=== PATIENT | female | born 1945 | race Caucasian/White ===

== ENCOUNTER 2025-04-10 10:20 | Inpatient (IN) | payer MEDICARE, OTHER, SELFPAY ==
[2025-04-10] VITALS (13 sets, daily range): BP systolic 125–158; BP diastolic 65–80; PULSE 86–97; RESP 12–18; TEMP 36.1–37.7; O2SAT 92–100; BMI 19.6; BMI 20.2; BMI 21.5
--- NOTE | ~2025-04-10 | XR_ITS ---
EXAMINATION: XR CHEST 1 VIEW HISTORY: sob COMPARISON: There are no prior studies available for comparison. FINDINGS: A single AP portable view of the chest performed at 9:11 AM is submitted. There is blunting of both costophrenic angles, suggestive of tiny pleural effusions. There are increased markings bilaterally. No focal airspace opacity is seen. There is no pneumothorax. The heart is normal in size. There is calcification of the aorta. There is degenerative disc disease of the spine. XR/XR chest 1V IMPRESSION: Probable tiny bilateral pleural effusions. Electronically signed by: Nathaniel Dasilva MD 04/20/2025 08:36 AM [facility] [place]
--- NOTE | ~2025-04-10 | CT_ITS ---
EXAMINATION: CT ABDOMEN PELVIS WITHOUT IV CONTRAST HISTORY: severe lower abd pain COMPARISON: There are no prior studies available for comparison. TECHNIQUE: CT scan of the abdomen and pelvis was performed without contrast using standard departmental protocol. Coronal and sagittal reformatted images were generated and reviewed. This CT exam was performed with one or more of the following dose reduction techniques: automated exposure control, adjustment of the mA and/or kV according to patient size, use of iterative reconstruction technique. DLP: 316 mGy-cm FINDINGS: LOWER CHEST: The visualized lung bases are clear. There is no pleural effusion. CARDIOVASCULATURE: The heart is normal in size. There is no pericardial effusion. LIVER: The liver is normal in size and contour. The liver has an unremarkable unenhanced appearance. GALLBLADDER / BILE DUCTS: Slightly distended gallbladder measuring 3.5 x 3.5 x 11 cm. Gallbladder otherwise unremarkable. No gallstones. There is no intra or extrahepatic biliary ductal dilatation. SPLEEN: The spleen is normal in size and has an unremarkable unenhanced appearance. PANCREAS: The pancreas has an unremarkable unenhanced appearance. ADRENAL GLANDS: Unremarkable. KIDNEYS/RETROPERITONEUM: No renal calculi are identified. There is no hydronephrosis. There is a 1.8 cm low-attenuation lesion in the lateral mid left kidney probably representing a cyst. There may be left renal peripelvic cysts. LYMPH NODES: No retroperitoneal lymphadenopathy is identified in the abdomen or pelvis. VASCULATURE: Atherosclerotic disease. Slightly dilated, aorta measuring up to 2.7 cm. No aneurysm. MESENTERY/PERITONEUM: Small amount of fluid in the lower abdomen and pelvis. There is mild edema or fat stranding of the small bowel mesentery. Small focus of air in the pelvis posterior to the uterus axial image 62 series 3 and sagittal reconstructed image 50 series 8. It is difficult to exclude small amount of free intraperitoneal air. No other evidence of free air is seen. STOMACH: There may be a small esophageal hernia. The stomach is under distended and difficult to evaluate. SMALL BOWEL: There are fluid-filled slightly distended loops of small bowel. There is an abnormal loop of distal small bowel seen in the right pelvis that demonstrates mild wall thickening and small bowel feces sign. This measures up to 2.8 cm in diameter. COLON: Large amount of stool in the colon/severe constipation. Colon is slightly dilated, cecum measuring up to 7 cm. There is diverticulosis of the colon. There is wall thickening of the sigmoid colon questionable for colitis or diverticulitis. APPENDIX: Not definitely seen. URINARY BLADDER/PELVIC ORGANS: The urinary bladder is unremarkable. Uterus and adnexa are unremarkable. No pelvic mass. BONES / SOFT TISSUES: Degenerative changes of the spine and scoliosis. Small umbilical hernia containing fat. CT/CT abdomen pelvis wo IV con IMPRESSION: Severe constipation. Wall thickening of the sigmoid colon questionable for colitis or diverticulitis. Small amount of fluid in the lower abdomen and pelvis. Question small focus of free intraperitoneal air in the pelvis posterior to the uterus. Fluid-filled distended small bowel. Abnormal loop of distal small bowel in the right pelvis with mild wall thickening and small bowel feces sign. Atherosclerotic disease. Mild dilatation of the abdominal aorta measuring 2.7 cm. No aneurysm. Left renal cysts. Distended gallbladder. Findings communicated to the emergency room physician Deon Parra by telephone 05/11/2025 at 1:50 pm. Electronically signed by: Gabriella Lundy MD 04/10/2025 02:03 PM EDT
--- NOTE | ~2025-04-10 | CT_ITS ---
CLINICAL HISTORY: recent surgery, worsening thrombocytosis CT abdomen and pelvis without contrast Comparison: CT/ND/SR - CT ABDOMEN PELVIS WITHOUT IV CONTRAST - 04/10/2025 12:46 PM EDT Findings: [id number] right and small left pleural effusion of the basilar compressive segmental atelectasis. Partial mineralization of the mitral valve. Unremarkable gallbladder and solid organs. No urolithiasis. Left lower quadrant colostomy. Prior surgical anastomosis at the distal sigmoid colon. Calcified coronary atherosclerotic disease. Mild calcified atherosclerotic disease of the abdominal aorta. Small amount of ascites. Recent midline abdominal surgery with surgical skin jaron present. The uterus is mildly atrophic. Cewy-ih-llpfecse osteopenia. Circumferential subcutaneous edema. Lumbar dextroscoliosis. IMPRESSION: 1. Zucrn-xl-ftrybmdo right and small left pleural effusion with basilar compressive atelectasis. 2. Interval left lower quadrant colostomy and surgical anastomosis at the distal sigmoid colon. 3. Anasarca. 4. No acute intraabdominal or pelvic findings. This document has been electronically signed by: Candelario Myles MD on 04/23/2025 18:19:12
--- NOTE | 2025-04-10 10:43 | PC.NURSE ---
80 F presents from home via EMS for n/v, abdominal pain since sunday with 8/10 lower abdomen pain. Pt is A+OX4, calm, cooeprative. RR even and unlabored, denies CP or SOB. Pt sts she has had mucous in stool and dark stool. Pt ambulates without devices.
--- NOTE | 2025-04-10 11:01 | ECG_ITS ---
Test Reason : AP Blood Pressure : */* mmHG Vent. Rate : 90 BPM Atrial Rate : 90 BPM P-R Int : 120 ms QRS Dur : 72 ms QT Int : 326 ms P-R-T Axes : 67 43 54 degrees QTcB Int : 398 ms Normal sinus rhythm Nonspecific ST and T wave abnormality Abnormal ECG No previous ECGs available Referred By: Melida Cote Electronically Signed By: SANDIP PATTERSON MD
--- NOTE | 2025-04-10 11:38 | ED_ITS ---
HPI - Abdominal Pain General Chief Complaint: Abdominal Pain Stated Complaint: sharp pain Time Seen by Provider: 04/10/25 10:58 Source: patient and family Mode of arrival: ambulatory Limitations: no limitations History of Present Illness ED Provider: LUPILLO HPI narrative: 80 yo female with PMH of GERD, HLD, HTN, not on thinners, no prior abdominal surgeries here with c/o nausea, poor PO intake, worsening abdominal pain since sunday night. She has no hx of diverticulitis, no fevers, she is weak. She was unable to take any meds this AM. She has never had this before. She has no pain urinating. It hurts to move and she cannot stand up. MD elicited complaint: abdominal pain Pertinent past history: none Onset (ago): day(s) (1.5) Pain Consistency: constant Location: periumbilical and suprapubic Severity: severe Quality: stabbing Migration to: no migration Exacerbating factors: movement Relieving factors: nothing Associated symptoms: nausea and chills Related Data Home Medications ?Medication ?Instructions ?Recorded ?Confirmed atorvastatin 10 mg tablet 10 mg PO BEDTIME 02/18/25 diltiazem HCl 240 mg 240 mg PO DAILY 02/18/25 capsule,extended release 24 hr famotidine 20 mg tablet 20 mg PO BID 02/18/25 olmesartan 20 mg tablet 20 mg PO DAILY 02/18/25 Previous Rx's ?Medication ?Instructions ?Recorded sumatriptan succinate 50 mg tablet 50 mg PO DAILY #18 tabs 03/05/25 Allergies Allergy/AdvReac Type Severity Reaction Status Date / Time No Known Allergies Allergy Verified 04/10/25 10:38 Review of Systems Review of Systems Constitutional : No Fever, pos Chills ENT/Mouth : No sore throat, No Rhinorrhea Eyes: No Swelling, No Redness Cardiovascular : No Chest Pain, No SOB, NoEdema Respiratory : No Cough, No Sputum, No Wheezing Gastrointestinal : Positive Nausea, Positive Vomiting, no Diarrhea, positive abdominal Pain, No Hematochezia, No Melena Genitourinary : No Dysuria, No Urinary Frequency, No Hematuria, No Urgency Musculoskeletal : No joint pain, No Myalgias, No Joint Swelling Skin : No Skin Lesions, No rash Neuro : pos Weakness, No Numbness, No Dizziness, No Headache All other systems reviewed and are negative. [facility] Past Medical History Attestation statement: The following information was validated with the patient. Source: old records reviewed Medical History Migraine with aura Migraine without aura Hypertension Social History Social History Smoked in Last 30 Days: No Use of substances other than those prescribed or required for medical reasons: No Advance Directives: No Advance Directives Information Provided: Yes Do you have a plan to hurt others: No Plan Physical Exam ED Vital Signs: Vital Signs - 24 hr 04/10/25 10:31 04/10/25 10:41 04/10/25 12:39 Temperature 97 F 97 F 98.2 F Pulse Rate 86 86 96 Respiratory Rate 18 18 18 Blood Pressure 158/80 H 158/80 H 144/66 H Pulse Oximetry 92 92 97 Oxygen Delivery Method Room Air Room Air Room Air BMI result Body Mass Index 19.6 Appearance: Alert. Oriented X3. No acute distress. Eyes: Pupils equal, round and reactive to light. ENT: Pharynx very dry MM Neck: Normal inspection. Neck supple. CVS: Normal heart rate and rhythm. Pulses normal. Respiratory: No respiratory distress. Breath sounds normal. Abdomen: soft but sig ttp in lower abd with rebound and guarding Skin: Skin warm and dry. Normal skin color. poor skin turgor. Extremities: No lower extremity edema. Neuro: Oriented X 3. No motor deficit. No sensory deficit. CN2-12 intact Medical Decision Making Medical Decision Making [facility] Narrative: 80 yo female with PMH of GERD, HLD, HTN, not on thinners, no prior abdominal surgeries here with c/o severe abdominal pain, poor PO intake at this time I am going to obtain IV, labs, lactic acid and CT scan. I have ordered IV morphine, tylenol and empiric zosyn I am concerned about acute abd pathology. Will monitor closely and obtain stat CT scan. Possible perf, diverticulitis with complication, colitis, ischemia, mass. Differential Diagnosis Differential Diagnoses: The differential diagnosis associated with the presentation includes diverticulitis, colitis, perforation, mass, ischemia Admission/Observation Consideration of admission/observation: Escalation of care including admission/observation considered admit for surgery Consult Healthcare Provider Management of the patient was discussed with: Archivist Political History Dr. Gallagher notified 155pm to see patient Lab Data [facility] Lab Attestation statement: I reviewed the patient's lab results. 04/10/25 11:29 04/10/25 11:29 Labs: Lab Results 04/10/25 04/10/25 Range/Units 11:29 12:29 WBC 21.5 H (4.8-10.8) X10*3/uL RBC 4.08 L (4.20-5.50) X10*6/uL Hgb 11.7 L (12.0-16.0) g/dl Hct 36.8 L (37.0-47.0) % MCV 90.2 (80.0-98.0) fL MCH 28.7 (27.0-33.0) pg MCHC 31.8 (31.0-35.0) g/dl RDW 15.3 (11.0-16.0) % Plt Count 305 (160-400) X10*3/uL MPV 9.8 (9.4-12.3) fL Immature Gran % (Auto) Cancelled Neut % (Auto) Cancelled Lymph % (Auto) Cancelled [place] % (Auto) Cancelled Eos % (Auto) Cancelled Baso % (Auto) Cancelled Lymph # (Auto) Cancelled [place] # (Auto) Cancelled Eos # (Auto) Cancelled Baso # (Auto) Cancelled Abs Immat Gran (auto) Cancelled Absolute Neuts (auto) Cancelled Absolute Nucleated RBC 0.000 (0.0-0.012) X10*3/uL Nucleated RBC % (auto) 0.0 (0.0-0.2) /100WBC Neutrophils % (Manual) 90 H (45-73) % Band Neutrophils % 6 H (3-5) % Lymphocytes % (Manual) 2 L (20-40) % Monocytes % (Manual) 1 L (2-11) % Metamyelocytes % 1 % Abs Neuts (Manual) 20.6 H (2.0-8.3) X10*3/uL Lymphocytes # (Manual) 0.4 L (1.2-4.9) X10*3/uL Monocytes # (Manual) 0.2 (0.1-1.2) X10*3/uL Metamyelocytes # 0.2 X10*3/uL Toxic Granulation PRESENT Toxic Vacuolation PRESENT Dohle Bodies PRESENT Platelet Estimate NORMAL (NORMAL) Plt Morphology Comment NORMAL RBC Morphology NOTED Ryan Cells 3+ (>5) /OIF Acanthocytes (Spur) 2+ (3-5) /OIF PT 16.5 H (10.9-12.4) SEC INR 1.4 H (0.9-1.1) Sodium 143 (135-145) mmol/L Potassium 4.1 (3.3-5.1) mmol/L Chloride 115 H (96-108) mmol/L Carbon Dioxide 17 L (22-29) mmol/L Anion Gap 15 (12-20) BUN 32 H (9-16) mg/dL Creatinine 1.91 H (0.5-1.4) mg/dL Estim Creat Clear Calc 18.3 Estimated GFR 25 Random Glucose 93 (60-115) mg/dL Lactic Acid 2.4 H* (0.5-2.0) mmol/L Calcium 9.1 (8.4-10.2) mg/dL Magnesium 2.0 (1.6-2.6) mg/dL Total Bilirubin 0.4 (0.0-1.0) mg/dL Direct Bilirubin 0.2 (0.0-0.5) mg/dL AST 26 (5-31) U/L ALT < 6 (0-31) U/L Alkaline Phosphatase 94 (39-117) U/L Troponin I High Sens 3.9 (<3.5-17.0) ng/L C-Reactive Protein 38.12 H (< or = 0.50) mg/dL Total Protein 7.3 (6.5-8.0) g/dL Albumin 4.0 (3.5-5.0) g/dL Lipase < 4 L (8-78) U/L Blood Type B Positive Antibody Screen NEGATIVE Independent Interpretation I performed an independent interpretation of an: EKG and CT Scan (diverticulitis, colitis, perforation) Interpretation: Rate: 90 Rhythm: NSR [place]: normal Normal P waves. Normal [place]ANNER. Normal QRS complex. ST T wave : flat t waves throughout, no LORENZO qTC: 398 prior studies: no prior The study has been interpreted contemporaneously by me. . Radiology Impression Discussion of test interpretation with radiology: I have reviewed the radiologist's reading. Independent Historian Clinical information obtained from an independent historian. History obtained from or confirmed by: Other (family, spoke to son Javier as well who is neurologist) External Record Review External record reviewed: Outpatient record Medications Administered Discontinued Medications Generic Name Dose Route Start Last Admin Trade Name Michelle PRN Reason Stop Dose Admin Acetaminophen 1,000 mg in 100 mls @ 400 mls/hr 04/10/25 11:06 04/10/25 11:55 Ofirmev IV 04/10/25 11:20 Infused ONCE ONE Infusion Lactated Ringer's 1,000 mls @ 999 mls/hr 04/10/25 11:06 04/10/25 11:45 Lr IV 04/10/25 12:06 999 mls/hr .Q1H1M ONE Administration Piperacillin Sod/Tazobactam 50 mls @ 100 mls/hr 04/10/25 11:06 04/10/25 12:20 Sod 3.375 gm/ Sodium Chloride IV 04/10/25 11:35 Infused ONCE ONE Infusion Lactated Ringer's 1,000 mls @ 999 mls/hr 04/10/25 11:10 04/10/25 11:46 Lr IV 04/10/25 12:10 999 mls/hr .Q1H1M ONE Administration Morphine Sulfate 4 mg 04/10/25 11:06 04/10/25 11:40 Morphine Sulfate 4 Mg/Ml Cartridge IVPUSH 04/10/25 11:07 4 mg ONCE ONE Administration Protocol Ondansetron HCl 4 mg 04/10/25 11:01 04/10/25 11:40 Ondansetron Hcl 4 Mg/2 Ml Vial IVPUSH 04/10/25 11:02 4 mg ONCE ONE Administration Critical Care Time Critical Care Time Critical Care Time: Yes Total Critical Care Time: 60 Attestation: Time is exclusive of separately billable procedures. Time includes: direct patient care, patient reassessment, coordination of patient care, interpretation of data (laboratory data, pulse oximetry, CT scans), review of patient's medical records, medical consultation and documentation of patient care. Procedures excluded from critical care time: central intravenous line placement and electrocardiography. I attest to this time spent taking care of the patient Discharge Plan Discharge Clinical Impression: Diverticulitis, Colon perforation, Elevated WBC count, Acidosis, lactic, ANGELITO (acute kidney injury) Patient Disposition: Admitted As Inpatient Print Language: Ecuadorean
[2025-04-10] MEDS: Lactated Ringers 1,000 ML 999 ML IV ×2 (11:45→11:46)
[2025-04-10 11:56] LABS: Hematocrit 36.8 % (37.0-47.0); Hemoglobin 11.7 g/dl (12.0-16.0); Mean Corpuscular HGB Conc 31.8 g/dl (31.0-35.0); Mean Corpuscular Hemoglobin 28.7 pg (27.0-33.0); Mean Corpuscular Volume 90.2 fL (80.0-98.0); NRBC Abs Auto 0.000 X10*3/uL (0.0-0.012); NRBC Pct Auto 0.0 /100WBC (0.0-0.2); Platelet Count 305 X10*3/uL (160-400); Red Blood Count 4.08 X10*6/uL (4.20-5.50); White Blood Count 21.5 X10*3/uL (4.8-10.8)
[2025-04-10 12:09] LABS: Troponin-I High Sensitivity 3.9 ng/L (<3.5-17.0)
[2025-04-10 12:15] LABS: Band Neutrophils Percent 6 % (3-5); Lymphocytes Absolute Manual 0.4 X10*3/uL (1.2-4.9); Lymphocytes Percent Manual 2 % (20-40); Metamyelocytes Absolute 0.2 X10*3/uL; Metamyelocytes Percent 1 %; Monocytes Absolute Manual 0.2 X10*3/uL (0.1-1.2); Monocytes Percent Manual 1 % (2-11); Neutrophils Absolute Manual 20.6 X10*3/uL (2.0-8.3); Neutrophils Percent Manual 90 % (45-73)
[2025-04-10 12:16] LABS: Acanthocytes 2+ (3-5) /OIF; Burr Cells 3+ (>5) /OIF; Dohle Bodies PRESENT; RBC Morphology NOTED
[2025-04-10 12:17] LABS: Toxic Granulation PRESENT; Toxic Vacuolation PRESENT
[2025-04-10 12:28] LABS: Alanine Aminotransferase < 6 U/L (0-31); Albumin Level 4.0 g/dL (3.5-5.0); Alkaline Phosphatase 94 U/L (39-117); Anion Gap 15 (12-20); Aspartate Amino Transferase 26 U/L (5-31); Blood Urea Nitrogen 32 mg/dL (9-16); Calcium 9.1 mg/dL (8.4-10.2); Carbon Dioxide 17 mmol/L (22-29); Chloride 115 mmol/L (96-108); Creatinine Clr Calc Pharmacy 18.3; Estimated Glomerular Filt Rate 25; Lipase < 4 U/L (8-78); Magnesium 2.0 mg/dL (1.6-2.6); Potassium 4.1 mmol/L (3.3-5.1); Sodium 143 mmol/L (135-145); Total Protein 7.3 g/dL (6.5-8.0)
--- OUTSIDE RECORDS SUMMARY | 2025-04-10 12:36 | XMS_ITS ---
Author Name [facility] Organization Unknown Care Team Organization Name Specialty Phone Email Start Date End Da te [facility] ACO 02/04/2025 [facility] Alena Quiroz Primary Care 02/22/2023 024 [facility] Jodie Keller Primary Care 11/24/2022 024 [facility] MILLICENT Pineda Primary Care 04/25/202201/16
--- OUTSIDE RECORDS SUMMARY | 2025-04-10 12:36 | XMS_ITS | Clinical Summary ---
Author Organization [facility] [address] [place] [address] [place] [phone] Phone Care Team Providers Care Cream Gatherer Name Role Phone Alena Quiroz MD Primary Care Provider [phone] Allergies Active Allergy Reactions Criticality Noted Date Comments Lisinopril 04/21/2019 Dry cough Sulfa (Sulfonamide Antibiotics) Rash 03/20 Medications loratadine (CLARITIN) 10 mg tablet Take 1 tablet (10 mg total) by mouth. Active Imitrex 50 mg tablet Take by mouth. 01/30/2007 Active famotidine (PEPCID) 20 mg tablet TAKE 1 TABLET BY MOUTH TWICE A DAY 180 tablet 1 10/24/2024 Active dilTIAZem CD (CARDIZEM CD) 240 mg 24 hr capsule TAKE 1 CAPSULE BY MOUTH EVERY DAY 90 capsule 1 10/24/2024 Active atorvastatin (LIPITOR) 10 mg tablet TAKE 1 TABLET BY MOUTH EVERYDAY AT BEDTIME 90 tablet 1 10/24/2024 Active olmesartan (BENICAR) 20 mg tablet TAKE 1 TABLET (20 MG TOTAL) BY MOUTH ONCE DAILY 90 tablet 02/03/2025 Active Active Problems Problem Noted Date Diagnosed Date Tubular adenoma of colon 05/16/2022 Overview (05/23/2024): CN done 04/28/2022 Abnormal MRI of abdomen 04/13/2022 Renal cyst 04/13/[address] of the abdomen 04/07/2022 Altered taste 04/04/2022 Grief 04/04/2022 Osteopenia of hip 04/04/2022 Weight loss 04/04/2022 Mild aortic insufficiency 03/26/2019 Overview (05/23/2024): Per echo 02/05/19, ECHO 12/14/2020 mild-moderate AI Cylindrical bronchiectasis (CMS/HCC V24, CMS/HCC V28) 02/13/2019 Ascending aorta dilation (CMS/HCC V24) 9 Overview (05/23/2024): [address] chest on 01/21/19. Consider repeat imaging in 1 year:ECHO 12/14/2020 3.8 cm, no sig change, EF 55-60% Dilation of esophagus 01/21/2019 Overview (05/23/2024): Dilation of thoracic esophagus containing fluid and air per CT chest on 01/20/19 Diverticulitis of colon without hemorrhage 03/22 Overview (05/23/2024): Incidental finding at colonoscopy 03/22/2007. Diffuse esophageal spasm 01/24/2007 Overview (05/23/2024): EGD 01/24/2007: No esophagitis, no stricture, biopsies negative for eosinophilic esophagitis. Diffuse esophageal spasm most likely based on esophageal manometry (2007) and UGI series. 03/14/2019 Ba swallow still w BETZAIDA Essential hypertension, benign 04/16/2006 Overview (05/23/2024): Last Assessment & Plan: BP elevated today, has f/u scheduled with PCP Migraine with aura 04/16/2006 Overview (05/23/2024): IMO update Immunizations Immunization Administration Dates Next Due Influenza trivalent, 0.5mL ( Fluad) 65yo and older 03/06/2024,02/26/2023,04/04/2022,03/31,03/24/2019 Influenza trivalent, 0.5mL, preservative free (Fluarix; FluLaval; Fluzone) ages 6mo and older (Afluria) 3 years and older 03/23/2010 Influenza, Unspecified 05/06/2021,04/07/2014 Moderna (age 6mo & older) Bi valent, COVID-19, 0.5 mL or 0.25 mL dosage 04/17/2022 Moderna SARS-CoV-2 COVID-19, mRNA, LNP-S, preservative free 05/06/2021,09/06/2020,08/09/2020 Pfizer (ages 12 & older) Biv alent, COVID-19 04/17/2022 Pneumococcal conjugate 13 va lent (Prevnar 13, PCV13) 2mo and older 11/02/2020 Pneumococcal polysaccharide 23 valent (Pneumovax 23) 2yo and older 08/15/2011 Tdap Tetanus diptheria acell ular pertussis (Boostrix; Adacel) 7yo and older 01/08/2019,03/04/2007 Surgical History Surgery Date Site/Laterality Comments OTHER SURGICAL HISTORY 12/10/2007 PROCEDURE: UT ESOPHAGEAL MOTILITY STUDY W/INTERP&RPT; COMMENT: diffuse esophageal spasm TONSILLECTOMY 1950 PROCEDURE: HISTORICAL TONSILLECTOMY WRIST SURGERY PROCEDURE: HISTORICAL WRIST SURGERY; COMMENT: left, fx COLONOSCOPY 03/22/2007 PROCEDURE: HISTORICAL COLONOSCOPY; COMMENT: negative UPPER GASTROINTESTINAL ENDOSCOPY 01/24/2007 PROCEDURE: UT UPPER GI ENDOSCOPY PERFORMED UPPER GASTROINTESTINAL ENDOSCOPY 03/07/2019 PROCEDURE: UT UPPER GI ENDOSCOPY PERFORMED; COMMENT: No visible obstruction or esophagitis. COLONOSCOPY 04/28/2022 PROCEDURE: HISTORICAL COLONOSCOPY; COMMENT: Tubular adenoma OTHER SURGICAL HISTORY 04/28/2022 PROCEDURE: UPPER GI ENDOSCOPY, REMOVE LESION; COMMENT: No specimens BREAST CYST EXCISION pt doesn't remember which breast Medical History Medical History Date Comments Essential hypertension, benign 04/16/2006 D X:Essential hypertension, benign Migraine with aura, without mention of intractable migraine without mention of status migrainosus 04/16/2006 DX:Migraine with aura, witho ut mention of intractable migraine without mention of status migrainosus Dysphagia 01/24/2007 DX:Dysphagia; CO MMENT: EGD 01/24/2007 Diverticulosis of colon (wit hout mention of hemorrhage) 03/22/2007 DX:Diverticulosis of colon ( without mention of hemorrhage); COMMENT: Incidental finding at colonoscopy 03/22/2007. Special screening for malign ant neoplasms, colon 03/22/2007 DX:Special screening for mal ignant neoplasms, colon; COMMENT: Negative colonoscopy 03/22/2007, no colon cancer screening needed for 10 years. Colon polyp 05/16/2022 DX:Colon polyp; COMMENT: CN done 04/28/2022 Tubular adenoma of colon 05/16/2022 DX:Tubu lar adenoma of colon; COMMENT: CN done 04/28/2022 Family History Medical History Relation Name Comments No Known Problems Brother CABG Father in his 80s Diabetes Father Heart attack Father in his 50s Diabetes Maternal Grandmother Diabetes Mother Hypertension Mother Multiple myeloma Mother CABG Sister 1 in her 70s, copy lathe tender d Cervical cancer Sister 2 Hypertension Sister 2 No Known Problems Sister 3 No Known Problems Sister 4 Breast cancer Neg Hx Colon cancer Neg Hx Ovarian cancer Neg Hx Relation Name Status Comments Brother Father (Age 90) Maternal Grandmother Mother (Age 79) Sister 1 (Age 75) Sister 2 Sister 3 Sister 4 Social History Tobacco Use Types Packs/Day Years Used Date Smoking Tobacco: Former Cigarettes Q uit: 06/18/1969 Smokeless Tobacco: Never Tobacco Cessation:Counseling Given: Not Answered Alcohol Use Standard Drinks/Week Comments Yes 0 (1 standard drink = 0.6 oz pur e alcohol) Comments No Sex and Gender Information Value Date Recorded Sex Assigned at Not on file Legal Sex Female 8:20 AM EST Gender Identity Not on file Sexual Orientation Not on file Obstetrics History Para Term AB IAB SAB Ectopic Multiple Livin g Live Births 3 3 3 3 Date Outcome GA Total Labor Labor/2nd/3rd Weight Sex Type Anes PTL Rachel A1 A5 Name Clin Term Term Term Last Filed Vital Signs Vital Sign Reading Time Taken Comments Blood Pressure 108/72 09/08/2024 2:53 PM EDT Pulse 72 09/08/2024 2:53 PM EDT Temperature 36.7 C (98 F) 09/08/2024 2:53 PM EDT Respiratory Rate 14 09/08/2024 2:53 PM EDT Oxygen Saturation - - Inhaled Oxygen Concentration - - Weight 50.3 kg (110 lb 12.8 oz) 09/08/2024 2:53 PM EDT Height 157.5 cm (5' 2 ) 09/08/2024 2:53 PM EDT Body Mass Index 20.27 09/08/2024 2:53 PM EDT Plan of Treatment Upcoming Encounters Date Type Department Care Team (Late st Contact Info) Description 04/23/2025 1:30 PM EST Office Visit Adult Medicine [facility] [address] [place] [address] Alena Quiroz MD [address] [place], [place] Health Maintenance Due Date Last Done Comments Zoster Vaccines (1 of 2) 02/22/1996 RSV Immunization Adult Patients (1 - 1-dose 75+ series) 2021 Social Influencers of Health Screening 05/27/2022 Depression Screening 06/18/2024 03/06/2024 COVID-19 Vaccine ( season) 2025 04/17/2022, 04/17/2022, 05/06/2021, Additional history exists Influenza Vaccine (#1) 2025 , 02/26/2023, 04/04/2022, Additional history exists Medicare Annual Wellness Visit 03/06/2025 03/06/2024 Falls Risk Assessment 04/15/2025 04/15/2024 Hypertension/CHF/CAD Annual BMP Blood Test 09/08/2025 09/08/2024, 03/07/2024, 03/07/2024 DTaP,Tdap,and Td Vaccines (3 - Td or Tdap) 01/08/2029 01/08/2019, 03/04/2007 Cholesterol Screening (Lipid Panel) 03/07/2029 03/07/2024, 03/07/2024 Colorectal Cancer Screening: Colonoscopy 04/28/2032 04/28/2022, 04/28/2022 Osteoporosis Screening (Bone Density Screening) 05/08/2032 05/08/2022, 01/10/2019 Hepatitis C Screening Completed 10/24/2013 Pneumococcal Vaccine: 50+ Years Completed 11/02/2020, 08/15/2011 HIB Vaccines Aged Out No longer eligi ble based on patient's age to complete this topic HPV Vaccines Aged Out No longer eligi ble based on patient's age to complete this topic Hepatitis A Vaccines Aged Out No long er eligible based on patient's age to complete this topic Hepatitis B Vaccines Aged Out No long er eligible based on patient's age to complete this topic IPV Vaccines Aged Out No longer eligi ble based on patient's age to complete this topic MMR Vaccines Aged Out No longer eligi ble based on patient's age to complete this topic Meningococcal ACWY Vaccine Aged Out N o longer eligible based on patient's age to complete this topic Meningococcal B Vaccine Aged Out No l onger eligible based on patient's age to complete this topic RSV Immunization Patients Under 20 months Aged Out No longer eligible based on patient's age to complete this topic Varicella Vaccines Aged Out No longer eligible based on patient's age to complete this topic Procedures Procedure Name Priority Date/Time Associated Diagnosis Comments BASIC METABOLIC PANEL Routine 09/08/2024 3:56 PM EDT Essential hypertension, benign FALLS RISK ASSESSMENT Routine 04/15/2024 LIPID PANEL Routine 03/07/2024 DEPRESSION SCREENING Routine 03/06/2024 DXA BONE DENSITY STUDY 1+ SITS AXIAL SKEL Routine 05/08/2022 1:00 PM EST Other specified disorders of bone density and structure, unspecified thigh EXTERNAL COLONOSCOPY REPORT Routine 04/28/2022 7:47 AM EST HEPATITIS C SCREENING Routine 10/24/2013 from Last 3 Months or Most Recently Relevant to Health Maintenance Results * (ABNORMAL) Basic metabolic panel (09/08/2024 3:56 PM EDT) Sodium 141 133 - 145 mmol/L LAB CHEMISTRY METHOD 09/08/2024 6:57 PM EDT [facility] Potassium 4.7 3.5 - 5.5 mmol/L LAB CHEMISTRY METHOD 09/08/2024 6:57 PM EDT [facility] Chloride 111(H) 96 - 110 mmol/L LAB CHEMISTRY METHOD 09/08/2024 6:57 PM EDT [facility] CO2 21 21 - 32 mmol/L LAB CHEMISTRY METHOD 09/08/2024 6:57 PM EDT [facility] Anion Gap 9 3 - 11 LAB CHEMISTRY METHOD 09/08/2024 6:57 PM EDT [facility] Glucose 84 70 - 100 mg/dL LAB CHEMISTRY METHOD 09/08/2024 6:57 PM EDT [facility] BUN 18 5 - 25 mg/dL LAB CHEMISTRY METHOD 09/08/2024 6:57 PM EDT [facility] Creatinine 0.87 0.50 - 1.10 mg/dL LAB CHEMISTRY METHOD 09/08/2024 6:57 PM EDT [facility] eGFR 68 >=60 mL/min/1. 73m2 LAB CHEMISTRY METHOD 09/08/2024 6:57 PM EDT [facility] Comment:Calculation based on the Chronic Kidney Disease Epidemiology Collaboration (CKD-EPI) equation refit without adjustment for race. BUN/Creatinine Ratio 20.7 LAB CHEMISTRY METHOD 09/08/2024 6:57 PM EDT [facility] Calcium 9.1 8.5 - 10.5 mg/dL LAB CHEMISTRY METHOD 09/08/2024 6:57 PM EDT [facility] Blood Venous blood specimen / Unknown Venipuncture / Unknown 09/08/2024 3:56 PM EDT 09/08/2024 3:56 PM EDT Pritesh DANGELO LAB BLOOD ORDERABLES Final Res ult [facility] [address] [place] [address], * Falls Risk Assessment (04/15/2024) Pathologist [facility] Falls Risk Assessment abstracted Historical Provider HEALTH MAINTENANCE Final Result * Lipid panel (03/07/2024) LDL/HDL Ratio 2 0 - 4 Triglycerides 69 0 - 150 mg/dL Cholesterol 172 0 - 200 mg/dL HDL 77 >=40 mg/dL LDL Cholesterol 82 0 - 100 mg/dL Blood Venous blood specimen / Unknown us Historical Provider LAB BLOOD ORDERABLES Delaney l Result * Depression Screening (03/06/2024) Depression Screening abstracted us Historical Provider HEALTH MAINTENANCE Final Result * DXA BONE DENSITY STUDY 1+ SITS AXIAL SKEL (05/08/2022 1:00 PM EST) Anatomical Region Laterality Modality Bone Densitometr y 04/04/2022 10:1 0 AM EDT Narrative 05/08/2022 8:38 PM EST BONE DENSITY SCAN (DEXA): FINDINGS: Lumbar Spine T-score is -1.1. (SD relative to 20-29 y/o adult) Z-score is 1.4. (SD relative to age matched peers) This is considered osteopenia by WHO criteria. Left Hip T-score is -2.0. Z-score is 0.1. This is considered osteopenia by WHO criteria. Comparison exam(s): As recent as 01/10/2019 and as far back as 04/28/2003. No statistically significant change in bone mineral density compared with previous and baseline exams. IMPRESSION: IMPRESSION: Osteopenia by WHO criteria. This patient has a 17% risk of major osteoporotic fracture and a 4.3% risk of hip fracture over the next 10 years. (World Health Organization Fracture Risk Assessment) [facility] Department of Internal Medicine recommends using National Osteoporosis Foundation (NOF) guidelines in treatment decisions related to osteoporosis. NOF guidelines suggest considering treatment for postmenopausal women and men aged 50 or older presenting with the following: History of hip or vertebral fracture. T-score = -2.5 (DXA) at the femoral neck, total hip, or spine, after appropriate evaluation to exclude secondary causes. Low bone mass (T-score between -1.0 and -2.5 at the femoral neck or spine) AND a 10-year probability of a hip fracture = 3% OR a 10-year probability of a major osteoporosis-related fracture = 20% based on the [place]-adapted WHO algorithm Please note that all treatment decisions require clinical judgment and consideration of individual patient factors, including patient preferences, co-morbidities, previous drug use, risk factors not captured in the FRAX model (e.g., frailty, falls, vitamin D deficiency, increased bone turnover, interval significant decline in bone density) and possible under- or over-estimation of fracture risk by FRAX. Optional alternative screening schedule based on issa Mayer., [facility] July 06, 2011 for patients with osteopenia (based on hip BMD T-score) is as follows: * advanced osteopenia (T scores -2.00 to -2.49), BMD testing every year * moderate osteopenia (T scores -1.50 to -1.99), BMD testing every 5 years mild osteopenia or normal BMD (T scores -1.50 and higher), BMD testing every 15 years Procedure Note Jael Colón MD - 07/23/2023 BONE DENSITY SCAN (DEXA): FINDINGS: Lumbar Spine T-score is -1.1. (SD relative to 20-29 y/o adult) Z-score is 1.4. (SD relative to age matched peers) This is considered osteopenia by WHO criteria. Left Hip T-score is -2.0. Z-score is 0.1. This is considered osteopenia by WHO criteria. Comparison exam(s): As recent as 01/10/2019 and as far back as 04/28/2003.No statistically significant change in bone mineral density compared with previous andbaseline exams. IMPRESSION: IMPRESSION: Osteopenia by WHO criteria. This patient has a 17% risk of majorosteoporotic fracture and a 4.3% risk of hip fracture over the next 10 years. (World HealthOrganization Fracture Risk Assessment) [facility] Department of Internal Medicine recommendsusing National Osteoporosis Foundation (NOF) guidelines in treatment decisions related toosteoporosis. NOF guidelines suggest considering treatment for postmenopausal women and menaged 50 or older presenting with the following: History of hip or vertebral fracture. T-score = -2.5 (DXA) at the femoral neck, total hip, or spine, afterappropriate evaluation to exclude secondary causes. Low bone mass (T-score between -1.0 and -2.5 at the femoral neck or spine)AND a 10-year probability of a hip fracture = 3% OR a 10-year probability of a majorosteoporosis-related fracture = 20% based on the [place]-adapted WHO algorithm Please note that all treatment decisions require clinical judgment andconsideration of individual patient factors, including patient preferences, co- morbidities,previous drug use, risk factors not captured in the FRAX model (e.g., frailty, falls, vitaminD deficiency, increased bone turnover, interval significant decline in bone density) andpossible under- or over-estimation of fracture risk by FRAX. Optional alternative screening schedule based on ursula Mayer al., NEJMJanuary 2011 for patients with osteopenia (based on hip BMD T-score) is as follows: * advanced osteopenia (T scores -2.00 to -2.49), BMD testing every year * moderate osteopenia (T scores -1.50 to -1.99), BMD testing every 5years mild osteopenia or normal BMD (T scores -1.50 and higher), BMD testingevery 15 years Jodie DANGELO IMG DXA PROCEDURES Final Result * External Colonoscopy Report (04/28/2022 7:47 AM EST) Anatomical Region Laterality Modality Endoscopy Historical Provider GI~PROCEDURE ORDERABLES F inal Result * Hepatitis C Screening (10/24/2013) Hepatitis C Screening abstracted Historical Provider HEALTH MAINTENANCE Final Result from Last 3 Months or Most Recently Relevant to Health Maintenance Insurance MEDICARE [employer] Care Teams Cream Gatherer Relationship Specialty Start Date End Date Alena Quiroz MD [address] [place] [phone] PCP - General Internal Medicine 01/23/22
--- NOTE | 2025-04-10 12:47 | PC.NURSE ---
pt just went to cat scan, sts no more n/v, abdominal pain down to a 5/10. RR even and unlabored, no visible s/s of distress.
[2025-04-10 12:48] LABS: INTERNATIONAL NORM RATIO 1.4 (0.9-1.1); Prothrombin Time 16.5 SEC (10.9-12.4)
[2025-04-10 13:37] LABS: Reflex Lactate? Lactic Acid Added
[2025-04-10 14:21] LABS: ~Lactic Acid-LAB USE ONLY 2.5 mmol/L (0.5-2.0)
[2025-04-10] MEDS: Lactated Ringers 1,000 ML 80 ML IVCONT (14:21)
[2025-04-10 14:45] LABS: Appearance Urine Clear; Glucose Urine UA Negative (Negative); PH 5.5 (5.0-9.0); Specific Gravity - Urine 1.020 (1.005-1.025); UMIC TRIGGER UACC YES
[2025-04-10 15:00] LABS: UACC Culture Trigger YES
--- NOTE | 2025-04-10 15:32 | PHA.MEDREC ---
Addendum entered by Codie Sierra RPh 04/10/25 16:00: MED REC REVIEWED BY [facility] Original Note: Pharmacy Consult ? Medication Reconciliation Pharmacy has completed the medication reconciliation. Spoke with pt and she confirmed her medications.
--- NOTE | 2025-04-10 15:52 | PC.NURSE ---
Report called to [employer].
[2025-04-10 15:53] LABS: Reflex Lactate? 2 Y
--- NOTE | 2025-04-10 16:10 | PM.HPGS ---
History of Present Illness History of Present Illness Date of Service: 04/10/25 Chief complaint: perforated diverticulitis Narrative: Christianne Edmondson is a 80 year old female who presents to the emergency room after a 2 day history of increasing abdominal pain and having worsening constipation as well. She normally has some baseline GI symptoms however most of this is upper GI with issues consisting of dysphagia and reflux. She sees a cooler operator at [facility]. She did have a colonoscopy about 5 years ago and said that she knew that she had diverticular disease and the small polyp. As far as she knows she has never had any significant diverticulitis. Her pain was getting worse and she felt nauseated at times. As a result today she came to the emergency room. Here she [place] [id number] with 6 bandemia and diffuse peritonitis. CT scan of her abdomen and pelvis was carried out and shows thickened sigmoid colon with some loculated areas of free air in the lower pelvic area. Her creatinine was elevated and despite resuscitation her lactic acid was still little elevated around 2.5. Surgical consultation was had and after reviewing the CT scan and the patient it was determined that she would benefit from exploration and most likely sigmoid colectomy and colostomy creation. She denied any significant fever or chills. No urinary symptoms no chest pain no shortness of breath. She has never had any surgery before. Patient's son is a neurologist at [facility] and her case was discussed with him preoperatively Review of Systems Review of Systems: Yes all other systems are reviewed and are negative PMFSH Past Medical History Medical History Migraine with aura Migraine without aura Hypertension Surgical History Surgical History (Updated 04/10/25 @ 16:17 by Yue Andres RN) H/O wrist surgery Social History Social History Household Members Other:: son lives nearby Do you presently have visiting nurse or other home services: No Patient Tobacco Use Status: Former Tobacco user Tobacco use type: Cigarette Meds Allergies Allergy/AdvReac Type Severity Reaction Status Date / Time Penicillins Allergy Intermediate Rash Verified 04/10/25 16:19 Sulfa (Sulfonamide Allergy Intermediate Rash Verified 04/10/25 16:19 Antibiotics) lisinopril AdvReac Intermediate Cough Verified 04/10/25 16:20 Active Medications: Current Medications Acetaminophen (Acetaminophen 325 Mg Tablet) 650 mg PO Q6H PRN PRN Reason: Pain, Mild 1-3,fever,headache Calcium Carbonate (Calcium Carbonate 750 Mg Tab.Chew) 750 mg PO Q4H PRN PRN Reason: Heartburn Lactated Ringer's (Lr) 1,000 mls @ 80 mls/hr IVCONT .[id number] [facility] Last Admin: 04/10/25 14:21 Dose: 80 mls/hr Magnesium Hydroxide (Milk Of Magnesia 30 Ml Oral.Susp) 30 ml PO DAILY PRN PRN Reason: Constipation Melatonin (Melatonin 3 Mg Tablet) 6 mg PO BEDTIME PRN PRN Reason: Insomnia Sodium Chloride (0.9 % Sodium Chloride Flush 3 Ml Syringe) 3 ml IVFLUSH QSHIFT [facility] Home Medications ?Medication ?Instructions ?Recorded ?Confirmed ?Last Taken ?Type atorvastatin 10 mg tablet 10 mg PO BEDTIME 02/18/25 04/10/25 04/08/25 History diltiazem HCl 240 mg 240 mg PO DAILY 02/18/25 04/10/25 04/08/25 History capsule,extended release 24 hr famotidine 20 mg tablet 20 mg PO BID 02/18/25 04/10/25 04/08/25 History olmesartan 20 mg tablet 20 mg PO BEDTIME 02/18/25 04/10/25 04/08/25 History bismuth subsalicylate 262 mg/15 mL 524 mg PO QID PRN Constipation 04/10/25 04/10/25 Unknown History oral suspension (Pepto-Bismol) diphenhydramine 25 1 tab PO BEDTIME PRN Sleep 04/10/25 04/10/25 Unknown History mg-acetaminophen 500 mg tablet (Acetaminophen PM) ibuprofen 200 mg tablet (Advil) 200 mg PO Q6H PRN migrine 04/10/25 04/10/25 Unknown History sumatriptan succinate 50 mg tablet 50 mg PO DAILY PRN Migraine 04/10/25 04/10/25 Unknown History Headache Physical Exam Vital Signs: Vital Signs: Last Vital Signs Temp 98.2 F 04/10/25 12:39 Pulse 97 04/10/25 12:50 Resp 18 04/10/25 12:50 BP 129/65 04/10/25 12:50 Pulse Ox 95 04/10/25 12:50 O2 Del Method Room Air 04/10/25 12:50 BMI result Body Mass Index 19.6 Const: General: cooperative, acute distress moderate and tired appearing Orientation/consciousness: oriented to person, oriented to place and oriented to time Eyes: Other: Nonicteric Resp: Effort & Inspection: normal respiratory effort Auscultation: clear to auscultation bilaterally Cardio: Rate: regular rate Rhythm: regular rhythm Heart sounds: S1 normal heart sound present and S2 normal heart sound present GI: Other: Abdomen is soft little distended diffusely tender with guarding and some peritoneal signs. No palpable masses are noted Skin: Other: No obvious rashes Neuro: General: oriented to person, oriented to place and oriented to time Cranial nerves: Yes CN's II-XII intact bilaterally Results Results Labs: Short CBC 04/10/25 Range/Units 11:29 WBC 21.5 H (4.8-10.8) X10*3/uL Hgb 11.7 L (12.0-16.0) g/dl Hct 36.8 L (37.0-47.0) % Plt Count 305 (160-400) X10*3/uL BMP 04/10/25 11:29 Sodium 143 Potassium 4.1 Chloride 115 H Carbon Dioxide 17 L BUN 32 H Creatinine 1.91 H Calcium 9.1 Liver Function 04/10/25 Range/Units 11:29 Total Bilirubin 0.4 (0.0-1.0) mg/dL Direct Bilirubin 0.2 (0.0-0.5) mg/dL AST 26 (5-31) U/L ALT < 6 (0-31) U/L Alkaline Phosphatase 94 (39-117) U/L Albumin 4.0 (3.5-5.0) g/dL Urine 04/10/25 Range/Units 14:30 Urine Color Yellow Urine Appearance Clear Urine pH 5.5 (5.0-9.0) Ur Specific [place] 1.020 (1.005-1.025) Urine Protein 30 (1+) H (Neg-Trace) mg/dL Urine Glucose (UA) Negative (Negative) mg/dL Additional studies: MR#: [id number] : 1945 Acct:[id number] Age/Sex: 80 / F ADM Date: 04/10/25 Loc: HO.ED Attending Dr: Ordering Physician: Melida Cote DO Date of Service: 04/10/25 Procedure(s): CT abdomen pelvis wo IV con Accession Number(s): [id number] cc: Melida Cote DO; Alena Quiroz MD~ Report Number: [id number]: Total DLP = 316.00 mGy-cm Reason for Exam: severe lower abd pain EXAMINATION: CT ABDOMEN PELVIS WITHOUT IV CONTRAST HISTORY: severe lower abd pain COMPARISON: There are no prior studies available for comparison. TECHNIQUE: CT scan of the abdomen and pelvis was performed without contrast using standard departmental protocol. Coronal and sagittal reformatted images were generated and reviewed. This CT exam was performed with one or more of the following dose reduction techniques: automated exposure control, adjustment of the mA and/or kV according to patient size, use of iterative reconstruction technique. DLP: 316 mGy-cm FINDINGS: LOWER CHEST: The visualized lung bases are clear. There is no pleural effusion. CARDIOVASCULATURE: The heart is normal in size. There is no pericardial effusion. LIVER: The liver is normal in size and contour. The liver has an unremarkable unenhanced appearance. GALLBLADDER / BILE DUCTS: Slightly distended gallbladder measuring 3.5 x 3.5 x 11 cm. Gallbladder otherwise unremarkable. No gallstones. There is no intra or extrahepatic biliary ductal dilatation. SPLEEN: The spleen is normal in size and has an unremarkable unenhanced appearance. PANCREAS: The pancreas has an unremarkable unenhanced appearance. ADRENAL GLANDS: Unremarkable. KIDNEYS/RETROPERITONEUM: No renal calculi are identified. There is no hydronephrosis. There is a 1.8 cm low-attenuation lesion in the lateral mid left kidney probably representing a cyst. There may be left renal peripelvic cysts. LYMPH NODES: No retroperitoneal lymphadenopathy is identified in the abdomen or pelvis. VASCULATURE: Atherosclerotic disease. Slightly dilated, aorta measuring up to 2.7 cm. No aneurysm. MESENTERY/PERITONEUM: Small amount of fluid in the lower abdomen and pelvis. There is mild edema or fat stranding of the small bowel mesentery. Small focus of air in the pelvis posterior to the uterus axial image 62 series 3 and sagittal reconstructed image 50 series 8. It is difficult to exclude small amount of free intraperitoneal air. No other evidence of free air is seen. STOMACH: There may be a small esophageal hernia. The stomach is under distended and difficult to evaluate. SMALL BOWEL: There are fluid-filled slightly distended loops of small bowel. There is an abnormal loop of distal small bowel seen in the right pelvis that demonstrates mild wall thickening and small bowel feces sign. This measures up to 2.8 cm in diameter. COLON: Large amount of stool in the colon/severe constipation. Colon is slightly dilated, cecum measuring up to 7 cm. There is diverticulosis of the colon. There is wall thickening of the sigmoid colon questionable for colitis or diverticulitis. APPENDIX: Not definitely seen. URINARY BLADDER/PELVIC ORGANS: The urinary bladder is unremarkable. Uterus and adnexa are unremarkable. No pelvic mass. BONES / SOFT TISSUES: Degenerative changes of the spine and scoliosis. Small umbilical hernia containing fat. CT/CT abdomen pelvis wo IV con IMPRESSION: Severe constipation. Wall thickening of the sigmoid colon questionable for colitis or diverticulitis. Small amount of fluid in the lower abdomen and pelvis. Question small focus of free intraperitoneal air in the pelvis posterior to the uterus. Fluid-filled distended small bowel. Abnormal loop of distal small bowel in the right pelvis with mild wall thickening and small bowel feces sign. Atherosclerotic disease. Mild dilatation of the abdominal aorta measuring 2.7 cm. No aneurysm. Left renal cysts. Distended gallbladder. Findings communicated to the emergency room physician Deon Parra by telephone 05/11/2025 at 1:50 pm. Electronically signed by: Gabriella Lundy MD 04/10/2025 02:03 PM EDT Dictated By: Gabriella Lundy MD Signed By: <Electronically signed by Gabriella Lundy MD in OV> 04/10/25 1403 DD/ 1246 TD/TT: 04/10/25 1300 S[employer] Solution Architect: MIGUEL Assessment and Plan (1) Diverticulitis: Status: Acute (2) Colon perforation: Status: Acute Plan 80-year-old female with abdominal pain times 48-72 hours [place] [address] elevated lactic acid and acute kidney insufficiency with elevated creatinine. Most likely secondary to colitis with localized perforation. Severe constipation as well. Plan to carry out exploratory laparotomy with bowel resection and possible ostomy creation. The risks and benefits were discussed with the patient including but not limited to bleeding infection possible bowel injury possible hernia but despite this she wishes to proceed. Extensive discussion was also had with the patient's family and her son who is a neurologist. They understand and agree with proceeding with this surgery. Quality Stroke Does the patient have a stroke diagnosis?: No VTE Prior VTE?: No VTE Risk Level:: Medical - moderate - high VTE Device Contraindication: N/A - Device Ordered VTE Drug Contraindication: N/A - Med Ordered Procedures Date of Service Date of Service: 04/10/25
--- NOTE | 2025-04-10 16:33 | HO.ANESPROP2 ---
HPI - Anesthesia Eval Consult details Narrative: 80 yo F presenting for exploratory laparotomy. Admitted with perforated colon. [facility] Active Problems Active Problems: All Active Problems ANGELITO (acute kidney injury) (Acute) Acidosis, lactic (Acute) Elevated WBC count (Acute) Colon perforation (Acute) Diverticulitis (Acute) Past Medical History Medical History (Updated 04/10/25 @ 16:14 by Yue Andres RN) Diffuse esophageal spasm High cholesterol GERD (gastroesophageal reflux disease) Migraine with aura Migraine without aura Hypertension Family History Family history of problems with anesthesia: No Surgical History Surgical History (Updated 04/10/25 @ 16:17 by Yue Andres RN) H/O wrist surgery History of Problems with Anesthesia: No Social History Social History Smoked in Last 30 Days: No Use of substances other than those prescribed or required for medical reasons: No Advance Directives: No Advance Directives Information Provided: Yes Do you have a plan to hurt others: No Plan Meds Allergies Allergy/AdvReac Type Severity Reaction Status Date / Time Penicillins Allergy Intermediate Rash Verified 04/10/25 16:19 Sulfa (Sulfonamide Allergy Intermediate Rash Verified 04/10/25 16:19 Antibiotics) lisinopril AdvReac Intermediate Cough Verified 04/10/25 16:20 Active Medications: Current Medications Acetaminophen (Acetaminophen 325 Mg Tablet) 650 mg PO Q6H PRN PRN Reason: Pain, Mild 1-3,fever,headache Calcium Carbonate (Calcium Carbonate 750 Mg Tab.Chew) 750 mg PO Q4H PRN PRN Reason: Heartburn Lactated Ringer's (Lr) 1,000 mls @ 80 mls/hr IVCONT [facility][id number] Last Admin: 04/10/25 14:21 Dose: 80 mls/hr Magnesium Hydroxide (Milk Of Magnesia 30 Ml Oral.Susp) 30 ml PO DAILY PRN PRN Reason: Constipation Melatonin (Melatonin 3 Mg Tablet) 6 mg PO BEDTIME PRN PRN Reason: Insomnia Sodium Chloride (0.9 % Sodium Chloride Flush 3 Ml Syringe) 3 ml IVFLUSH QSHIFT [facility] Home Medications ?Medication ?Instructions ?Recorded ?Confirmed ?Last Taken ?Type atorvastatin 10 mg tablet 10 mg PO BEDTIME 02/18/25 04/10/25 04/08/25 History diltiazem HCl 240 mg 240 mg PO DAILY 02/18/25 04/10/25 04/08/25 History capsule,extended release 24 hr famotidine 20 mg tablet 20 mg PO BID 02/18/25 04/10/25 04/08/25 History olmesartan 20 mg tablet 20 mg PO BEDTIME 02/18/25 04/10/25 04/08/25 History bismuth subsalicylate 262 mg/15 mL 524 mg PO QID PRN Constipation 04/10/25 04/10/25 Unknown History oral suspension (Pepto-Bismol) diphenhydramine 25 1 tab PO BEDTIME PRN Sleep 04/10/25 04/10/25 Unknown History mg-acetaminophen 500 mg tablet (Acetaminophen PM) ibuprofen 200 mg tablet (Advil) 200 mg PO Q6H PRN migrine 04/10/25 04/10/25 Unknown History sumatriptan succinate 50 mg tablet 50 mg PO DAILY PRN Migraine 04/10/25 04/10/25 Unknown History Headache Exam Exam Date and Time: 04/10/25 1630 Height,Weight and Vital Signs: Height 5 ft 2 in Weight 48.534 kg Last Vital Signs Temp 98.2 F 04/10/25 12:39 Pulse 97 04/10/25 12:50 Resp 18 04/10/25 12:50 BP 129/65 04/10/25 12:50 Pulse Ox 95 04/10/25 12:50 O2 Del Method Room Air 04/10/25 12:50 Pertinent Lab Results Pertinent Lab Results: Laboratory Tests 04/10/25 04/10/25 04/10/25 11:29 12:29 13:50 WBC 21.5 H RBC 4.08 L Hgb 11.7 L Hct 36.8 L MCV 90.2 MCH 28.7 MCHC 31.8 RDW 15.3 Plt Count 305 MPV 9.8 Immature Gran % (Auto) Cancelled Neut % (Auto) Cancelled Lymph % (Auto) Cancelled [place] % (Auto) Cancelled Eos % (Auto) Cancelled Baso % (Auto) Cancelled Lymph # (Auto) Cancelled [place] # (Auto) Cancelled Eos # (Auto) Cancelled Baso # (Auto) Cancelled Abs Immat Gran (auto) Cancelled Absolute Neuts (auto) Cancelled Absolute Nucleated RBC 0.000 Nucleated RBC % (auto) 0.0 Neutrophils % (Manual) 90 H Band Neutrophils % 6 H Lymphocytes % (Manual) 2 L Monocytes % (Manual) 1 L Metamyelocytes % 1 Abs Neuts (Manual) 20.6 H Lymphocytes # (Manual) 0.4 L Monocytes # (Manual) 0.2 Metamyelocytes # 0.2 Toxic Granulation PRESENT Toxic Vacuolation PRESENT Dohle Bodies PRESENT Platelet Estimate NORMAL Plt Morphology Comment NORMAL RBC Morphology NOTED Ryan Cells 3+ (>5) Acanthocytes (Spur) 2+ (3-5) PT 16.5 H INR 1.4 H Sodium 143 Potassium 4.1 Chloride 115 H Carbon Dioxide 17 L Anion Gap 15 BUN 32 H Creatinine 1.91 H Estim Creat Clear Calc 18.3 Estimated GFR 25 Random Glucose 93 Lactic Acid 2.4 H* Lactic Acid F/U @ 2Hr 2.5 H* Calcium 9.1 Magnesium 2.0 Total Bilirubin 0.4 Direct Bilirubin 0.2 AST 26 ALT < 6 Alkaline Phosphatase 94 Troponin I High Sens 3.9 C-Reactive Protein 38.12 H Total Protein 7.3 Albumin 4.0 Lipase < 4 L Urine Color Urine Appearance Urine pH Ur Specific [place] Urine Protein Urine Glucose (UA) Urine Ketones Urine Blood Urine Nitrite Ur Leukocyte Esterase Urine RBC Urine WBC Ur Squamous Epith Cells Urine Bacteria Hyaline Casts Blood Type B Positive Antibody Screen NEGATIVE 04/10/25 14:30 WBC RBC Hgb Hct MCV MCH MCHC RDW Plt Count MPV Immature Gran % (Auto) Neut % (Auto) Lymph % (Auto) [place] % (Auto) Eos % (Auto) Baso % (Auto) Lymph # (Auto) [place] # (Auto) Eos # (Auto) Baso # (Auto) Abs Immat Gran (auto) Absolute Neuts (auto) Absolute Nucleated RBC Nucleated RBC % (auto) Neutrophils % (Manual) Band Neutrophils % Lymphocytes % (Manual) Monocytes % (Manual) Metamyelocytes % Abs Neuts (Manual) Lymphocytes # (Manual) Monocytes # (Manual) Metamyelocytes # Toxic Granulation Toxic Vacuolation Dohle Bodies Platelet Estimate Plt Morphology Comment RBC Morphology [place] Cells Acanthocytes (Spur) PT INR Sodium Potassium Chloride Carbon Dioxide Anion Gap BUN Creatinine Estim Creat Clear Calc Estimated GFR Random Glucose Lactic Acid Lactic Acid F/U @ 2Hr Calcium Magnesium Total Bilirubin Direct Bilirubin AST ALT Alkaline Phosphatase Troponin I High Sens C-Reactive Protein Total Protein Albumin Lipase Urine Color Yellow Urine Appearance Clear Urine pH 5.5 Ur Specific [place] 1.020 Urine Protein 30 (1+) H Urine Glucose (UA) Negative Urine Ketones Negative Urine Blood Trace H Urine Nitrite Positive H Ur Leukocyte Esterase Small (1+) H Urine RBC 0-2 Urine WBC 6-10 H Ur Squamous Epith Cells 6-10 Urine Bacteria 2+ Hyaline Casts 6-10 Blood Type Antibody Screen Airway Mallampati Class: II TM Dist: <=3cm Neck ROM: Full Loose/Missing/Broken Teeth: Yes (several missing molars right lower jaw and 2 broken teeth on left side) Heart: S1S2 Lungs: CTAB Assessment and Plan Assessment Anesthesia Assessment: Anesthesia Plan Discussed and Chart Reviewed Final Anesthetic Review Family History of Problems with Anesthesia: No History of Problems with Anesthesia: No NPO: Yes ASA Class: III and Emergency Final Preanesthetic Review: No Changes in Pt Med Stat, Meds/Allgs Chart Reviewed, Consent Obtained/Reviewed and Anes Risks/Benef Reviewed Patient Risk: Low Procedure Risk: Intermediate Anesthetic Plan Anesthetic Plan: GA, Regional Block (bilateral TAP block) and Agree w/ Assess. and Plan Disposition: Standard PACU
[2025-04-10] MEDS: cefoTEtan disodium 2 GM VIAL IVPUSH (17:30)
--- NOTE | 2025-04-10 20:28 | W.PM.OPN ---
Operative Note Operative Note Date of Service: 04/10/25 Narrative: Preop diagnosis -- colitis perforated bowel Postop diagnosis--stercoral sigmoid colitis and perforated sigmoid colon Procedure--exploratory laparotomy with sigmoid resection and end colostomy Surgeon--Elliott Anesthesia--general endotracheal tube anesthesia and tap block The patient is a 80-year-old female who presented to the emergency room complaining of worsening abdominal pain over the last 2 days. [place] [address] with bandemia peritonitis and CT scan of her abdomen and pelvis which showed some free air and pelvic fluid and sigmoid colon thickening. As a result plan was to carry out exploratory laparotomy and most likely Yael procedure. She understood and agreed with the plan Findings-- Patient had significant constipation and hard stool from the hepatic flexure all the way down to the rectal area. There was significant hard stool material in the sigmoid colon which created a stercoral ulcerated perforation on the anterior lower sigmoid bowel. The lower pelvic area had fecal peritonitis with stool and purulent type fluid in the pelvis. Small bowel had adhesions to this area and a film of fibrinous exudate present as well. Procedure-- Patient was brought to the operative room under anesthesia guidance was intubated. She had compression stockings placed before induction and received antibiotics and had a Petres catheter placed. Midline incision was created below the umbilical area with a scalpel and then the cautery was used to enter into the peritoneal cavity. Immediately on entrance moderate amount of murky fluid was encountered. Palpating the abdominal contents the hard stool throughout the colon was encountered from the transverse colon going all the way to the rectosigmoid area. It was noted that there was a pocket of peritoneal fluid in the pelvic area with fecal material present. This area was suctioned and irrigated and eventually it was noted that there was an anterior perforation from a stercoral ulcer on the lower sigmoid colon. Cultures of the murky fluid were sent off. The Bookwalter retractor was set up. Attention was then focused and the entire left colon had significant stool burden that was quite hard and non pliable. We were able to get to an area little softer with less hard stool and the mesentery was dissected in order to allow DUANE stapler to be fired across the mid sigmoid area. Some of the sigmoid colon here was then mobilized by taking down the lateral wall along the line of Toldt using the cautery. Then the LigaSure was used to take down the mesentery hugging the colon. There were 2 areas that bled and suture ligature was carried out for hemostasis. We were able to elevate and pull up the distal sigmoid colon and now able to palpate little bit better the rectosigmoid and there was a softer area of tissue here. Dissecting out the mesentery and getting closer to the colon at around the rectosigmoid area the contour stapler was now used to come across the distal margin along the rectosigmoid. The specimen was then sent off for pathology. Some bleeding areas were suture ligated on the mesentery as well as cauterized. The ureter was located and was intact on the left side. Attention was now focused to the proximal sigmoid colon and this was mobilized little bit. It was really quite hard with stool material. Now the entire abdominal area was examined with the cecal appendix area looking relatively normal and the area where there was really very hard stool started that the hepatic flexure and continued all the way down to the rectosigmoid area. This was really quite impressive. No true mass was noted but this could have been missed secondary to the hard nature of the stool throughout. About 4 L of fluid was used to suction and irrigate the pelvic area the right upper quadrant and left upper quadrant areas as well. Hemostasis was fine. The effluent of the suction irrigation was clear at this point. There was still films of fibrinous exudate on the small bowel but the small bowel itself looked fine as this was mainly reactive to the process in the pelvis in the colon. The left midabdomen wall was then examined the area chosen to create the colostomy. A Francisco clamp was placed on the skin and then using the cautery the skin and subcutaneous fat tissue was dissected down to the anterior abdominal wall fascia which was opened up in a cruciate fashion. This area was then stretched open with manual stretching. The underlying descending sigmoid colon remnant was brought up through the ostomy site and secured. There was some bleeding that was happening along the mesentery this was put back in and then cautery control this. The ostomy was brought back up and laid nicely on the anterior abdominal wall. Attention was now focused to the midline incision. The transverse colon was brought down along the anterior abdomen and 0 PDS looped was run superiorly inferiorly and tied in the middle. This area was now irrigated and rubbed with the gauze to try to clean the soft tissue here. Once the colon had been removed and irrigation was done we had changed to clean gloves. The midline incision was stapled closed loosely with packing gauze in between the jaron. Attention was now focused to the colostomy and the stapled closure was removed with cautery. Doing examining the hole in the anterior abdominal wall it was determined that this was now a little larger and the colon was not as hard as some of the stool had retreated proximally. Because this anterior abdominal wall whole where the colon was pulled through was larger this was reinforced with 0 Prolene suture in 2 bites to make the colostomy opening little more snug to prevent a hernia. The colostomy was now matured using 3-0 Vicryl suture. A colostomy bag was secured. At the end of the case all sponge instrument needle counts were correct estimated blood loss was about 150 cc specimens sent was the sigmoid colon. Peters catheter was left in place colostomy bag in place. Patient was extubated returned stably to the recovery room.
[2025-04-10] MEDS: Lactated Ringers 1,000 ML 125 ML IVCONT (21:01)
[2025-04-11 03:56] VITALS: BP 144/64; PULSE 84; RESP 16; TEMP 36.3; O2SAT 93
[2025-04-11] MEDS: Lactated Ringers 1,000 ML 125 ML IVCONT ×3 (05:35→22:54)
[2025-04-11 06:29] LABS: Alanine Aminotransferase < 6 U/L (0-31); Albumin Level 2.7 g/dL (3.5-5.0); Alkaline Phosphatase 52 U/L (39-117); Anion Gap 12 (12-20); Aspartate Amino Transferase 20 U/L (5-31); Blood Urea Nitrogen 32 mg/dL (9-16); Calcium 7.9 mg/dL (8.4-10.2); Carbon Dioxide 20 mmol/L (22-29); Chloride 114 mmol/L (96-108); Creatinine Clr Calc Pharmacy 27.9; Estimated Glomerular Filt Rate 40; Magnesium 1.9 mg/dL (1.6-2.6); Potassium 4.3 mmol/L (3.3-5.1); Sodium 142 mmol/L (135-145); Total Protein 5.0 g/dL (6.5-8.0)
[2025-04-11 06:35] LABS: Hematocrit 31.2 % (37.0-47.0); Hemoglobin 10.1 g/dl (12.0-16.0); Mean Corpuscular HGB Conc 32.4 g/dl (31.0-35.0); Mean Corpuscular Hemoglobin 28.9 pg (27.0-33.0); Mean Corpuscular Volume 89.4 fL (80.0-98.0); NRBC Abs Auto 0.000 X10*3/uL (0.0-0.012); NRBC Pct Auto 0.0 /100WBC (0.0-0.2); Platelet Count 268 X10*3/uL (160-400); Red Blood Count 3.49 X10*6/uL (4.20-5.50); White Blood Count 16.7 X10*3/uL (4.8-10.8)
[2025-04-11 06:55] VITALS: BP 152/70; PULSE 81; RESP 16; TEMP 36.6; O2SAT 96
[2025-04-11 07:25] LABS: Band Neutrophils Percent 11 % (3-5); Lymphocytes Absolute Manual 0.5 X10*3/uL (1.2-4.9); Lymphocytes Percent Manual 3 % (20-40); Metamyelocytes Absolute 0.2 X10*3/uL; Metamyelocytes Percent 1 %; Monocytes Absolute Manual 0.2 X10*3/uL (0.1-1.2); Monocytes Percent Manual 1 % (2-11); Neutrophils Absolute Manual 15.9 X10*3/uL (2.0-8.3); Neutrophils Percent Manual 84 % (45-73)
[2025-04-11 07:27] LABS: Acanthocytes 1+ (0-2) /OIF; RBC Morphology NOTED
[2025-04-11 07:28] LABS: Burr Cells 2+ (3-5) /OIF; Dohle Bodies PRESENT
--- NOTE | 2025-04-11 09:18 | HO.POSTANES ---
Post Anesthesia Evaluation Post Anesthesia Evaluation Date of Service: 04/11/25 Vital Signs: Vital Signs Temp Pulse Resp BP Pulse Ox O2 Del Method 04/11/25 06:55 98 F 81 16 152/70 H 96 Room Air 04/11/25 03:56 97.3 F 84 16 144/64 H 93 Anesthesia: General Endotracheal-GETA Mental Status: Awake Pain Control: Satisfactory Nausea/Vomiting: None Hydration: Adequate Anesthesia-Related Issues: No Anes. Related Issues
--- NOTE | 2025-04-11 12:30 | PC.NURSE ---
Penicillins listed as allergy. Patient reports she's had a rash as a reaction a long time ago . Patient has received multiple doses of Zosyn since start of this admission without incident. Reviewed allergy and medications with patient and Dr. Gallagher. Plan of care to continue IV Zosyn. Patient agreeable with plan.
--- NOTE | 2025-04-11 13:20 | P.PNGS_ITS ---
Subjective Subjective Date of Service: 04/11/25 Interval history: Patient is doing well today postop day 1 complaining of some abdominal pain but this is quite tolerable. No nausea no vomiting. She is a little slow to get up and walk around and move Patient admits that she was taking a lot of Imodium because it seemed to settle her stomach although she does not describe any significant diarrhea but this is probably what caused slowing of her GI transit and the very hard stool and constipation that created the stercoral ulcer and perforated Physical Exam 2 Vital Signs: Vital Signs: Last Vital Signs Temp 98 F 04/11/25 06:55 Pulse 81 04/11/25 06:55 Resp 16 04/11/25 06:55 BP 152/70 H 04/11/25 06:55 Pulse Ox 96 04/11/25 06:55 O2 Del Method Room Air 04/11/25 06:55 O2 Flow Rate 6 04/10/25 19:56 BMI result Body Mass Index 20.2 Const: General: cooperative, healthy appearing and comfortable Resp: Auscultation: clear to auscultation bilaterally Cardio: Rate: regular rate Rhythm: regular rhythm GI: Other: Abdomen is soft nondistended quiet ostomy looks viable there is a little bit of liquid dark stool in the ostomy bag Extrem: General: Yes normal to inspection Psych: Appearance: grossly normal Speech and movement: Normal speech and movement present Affect: normal affect Attitude: cooperative Thought process: Normal thought process present Thought content: Normal thought content present Insight: Good insight present (Psych) Judgement: Good judgement present (Psych) Objective Data Active Medications Acetaminophen (Acetaminophen 325 Mg Tablet) 650 mg PO Q6H [facility] Enoxaparin Sodium (Enoxaparin Sodium 30 Mg/0.3 Ml Syringe) 30 mg SUBCUT Q24H [facility] Last Admin: 04/10/25 21:17 Dose: 30 mg Documented By: YEVGENIY Lactated Ringer's (Lr) 1,000 mls @ 80 mls/hr IVCONT .[id number] [facility] Last Admin: 04/11/25 00:23 Dose: Not Given Documented By: YEVGENIY Non-Admin Reason: Newest LR order running Lactated Ringer's (Lr) 1,000 mls @ 125 mls/hr IVCONT .Q8H [facility] Last Admin: 04/11/25 05:35 Dose: 125 mls/hr Documented By: YEVGENIY Piperacillin Sod/Tazobactam (Sod 2.25 gm/ Sodium Chloride) 50 mls @ 100 mls/hr IV Q8H [facility] Last Infusion: 04/11/25 05:24 Dose: Infused Documented By: YEVGENIY Magnesium Hydroxide (Milk Of Magnesia 30 Ml Oral.Susp) 30 ml PO DAILY PRN PRN Reason: Constipation Melatonin (Melatonin 3 Mg Tablet) 6 mg PO BEDTIME PRN PRN Reason: Insomnia Morphine Sulfate (Morphine Sulfate 4 Mg/Ml Cartridge) 2 mg IVPUSH Q4H PRN; Protocol PRN Reason: Pain, Moderate(Pain Scale 4-6) Last Admin: 04/11/25 09:38 Dose: 2 mg Documented By: ROCHELLE Morphine Sulfate (Morphine Sulfate 4 Mg/Ml Cartridge) 4 mg IVPUSH Q4H PRN; Protocol PRN Reason: Pain, Severe (Pain Scale 7-10) Naloxone HCl (Naloxone Hcl 0.4 Mg/Ml Vial) 0.04 mg IVPUSH Q5M PRN PRN Reason: Excessive sedation or RR < 8 Ondansetron HCl (Ondansetron Hcl 4 Mg/2 Ml Vial) 4 mg IVPUSH Q6H PRN PRN Reason: Nausea and Vomiting Last Admin: 04/10/25 20:48 Dose: 4 mg Documented By: YEVGENIY Pantoprazole Sodium (Pantoprazole Sodium 40 Mg/10 Ml Vial) 40 mg IVPUSH DAILY@0630 [facility] Last Admin: 04/11/25 05:31 Dose: 40 mg Documented By: YEVGENIY Sodium Chloride (0.9 % Sodium Chloride Flush 3 Ml Syringe) 3 ml IVFLUSH QSHIFT [facility] Last Admin: 04/11/25 07:51 Dose: Not Given Documented By: ROCHELLE Non-Admin Reason: IV Running Labs 04/11/25 05:55 04/11/25 05:55 Labs: Laboratory Results - last 24 hr 04/10/25 04/10/25 04/10/25 12:29 13:50 14:30 MCV MCH MCHC RDW Plt Count MPV Immature Gran % (Auto) Neut % (Auto) Lymph % (Auto) [place] % (Auto) Eos % (Auto) Baso % (Auto) Lymph # (Auto) [place] # (Auto) Eos # (Auto) Baso # (Auto) Abs Immat Gran (auto) Absolute Neuts (auto) Absolute Nucleated RBC Nucleated RBC % (auto) Neutrophils % (Manual) Band Neutrophils % Lymphocytes % (Manual) Monocytes % (Manual) Metamyelocytes % Abs Neuts (Manual) Lymphocytes # (Manual) Monocytes # (Manual) Metamyelocytes # Dohle Bodies Platelet Estimate Plt Morphology Comment RBC Morphology Ryan Cells Acanthocytes (Spur) Anion Gap Estim Creat Clear Calc Estimated GFR Random Glucose Lactic Acid F/U @ 2Hr 2.5 H* Calcium Phosphorus Magnesium Total Bilirubin AST ALT Alkaline Phosphatase Total Protein Albumin Urine Color Yellow Urine Appearance Clear Urine pH 5.5 Ur Specific [place] 1.020 Urine Protein 30 (1+) H Urine Glucose (UA) Negative Urine Ketones Negative Urine Blood Trace H Urine Nitrite Positive H Ur Leukocyte Esterase Small (1+) H Urine RBC 0-2 Urine WBC 6-10 H Ur Squamous Epith Cells 6-10 Urine Bacteria 2+ Hyaline Casts 6-10 Antibody Screen NEGATIVE 04/11/25 05:55 MCV 89.4 MCH 28.9 MCHC 32.4 RDW 15.5 Plt Count 268 MPV 9.8 Immature Gran % (Auto) Cancelled Neut % (Auto) Cancelled Lymph % (Auto) Cancelled [place] % (Auto) Cancelled Eos % (Auto) Cancelled Baso % (Auto) Cancelled Lymph # (Auto) Cancelled [place] # (Auto) Cancelled Eos # (Auto) Cancelled Baso # (Auto) Cancelled Abs Immat Gran (auto) Cancelled Absolute Neuts (auto) Cancelled Absolute Nucleated RBC 0.000 Nucleated RBC % (auto) 0.0 Neutrophils % (Manual) 84 H Band Neutrophils % 11 H Lymphocytes % (Manual) 3 L Monocytes % (Manual) 1 L Metamyelocytes % 1 Abs Neuts (Manual) 15.9 H Lymphocytes # (Manual) 0.5 L Monocytes # (Manual) 0.2 Metamyelocytes # 0.2 Dohle Bodies PRESENT Platelet Estimate NORMAL Plt Morphology Comment NORMAL RBC Morphology NOTED [place] Cells 2+ (3-5) Acanthocytes (Spur) 1+ (0-2) Anion Gap 12 Estim Creat Clear Calc 27.9 Estimated GFR 40 Random Glucose 93 Lactic Acid F/U @ 2Hr Calcium 7.9 L D Phosphorus 4.4 Magnesium 1.9 Total Bilirubin 0.2 AST 20 ALT < 6 Alkaline Phosphatase 52 Total Protein 5.0 L Albumin 2.7 L Urine Color Urine Appearance Urine pH Ur Specific [place] Urine Protein Urine Glucose (UA) Urine Ketones Urine Blood Urine Nitrite Ur Leukocyte Esterase Urine RBC Urine WBC Ur Squamous Epith Cells Urine Bacteria Hyaline Casts Antibody Screen Microbiology Microbiology Results: Microbiology 04/10/25 17:36 Gram Stain - Final Peritoneal Fluid Routine Culture - Preliminary Gram negative binta Anaerobic Culture - Preliminary Culture in progress. 04/10/25 Unknown Urine Culture - Preliminary Urine clean catch - Clean Catch Midstream Gram negative binta Procedures Date of Service Date of Service: 04/11/25 Progress Note: A&P Assessment and plan (1) Colon perforation: Status: Acute Assessment and Plan: 80-year-old female postop day 1. From heartburn procedure for stercoral ulcer of the sigmoid colon with perforation. Overall doing quite well. White count down to 16,000 and her creatinine is back to normal. Plan to increase her pain meds little bit continue with p.o. Tylenol as well. Get her out of bed into the chair incentive spirometer continue with Zosyn IV. Lovenox for DVT prophylaxis. We will start her on some stool softeners and maybe try some gentle laxative to get moving some of that is hard stool that is present throughout her colon. Consider doing this in the next day or 2. Patient is high-risk for intra- abdominal abscess and ileus. Extensive discussion was had with the patient as well as her family they understand and agree with the above plan Time Spent With Patient Time: Total time managing care of this patient today ____ minutes. Quality Stroke Does the patient have a stroke diagnosis?: No VTE Prior VTE?: No VTE Risk Level:: Medical - moderate - high VTE Device Contraindication: N/A - Device Ordered VTE Drug Contraindication: N/A - Med Ordered
[2025-04-11 15:40] VITALS: BP 155/91; PULSE 88; RESP 18; TEMP 36.9; O2SAT 96
--- NOTE | 2025-04-11 15:49 | MHC.CM.PN ---
IMM 04/11/25, EMR REVIEWED PT W/PERFERATED DIVERTICULITIS POD1 BOWEL RESECTION W/OSTOMY, CM MET W/PT WHO REPORTS SHE LIVES W/HER , IS FULLY INDEP W/ALL CARE, NO DME/SERVICES, PT'S GOAL FOR DC IS HOME W/SERVICES AND PT MAY STAY W/A YOUNGER SISTER IN [place]AY UPON DC. PT VREIFIES PCP IS DR. LURDES HOLLIDAY, PT EDUCATED ON HCP'S, PT REPORTS SHE DOES NOT HAVE A HCP AND DECLINES TO COMPLETE ONE UNTIL SHE DISCUSSES W/HER CHILDREN. DP: HOME W/NEW [facility], FAMILY FOR TRANSPORT
[2025-04-11 20:00] VITALS: BP 180/80; PULSE 82; RESP 19; TEMP 36.2; O2SAT 96
[2025-04-11] MEDS: 0.9 % Sodium Chloride Flush 3 ML SYRINGE IVFLUSH (20:15)
--- NOTE | 2025-04-11 21:42 | PC.NURSE ---
At 20:00 pt's manual BP was 180/80. Pt not endorsing pain at this time. Pt takes olmesartan 20 mg tab at bedtime at home for HTN. Dr. Gallagher notified via [place] at 20:06. Valsartan 80mg tab ordered and administered.
[2025-04-11 22:11] VITALS: BP 154/82
[2025-04-12] VITALS (8 sets, daily range): BP systolic 126–182; BP diastolic 74–88; PULSE 71–82; RESP 16–18; TEMP 36.3–37.3; O2SAT 94–97
[2025-04-12] MEDS: Lactated Ringers 1,000 ML 125 ML IVCONT ×2 (10:12→19:39)
[2025-04-12] MEDS: 0.9 % Sodium Chloride Flush 3 ML SYRINGE IVFLUSH ×2 (10:18→19:36)
--- NOTE | 2025-04-12 17:51 | PM.PNGS ---
Subjective Subjective Date of Service: 04/12/25 Interval history: Patient is doing well looks good was able to move around little bit today in her room and get out of bed into the chair. Peters catheter will be removed. Still has some pain in the incision area but generally doing well. Physical Exam Vital Signs: Vital Signs: Last Vital Signs Temp 97.3 F 04/12/25 16:00 Pulse 71 04/12/25 16:00 Resp 16 04/12/25 16:00 BP 182/88 H 04/12/25 17:09 Pulse Ox 95 04/12/25 16:00 O2 Del Method Room Air 04/12/25 16:00 O2 Flow Rate 6 04/10/25 19:56 BMI result Body Mass Index 20.2 Const: General: cooperative, healthy appearing, comfortable, no acute distress, alert and awake Resp: Effort & Inspection: normal respiratory effort Auscultation: clear to auscultation bilaterally Cardio: Rate: regular rate Rhythm: regular rhythm GI: Other: Abdomen is soft little distended quiet ostomy looks viable little bit of bloody fluid in the bag with some flecks of stool very dark in color Extrem: Other: Soft nontender General: Yes normal to inspection Objective Data Active Medications Acetaminophen (Acetaminophen 325 Mg Tablet) 650 mg PO Q6H [facility] Last Admin: 04/12/25 16:23 Dose: 650 mg Documented By: VIVIANA Enoxaparin Sodium (Enoxaparin Sodium 30 Mg/0.3 Ml Syringe) 30 mg SUBCUT Q24H [facility] Last Admin: 04/11/25 20:15 Dose: 30 mg Documented By: YEVGENIY Hydralazine HCl (Hydralazine Hcl 20 Mg/Ml Vial) 5 mg IVPUSH Q6H PRN; Protocol PRN Reason: SBP >170 Last Admin: 04/12/25 17:20 Dose: 5 mg Documented By: ROCHELLE Lactated Ringer's (Lr) 1,000 mls @ 125 mls/hr IVCONT .Q8H [facility] Last Infusion: 04/12/25 13:37 Dose: 125 mls/hr Documented By: ROCHELLE Piperacillin Sod/Tazobactam (Sod 2.25 gm/ Sodium Chloride) 50 mls @ 100 mls/hr IV Q8H [facility] Last Infusion: 04/12/25 13:37 Dose: Infused Documented By: ROCHELLE Magnesium Hydroxide (Milk Of Magnesia 30 Ml Oral.Susp) 30 ml PO DAILY PRN PRN Reason: Constipation Melatonin (Melatonin 3 Mg Tablet) 6 mg PO BEDTIME PRN PRN Reason: Insomnia Morphine Sulfate (Morphine Sulfate 4 Mg/Ml Cartridge) 2 mg IVPUSH Q4H PRN; Protocol PRN Reason: Pain, Moderate(Pain Scale 4-6) Last Admin: 04/12/25 11:18 Dose: 2 mg Documented By: ROCHELLE Morphine Sulfate (Morphine Sulfate 4 Mg/Ml Cartridge) 4 mg IVPUSH Q4H PRN; Protocol PRN Reason: Pain, Severe (Pain Scale 7-10) Last Admin: 04/12/25 04:57 Dose: 4 mg Documented By: YEVGENIY Naloxone HCl (Naloxone Hcl 0.4 Mg/Ml Vial) 0.04 mg IVPUSH Q5M PRN PRN Reason: Excessive sedation or RR < 8 Ondansetron HCl (Ondansetron Hcl 4 Mg/2 Ml Vial) 4 mg IVPUSH Q6H PRN PRN Reason: Nausea and Vomiting Last Admin: 04/10/25 20:48 Dose: 4 mg Documented By: YEVGENIY Pantoprazole Sodium (Pantoprazole Sodium 40 Mg/10 Ml Vial) 40 mg IVPUSH DAILY@0630 [facility] Last Admin: 04/12/25 05:31 Dose: 40 mg Documented By: YEVGENIY Polyethylene Glycol (Polyethylene Glycol 3350 17 Gm Powd.Pack) 17 gm PO DAILY [facility] Last Admin: 04/12/25 10:12 Dose: 17 gm Documented By: ROCHELLE Sodium Chloride (0.9 % Sodium Chloride Flush 3 Ml Syringe) 3 ml IVFLUSH QSHIFT [facility] Last Admin: 04/12/25 17:04 Dose: Not Given Documented By: ROCHELLE Non-Admin Reason: IV Running Valsartan (Valsartan 80 Mg Tablet) 80 mg PO BEDTIME [facility] Last Admin: 04/11/25 20:21 Dose: 80 mg Documented By: YEVGENIY Labs 04/11/25 05:55 04/11/25 05:55 Microbiology Microbiology Results: Microbiology 04/10/25 11:42 Blood Culture - Preliminary Blood - Venous No growth after 48 hours. 04/10/25 17:36 Gram Stain - Final Peritoneal Fluid Routine Culture - Final Escherichia coli Anaerobic Culture - Preliminary Culture in progress. 04/10/25 11:29 Blood Culture - Preliminary Blood - Venous Prelim: GNR Gram Stain only 04/10/25 Unknown Urine Culture - Preliminary Urine clean catch - Clean Catch Midstream Escherichia coli Procedures Date of Service Date of Service: 04/12/25 Progress Note: A&P Assessment and plan (1) Colon perforation: Status: Acute Assessment and Plan: Patient is postop day 2. Status post Yael procedure for perforated stercoral sigmoid colon ulcer--doing quite well. Vitals are generally good her blood pressure is a little elevated but despite being on her medications so we will get hospitalist consultation. She is making good urine continue with the IV fluids and DC her Peters today. Her abdomen is little distended and quiet so we will just continue with like sips of liquids. Her ostomy is not putting out too much at this point but I know that she has got a significantly large amount of very hard stool throughout her proximal colon. Today we will start her on some MiraLax but maybe tomorrow we can try some Mag citrate. We will also get physical therapy to ambulate with her and since her creatinine etc. improve we will increase her Zosyn back to renal adjustment 3.37 5q 6 hours. This was discussed with pharmacy and they agree. If we are concerned that this patient is going to have a prolonged ileus secondary to the perforation then may consider PICC line and TPN sooner this week. We will see what we can do with getting some of the hard stool moving through her ostomy tomorrow. Time Spent With Patient Time: Total time managing care of this patient today ____ minutes. Quality Stroke Does the patient have a stroke diagnosis?: No VTE Prior VTE?: No VTE Risk Level:: Medical - moderate - high VTE Device Contraindication: N/A - Device Ordered VTE Drug Contraindication: N/A - Med Ordered
--- NOTE | 2025-04-12 18:24 | PC.NURSE ---
Patient with elevated BP this afternoon- resting in bed, asymptomatic. Reports feeling comfortable and pain is at a tolerable level. Dr. Gallagher notified. Consult to hospitalist placed. Cr Kim spoke with patient at bedside. PRN IV Hydralazine given with minimal effect- see MAR for details. BP remained elevated post administration. Patient resting comfortably in bed. Reporting 4/10 pain. Patient denies headache, dizziness, and remains asymptomatic. Reports pain is tolerable. LORETO Kim notified. Plan is to monitor and adjust PO BP meds this evening per Cr Kim.
--- NOTE | 2025-04-12 18:34 | P.CONHOSP_ITS ---
History of Present Illness Data of Consult Service Date: 04/12/25 Primary Care Provider: Alena Quiroz MD HPI Reason for consult: HTN Pt is a 80-year-old female with at PMH significant for HTN, HLD, GERD, and migraines who presented to the hospital on 04/10 with worsening abd pain and constipation x2 days. Workup was positive for stercoral sigmoid colitis with perforation and pt underwent Yael procedure with sigmoid resection and end colostomy on 04/10. Hospitalist consult for HTN. Pt noted to be hypertensive as high as 180/88. Pt seen and evaluated in her room where she is resting comfortably in bed. Abd pain overall controlled with current regimen, though pt reports diffuse abd bloating and some tenderness. Has not yet produced any significant stool in colostomy. No N/V though only on small sips of clears at the moment. Denies TORRES. Has been OOB to chair. Review of Systems 2 Review of Systems: Yes all other systems are reviewed and are negative [facility] Medical History (Updated 04/13/25 @ 04:20 by LORETO Hodgson) Diffuse esophageal spasm High cholesterol GERD (gastroesophageal reflux disease) Migraine with aura Migraine without aura Hypertension Surgical History (Updated 04/10/25 @ 16:17 by Yue Andres RN) H/O wrist surgery Social History Household Members: Unknown / Unable to assess Household Members Other:: son lives nearby Do you presently have visiting nurse or other home services: No Patient Tobacco Use Status: Former Tobacco user Tobacco use type: Cigarette Smoked in Last 30 Days: No Use of substances other than those prescribed or required for medical reasons: No Currently Displaying Signs/Symptoms of Drug Intoxication Withdrawal: No Have you been hit, kicked, punched, or otherwise hurt by someone within the past year? If so, by whom?: No Are you DNR?: No Advance Directives: No Advance Directives Information Provided: Yes Advance Directives on File: No Do you have a plan to hurt others: No Plan Nutrition Risks: Dental problems Patient : No : No Poor oral hygiene: No service: No Meds Allergies Allergy/AdvReac Type Severity Reaction Status Date / Time Penicillins Allergy Intermediate Rash Verified 04/10/25 16:19 Sulfa (Sulfonamide Allergy Intermediate Rash Verified 04/10/25 16:19 Antibiotics) lisinopril AdvReac Intermediate Cough Verified 04/10/25 16:20 Active Medications: Current Medications Acetaminophen (Acetaminophen 325 Mg Tablet) 650 mg PO Q6H [facility] Last Admin: 04/12/25 16:23 Dose: 650 mg Enoxaparin Sodium (Enoxaparin Sodium 30 Mg/0.3 Ml Syringe) 30 mg SUBCUT Q24H [facility] Last Admin: 04/11/25 20:15 Dose: 30 mg Hydralazine HCl (Hydralazine Hcl 20 Mg/Ml Vial) 5 mg IVPUSH Q6H PRN; Protocol PRN Reason: SBP >170 Last Admin: 04/12/25 17:20 Dose: 5 mg Lactated Ringer's (Lr) 1,000 mls @ 125 mls/hr IVCONT .Q8H [facility] Last Infusion: 04/12/25 13:37 Dose: 125 mls/hr Piperacillin Sod/Tazobactam (Sod 3.375 gm/ Sodium Chloride) 50 mls @ 100 mls/hr IV Q6H [facility] Magnesium Hydroxide (Milk Of Magnesia 30 Ml Oral.Susp) 30 ml PO DAILY PRN PRN Reason: Constipation Melatonin (Melatonin 3 Mg Tablet) 6 mg PO BEDTIME PRN PRN Reason: Insomnia Morphine Sulfate (Morphine Sulfate 4 Mg/Ml Cartridge) 2 mg IVPUSH Q4H PRN; Protocol PRN Reason: Pain, Moderate(Pain Scale 4-6) Last Admin: 04/12/25 11:18 Dose: 2 mg Morphine Sulfate (Morphine Sulfate 4 Mg/Ml Cartridge) 4 mg IVPUSH Q4H PRN; Protocol PRN Reason: Pain, Severe (Pain Scale 7-10) Last Admin: 04/12/25 04:57 Dose: 4 mg Naloxone HCl (Naloxone Hcl 0.4 Mg/Ml Vial) 0.04 mg IVPUSH Q5M PRN PRN Reason: Excessive sedation or RR < 8 Ondansetron HCl (Ondansetron Hcl 4 Mg/2 Ml Vial) 4 mg IVPUSH Q6H PRN PRN Reason: Nausea and Vomiting Last Admin: 04/10/25 20:48 Dose: 4 mg Pantoprazole Sodium (Pantoprazole Sodium 40 Mg/10 Ml Vial) 40 mg IVPUSH DAILY@0630 [facility] Last Admin: 04/12/25 05:31 Dose: 40 mg Polyethylene Glycol (Polyethylene Glycol 3350 17 Gm Powd.Pack) 17 gm PO DAILY [facility] Last Admin: 04/12/25 10:12 Dose: 17 gm Sodium Chloride (0.9 % Sodium Chloride Flush 3 Ml Syringe) 3 ml IVFLUSH QSHIFT [facility] Last Admin: 04/12/25 17:04 Dose: Not Given Valsartan (Valsartan 80 Mg Tablet) 80 mg PO BEDTIME [facility] Last Admin: 04/11/25 20:21 Dose: 80 mg Home Medications ?Medication ?Instructions ?Recorded ?Confirmed ?Last Taken ?Type atorvastatin 10 mg tablet 10 mg PO BEDTIME 02/18/2504/08/25 History diltiazem HCl 240 mg 240 mg PO DAILY 02/18/2504/08/25 History capsule,extended release 24 hr famotidine 20 mg tablet 20 mg PO BID 02/18/2504/08/25 History olmesartan 20 mg tablet 20 mg PO BEDTIME 02/18/2504/08/25 History bismuth subsalicylate 262 mg/15 mL 524 mg PO QID PRN C onstipation 04/10/25 04/10/25 Unknown History oral suspension (Pepto-Bismol) diphenhydramine 25 1 tab PO BEDTIME PRN Sleep 1 04/10/25 Unknown History mg-acetaminophen 500 mg tablet (Acetaminophen PM) ibuprofen 200 mg tablet (Advil) 200 mg PO Q6H PRN migr ine 04/10/25 04/10/25 Unknown History sumatriptan succinate 50 mg tablet 50 mg PO DAILY PRN Migraine 04/10/25 04/10/25 Unknown History Headache Physical Exam 2 Vital Signs and Narrative: Vital Signs: Last Vital Signs Temp 97.3 F 04/12/25 16:00 Pulse 71 04/12/25 16:00 Resp 16 04/12/25 16:00 BP 176/74 H 04/12/25 18:03 Pulse Ox 95 04/12/25 16:00 O2 Del Method Room Air 04/12/25 16:00 O2 Flow Rate 6 04/10/25 19:56 BMI result Body Mass Index 20.2 General: AOx3, no acute distress Resp: CTA bilaterally CVS: S1, S2, RRR GI: +BS, mild distension. Appropriate tenderness around ostomy and incision site. Small amount of liquid bloody discharge in ostomy bag with scant amount of more solid output. Skin: Warm, dry Neuro: Cranial nerves II-XII grossly intact bilaterally. Motor grossly intact bilaterally Extremities: No edema Psych: Appropriate affect Results Labs 04/11/25 05:55 04/11/25 05:55 Assessment and Plan (1) Colon perforation: Status: Acute (2) Hypertensive urgency: Status: Acute Plan Pt is a 80-year-old female with at PMH significant for HTN, HLD, GERD, and migraines who presented to the hospital on 04/10 with worsening abd pain and constipation x2 days. Workup was positive for stercoral sigmoid colitis with perforation and pt underwent Yael procedure with sigmoid resection and end colostomy on 04/10. Hospitalist consult for HTN. Stercoral sigmoid colitis with perforation Underwent Yael procedure with sigmoid resection and end colostomy on 04/10 Plan as per general surgery Hypertensive urgency BP as high as 182/88 Likely secondary to diltiazem being held and acute medical illness Continue valsartan 80mg daily Restart diltiazem ER 240mg daily; will give diltazem 120mg now Hydralazine 5mg IV prn for SBP >170 Follow BP closely Constipation On Miralax Encourage ambuation Management as per general surgery HLD Continue statin GERD Continue famotidine Migraines Continue sumatriptan prn Thank you for allowing us to participate in the care of this pt. Will continue to follow along for now to monitor BP and adjust therapies as necessary.
[2025-04-13] VITALS (11 sets, daily range): BP systolic 113–166; BP diastolic 58–93; PULSE 66–140; RESP 16–20; TEMP 36.3–37.1; O2SAT 93–97
[2025-04-13] MEDS: Lactated Ringers 1,000 ML 125 ML IVCONT ×2 (02:30→11:41)
[2025-04-13 06:12] LABS: MANUAL DIFF FLAG NO
[2025-04-13 06:24] LABS: Hematocrit 23.4 % (37.0-47.0); Hemoglobin 7.5 g/dl (12.0-16.0); Imm Gran Abs Auto 0.08 X10*3/uL (0.00-0.03); Imm Gran Pct Auto 0.8 % (0.0-0.4); Lymphocytes Absolute Auto 1.0 X10*3/uL (1.2-4.9); Mean Corpuscular HGB Conc 32.1 g/dl (31.0-35.0); Mean Corpuscular Hemoglobin 28.3 pg (27.0-33.0); Mean Corpuscular Volume 88.3 fL (80.0-98.0); NRBC Abs Auto 0.000 X10*3/uL (0.0-0.012); NRBC Pct Auto 0.0 /100WBC (0.0-0.2); Platelet Count 246 X10*3/uL (160-400); Red Blood Count 2.65 X10*6/uL (4.20-5.50); White Blood Count 10.2 X10*3/uL (4.8-10.8)
[2025-04-13 06:38] LABS: Prealbumin 8.0 mg/dL (20-40)
[2025-04-13 06:40] LABS: Anion Gap 14 (12-20); Blood Urea Nitrogen 18 mg/dL (9-16); Calcium 7.7 mg/dL (8.4-10.2); Carbon Dioxide 20 mmol/L (22-29); Chloride 109 mmol/L (96-108); Creatinine Clr Calc Pharmacy 55.3; Estimated Glomerular Filt Rate > 60; Potassium 3.6 mmol/L (3.3-5.1); Sodium 139 mmol/L (135-145)
[2025-04-13] MEDS: 0.9 % Sodium Chloride Flush 3 ML SYRINGE IVFLUSH ×2 (08:02→22:43)
[2025-04-13] MEDS: dilTIAZem HCL CD 240 MG CAP.ER.DEG PO (08:02)
--- NOTE | 2025-04-13 08:19 | P.PNGS_ITS ---
Subjective Subjective Date of Service: 04/13/25 <Russel Mulligan PA-C - Last Filed: 04/13/25 08:35> 04/13/25 <Jesse Rosenthal MD - Last Filed: 04/13/25 10:50> Interval history: doing well today. reports some pain at the incision site, especially with ambulation. Some mild nausea overnight, well controlled with zofran. denies fevers or chills. has been ambulating with assitance the bathroom and states thsi has gone well. No difficulty with urination. States he son is coming today and would like to talk to us <Russel Mulligan PA-C - Last Filed: 04/13/25 08:35> Physical Exam 2 Vital Signs: Vital Signs: Last Vital Signs Temp 98.7 F 04/13/25 07:19 Pulse 75 04/13/25 07:19 Resp 16 04/13/25 07:19 BP 164/79 H 04/13/25 07:19 Pulse Ox 93 04/13/25 07:19 O2 Del Method Room Air 04/13/25 07:19 O2 Flow Rate 6 04/10/25 19:56 BMI result Body Mass Index 20.2 <Russel Mulligan PA-C - Last Filed: 04/13/25 08:35> Const: General: comfortable and no acute distress <LAUREN Nur Last Filed: 04/13/25 08:35> Orientation/consciousness: patient oriented x3 <Russel Mulligan PA-C - Last Filed: 04/13/25 08:35> Resp: Effort & Inspection: normal respiratory effort and able to speak in complete sentences <LAUREN Nur Last Filed: 04/13/25 08:35> GI: Other: ostomy in palce, pink and well perfused. scant dark stool and old blood in bag. <LAUREN Nur Last Filed: 04/13/25 08:35> Inspection: No distended <LAUREN Nur Last Filed: 04/13/25 08:35> Palpation (GI): Soft to palpation, Tenderness to palpation present (GI) (incisional) in the LLQ and no guarding <LAUREN Nur Last Filed: 04/13/25 08:35> Neuro: General: patient oriented x3 <Russel Mulligan PA-C - Last Filed: 04/13/25 08:35> Objective Data Active Medications Acetaminophen (Acetaminophen 325 Mg Tablet) 650 mg PO Q6H [facility] Last Admin: 04/13/25 04:08 Dose: 650 mg Documented By: ANU Atorvastatin Calcium (Atorvastatin Calcium 10 Mg Tablet) 10 mg PO BEDTIME [facility] Last Admin: 04/12/25 21:22 Dose: 10 mg Documented By: ANU Calcium Carbonate (Calcium Carbonate 750 Mg Tab.Chew) 750 mg PO Q6H PRN PRN Reason: Heartburn Last Admin: 04/12/25 19:33 Dose: 750 mg Documented By: ANU Diltiazem HCl (Diltiazem Hcl Cd 240 Mg Cap.Er.Deg) 240 mg PO DAILY [facility]; Protocol Last Admin: 04/13/25 08:02 Dose: 240 mg Documented By: MIKEY Enoxaparin Sodium (Enoxaparin Sodium 30 Mg/0.3 Ml Syringe) 30 mg SUBCUT Q24H [facility] Last Admin: 04/12/25 21:22 Dose: 30 mg Documented By: ANU Hydralazine HCl (Hydralazine Hcl 20 Mg/Ml Vial) 5 mg IVPUSH Q6H PRN; Protocol PRN Reason: SBP >170 Last Admin: 04/12/25 17:20 Dose: 5 mg Documented By: ROCHELLE Piperacillin Sod/Tazobactam (Sod 3.375 gm/ Sodium Chloride) 50 mls @ 100 mls/hr IV Q6H [facility] Last Infusion: 04/13/25 07:53 Dose: Infused Documented By: MIKEY Lactated Ringer's (Lr) 1,000 mls @ 125 mls/hr IVCONT .Q8H [facility] Last Infusion: 04/13/25 08:02 Dose: 125 mls/hr Documented By: MIKEY Magnesium Citrate (Magnesium Citrate 300 Ml Solution) 300 ml PO ONCE ONE Stop: 04/13/25 08:18 Magnesium Hydroxide (Milk Of Magnesia 30 Ml Oral.Susp) 30 ml PO DAILY PRN PRN Reason: Constipation Melatonin (Melatonin 3 Mg Tablet) 6 mg PO BEDTIME PRN PRN Reason: Insomnia Morphine Sulfate (Morphine Sulfate 4 Mg/Ml Cartridge) 2 mg IVPUSH Q4H PRN; Protocol PRN Reason: Pain, Moderate(Pain Scale 4-6) Last Admin: 04/13/25 06:35 Dose: 2 mg Documented By: ANU Morphine Sulfate (Morphine Sulfate 4 Mg/Ml Cartridge) 4 mg IVPUSH Q4H PRN; Protocol PRN Reason: Pain, Severe (Pain Scale 7-10) Last Admin: 04/12/25 04:57 Dose: 4 mg Documented By: YEVGENIY Naloxone HCl (Naloxone Hcl 0.4 Mg/Ml Vial) 0.04 mg IVPUSH Q5M PRN PRN Reason: Excessive sedation or RR < 8 Ondansetron HCl (Ondansetron Hcl 4 Mg/2 Ml Vial) 4 mg IVPUSH Q6H PRN PRN Reason: Nausea and Vomiting Last Admin: 04/13/25 08:12 Dose: 4 mg Documented By: MIKEY Pantoprazole Sodium (Pantoprazole Sodium 40 Mg/10 Ml Vial) 40 mg IVPUSH DAILY@0630 [facility] Last Admin: 04/13/25 06:23 Dose: 40 mg Documented By: ANU Polyethylene Glycol (Polyethylene Glycol 3350 17 Gm Powd.Pack) 17 gm PO DAILY [facility] Last Admin: 04/13/25 08:02 Dose: 17 gm Documented By: MIKEY Sodium Chloride (0.9 % Sodium Chloride Flush 3 Ml Syringe) [facility] Last Admin: 04/13/25 08:02 Dose: 3 ml Documented By: MIKEY Sumatriptan Succinate (Sumatriptan Succinate 50 Mg Tablet) 50 mg PO DAILY PRN PRN Reason: Migraine Headache Valsartan (Valsartan 80 Mg Tablet) 80 mg PO BEDTIME [facility] Last Admin: 04/12/25 21:21 Dose: 80 mg Documented By: ANU <Russel Mulligan PA-C - Last Filed: 04/13/25 08:35> Labs CBC & Chem 7: 04/13/25 05:41 04/13/25 05:41 <Russel Mulligan PA-C - Last Filed: 04/13/25 08:35> Labs: Laboratory Results - last 24 hr 04/13/25 05:41 MCV 88.3 MCH 28.3 MCHC 32.1 RDW 15.3 Plt Count 246 MPV 9.5 Immature Gran % (Auto) 0.8 H Neut % (Auto) 78.2 H Lymph % (Auto) 10.0 L Logan % (Auto) 9.5 Eos % (Auto) 1.2 Baso % (Auto) 0.3 Lymph # (Auto) 1.0 L Logan # (Auto) 1.0 Eos # (Auto) 0.1 Baso # (Auto) 0.0 Abs Immat Gran (auto) 0.08 H Absolute Neuts (auto) 8.0 Absolute Nucleated RBC 0.000 Nucleated RBC % (auto) 0.0 Anion Gap 14 Estim Creat Clear Calc 55.3 Estimated GFR > 60 Random Glucose 67 Calcium 7.7 L Prealbumin 8.0 L <Russel Mulligan PA-C - Last Filed: 04/13/25 08:35> Microbiology Microbiology Results: Microbiology 04/10/25 Unknown Urine Culture - Final Urine clean catch - Clean Catch Midstream Escherichia coli 04/10/25 11:42 Blood Culture - Preliminary Blood - Venous No growth after 48 hours. 04/10/25 17:36 Gram Stain - Final Peritoneal Fluid Routine Culture - Final Escherichia coli Anaerobic Culture - Preliminary Culture in progress. 04/10/25 11:29 Blood Culture - Preliminary Blood - Venous Prelim: GNR Gram Stain only <Russel Mulligan PA-C - Last Filed: 04/13/25 08:35> Procedures Date of Service Date of Service: 04/13/25 <Russel Mulligan PA-C - Last Filed: 04/13/25 08:35> 04/13/25 <Jesse Rosenthal MD - Last Filed: 04/13/25 10:50> Progress Note: A&P Assessment and plan (1) Status post Yael procedure: Status: Acute <Russel Mulligan PA-C - Last Filed: 04/13/25 08:35> Assessment and Plan: Feels well with good pain control Tolerating clear liquids Abdomen soft and benign Stoma viable looking Incision clean Dressings changed, packing DC - seen with Meredith chang wound care nurse Hopefully advance diet later on Follow H&H Seen and examined independently Discussed with son at bedside <Jesse Rosenthal MD - Last Filed: 04/13/25 10:50> (2) Colon perforation: Status: Acute <Russel Mulligan PA-C - Last Filed: 04/13/25 08:35> Assessment and Plan: 80 year old female POD 3 s/p Yael procedure for perforated stercoral colonic ulcer. Doing okay today, continue to have pain in LLQ, at inicison site. She has some mild nausea that is well controlled with current regimen. Reports decreased appetite. WBC now improved at 10.2, drop in H/h this morning to 7.5/23.4, will continue to follow, transfuse if continues to decrease. She looks well, ambulating with assistance. Has good urine output. Ostomy looks viable, very scant stool in the bag. There is some scant old blood in the bag. No gas or true stool production yet. incision site intact, clean. Will change dressing and remove packing this afternoon. We will slowly start to resume diet today, clear liquids for now. Will also add mag citrate per Dr. Gallagher. continue IV abx Clear liquid diet pain regimen as needed antiemetics as needed continue bowel regimen, add mag citrate follow H/H ostomy contsult pending. <Russel Mulligan PA-C - Last Filed: 04/13/25 08:35> Time Spent With Patient Time: Total time managing care of this patient today ____ minutes. <Russel Mulligan PA-C - Last Filed: 04/13/25 08:35> Quality Stroke Does the patient have a stroke diagnosis?: No <Russel Mulligan PA-C - Last Filed: 04/13/25 08:35> VTE Prior VTE?: No <Russel Mulligna PA-C - Last Filed: 04/13/25 08:35> VTE Risk Level:: Medical - moderate - high <Russel Mulligan PA-C - Last Filed: 04/13/25 08:35> VTE Device Contraindication: N/A - Device Ordered <Russel Mulligan PA-C - Last Filed: 04/13/25 08:35> VTE Drug Contraindication: N/A - Med Ordered <Russel Mulligan PA-C - Last Filed: 04/13/25 08:35>
--- NOTE | 2025-04-13 12:21 | HO.OSTOMY ---
Ostomy Consult: Initial Teaching 80yr old female admitted to [facility] on 04/10/25- see H&P for detailed history and admission.? Consult for new ostomy teaching. ?He had Colostomy creation on 04/10/[address] Gallagher. ?Upon entry into patient's room, patient is lying in bed, alert and oriented x 3, currently has no complaints. Several family members at bedside, introductions were completed, they are agreeable to continuing with teaching. ? We discussed pain control at ?5?/10 at the current moment, reports increasing the use of IS and not ambulating. We discussed and set a goal for her to continue to use IS every hour while awake and to ambulate 3-4 separate occasions today, She was agreeable. Awaiting PT eval. ?We began by discussing general knowledge about the Colostomy and questions they had. ?We discussed opening and closing the ostomy pouch. They were able to independently provide a return demonstration on an empty pouch. ?They had not yet emptied their pouch only bowel sweat is noted with some f;ecks of stool noted.? We discussed the importance of emptying pouch when 1/3 to 1/2 full, how to empty pouch, and lining water with toilet paper to prevent splash back. Patient was educated on when to contact fitness management director/Dr?s office/seek emergency medical treatment. Aware that Rx written for pouches and rings will be sent by Outpt nurse to [facility] for home delivery.? Reviewed written education with patient and left at bedside for further review. Education videos supplied by [facility] were supplied but not yet completed she prefers to watch at another date. Patients sister, son and were present for teaching however the patient identified her daughter Beverly to be present for future teaching and to assist her at home along with VNA. Daughter Beverly will arrive tomorrow plan to provide teaching with her present. Permission was granted for pouch assessment and no leak was noted however the stoma is very close to the midline incision. The Midline incision has areas of dehiscence / non-closure leaking towards ostomy site. Given observed maceration of pouch wafer and close proximity to midline agreeable to pouch change. Pouch removed and silent leak noted at the 9 o'clock area. Stoma is red moist oval and viable.? Patient was changed into coloplast flat pouch # [id number] cut off set to minimize midline interaction and trimmed on medial edge. Measuring 30mm x 40mm. Patient reported having no questions at this time. ?Patient was made aware that I will return to bedside later in week for ongoing education - however to note patient seems to have a good understanding of care and material at this time. ?Patient will benefit from VNA services at time of discharge. ?All questions and concerns addressed at this time. Stoma Next teaching session goals: Demonstrate open and close independently Stoma Model change [employer] Education videos Midline - areas of dehiscence - alternating jaron observed - mild erythema to incision edges, Per Dr. Rosenthal at bedside packing removed and cover with dry dressing no packing to be replaced. We discussed the following steps: 1. Empty pouch before pouch change 2. Remove pouch using push/pull technique from top to bottom 3. Cleanse stoma and skin with tap water only - no soap or wipes 4. Pat dry 5. Measure stoma and cut new pouch no more than 1/8 inch larger than stoma and no smaller than stoma 6. If instructed by your ostomy nurse stretch barrier seal to the size of the stoma and press onto skin around stoma (up to the edge of the stoma but not onto the stoma) 7. Press the new pouch into place and hold for several seconds (close pouch tail) 8. Empty pouch when 1/3 to 1/2 full 9. Change pouch twice weekly on a schedule (for example, every Sunday and ) and as needed for any leaking (feels like intense itch or burn at edge of stoma) 10. May order pre-cut pouches (already cut to size of stoma) once stoma measures the same size consistently at about 8-12 weeks.
--- NOTE | 2025-04-13 14:07 | ECG_ITS ---
Test Reason : FAST HEART RATE Blood Pressure : */* mmHG Vent. Rate : 159 BPM Atrial Rate : 182 BPM P-R Int : * ms QRS Dur : 86 ms QT Int : 262 ms P-R-T Axes : * 16 225 degrees QTcB Int : 426 ms Atrial fibrillation with rapid ventricular response Marked ST abnormality, possible inferior subendocardial injury Abnormal ECG When compared with ECG of 10-Apr-2025 11:50, Rhythm change with ST depression Referred By: Gene Winters Electronically Signed By: TENNILLE SILVERMAN
[2025-04-13 15:08] LABS: Troponin-I High Sensitivity 15.4 ng/L (<3.5-17.0)
--- NOTE | 2025-04-13 15:23 | MHC.CM.PN ---
per rounds pt dc plan remaons home with a new hvns rfeferral no dc date at this time
--- NOTE | 2025-04-13 16:00 | PC.NURSE ---
Pt reporting palpitations, left shoulder pain. HR 120's-150's, irregular heart rate. Dr. Winters notified. EKG obtained. Showed AFib RVR. Troponins ordered. Dr. Winters came to bedside. IV push metoprolol 5mg ordered and given x1. Pt convered to Sinus Rhythm, HR 70's-80's. Cardiology consult, echo, and carvedilol ordered.
--- NOTE | 2025-04-13 16:07 | PM.EVENT ---
Event Note Date of Service: 04/13/25 Event Note: Seen on late afternoon rounds Went into AFib earlier with RVR Responded well to IV metoprolol Currently looks well Stable vital sign In normal sinus Hospitalist involved - troponin levels being followed Family at bedside Time Spent With Patient Time: Total time managing care of this patient today ____ minutes.
--- NOTE | 2025-04-13 16:33 | HO.PM.IMPN ---
Subjective Subjective Date of Service: 04/13/25 Interval History: 729 Patient seen this morning, reporting some intermittent nausea and abdominal distention. Otherwise feels well. Patient was significantly hypertensive 170/90, and received IV hydralazine as well as her diltiazem. 1500 Patient was re-evaluated later this afternoon, with complaints of retrosternal chest pain, radiating into the left shoulder and down to the left thumb. Sensation was pressure-like, without relief. Patient reports associated dyspnea, no tachypnea noted. Blood pressure noted at 150 systolic, with heart rate 150 beats per minute. ECG obtained, revealing AFib RVR. IV metoprolol 5 mg once was administered, with improvement in patient's heart rates down to 70 beats per minute. Blood pressure preserved return to 130/80. Patient's symptoms resolved with use of IV metoprolol, and resolution of RVR. Blood work obtained, revealing troponin elevation of around 20. -cardiology consulted -troponin repeated -echocardiography ordered -medications adjusted Review of Systems Review of Systems: Yes all other systems are reviewed and are negative Physical Exam Exam: Exam: General: A&O x3, oriented to time place person and situation, comfortable, no pain Cardiac: S1, S2 auscultated with no S3/4, no MRG. Well perfused. Respiratory: Normal breath sounds auscultated throughout all lung zones, without wheezing, rales. Normal rate. 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 No tenderness on palpation around stoma, without herniation (normal with cough), some fluid in stoma, but no stool. MSK: Normal ambulation without pain at bony prominences or musculature Neurological: Normal neurological examination on overview, without obvious CN II-XII abnormalities. Vital Signs: Vital Signs: Last Vital Signs Temp 97.9 F 04/13/25 15:35 Pulse 71 04/13/25 15:35 Resp 18 04/13/25 15:35 BP 161/75 H 04/13/25 15:35 Pulse Ox 94 04/13/25 15:35 O2 Del Method Room Air 04/13/25 15:35 O2 Flow Rate 6 04/10/25 19:56 BMI result Body Mass Index 20.2 Objective Data Active Medications Acetaminophen (Acetaminophen 325 Mg Tablet) 650 mg PO Q6H [facility] Last Admin: 04/13/25 10:29 Dose: 650 mg Documented By: MIKEY Atorvastatin Calcium (Atorvastatin Calcium 10 Mg Tablet) 10 mg PO BEDTIME [facility] Last Admin: 04/12/25 21:22 Dose: 10 mg Documented By: ANU Calcium Carbonate (Calcium Carbonate 750 Mg Tab.Chew) 750 mg PO Q6H PRN PRN Reason: Heartburn Last Admin: 04/13/25 13:23 Dose: 750 mg Documented By: MIKEY Enoxaparin Sodium (Enoxaparin Sodium 30 Mg/0.3 Ml Syringe) 30 mg SUBCUT Q24H [facility] Last Admin: 04/12/25 21:22 Dose: 30 mg Documented By: ANU Hydralazine HCl (Hydralazine Hcl 20 Mg/Ml Vial) 5 mg IVPUSH Q6H PRN; Protocol PRN Reason: SBP >170 Last Admin: 04/12/25 17:20 Dose: 5 mg Documented By: ROCHELLE Piperacillin Sod/Tazobactam (Sod 3.375 gm/ Sodium Chloride) 50 mls @ 100 mls/hr IV Q6H [facility] Last Infusion: 04/13/25 13:12 Dose: Infused Documented By: MIKEY Lactated Ringer's (Lr) 1,000 mls @ 80 mls/hr IVCONT .[id number] [facility] Last Admin: 04/13/25 11:41 Dose: 125 mls/hr Documented By: MIKEY Magnesium Hydroxide (Milk Of Magnesia 30 Ml Oral.Susp) 30 ml PO DAILY PRN PRN Reason: Constipation Melatonin (Melatonin 3 Mg Tablet) 6 mg PO BEDTIME PRN PRN Reason: Insomnia Morphine Sulfate (Morphine Sulfate 4 Mg/Ml Cartridge) 2 mg IVPUSH Q4H PRN; Protocol PRN Reason: Pain, Moderate(Pain Scale 4-6) Last Admin: 04/13/25 11:36 Dose: 2 mg Documented By: MIKEY Morphine Sulfate (Morphine Sulfate 4 Mg/Ml Cartridge) 4 mg IVPUSH Q4H PRN; Protocol PRN Reason: Pain, Severe (Pain Scale 7-10) Last Admin: 04/12/25 04:57 Dose: 4 mg Documented By: YEVGENIY Naloxone HCl (Naloxone Hcl 0.4 Mg/Ml Vial) 0.04 mg IVPUSH Q5M PRN PRN Reason: Excessive sedation or RR < 8 Ondansetron HCl (Ondansetron Hcl 4 Mg/2 Ml Vial) 4 mg IVPUSH Q6H PRN PRN Reason: Nausea and Vomiting Last Admin: 04/13/25 15:08 Dose: 4 mg Documented By: EARL Pantoprazole Sodium (Pantoprazole Sodium 40 Mg/10 Ml Vial) 40 mg IVPUSH DAILY@0630 [facility] Last Admin: 04/13/25 06:23 Dose: 40 mg Documented By: ANU Polyethylene Glycol (Polyethylene Glycol 3350 17 Gm Powd.Pack) 17 gm PO DAILY [facility] Last Admin: 04/13/25 08:02 Dose: 17 gm Documented By: MIKEY Sodium Chloride (0.9 % Sodium Chloride Flush 3 Ml Syringe) 3 ml IVFLUSH QSHIFT [facility] Last Admin: 04/13/25 08:02 Dose: 3 ml Documented By: MIKEY Sumatriptan Succinate (Sumatriptan Succinate 50 Mg Tablet) 50 mg PO DAILY PRN PRN Reason: Migraine Headache Valsartan (Valsartan 80 Mg Tablet) 80 mg PO BEDTIME [facility] Last Admin: 04/12/25 21:21 Dose: 80 mg Documented By: ANU Labs 04/13/25 05:41 04/13/25 05:41 Labs: Laboratory Results - last 24 hr 04/13/25 04/13/25 05:41 14:40 MCV 88.3 MCH 28.3 MCHC 32.1 RDW 15.3 Plt Count 246 MPV 9.5 Immature Gran % (Auto) 0.8 H Neut % (Auto) 78.2 H Lymph % (Auto) 10.0 L [place] % (Auto) 9.5 Eos % (Auto) 1.2 Baso % (Auto) 0.3 Lymph # (Auto) 1.0 L [place] # (Auto) 1.0 Eos # (Auto) 0.1 Baso # (Auto) 0.0 Abs Immat Gran (auto) 0.08 H Absolute Neuts (auto) 8.0 Absolute Nucleated RBC 0.000 Nucleated RBC % (auto) 0.0 Anion Gap 14 Estim Creat Clear Calc 55.3 Estimated GFR > 60 Random Glucose 67 Calcium 7.7 L Total Creatine Kinase 82 Troponin I High Sens 15.4 D Prealbumin 8.0 L Microbiology Microbiology Results: Microbiology 04/10/25 11:29 Blood Culture - Final Blood - Venous Clostridium clostridiiforme 04/10/25 17:36 Gram Stain - Final Peritoneal Fluid Routine Culture - Final Escherichia coli Anaerobic Culture - Preliminary Culture in progress. 04/10/25 Unknown Urine Culture - Final Urine clean catch - Clean Catch Midstream Escherichia coli 04/10/25 11:42 Blood Culture - Preliminary Blood - Venous No growth after 48 hours. Assessment and Plan (1) Hypertensive urgency: Status: Acute (2) Hypertension: Status: Acute (3) Diverticulitis: Status: Acute (4) Colon perforation: Status: Acute (5) Status post Yael procedure: Status: Acute (6) ANGELITO (acute kidney injury): Status: Acute (7) Acidosis, lactic: Status: Acute (8) Elevated WBC count: Status: Acute (9) Atrial fibrillation with RVR: Status: Acute (10) Demand ischemia: Status: Acute Plan 80-year-old female with at PMH significant for HTN, HLD, GERD, and migraines who presented to the hospital on 04/10 with worsening abd pain and constipation x2 days, admitted with stercoral sigmoid colitis with perforation s/p Yael procedure a sigmoid resection and end colostomy placement 04/10. Hospitalist service was consulted for hypertensive urgency. Case c/b AFib RVR with troponin leak Stercoral sigmoid colitis with perforation Underwent Yael procedure with sigmoid resection and end colostomy on 04/10 Plan as per general surgery Hypertensive urgency BP as high as 182/88 Continue valsartan 80mg daily Hold diltiazem ER 240mg daily Start Carvedilol Metoprolol 5mg PRN IV for RVR Hydralazine 5mg IV prn for SBP >170 Follow BP closely AFib RVR Troponin leak Type 2 demand NSTEMI Patient suffered with heart rate 150, captured on ECG. Blood pressure preserved, however lower than prior. Troponin elevated 5 mg IV metoprolol administered, with improvement and resolution of RVR [id number] Score elevated; indicated for anticoagulation-holding in the setting of critical illness PLAN - anticoagulation after clinical stability - IV metoprolol 5 mg p.r.n. for RVR - start carvedilol - echocardiography - cardiology consultation - trend troponin in 2 hours and again in 4 hours Constipation On Miralax Encourage ambuation Management as per general surgery HLD Continue statin GERD Continue famotidine Migraines Continue sumatriptan prn Thank you for allowing us to participate in the care of this pt. We will continue to follow with you. Total time managing care of this patient today: 35 minutes. Quality Stroke Does the patient have a stroke diagnosis?: No VTE Prior VTE?: No VTE Risk Level:: Medical - moderate - high VTE Device Contraindication: N/A - Device Ordered VTE Drug Contraindication: N/A - Med Ordered
[2025-04-13 18:04] LABS: Troponin-I High Sensitivity 22.2 ng/L (<3.5-17.0)
[2025-04-13 21:26] LABS: Troponin-I High Sensitivity 21.7 ng/L (<3.5-17.0)
[2025-04-13] MEDS: Lactated Ringers 1,000 ML 80 ML IVCONT (22:37)
[2025-04-14 03:26] VITALS: BP 132/63; PULSE 57; RESP 14; TEMP 36.1; O2SAT 93
--- NOTE | 2025-04-14 07:00 | CA_ITS ---
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 The calculated ejection fraction is 64% by biplane method. - There is mild calcification of the aortic valve. There is mild aortic valve regurgitation. - There is mild mitral annular calcification. Findings Left Ventricle Normal left ventricular cavity size. There is mildly increased left ventricular wall thickness. The left ventricular systolic function is normal. The calculated ejection fraction is 64% by biplane method. There is no evidence of regional wall motion abnormalities. Diastolic function is normal for age. Right Ventricle Normal right ventricular cavity size and systolic function. Atria Both atria are normal in size. Aortic Valve There is a normal trileaflet aortic valve. There is mild calcification of the aortic valve. There is no aortic valve stenosis. There is mild aortic valve regurgitation. Mitral Valve There is mild mitral annular calcification. There is trace mitral valve regurgitation. There is no mitral valve stenosis. Pulmonic Valve The pulmonic valve is likely normal. Tricuspid Valve There is trace tricuspid valve regurgitation. There is no evidence of pulmonary hypertension. Great Vessels The asc aorta is normal in size. Venous The inferior vena cava is normal in size and collapses greater than 50% with inspiration. Pericardium/Pleural There is no evidence of pericardial effusion. Prior Study Comparison No prior study available for comparison. Measurements 2D Linear Measurements IVSd: 1.01 0.6-0.9/0.6-1.0 cm LVIDd: 4.43 3.9-5.3/4.2-5.9 cm LVIDd Index: 2.99 2.4-3.2/2.2-3.1 cm/m2 LVIDs: 2.73 2.0-3.6 cm LVPWd: 1.06 0.7-1.1 cm Ao Root: 3.10 2.1-3.5 cm LA Diam: 3.20 2.7-3.8/3.0-4.0 cm LAIDs Index: 2.16 1.5-2.3 cm/m2 LV Mass: 195.19 67-162/88-224 g LV Mass Index: 131.89 43-95/49-115 g/m2 LVOT Diam: 2.40 3.0+(-)1.3 cm 2D Systolic Function EF 4C: 57.90 >55% EF 2C: 69.60 >55% EF BiP: 64.00 >55% Mitral Valve MV Pk E: 0.75 MV PK A: 0.95 MV Decel Time: 194.00 E/A: 0.80 E'Lateral: 6.64 E'Medial: 8.05 E/E' Med: 9.30 E/E' Lat: 11.30 PHT: 57.00 MVA PHT: 3.86 Decel [place]: 3.87 Aortic Valve AoV Pk Cory: 1.87 AoV Mn Cory: 1.24 AoV VTI: 0.41 AoV Pk Grad: 14.00 Aov Mn Grad: 7.00 NOREEN Cont.VTI: 3.49 LVOT LVOT Pk Cory: 1.34 LVOT Mn Cory: 0.79 LVOT VTI: 0.32 LVOT Pk Grad: 7.00 LVOT Mn Grad: 3.00 LVOT Diam: 2.40 LVOT Area: 4.52 Diastolic Function MV Pk E: 0.75 MV Pk A: 0.95 E/A: 0.80 E'Medial: 8.05 E/E' Med: 9.30 E' Laterial: 6.64 E/E' Lat: 11.30 Right Ventricle TAPSE (mm): 30.00 TVS' Cory: 17.00 Tricuspid Valve TR Pk Cory: 2.55 TR Pk Grad: 26.00 RA Press: 3.00 RVSP: 29.00 Great Vessels Aorta Ao Root-2D: 3.10 2.0-3.7 cm Ao Asc: 3.60 2.1-3.4 cm Pulmonary Valve PV Pk Cory: 1.07 Peak PV Grad: 5.00 Updated in Other Vendor System with Status of Final Marko Hogue MD electronically signed on 04/14/2025 11:51:53 AM with status of Final
--- NOTE | 2025-04-14 07:37 | P.PNGS_ITS ---
Subjective Subjective Date of Service: 04/14/25 <Russel Mulligan PA-C - Last Filed: 04/14/25 08:03> 04/14/25 <Jesse Rosenthal MD - Last Filed: 04/14/25 07:47> Interval history: doing okay, yesterday was found to be in afib with RVR 150s with associated dyspnea. Today, denies shortness of breath. Complaining of some cramping abdominal pain on the left side. She has now started to output dark liquid stools, passing gas, but also burping a lot, feels bloated. Reports minimal appetite due to some nausea, denies any vomiting. Denies fevers or chills. has been ambulating but is somewhat limited due to pain <LAUREN Nur Last Filed: 04/14/25 08:03> Physical Exam 2 Vital Signs: Vital Signs: Last Vital Signs Temp 96.9 F 04/14/25 03:26 Pulse 57 04/14/25 03:26 Resp 14 04/14/25 03:26 BP 132/63 04/14/25 03:26 Pulse Ox 93 04/14/25 03:26 O2 Del Method Room Air 04/14/25 03:26 O2 Flow Rate 6 04/10/25 19:56 BMI result Body Mass Index 20.2 <LAUREN Nur Last Filed: 04/14/25 08:03> Const: General: comfortable and no acute distress <Russel Mulligan PA-C - Last Filed: 04/14/25 08:03> Orientation/consciousness: patient oriented x3 <LAUREN Nur Last Filed: 04/14/25 08:03> Resp: Effort & Inspection: normal respiratory effort and able to speak in complete sentences <Russel Mulligan PA-C - Last Filed: 04/14/25 08:03> GI: Other: ostomy in place, moderate amounts of dark liquid stool in bag, producing gas. ostomy viable <LAUREN Nur Last Filed: 04/14/25 08:03> Inspection: No distended <LUAREN Nur Last Filed: 04/14/25 08:03> Palpation (GI): Soft to palpation and Tenderness to palpation present (GI) (left side) <Russel Mulligan PA-C - Last Filed: 04/14/25 08:03> Neuro: General: patient oriented x3 <Russel Mulligan PA-C - Last Filed: 04/14/25 08:03> Objective Data Active Medications Acetaminophen (Acetaminophen 325 Mg Tablet) 650 mg PO Q6H [facility] Last Admin: 04/14/25 03:59 Dose: 650 mg Documented By: ANU Atorvastatin Calcium (Atorvastatin Calcium 10 Mg Tablet) 10 mg PO BEDTIME [facility] Last Admin: 04/13/25 20:36 Dose: 10 mg Documented By: ANU Calcium Carbonate (Calcium Carbonate 750 Mg Tab.Chew) 750 mg PO Q6H PRN PRN Reason: Heartburn Last Admin: 04/13/25 13:23 Dose: 750 mg Documented By: MIKEY Carvedilol (Carvedilol 25 Mg Tablet) 25 mg PO BID [facility]; Protocol Enoxaparin Sodium (Enoxaparin Sodium 30 Mg/0.3 Ml Syringe) 30 mg SUBCUT Q24H [facility] Last Admin: 04/13/25 20:35 Dose: 30 mg Documented By: ANU Hydralazine HCl (Hydralazine Hcl 20 Mg/Ml Vial) 5 mg IVPUSH Q6H PRN; Protocol PRN Reason: SBP >170 Last Admin: 04/12/25 17:20 Dose: 5 mg Documented By: ROCHELLE Piperacillin Sod/Tazobactam (Sod 3.375 gm/ Sodium Chloride) 50 mls @ 100 mls/hr IV Q6H [facility] Last Infusion: 04/14/25 07:12 Dose: Infused Documented By: ARACELIS Lactated Ringer's (Lr) 1,000 mls @ 80 mls/hr IVCONT .[id number] [facility] Last Infusion: 04/14/25 01:30 Dose: 80 mls/hr Documented By: ANU Magnesium Hydroxide (Milk Of Magnesia 30 Ml Oral.Susp) 30 ml PO DAILY PRN PRN Reason: Constipation Melatonin (Melatonin 3 Mg Tablet) 6 mg PO BEDTIME PRN PRN Reason: Insomnia Morphine Sulfate (Morphine Sulfate 4 Mg/Ml Cartridge) 2 mg IVPUSH Q4H PRN; Protocol PRN Reason: Pain, Moderate(Pain Scale 4-6) Last Admin: 04/14/25 04:01 Dose: 2 mg Documented By: ANU Morphine Sulfate (Morphine Sulfate 4 Mg/Ml Cartridge) 4 mg IVPUSH Q4H PRN; Protocol PRN Reason: Pain, Severe (Pain Scale 7-10) Last Admin: 04/12/25 04:57 Dose: 4 mg Documented By: YEVGENIY Naloxone HCl (Naloxone Hcl 0.4 Mg/Ml Vial) 0.04 mg IVPUSH Q5M PRN PRN Reason: Excessive sedation or RR < 8 Ondansetron HCl (Ondansetron Hcl 4 Mg/2 Ml Vial) 4 mg IVPUSH Q6H PRN PRN Reason: Nausea and Vomiting Last Admin: 04/13/25 15:08 Dose: 4 mg Documented By: EARL Polyethylene Glycol (Polyethylene Glycol 3350 17 Gm Powd.Pack) 17 gm PO DAILY [facility] Last Admin: 04/13/25 08:02 Dose: 17 gm Documented By: MIKEY Sodium Chloride (0.9 % Sodium Chloride Flush 3 Ml Syringe) [facility] Last Admin: 04/13/25 22:43 Dose: 3 ml Documented By: ANU Sumatriptan Succinate (Sumatriptan Succinate 50 Mg Tablet) 50 mg PO DAILY PRN PRN Reason: Migraine Headache Valsartan (Valsartan 80 Mg Tablet) 80 mg PO BEDTIME [facility] Last Admin: 04/13/25 20:35 Dose: 80 mg Documented By: ANU <Russel Mulligan PA-C - Last Filed: 04/14/25 08:03> Labs CBC & Chem 7: 04/13/25 05:41 04/13/25 05:41 <Russel Mulligan PA-C - Last Filed: 04/14/25 08:03> Labs: Laboratory Results - last 24 hr 04/13/25 04/13/25 04/13/25 14:40 17:35 21:02 Total Creatine Kinase 82 Troponin I High Sens 15.4 D 22.2 H 21.7 H <Russel Mulligan PA-C - Last Filed: 04/14/25 08:03> Microbiology Microbiology Results: Microbiology 04/10/25 11:29 Blood Culture - Final Blood - Venous Clostridium clostridiiforme 04/10/25 17:36 Gram Stain - Final Peritoneal Fluid Routine Culture - Final Escherichia coli Anaerobic Culture - Preliminary Culture in progress. 04/10/25 Unknown Urine Culture - Final Urine clean catch - Clean Catch Midstream Escherichia coli <Russel Mulligan PA-C - Last Filed: 04/14/25 08:03> Procedures Date of Service Date of Service: 04/14/25 <Russel Mulligan PA-C - Last Filed: 04/14/25 08:03> 04/14/25 <Jesse Rosenthal MD - Last Filed: 04/14/25 07:47> Progress Note: A&P Assessment and plan (1) Status post Yael procedure: Status: Acute <Russel Mulligan PA-C - Last Filed: 04/14/25 08:03> Assessment and Plan: Pain on the left side Stoma has been functioning with good output of stool and gas Abdomen is soft and benign Looks well overall Try to advance diet today Large ambulation Pain management Seen and examined independently <Jesse Rosenthal MD - Last Filed: 04/14/25 07:47> (2) Colon perforation: Status: Acute <Russel Mulligan PA-C - Last Filed: 04/14/25 08:03> Assessment and Plan: 80 year old female POD 4 s/p Yael procedure for perforated stercoral colonic ulcer. Yesterday was found to be in afib with RVR in the 150s, hospitalist dc diltiazem, adding carvedilol, also metroprolol PRN. Continuing valsartan. Rate and pressures normal this morning, no longer complaining of dyspnea. Doing okay today, continue to have pain on the left side, at inicison site. She has some mild nausea, no episodes of vomiting. Continues to report decreased appetite. Tolerating CLD, will advance to regular. am labs pending, continuing to trend H/H. Abdomen is soft, tender along the left side. Ostomy looks viable, moderate amounts of dark stool in bag, she was passing flatus during exam. incision site intact, clean, packing was remove yesterday. Hospitalist planning for echo, initiate anticoagulation down the road when stabilized, cardiology consulted continue IV abx Regular diet as toelrated pain regimen as needed antiemetics as needed continue bowel regimen, add coalce BID follow H/H, am labs pending ostomy contsult appreciated <Russel Mulligan PA-C - Last Filed: 04/14/25 08:03> Time Spent With Patient Time: Total time managing care of this patient today ____ minutes. <Russel Mulligan PA-C - Last Filed: 04/14/25 08:03> Quality Stroke Does the patient have a stroke diagnosis?: No <Russel Mulligan PA-C - Last Filed: 04/14/25 08:03> VTE Prior VTE?: No <Russel Mulligan PA-C - Last Filed: 04/14/25 08:03> VTE Risk Level:: Medical - moderate - high <Russel Mulligan PA-C - Last Filed: 04/14/25 08:03> VTE Device Contraindication: N/A - Device Ordered <Russel Mulligan PA-C - Last Filed: 04/14/25 08:03> VTE Drug Contraindication: N/A - Med Ordered <Russel Mulligan PA-C - Last Filed: 04/14/25 08:03>
[2025-04-14 08:00] VITALS: BP 152/74; PULSE 70; RESP 18; TEMP 36.9; O2SAT 92
[2025-04-14 08:15] LABS: Hematocrit 26.8 % (37.0-47.0); Hemoglobin 8.8 g/dl (12.0-16.0); Mean Corpuscular HGB Conc 32.8 g/dl (31.0-35.0); Mean Corpuscular Hemoglobin 28.5 pg (27.0-33.0); Mean Corpuscular Volume 86.7 fL (80.0-98.0); NRBC Abs Auto 0.000 X10*3/uL (0.0-0.012); NRBC Pct Auto 0.0 /100WBC (0.0-0.2); Platelet Count 269 X10*3/uL (160-400); Red Blood Count 3.09 X10*6/uL (4.20-5.50); White Blood Count 9.4 X10*3/uL (4.8-10.8)
[2025-04-14 08:35] LABS: Anion Gap 15 (12-20); Blood Urea Nitrogen 12 mg/dL (9-16); Calcium 7.7 mg/dL (8.4-10.2); Carbon Dioxide 21 mmol/L (22-29); Chloride 105 mmol/L (96-108); Creatinine Clr Calc Pharmacy 60.0; Estimated Glomerular Filt Rate > 60; Potassium 2.9 mmol/L (3.3-5.1); Sodium 138 mmol/L (135-145)
--- NOTE | 2025-04-14 09:18 | ECG_ITS ---
Test Reason : AFIB Blood Pressure : */* mmHG Vent. Rate : 63 BPM Atrial Rate : 63 BPM P-R Int : 114 ms QRS Dur : 88 ms QT Int : 412 ms P-R-T Axes : 2 25 34 degrees QTcB Int : 421 ms Normal sinus rhythm Cannot rule out Anterior infarct , age undetermined ; could be related to body habitus and lead placement Nonspecific ST and T wave abnormality Abnormal ECG When compared with ECG of 13-Apr-2025 14:22, Rhythm change ST no longer depressed in Anterolateral leads Referred By: Tennille Silverman Electronically Signed By: TENNILLE SILVERMAN
[2025-04-14 09:43] LABS: Magnesium 2.1 mg/dL (1.6-2.6)
--- NOTE | 2025-04-14 10:49 | PM.CNCAR ---
History of Present Illness History of Present Illness Date of Service: 04/14/25 Chief complaint: perforated diverticulitis Narrative: This is a cardiology consultation regarding atrial fibrillation. It seems that patient was admitted mainly for surgical reasons. She had sigmoid colitis with perforation and she underwent sigmoid resection/colostomy on 04/10. General surgery is managing this. The hospitalists were called because of hypertension and there was also an episode of atrial fibrillation rapid ventricular rate is today. That seems to be fairly brief at < 1 hr or so what the exact duration is not clear; any case, did not appear prolonged. She got IV metoprolol and then she converted back to normal sinus rhythm. Since then, she has remained in sinus rhythm. Today, she states she feels okay. During the time of the atrial fibrillation she had some discomfort in the chest and it radiated to her left shoulder in the left arm and came all the way down to the hand. She denies any previous history of cardiac issues. There is no history of any atrial fibrillation either. Review of Systems Review of Systems: Yes all other systems are reviewed and are negative Constitutional: Constitutional: Reports as per HPI and Reports no additional constitutional complaints Eyes: Eyes: Reports as per HPI and Denies no additional eye complaints ENT: Denies system reviewed and no additional complaints, except as documented and Reports as per HPI Cardiovascular: Cardiovascular: Reports as per HPI, Reports no additional cardiovascular complaints, Denies acrocyanosis, Denies cool extremities, Denies chest pain, Denies leg edema, Denies lightheadedness, Denies palpitations and Denies dyspnea Respiratory: Respiratory: Reports as per HPI, Denies no additional respiratory complaints and Denies dyspnea Gastrointestinal: Gastrointestinal: Reports as per HPI and Denies no additional gastrointestinal complaints Genitourinary: Genitourinary: Reports as per HPI Musculoskeletal: Musculoskeletal: Reports no additional musculoskeletal complaints and Reports as per HPI Integumentary/Breasts: Skin/Breast: Reports system reviewed and no additional complaints, except as docu Neurologic: Reports system reviewed and no additional complaints, except as documented and Reports as per HPI Psychiatric: Psychiatric: Reports no additional psychiatric complaints and Reports as per HPI Endocrine: Endocrine: Reports no additional endocrine complaints, Reports as per HPI and Denies palpitations Hematologic/Lymphatic: Hematologic/Lymphatic: Reports no additional hematologic/lymphatic complaints and Reports as per HPI Allergic/Immunologic: Allergic/Immunologic: Reports no additional allergic/immunologic complaints and Reports as per HPI PMFSH Past Medical History Medical History (Updated 04/14/25 @ 10:55 by Marko Hogue MD) Diffuse esophageal spasm High cholesterol GERD (gastroesophageal reflux disease) Migraine with aura Migraine without aura Hypertension Family History Pertinent family history: No pertinent family history Surgical History Surgical History (Updated 04/13/25 @ 08:24 by Russel Mulligan PA-C) H/O wrist surgery Social History Social History Household Members: Unknown / Unable to assess Household Members Other:: son lives nearby Do you presently have visiting nurse or other home services: No Patient Tobacco Use Status: Former Tobacco user Tobacco use type: Cigarette Smoked in Last 30 Days: No Use of substances other than those prescribed or required for medical reasons: No Currently Displaying Signs/Symptoms of Drug Intoxication Withdrawal: No Have you been hit, kicked, punched, or otherwise hurt by someone within the past year? If so, by whom?: No Are you DNR?: No Advance Directives: No Advance Directives Information Provided: Yes Advance Directives on File: No Do you have a plan to hurt others: No Plan Nutrition Risks: Dental problems Patient : No : No Poor oral hygiene: No service: No Meds Allergies Allergy/AdvReac Type Severity Reaction Status Date / Time Penicillins Allergy Intermediate Rash Verified 04/10/25 16:19 Sulfa (Sulfonamide Allergy Intermediate Rash Verified 04/10/25 16:19 Antibiotics) lisinopril AdvReac Intermediate Cough Verified 04/10/25 16:20 Active Medications: Current Medications Acetaminophen (Acetaminophen 325 Mg Tablet) 650 mg PO Q6H [facility] Last Admin: 04/14/25 08:57 Dose: 650 mg Atorvastatin Calcium (Atorvastatin Calcium 10 Mg Tablet) 10 mg PO BEDTIME [facility] Last Admin: 04/13/25 20:36 Dose: 10 mg Calcium Carbonate (Calcium Carbonate 750 Mg Tab.Chew) 750 mg PO Q6H PRN PRN Reason: Heartburn Last Admin: 04/13/25 13:23 Dose: 750 mg Carvedilol (Carvedilol 25 Mg Tablet) 25 mg PO BID [facility]; Protocol Last Admin: 04/14/25 09:19 Dose: 25 mg Docusate Sodium (Docusate Sodium 100 Mg Capsule) 100 mg PO BID [facility] Last Admin: 04/14/25 08:57 Dose: 100 mg Enoxaparin Sodium (Enoxaparin Sodium 30 Mg/0.3 Ml Syringe) 30 mg SUBCUT Q24H [facility] Last Admin: 04/13/25 20:35 Dose: 30 mg Hydralazine HCl (Hydralazine Hcl 20 Mg/Ml Vial) 5 mg IVPUSH Q6H PRN; Protocol PRN Reason: SBP >170 Last Admin: 04/12/25 17:20 Dose: 5 mg Piperacillin Sod/Tazobactam (Sod 3.375 gm/ Sodium Chloride) 50 mls @ 100 mls/hr IV Q6H [facility] Last Infusion: 04/14/25 07:12 Dose: Infused Lactated Ringer's (Lr) 1,000 mls @ 80 mls/hr IVCONT .[id number] [facility] Last Infusion: 04/14/25 01:30 Dose: 80 mls/hr Potassium Chloride (Potassium Chloride/H20) 10 meq in 100 mls @ 100 mls/hr IV Q1H [facility] Stop: 04/14/25 13:29 Magnesium Hydroxide (Milk Of Magnesia 30 Ml Oral.Susp) 30 ml PO DAILY PRN PRN Reason: Constipation Melatonin (Melatonin 3 Mg Tablet) 6 mg PO BEDTIME PRN PRN Reason: Insomnia Morphine Sulfate (Morphine Sulfate 4 Mg/Ml Cartridge) 2 mg IVPUSH Q4H PRN; Protocol PRN Reason: Pain, Moderate(Pain Scale 4-6) Last Admin: 04/14/25 08:55 Dose: 2 mg Morphine Sulfate (Morphine Sulfate 4 Mg/Ml Cartridge) 4 mg IVPUSH Q4H PRN; Protocol PRN Reason: Pain, Severe (Pain Scale 7-10) Last Admin: 04/12/25 04:57 Dose: 4 mg Naloxone HCl (Naloxone Hcl 0.4 Mg/Ml Vial) 0.04 mg IVPUSH Q5M PRN PRN Reason: Excessive sedation or RR < 8 Ondansetron HCl (Ondansetron Hcl 4 Mg/2 Ml Vial) 4 mg IVPUSH Q6H PRN PRN Reason: Nausea and Vomiting Last Admin: 04/14/25 08:56 Dose: 4 mg Polyethylene Glycol (Polyethylene Glycol 3350 17 Gm Powd.Pack) 17 gm PO DAILY [facility] Last Admin: 04/14/25 10:35 Dose: 17 gm Sodium Chloride (0.9 % Sodium Chloride Flush 3 Ml Syringe) 3 ml IVFLUSH QSHIFT [facility] Last Admin: 04/14/25 08:57 Dose: Not Given Sumatriptan Succinate (Sumatriptan Succinate 50 Mg Tablet) 50 mg PO DAILY PRN PRN Reason: Migraine Headache Valsartan (Valsartan 80 Mg Tablet) 80 mg PO BEDTIME [facility] Last Admin: 04/13/25 20:35 Dose: 80 mg Home Medications ?Medication ?Instructions ?Recorded ?Confirmed ?Last Taken ?Type atorvastatin 10 mg tablet 10 mg PO BEDTIME 02/18/25 04/10/25 04/08/25 History diltiazem HCl 240 mg 240 mg PO DAILY 02/18/25 04/10/25 04/08/25 History capsule,extended release 24 hr famotidine 20 mg tablet 20 mg PO BID 02/18/25 04/10/25 04/08/25 History olmesartan 20 mg tablet 20 mg PO BEDTIME 02/18/25 04/10/25 04/08/25 History bismuth subsalicylate 262 mg/15 mL 524 mg PO QID PRN Constipation 04/10/25 04/10/25 Unknown History oral suspension (Pepto-Bismol) diphenhydramine 25 1 tab PO BEDTIME PRN Sleep 04/10/25 04/10/25 Unknown History mg-acetaminophen 500 mg tablet (Acetaminophen PM) ibuprofen 200 mg tablet (Advil) 200 mg PO Q6H PRN migrine 04/10/25 04/10/25 Unknown History sumatriptan succinate 50 mg tablet 50 mg PO DAILY PRN Migraine 04/10/25 04/10/25 Unknown History Headache Physical Exam Vital Signs: Vital Signs: Last Vital Signs Temp 98.4 F 04/14/25 08:00 Pulse 70 04/14/25 08:00 Resp 18 04/14/25 08:00 BP 152/74 H 04/14/25 08:00 Pulse Ox 92 04/14/25 08:00 O2 Del Method Room Air 04/14/25 08:00 O2 Flow Rate 6 04/10/25 19:56 BMI result Body Mass Index 20.2 Const: General: comfortable and no acute distress Orientation/consciousness: patient oriented x3 HEENT: Other: Unremarkable Head: Yes normal to inspection Neck: Neck: Yes normal visual inspection Chest: Chest palpation & inspection: normal inspection of the chest Resp: Auscultation: clear to auscultation bilaterally Cardio: Palpation: normal PMI Heart sounds: S1 normal heart sound present, S2 normal heart sound present, no gallops, Murmur heart sound present systolic II/ and no rubs GI: Palpation (GI): Soft to palpation Back/Spine/Pelvis: Other: unremarkable Skin: General skin exam: no rashes or lesions noted Neuro: General: patient oriented x3 Extrem: General: Yes normal to inspection Psych: Mental Status: mental status grossly normal Objective Labs and Meds 04/14/25 08:09 04/14/25 08:09 Lab results: Laboratory Results - last 24 hr 04/13/25 04/13/25 04/13/25 14:40 17:35 21:02 WBC RBC Hgb Hct MCV MCH MCHC RDW Plt Count MPV Absolute Nucleated RBC Nucleated RBC % (auto) Sodium Potassium Chloride Carbon Dioxide Anion Gap BUN Creatinine Estim Creat Clear Calc Estimated GFR Random Glucose Calcium Magnesium Total Creatine Kinase 82 Troponin I High Sens 15.4 D 22.2 H 21.7 H 04/14/25 08:09 WBC 9.4 RBC 3.09 L Hgb 8.8 L Hct 26.8 L MCV 86.7 MCH 28.5 MCHC 32.8 RDW 15.1 Plt Count 269 MPV 9.0 L Absolute Nucleated RBC 0.000 Nucleated RBC % (auto) 0.0 Sodium 138 Potassium 2.9 L* Chloride 105 Carbon Dioxide 21 L Anion Gap 15 BUN 12 Creatinine 0.60 Estim Creat Clear Calc 60.0 Estimated GFR > 60 Random Glucose 102 Calcium 7.7 L Magnesium 2.1 Total Creatine Kinase Troponin I High Sens ECG Interpretation: EKG with atrial fibrillation rate of 159/Min; ST-depression inferiorly as well as anterolateral leads. In the repeat EKG, sinus rhythm at 63/Min with nonspecific ST-T changes. Assessment and Plan (1) Atrial fibrillation with RVR: Status: Acute (2) Hypokalemia: Status: Acute (3) Hypertensive urgency: Status: Acute Plan Home medications listed as diltiazem CD 240 mg daily. Currently, she is listed to be on carvedilol 25 mg b.i.d. which is an acceptable. As atrial fibrillation itself is very brief in duration, hold off anticoagulation at this time. He will need outpatient cardiac monitoring. If indeed there is recurrence, then anticoagulation will be needed. Otherwise, potassium is quite low and that needs to be aggressively corrected. Discussed with hospitalist about this today. With regard to the blood pressure, it has been quite high. Currently, on carvedilol/valsartan and we will need to monitor this and make further adjustments. May consider spironolactone as that will help potassium as well. Discussed with daughter at the bedside. Procedures Date of Service Date of Service: 04/14/25
[2025-04-14] MEDS: Potassium Chloride/H20 10 MEQ/100 ML PIGGYBACK 100 MEQ IV ×3 (11:05→14:35)
--- NOTE | 2025-04-14 11:12 | HO.OSTOMY ---
Ostomy Consult: Follow up Teaching 80yr old [place] [facility] [place] see H&P for detailed history and admission.? Consult for new ostomy teaching. ?She had Colostomy creation on 04/10/[address] Gallagher. ?Upon entry into patient's room, patient is lying in bed, alert and oriented x 3, currently has no complaints. Her and daughter Beverly were at bedside, introductions were completed, the patient appears unwell today. She reports she did not get up and ambulate yesterday nor so far today. She appears pale and reports feeling weak. The patient is not appropriate for meaningful teaching today she is agreeable to teaching in the future date and time. Her daughter was agreeable to watching the videos and to attend teaching at future date and time. We agreed to coordinate teaching with her when her mother is ready for teaching . We discussed pain control at ?6?/10 at the current moment she reports her pain is worsening, reports increasing the use of IS. We discussed and set a goal for her to continue to use IS every hour while awake and to ambulate1-2 separate occasions today, She was agreeable. Awaiting PT eval. ?Her pouch was assessed and noted to not be leaking and is not due to be changed. She is noted to have a small amount of liquid dark stool along with firm hard pellets in the pouch. She was agreeable to me emptying and she was able to observe this process. She reports the odors make her nauseous, she was educated that currently the odor or her stool may have an increased smell due to the duration i the color / constipation. She was able to observe the pouch empty. Will continue to monitor patient for education readiness. ?All questions and concerns addressed at this time. Stoma 04/13/25 Next teaching session goals: Demonstrate open and close independently Stoma Model change ACS Education videos 04/13/25 Midline - areas of dehiscence - alternating jaron observed - dressing dry and intact at the time of my consult. We discussed the following steps: 1. Empty pouch before pouch change 2. Remove pouch using push/pull technique from top to bottom 3. Cleanse stoma and skin with tap water only - no soap or wipes 4. Pat dry 5. Measure stoma and cut new pouch no more than 1/8 inch larger than stoma and no smaller than stoma 6. If instructed by your ostomy nurse stretch barrier seal to the size of the stoma and press onto skin around stoma (up to the edge of the stoma but not onto the stoma) 7. Press the new pouch into place and hold for several seconds (close pouch tail) 8. Empty pouch when 1/3 to 1/2 full 9. Change pouch twice weekly on a schedule (for example, every Sunday and ) and as needed for any leaking (feels like intense itch or burn at edge of stoma) 10. May order pre-cut pouches (already cut to size of stoma) once stoma measures the same size consistently at about 8-12 weeks.
[2025-04-14 14:47] LABS: Anion Gap 13 (12-20); Blood Urea Nitrogen 13 mg/dL (9-16); Calcium 7.8 mg/dL (8.4-10.2); Carbon Dioxide 21 mmol/L (22-29); Chloride 106 mmol/L (96-108); Creatinine Clr Calc Pharmacy 55.3; Estimated Glomerular Filt Rate > 60; Magnesium 2.4 mg/dL (1.6-2.6); Potassium 3.4 mmol/L (3.3-5.1); Sodium 137 mmol/L (135-145)
[2025-04-14 15:15] VITALS: BP 140/78; PULSE 67; RESP 18; TEMP 37.3; O2SAT 95
--- NOTE | 2025-04-14 15:47 | PM.EVENT ---
Event Note Date of Service: 04/15/25 Event Note: She is on afternoon rounds Says she is ?uncomfortable? but tired Had a little bit of oral intake for lunch Stoma continues to function Currently seems to be in sinus Echocardiogram done today Getting potassium replacement Encouraged to get out of bed Postop oral intake Appreciate hospitalist follow up Family at bedside Time Spent With Patient Time: Total time managing care of this patient today ____ minutes.
[2025-04-14] MEDS: 0.9 % Sodium Chloride Flush 3 ML SYRINGE IVFLUSH ×2 (17:14→20:02)
[2025-04-14] MEDS: Potassium Chloride/H20 10 MEQ/100 ML PIGGYBACK 50 MEQ IV (18:03)
--- NOTE | 2025-04-14 18:05 | HO.PM.IMPN ---
Subjective Subjective Date of Service: 04/14/25 Interval History: INTERNAL MEDICINE CONSULT NOTE On evaluation, the patient seems much improved today. No events overnight. No episodes of RVR. Blood pressure is much better controlled, currently 140-150 systolic. Patient has no chest pain, retrosternal chest discomfort, palpitations, dizziness, diaphoresis. Family members by bedside; updated on current patient's clinical status. Hypokalemia noted today, which was repleted. Magnesium within normal limits. Review of Systems Review of Systems: Yes all other systems are reviewed and are negative Physical Exam Exam: Exam: General: A&O x3, oriented to time place person and situation, comfortable, no pain Cardiac: S1, S2 auscultated with no S3/4, no MRG. Well perfused. Respiratory: Normal breath sounds auscultated throughout all lung zones, without wheezing, rales. Normal rate. 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 No tenderness on palpation around stoma, without herniation (normal with cough), some fluid in stoma, but no stool. MSK: Normal ambulation without pain at bony prominences or musculature Neurological: Normal neurological examination on overview, without obvious CN II-XII abnormalities. Vital Signs: Vital Signs: Last Vital Signs Temp 99.2 F 04/14/25 15:15 Pulse 67 04/14/25 15:15 Resp 18 04/14/25 15:15 BP 140/78 H 04/14/25 15:15 Pulse Ox 95 04/14/25 15:15 O2 Del Method Room Air 04/14/25 15:15 O2 Flow Rate 6 04/10/25 19:56 BMI result Body Mass Index 20.2 Objective Data Active Medications Acetaminophen (Acetaminophen 325 Mg Tablet) 650 mg PO Q6H [facility] Last Admin: 04/14/25 17:13 Dose: 650 mg Documented By: BENNIE Atorvastatin Calcium (Atorvastatin Calcium 10 Mg Tablet) 10 mg PO BEDTIME [facility] [place] Last Admin: 04/13/25 20:36 Dose: 10 mg Documented By: ANU Calcium Carbonate (Calcium Carbonate 750 Mg Tab.Chew) 750 mg PO Q6H PRN PRN Reason: Heartburn Last Admin: 04/13/25 13:23 Dose: 750 mg Documented By: MIKEY Carvedilol (Carvedilol 25 Mg Tablet) 25 mg PO BID [facility] [place]; Protocol Last Admin: 04/14/25 09:19 Dose: 25 mg Documented By: ARACELIS Docusate Sodium (Docusate Sodium 100 Mg Capsule) 100 mg PO BID [facility] [place] Last Admin: 04/14/25 08:57 Dose: 100 mg Documented By: ARACELIS Enoxaparin Sodium (Enoxaparin Sodium 40 Mg/0.4 Ml Syringe) 40 mg SUBCUT Q24H [facility] [place] Hydralazine HCl (Hydralazine Hcl 20 Mg/Ml Vial) 5 mg IVPUSH Q6H PRN; Protocol PRN Reason: SBP >170 Last Admin: 04/12/25 17:20 Dose: 5 mg Documented By: ROCHELLE Lactated Ringer's (Lr) 1,000 mls @ 80 mls/hr IVCONT .[id number] [facility] [place] Last Admin: 04/14/25 17:16 Dose: Not Given Documented By: BENNIE Non-Admin Reason: IV Running Piperacillin Sod/Tazobactam (Sod 3.375 gm/ Sodium Chloride) 50 mls @ 100 mls/hr IV Q6H [facility] [place] Last Infusion: 04/14/25 17:59 Dose: Infused Documented By: BENNIE Magnesium Hydroxide (Milk Of Magnesia 30 Ml Oral.Susp) 30 ml PO DAILY PRN PRN Reason: Constipation Melatonin (Melatonin 3 Mg Tablet) 6 mg PO BEDTIME PRN PRN Reason: Insomnia Morphine Sulfate (Morphine Sulfate 4 Mg/Ml Cartridge) 2 mg IVPUSH Q4H PRN; Protocol PRN Reason: Pain, Moderate(Pain Scale 4-6) Last Admin: 04/14/25 14:34 Dose: 2 mg Documented By: ARACELIS Morphine Sulfate (Morphine Sulfate 4 Mg/Ml Cartridge) 4 mg IVPUSH Q4H PRN; Protocol PRN Reason: Pain, Severe (Pain Scale 7-10) Last Admin: 04/12/25 04:57 Dose: 4 mg Documented By: YEVGENIY Naloxone HCl (Naloxone Hcl 0.4 Mg/Ml Vial) 0.04 mg IVPUSH Q5M PRN PRN Reason: Excessive sedation or RR < 8 Ondansetron HCl (Ondansetron Hcl 4 Mg/2 Ml Vial) 4 mg IVPUSH Q6H PRN PRN Reason: Nausea and Vomiting Last Admin: 04/14/25 08:56 Dose: 4 mg Documented By: ARACELIS Polyethylene Glycol (Polyethylene Glycol 3350 17 Gm Powd.Pack) 17 gm PO DAILY [facility] [place] Last Admin: 04/14/25 10:35 Dose: 17 gm Documented By: ARACELIS Sodium Chloride (0.9 % Sodium Chloride Flush 3 Ml Syringe) 3 ml IVFLUSH QSHIFT [facility] [place] Last Admin: 04/14/25 17:14 Dose: 3 ml Documented By: BENNIE Sumatriptan Succinate (Sumatriptan Succinate 50 Mg Tablet) 50 mg PO DAILY PRN PRN Reason: Migraine Headache Valsartan (Valsartan 80 Mg Tablet) 80 mg PO BEDTIME [facility] [place] Last Admin: 04/13/25 20:35 Dose: 80 mg Documented By: ANU Labs 04/14/25 08:09 04/14/25 14:22 Labs: Laboratory Results - last 24 hr 04/13/25 04/13/25 04/14/25 17:35 21:02 08:09 MCV 86.7 MCH 28.5 MCHC 32.8 RDW 15.1 Plt Count 269 MPV 9.0 L Absolute Nucleated RBC 0.000 Nucleated RBC % (auto) 0.0 Anion Gap 15 Estim Creat Clear Calc 60.0 Estimated GFR > 60 Random Glucose 102 Calcium 7.7 L Magnesium 2.1 Troponin I High Sens 22.2 H 21.7 H 04/14/25 14:22 MCV MCH MCHC RDW Plt Count MPV Absolute Nucleated RBC Nucleated RBC % (auto) Anion Gap 13 Estim Creat Clear Calc 55.3 Estimated GFR > 60 Random Glucose 109 Calcium 7.8 L Magnesium 2.4 Troponin I High Sens Microbiology Microbiology Results: Microbiology 04/10/25 17:36 Gram Stain - Final Peritoneal Fluid Routine Culture - Final Escherichia coli Anaerobic Culture - Preliminary Culture in progress. 04/10/25 11:29 Blood Culture - Final Blood - Venous Clostridium clostridiiforme Assessment and Plan (1) Hypertension: Status: Acute (2) Hypertensive urgency: Status: Acute (3) Demand ischemia: Status: Acute (4) Atrial fibrillation with RVR: Status: Acute (5) Diverticulitis: Status: Acute (6) Colon perforation: Status: Acute (7) Status post Yael procedure: Status: Acute (8) ANGELITO (acute kidney injury): Status: Acute (9) Hypokalemia: Status: Acute Plan 80-year-old female with at PMH significant for HTN, HLD, GERD, and migraines who presented to the hospital on 04/10 with worsening abd pain and constipation x2 days, admitted with stercoral sigmoid colitis with perforation s/p Yael procedure a sigmoid resection and end colostomy placement 04/10. Hospitalist service was consulted for hypertensive urgency. Case c/b AFib RVR with type 2/ demand NSTEMI Stercoral sigmoid colitis with perforation Underwent Yael procedure with sigmoid resection and end colostomy on 04/10 Plan as per general surgery Hypertensive urgency BP as high as 182/88 Diltiazem was discontinued, and carvedilol was started. Patient's blood pressure and heart rate have improved. PLAN - Continue valsartan 80mg daily - discontinue diltiazem ER 240mg daily - Continue Carvedilol 25 mg b.i.d. p.o. - Metoprolol 5mg PRN IV for RVR - Hydralazine 5mg IV prn for SBP >170 - Follow BP closely AFib RVR Troponin leak Type 2 demand NSTEMI Patient suffered with heart rate 150, captured on ECG. Blood pressure preserved, however lower than prior. Troponin elevated - plateaued - consistent with type 2 demand NSTEMI 5 mg IV metoprolol administered, with improvement and resolution of RVR [id number] Score elevated; indicated for anticoagulation-holding in the setting of critical illness PLAN - consider apixaban 5 mg b.i.d. p.o. (after clinical stability) - IV metoprolol 5 mg p.r.n. for RVR - continue carvedilol - echocardiography result pending - cardiology recommendations greatly appreciated Constipation On Miralax Encourage ambuation Management as per general surgery HLD Continue statin GERD Continue famotidine Migraines Continue sumatriptan prn Thank you for allowing us to participate in the care of this pt. We will continue to follow with you. Total time managing care of this patient today: 45 minutes. Quality Stroke Does the patient have a stroke diagnosis?: No VTE Prior VTE?: No VTE Risk Level:: Medical - moderate - high VTE Device Contraindication: N/A - Device Ordered VTE Drug Contraindication: N/A - Med Ordered
[2025-04-14] MEDS: Lactated Ringers 1,000 ML 80 ML IVCONT (18:11)
[2025-04-14 19:08] VITALS: BP 126/59; PULSE 69; RESP 18; TEMP 36.6; O2SAT 97
[2025-04-15] VITALS (7 sets, daily range): BP systolic 122–155; BP diastolic 60–72; PULSE 60–96; RESP 16–18; TEMP 36.3–36.8; O2SAT 94–99
[2025-04-15] MEDS: Lactated Ringers 1,000 ML 80 ML IVCONT ×2 (05:56→17:35)
--- NOTE | 2025-04-15 07:37 | PM.PNGS ---
Subjective Subjective Date of Service: 04/15/25 <Russel Mulligan PA-C - Last Filed: 04/15/25 07:50> 04/15/25 <Jesse Rosenthal MD - Last Filed: 04/15/25 07:59> Interval history: doing well today, feels a bit better than yesterday. continues to have some mild abdominal pain at rest, increased with ambulation. She feels less bloated today. reports passing lots of stool, did have a sensation like she had to pass stool through rectum. appetite still low, only small amounts of food so far, some nausea with diet. <Russel Mulligan PA-C - Last Filed: 04/15/25 07:50> Physical Exam Vital Signs: Vital Signs: Last Vital Signs Temp 97.3 F 04/15/25 07:36 Pulse 60 04/15/25 07:36 Resp 16 04/15/25 07:36 BP 155/72 H 04/15/25 07:36 Pulse Ox 99 04/15/25 07:36 O2 Del Method Room Air 04/15/25 07:36 O2 Flow Rate 6 04/10/25 19:56 BMI result Body Mass Index 20.2 <Russel Mulligan PA-C - Last Filed: 04/15/25 07:50> Const: General: comfortable and no acute distress <LAUREN Nur Last Filed: 04/15/25 07:50> Orientation/consciousness: patient oriented x3 <Russel Mulligan PA-C - Last Filed: 04/15/25 07:50> GI: Other: ostomy in place, high output, dark brown liquid stool <LAUREN Nur Last Filed: 04/15/25 07:50> Inspection: No distended <LAUREN Nur Last Filed: 04/15/25 07:50> Palpation (GI): Soft to palpation and Tenderness to palpation present (GI) (left side) <LAUREN Nur Last Filed: 04/15/25 07:50> Neuro: General: patient oriented x3 <LAUREN Nur Last Filed: 04/15/25 07:50> Objective Data Active Medications Acetaminophen (Acetaminophen 325 Mg Tablet) 650 mg PO Q6H [facility] Last Admin: 04/15/25 04:31 Dose: 650 mg Documented By: YEVGENIY Atorvastatin Calcium (Atorvastatin Calcium 10 Mg Tablet) 10 mg PO BEDTIME [facility] Last Admin: 04/14/25 20:01 Dose: 10 mg Documented By: YEVGENIY Calcium Carbonate (Calcium Carbonate 750 Mg Tab.Chew) 750 mg PO Q6H PRN PRN Reason: Heartburn Last Admin: 04/15/25 04:53 Dose: 750 mg Documented By: YEVGENIY Carvedilol (Carvedilol 25 Mg Tablet) 25 mg PO BID [facility]; Protocol Last Admin: 04/14/25 20:02 Dose: 25 mg Documented By: YEVGENIY Docusate Sodium (Docusate Sodium 100 Mg Capsule) 100 mg PO BID [facility] Last Admin: 04/14/25 20:02 Dose: 100 mg Documented By: YEVGENIY Enoxaparin Sodium (Enoxaparin Sodium 40 Mg/0.4 Ml Syringe) 40 mg SUBCUT Q24H [facility] Last Admin: 04/14/25 20:02 Dose: 40 mg Documented By: YEVGENIY Hydralazine HCl (Hydralazine Hcl 20 Mg/Ml Vial) 5 mg IVPUSH Q6H PRN; Protocol PRN Reason: SBP >170 Last Admin: 04/12/25 17:20 Dose: 5 mg Documented By: ROCHELLE Lactated Ringer's (Lr) 1,000 mls @ 80 mls/hr IVCONT .[id number] [facility] Last Admin: 04/15/25 05:56 Dose: 80 mls/hr Documented By: YEVGENIY Piperacillin Sod/Tazobactam (Sod 3.375 gm/ Sodium Chloride) 50 mls @ 100 mls/hr IV Q6H [facility] Last Infusion: 04/15/25 05:21 Dose: Infused Documented By: YEVGENIY Magnesium Hydroxide (Milk Of Magnesia 30 Ml Oral.Susp) 30 ml PO DAILY PRN PRN Reason: Constipation Melatonin (Melatonin 3 Mg Tablet) 6 mg PO BEDTIME PRN PRN Reason: Insomnia Morphine Sulfate (Morphine Sulfate 4 Mg/Ml Cartridge) 2 mg IVPUSH Q4H PRN; Protocol PRN Reason: Pain, Moderate(Pain Scale 4-6) Last Admin: 04/14/25 14:34 Dose: 2 mg Documented By: ARACELIS Morphine Sulfate (Morphine Sulfate 4 Mg/Ml Cartridge) 4 mg IVPUSH Q4H PRN; Protocol PRN Reason: Pain, Severe (Pain Scale 7-10) Last Admin: 04/12/25 04:57 Dose: 4 mg Documented By: YEVGENIY Naloxone HCl (Naloxone Hcl 0.4 Mg/Ml Vial) 0.04 mg IVPUSH Q5M PRN PRN Reason: Excessive sedation or RR < 8 Ondansetron HCl (Ondansetron Hcl 4 Mg/2 Ml Vial) 4 mg IVPUSH Q6H PRN PRN Reason: Nausea and Vomiting Last Admin: 04/14/25 08:56 Dose: 4 mg Documented By: ARACELIS Polyethylene Glycol (Polyethylene Glycol 3350 17 Gm Powd.Pack) 17 gm PO DAILY [facility] Last Admin: 04/14/25 10:35 Dose: 17 gm Documented By: ARACELIS Sodium Chloride (0.9 % Sodium Chloride Flush 3 Ml Syringe) 3 ml IVFLUSH QSHIFT [facility] Last Admin: 04/15/25 07:23 Dose: Not Given Documented By: JACOB Non-Admin Reason: IV Running Sumatriptan Succinate (Sumatriptan Succinate 50 Mg Tablet) 50 mg PO DAILY PRN PRN Reason: Migraine Headache Valsartan (Valsartan 80 Mg Tablet) 80 mg PO BEDTIME [facility] Last Admin: 04/14/25 20:01 Dose: 80 mg Documented By: YEVGENIY <Russel Mulligan PA-C - Last Filed: 04/15/25 07:50> Labs CBC & Chem 7: 04/14/25 08:09 04/14/25 14:22 <Russel Mulligan PA-C - Last Filed: 04/15/25 07:50> Labs: Laboratory Results - last 24 hr 04/14/25 04/14/25 08:09 14:22 MCV 86.7 MCH 28.5 MCHC 32.8 RDW 15.1 Plt Count 269 MPV 9.0 L Absolute Nucleated RBC 0.000 Nucleated RBC % (auto) 0.0 Anion Gap 15 13 Estim Creat Clear Calc 60.0 55.3 Estimated GFR > 60 > 60 Random Glucose 102 109 Calcium 7.7 L 7.8 L Magnesium 2.1 2.4 <Russel Mulligan PA-C - Last Filed: 04/15/25 07:50> Microbiology Microbiology Results: Microbiology 04/10/25 17:36 Gram Stain - Final Peritoneal Fluid Routine Culture - Final Escherichia coli Anaerobic Culture - Preliminary Culture in progress. <Russel Mulligan PA-C - Last Filed: 04/15/25 07:50> Procedures Date of Service Date of Service: 04/15/25 <Russel Mulligan PA-C - Last Filed: 04/15/25 07:50> 04/15/25 <Jesse Rosenthal MD - Last Filed: 04/15/25 07:59> Progress Note: A&P Assessment and plan (1) Status post Yael procedure: Status: Acute <Russel Mulligan PA-C - Last Filed: 04/15/25 07:50> Assessment and Plan: States she feels better Minimal oral intake however Had crampy pain yesterday Stoma functioning well with good output Encouraged to get out of bed more Encouraged better oral intake Continue antibiotics Appreciate hospitalist follow up for episode of atrial fibrillation with RVR Seen and examined independently <Jesse Rosenthal MD - Last Filed: 04/15/25 07:59> (2) Colon perforation: Status: Acute <Russel Mulligan PA-C - Last Filed: 04/15/25 07:50> Assessment and Plan: 80 year old female POD 5 s/p Yael procedure for perforated stercoral colonic ulcer. Doing better today, less pain and bloating. continues to have good ostomy output. Continued poor appetite, some mild nausea with regular diet yesterday. Was hypokalemic yesterday, repleted, today WNL. Possible this is GI loss due to high ostomy output. Will follow labs daily. Abdomen is soft, tender along the left side. Ostomy looks viable, high amounts of dark stool in bag, incision site intact, clean, jaron in place, no cellulitis changes. cardiology consult appreciated, echo yesterday. 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 She seems to have been in sinus rhythm since. Denies chest pain, palpatations, dyspnea. Pressures much more stable. continue IV abx Regular diet as tolerated ambulation as tolerated continue bowel regimen closely follow lytes ostomy contsult appreciated <Russel Mulligan PA-C - Last Filed: 04/15/25 07:50> Time Spent With Patient Time: Total time managing care of this patient today ____ minutes. <Russel Mulligan PA-C - Last Filed: 04/15/25 07:50> Quality Stroke Does the patient have a stroke diagnosis?: No <Russel Mulligan PA-C - Last Filed: 04/15/25 07:50> VTE Prior VTE?: No <Russel Mulligan PA-C - Last Filed: 04/15/25 07:50> VTE Risk Level:: Medical - moderate - high <Russel Mulligan PA-C - Last Filed: 04/15/25 07:50> VTE Device Contraindication: N/A - Device Ordered <Russel Mulligan PA-C - Last Filed: 04/15/25 07:50> VTE Drug Contraindication: N/A - Med Ordered <Russel Mulligan PA-C - Last Filed: 04/15/25 07:50>
[2025-04-15 08:32] LABS: MANUAL DIFF FLAG NO
[2025-04-15 08:43] LABS: Hematocrit 25.8 % (37.0-47.0); Hemoglobin 8.5 g/dl (12.0-16.0); Imm Gran Abs Auto 0.22 X10*3/uL (0.00-0.03); Imm Gran Pct Auto 1.8 % (0.0-0.4); Lymphocytes Absolute Auto 1.2 X10*3/uL (1.2-4.9); Mean Corpuscular HGB Conc 32.9 g/dl (31.0-35.0); Mean Corpuscular Hemoglobin 28.6 pg (27.0-33.0); Mean Corpuscular Volume 86.9 fL (80.0-98.0); NRBC Abs Auto 0.000 X10*3/uL (0.0-0.012); NRBC Pct Auto 0.0 /100WBC (0.0-0.2); Platelet Count 312 X10*3/uL (160-400); Red Blood Count 2.97 X10*6/uL (4.20-5.50); White Blood Count 12.0 X10*3/uL (4.8-10.8)
[2025-04-15 08:51] LABS: Anion Gap 12 (12-20); Blood Urea Nitrogen 22 mg/dL (9-16); Calcium 7.4 mg/dL (8.4-10.2); Carbon Dioxide 21 mmol/L (22-29); Chloride 107 mmol/L (96-108); Creatinine Clr Calc Pharmacy 41.8; Estimated Glomerular Filt Rate > 60; Magnesium 2.2 mg/dL (1.6-2.6); Potassium 3.1 mmol/L (3.3-5.1); Sodium 137 mmol/L (135-145)
--- NOTE | 2025-04-15 09:51 | PM.PNCARD ---
Subjective Subjective Date of Service: 04/15/25 Interval history: Denies any cardiac symptoms. No further atrial fibrillation. Review of Systems Review of Systems Yes all other systems are reviewed and are negative Constitutional: Reports as per HPI and Reports no additional constitutional complaints Eyes: Reports as per HPI and Denies no additional eye complaints Denies system reviewed and no additional complaints, except as documented and Reports as per HPI Cardiovascular: Reports as per HPI, Reports no additional cardiovascular complaints, Denies acrocyanosis, Denies cool extremities, Denies chest pain, Denies leg edema, Denies lightheadedness, Denies palpitations and Denies dyspnea Respiratory: Reports as per HPI, Denies no additional respiratory complaints and Denies dyspnea Gastrointestinal: Reports as per HPI and Denies no additional gastrointestinal complaints Genitourinary: Reports as per HPI Musculoskeletal: Reports no additional musculoskeletal complaints and Reports as per HPI Skin/Breast: Reports system reviewed and no additional complaints, except as docu Reports system reviewed and no additional complaints, except as documented and Reports as per HPI Psychiatric: Reports no additional psychiatric complaints and Reports as per HPI Endocrine: Reports no additional endocrine complaints, Reports as per HPI and Denies palpitations Hematologic/Lymphatic: Reports no additional hematologic/lymphatic complaints and Reports as per HPI Allergic/Immunologic: Reports no additional allergic/immunologic complaints and Reports as per HPI Physical Exam Vital Signs: Last Vital Signs Temp 97.3 F 04/15/25 07:36 Pulse 60 04/15/25 07:36 Resp 16 04/15/25 07:36 BP 155/72 H 04/15/25 07:36 Pulse Ox 99 04/15/25 07:36 O2 Del Method Room Air 04/15/25 07:36 O2 Flow Rate 6 04/10/25 19:56 BMI result Body Mass Index 20.2 Const General: comfortable and no acute distress Orientation/consciousness: patient oriented x3 HEENT Other: Unremarkable Head: Yes normal to inspection Neck Neck: Yes normal visual inspection Chest Chest palpation & inspection: normal inspection of the chest Resp Auscultation: clear to auscultation bilaterally Cardio Palpation: normal PMI Heart sounds: S1 normal heart sound present, S2 normal heart sound present, no gallops, Murmur heart sound present systolic II/ and no rubs GI Palpation (GI): Soft to palpation Back/Spine/Pelvis Other: unremarkable Skin General skin exam: no rashes or lesions noted Neuro General: patient oriented x3 Extrem General: Yes normal to inspection Psych Mental Status: mental status grossly normal Objective Labs and Meds 04/15/25 08:17 04/15/25 08:17 Lab results: Laboratory Results - last 24 hr 04/14/25 04/15/25 14:22 08:17 WBC 12.0 H RBC 2.97 L Hgb 8.5 L Hct 25.8 L MCV 86.9 MCH 28.6 MCHC 32.9 RDW 14.9 Plt Count 312 MPV 9.4 Immature Gran % (Auto) 1.8 H Neut % (Auto) 76.2 H Lymph % (Auto) 9.7 L [place] % (Auto) 10.5 Eos % (Auto) 1.6 Baso % (Auto) 0.2 Lymph # (Auto) 1.2 [place] # (Auto) 1.3 H Eos # (Auto) 0.2 Baso # (Auto) 0.0 Abs Immat Gran (auto) 0.22 H Absolute Neuts (auto) 9.1 H Absolute Nucleated RBC 0.000 Nucleated RBC % (auto) 0.0 Sodium 137 137 Potassium 3.4 3.1 L Chloride 106 107 Carbon Dioxide 21 L 21 L Anion Gap 13 12 BUN 13 22 H Creatinine 0.65 0.86 Estim Creat Clear Calc 55.3 41.8 Estimated GFR > 60 > 60 Random Glucose 109 99 Calcium 7.8 L 7.4 L Magnesium 2.4 2.2 Progress Note: A&P Assessment and plan (1) Atrial fibrillation with RVR: Status: Acute (2) Hypokalemia: Status: Acute (3) Hypertensive urgency: Status: Acute Plan Home medications listed as diltiazem CD 240 mg daily. Currently, she is listed to be on carvedilol 25 mg b.i.d. which is an acceptable alternative. As atrial fibrillation itself is very brief in duration, hold off anticoagulation at this time. Will need outpatient cardiac monitoring. If indeed there is recurrence, then anticoagulation will be needed. Continue to correct potassium as it is still low. Blood pressure is still high but better than before. Listed on carvedilol/valsartan and may adjust Valsartan dose based on blood pressure. Consider spironolactone. Follow up will be arranged. Time Spent With Patient Time: Total time managing care of this patient today ____ minutes. Progress Note: Quality Stroke Does the patient have a stroke diagnosis?: No Procedures Date of Service Date of Service: 04/15/25
--- NOTE | 2025-04-15 17:41 | HO.OSTOMY ---
Ostomy Consult: Follow up Teaching 80yr old female admitted to [facility] on 04/10/25- see H&P for detailed history and admission.? Consult for new ostomy teaching. ?She had Colostomy creation on 04/10/[address] Gallagher. ?Upon entry into patient's room, patient is lying in bed, alert and oriented x 3, currently has no complaints. Her and daughter Beverly were at bedside, introductions were completed, the patient appears improved today. She reports she did get up to the chair for most of the day and walked once to hallway and back. We set a goal for ambulation tonight and tomorrow to total of 4 times - she is agreeable to this. Chart review reveals PT made recommendation for rehab at time of d/c patient is aware and considering rehab vs home. At this time given her overall weakness I would be concerned of her ability to independently care for herself at home. Her pouch was assessed and noted to be full - she was educated on the pouch being too full and difficult to empty. She was advised to monitor her pouch as she will have to at home and to begin to participate in emptying of her pouch - she is agreeable to this as well. She did not perform the emptying of her pouch but did observe. Given how full the pouch was would have likely been difficult for her to empty independently. She performed closure on the pouch after it was emptied. Her and daughter also performed open and close and empty on empty pouch for practice. We discussed pain control at ?6?/10 at the current moment which she reports as tolerable. ?All questions and concerns addressed at this time. Will place nutrition consult if not in place patient requesting clear ensure. Stoma 04/13/25 Next teaching session goals: Demonstrate open and close independently Demonstrate empty pouch as she can Stoma Model change 04/13/25 Midline - areas of dehiscence - alternating jaron observed - dressing dry and intact at the time of my consult. We discussed the following steps: 1. Empty pouch before pouch change 2. Remove pouch using push/pull technique from top to bottom 3. Cleanse stoma and skin with tap water only - no soap or wipes 4. Pat dry 5. Measure stoma and cut new pouch no more than 1/8 inch larger than stoma and no smaller than stoma 6. If instructed by your ostomy nurse stretch barrier seal to the size of the stoma and press onto skin around stoma (up to the edge of the stoma but not onto the stoma) 7. Press the new pouch into place and hold for several seconds (close pouch tail) 8. Empty pouch when 1/3 to 1/2 full 9. Change pouch twice weekly on a schedule (for example, every Sunday and ) and as needed for any leaking (feels like intense itch or burn at edge of stoma) 10. May order pre-cut pouches (already cut to size of stoma) once stoma measures the same size consistently at about 8-12 weeks.
[2025-04-16] VITALS (8 sets, daily range): BP systolic 138–170; BP diastolic 65–82; PULSE 58–70; RESP 14–20; TEMP 36–36.5; O2SAT 92–96
[2025-04-16] MEDS: Lactated Ringers 1,000 ML 80 ML IVCONT ×2 (06:20→20:49)
[2025-04-16 06:34] LABS: Anion Gap 12 (12-20); Blood Urea Nitrogen 16 mg/dL (9-16); Calcium 7.3 mg/dL (8.4-10.2); Carbon Dioxide 23 mmol/L (22-29); Chloride 107 mmol/L (96-108); Creatinine Clr Calc Pharmacy 59.0; Estimated Glomerular Filt Rate > 60; Potassium 2.7 mmol/L (3.3-5.1); Sodium 139 mmol/L (135-145)
--- NOTE | 2025-04-16 06:36 | PM.EVENT ---
Event Note Date of Service: 04/16/25 Event Note: Urgent lab message, K 2.7. Ordered 40 KCL packet now and 20 daily with repeat K 1400 today. Time Spent With Patient Time: Total time managing care of this patient today ____ minutes.
[2025-04-16] MEDS: Potassium Chloride Packet 20 MEQ PACKET 40 MEQ PO (06:45)
--- NOTE | 2025-04-16 07:33 | PM.PNGS ---
Subjective Subjective Date of Service: 04/16/25 <Russel Mulligan PA-C - Last Filed: 04/16/25 09:00> 04/16/25 <Jesse Rosenthal MD - Last Filed: 04/16/25 08:42> Interval history: feeling better, having some intermittent nausea. burping a lot, takes famotidine BID at home, would like to resume this. <Russel Mulligan PA-C - Last Filed: 04/16/25 09:00> Physical Exam Vital Signs: Vital Signs: Last Vital Signs Temp 96.8 F 04/16/25 07:28 Pulse 65 04/16/25 07:28 Resp 16 04/16/25 07:28 BP 138/65 04/16/25 03:22 Pulse Ox 95 04/16/25 07:28 O2 Del Method Room Air 04/16/25 07:28 O2 Flow Rate 6 04/10/25 19:56 BMI result Body Mass Index 20.2 <Russel Mulligan PA-C - Last Filed: 04/16/25 09:00> Const: General: comfortable and no acute distress <Russel Mulligan PA-C - Last Filed: 04/16/25 09:00> Orientation/consciousness: patient oriented x3 <Russel Mulligan PA-C - Last Filed: 04/16/25 09:00> GI: Other: ostomy in place, high output, dark brown liquid stool incision site clean, mild saturation of dressing, serosanguenious <Russel Mulligan PA-C - Last Filed: 04/16/25 09:00> Inspection: No distended <Russel Mulligan PA-C - Last Filed: 04/16/25 09:00> Palpation (GI): Soft to palpation and Tenderness to palpation present (GI) (left side) <Russel Mulligan PA-C - Last Filed: 04/16/25 09:00> Neuro: General: patient oriented x3 <LAUREN Nur Last Filed: 04/16/25 09:00> Objective Data Active Medications Acetaminophen (Acetaminophen 325 Mg Tablet) 650 mg PO Q6H [facility] Last Admin: 04/16/25 05:34 Dose: 650 mg Documented By: AVA Atorvastatin Calcium (Atorvastatin Calcium 10 Mg Tablet) 10 mg PO BEDTIME [facility] Last Admin: 04/15/25 20:14 Dose: 10 mg Documented By: AVA Calcium Carbonate (Calcium Carbonate 750 Mg Tab.Chew) 750 mg PO Q6H PRN PRN Reason: Heartburn Last Admin: 04/15/25 20:14 Dose: 750 mg Documented By: AVA Carvedilol (Carvedilol 25 Mg Tablet) 25 mg PO BID [facility]; Protocol Last Admin: 04/15/25 20:14 Dose: 25 mg Documented By: AVA Docusate Sodium (Docusate Sodium 100 Mg Capsule) 100 mg PO BID [facility] Last Admin: 04/15/25 20:14 Dose: 100 mg Documented By: AVA Enoxaparin Sodium (Enoxaparin Sodium 40 Mg/0.4 Ml Syringe) 40 mg SUBCUT Q24H [facility] Last Admin: 04/15/25 20:14 Dose: 40 mg Documented By: AVA Famotidine (Famotidine 20 Mg Tablet) 20 mg PO BID [facility] Hydralazine HCl (Hydralazine Hcl 20 Mg/Ml Vial) 5 mg IVPUSH Q6H PRN; Protocol PRN Reason: SBP >170 Last Admin: 04/12/25 17:20 Dose: 5 mg Documented By: ROCHELLE Lactated Ringer's (Lr) 1,000 mls @ 80 mls/hr IVCONT .[id number] [facility] Last Admin: 04/16/25 06:20 Dose: 80 mls/hr Documented By: AVA Piperacillin Sod/Tazobactam (Sod 3.375 gm/ Sodium Chloride) 50 mls @ 100 mls/hr IV Q6H [facility] Last Infusion: 04/16/25 06:19 Dose: Infused Documented By: AVA Magnesium Hydroxide (Milk Of Magnesia 30 Ml Oral.Susp) 30 ml PO DAILY PRN PRN Reason: Constipation Melatonin (Melatonin 3 Mg Tablet) 6 mg PO BEDTIME PRN PRN Reason: Insomnia Morphine Sulfate (Morphine Sulfate 4 Mg/Ml Cartridge) 4 mg IVPUSH Q4H PRN; Protocol PRN Reason: Pain, Severe (Pain Scale 7-10) Last Admin: 04/16/25 01:49 Dose: 4 mg Documented By: AVA Naloxone HCl (Naloxone Hcl 0.4 Mg/Ml Vial) 0.04 mg IVPUSH Q5M PRN PRN Reason: Excessive sedation or RR < 8 Ondansetron HCl (Ondansetron Hcl 4 Mg/2 Ml Vial) 4 mg IVPUSH Q6H PRN PRN Reason: Nausea and Vomiting Last Admin: 04/15/25 09:44 Dose: 4 mg Documented By: JACOB Polyethylene Glycol (Polyethylene Glycol 3350 17 Gm Powd.Pack) 17 gm PO DAILY [facility] Last Admin: 04/15/25 09:19 Dose: 17 gm Documented By: JACOB Potassium Chloride (Potassium Chloride Packet 20 Meq Packet) 20 meq PO DAILY [facility] Sodium Chloride (0.9 % Sodium Chloride Flush 3 Ml Syringe) 3 ml IVFLUSH QSHIFT [facility] Last Admin: 04/16/25 07:24 Dose: Not Given Documented By: VIVIANA Non-Admin Reason: IV Running Sumatriptan Succinate (Sumatriptan Succinate 50 Mg Tablet) 50 mg PO DAILY PRN PRN Reason: Migraine Headache Valsartan (Valsartan 80 Mg Tablet) 80 mg PO BEDTIME [facility] Last Admin: 04/15/25 20:14 Dose: 80 mg Documented By: AVA <Russel Mulligan PA-C - Last Filed: 04/16/25 09:00> Labs CBC & Chem 7: 04/15/25 08:17 04/16/25 05:48 <Russel Mulligan PA-C - Last Filed: 04/16/25 09:00> Labs: Laboratory Results - last 24 hr 04/15/25 04/16/25 08:17 05:48 MCV 86.9 MCH 28.6 MCHC 32.9 RDW 14.9 Plt Count 312 MPV 9.4 Immature Gran % (Auto) 1.8 H Neut % (Auto) 76.2 H Lymph % (Auto) 9.7 L [place] % (Auto) 10.5 Eos % (Auto) 1.6 Baso % (Auto) 0.2 Lymph # (Auto) 1.2 [place] # (Auto) 1.3 H Eos # (Auto) 0.2 Baso # (Auto) 0.0 Abs Immat Gran (auto) 0.22 H Absolute Neuts (auto) 9.1 H Absolute Nucleated RBC 0.000 Nucleated RBC % (auto) 0.0 Anion Gap 12 12 Estim Creat Clear Calc 41.8 59.0 Estimated GFR > 60 > 60 Random Glucose 99 92 Calcium 7.4 L 7.3 L Magnesium 2.2 <Russel Mulligan PA-C - Last Filed: 04/16/25 09:00> Microbiology Microbiology Results: Microbiology 04/10/25 17:36 Gram Stain - Final Peritoneal Fluid Routine Culture - Final Escherichia coli Anaerobic Culture - Final Clostridium perfringens 04/10/25 11:42 Blood Culture - Final Blood - Venous No growth after 5 days. <Russel Mulligan PA-C - Last Filed: 04/16/25 09:00> Procedures Date of Service Date of Service: 04/16/25 <Russel Mulligan PA-C - Last Filed: 04/16/25 09:00> 04/16/25 <Jesse Rosenthal MD - Last Filed: 04/16/25 08:42> Progress Note: A&P Assessment and plan (1) Colon perforation: Status: Acute <Russel Mulligan PA-C - Last Filed: 04/16/25 09:00> Assessment and Plan: Status post Yael's procedure Oral intake a little better yesterday Stoma continues to have good output Abdomen is soft and benign She looks well clinically Push oral intake today Increase level of activity Replace potassium Hospitalist following SNF recommended by PT on discharge Possible DC home tomorrow Seen and examined independently <Jesse Rosenthal MD - Last Filed: 04/16/25 08:42> Assessment and Plan: 80 year old female POD 6 s/p Yael procedure for perforated stercoral colonic ulcer. Continues to do well. Walking more, slowly taking more diet. Complaining of some increased burping, would like to resume home famotidine. continues to have good ostomy output. Continued poor appetite, some mild nausea with regular diet yesterday. Low potassium today, likely GI loss and poor oral intake. Currently repleteing this morning. will continue to check lytes daily. Abdomen is soft, tender along the left side. Ostomy looks viable, high amounts of dark stool in bag, incision site intact, clean, jaron in place, no cellulitic changes. Some mild saturation, appears serosanguenious. Daily dressing changes. cardiology consult appreciated. Pressures remain stable. Will plan for f/u as output with cardiology continue IV abx Regular diet as tolerated ambulation as tolerated continue bowel regimen closely follow lytes, replete potassium as needed ostomy contsult appreciated <Russel Mulligan PA-C - Last Filed: 04/16/25 09:00> Time Spent With Patient Time: Total time managing care of this patient today ____ minutes. <Russel Mulligan PA-C - Last Filed: 04/16/25 09:00> Quality Stroke Does the patient have a stroke diagnosis?: No <Russel Mulligan PA-C - Last Filed: 04/16/25 09:00> VTE Prior VTE?: No <Russel Mulligan PA-C - Last Filed: 04/16/25 09:00> VTE Risk Level:: Medical - moderate - high <Russel Mulligan PA-C - Last Filed: 04/16/25 09:00> VTE Device Contraindication: N/A - Device Ordered <Russel Mulligan PA-C - Last Filed: 04/16/25 09:00> VTE Drug Contraindication: N/A - Med Ordered <Russel Mulligan PA-C - Last Filed: 04/16/25 09:00>
[2025-04-16] MEDS: Potassium Chloride/H20 10 MEQ/100 ML PIGGYBACK 100 MEQ IV ×4 (10:19→14:42)
--- NOTE | 2025-04-16 12:28 | MHC.CM.PN ---
PER PN, PT EXPECTED TO BE READY TO DC TOMORROW UPDATES SENT TO ALL OF THE REHABS THAT ARE FOLLOWING [facility] DECLINED REFERRAL [facility] FOLLOW[facility], [facility] ARE OFFERING [facility] IS FOLLOWING
--- NOTE | 2025-04-16 12:52 | P.DS_ITS ---
DS: Providers Provider Date of admission: 04/10/25 14:31 Primary care physician: Alena Quiroz MD Admitting clinician: Cortney Gallagher Attending physician on admission: Cortney Gallagher Consults: 04/12/25 16:12 Consult to Hospitalist Routine Comment: Consulting Provider: [facility] Hospital[facility] Reason For Exam: medical management 04/13/25 05:54 Consult to Ostomy Care Routine 04/13/25 16:30 Consult to Cardiology Routine Consulting Provider: [facility] Reason for consultation: new afib rvr, htn, trop leak (CP) Attending physician on discharge: Jesse Villareal DS: Diagnosis Discharge Diagnosis (1) Colon perforation: Status: Acute DS: Summary Hospital Course Hospital Course: Admission HPI: 80 year old female who presents to the emergency room after a 2 day history of increasing abdominal pain and having worsening constipation as well. She normally has some baseline GI symptoms however most of this is upper GI with issues consisting of dysphagia and reflux. 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 She did have a colonoscopy about 5 years ago and said that she knew that she had diverticular disease and the small polyp. As far as she knows she has never had any significant diverticulitis. Her pain was getting worse and she felt nauseated at times. As a result today she came to the emergency room. Here [place] [address] with 6 bandemia and diffuse peritonitis. CT scan of her abdomen and pelvis was carried out and shows thickened sigmoid colon with some loculated areas of free air in the lower pelvic area. Her creatinine was elevated and despite resuscitation her lactic acid was still little elevated around 2.5. Surgical consultation was had and after reviewing the CT scan and the patient it was determined that she would benefit from exploration and most likely sigmoid colectomy and colostomy creation. She denied any significant fever or chills. No urinary symptoms no chest pain no shortness of breath. She has never had any surgery before. Patient's son is a neurologist at [place] and her case was discussed with him preoperatively Hospital course: 80-year-old female with abdominal pain times 48-72 [place] [id number] elevated lactic acid and acute kidney insufficiency with elevated creatinine. Most likely secondary to colitis with localized perforation. Severe constipation as well. Plan to carry out exploratory laparotomy with bowel resection and possible ostomy creation. The risks and benefits were discussed with the patient including but not limited to bleeding infection possible bowel injury possible hernia but despite this she wishes to proceed. Extensive discussion was also had with the patient's family and her son who is a neurologist. They understand and agree with proceeding with this surgery. Patient was brought to the OR on the evening of 04/10 for exploratory laparotomy, a oglesby catheter wa placed. She was found to have stercoral sigmoid colitis with perforation. There was significant stool and purulent fluid in the pelvis. Patient had a Tasia procedure, tolerated well and was transferred to the med surg floor[place] [id number], creatinine normal. Managing pain well with medications. She was started on stool softeners given her large stool burden. Continuing IV Zosyn. POD2, ambulating more, Oglesby catheter removed. Pain well controlled, localized to the incision site. Adding miralax to bowel regimen.. Physical therapy was consulted. Zosyn dose was altered for renal adjustment. POD 3, doing well, pain well controlled, ambulating well. Advancing to clear liquid diet. Adding Mag citrate for bowel regimen. Leukocytosis improved to 10.2. Mild drop in H&H 7.5/23.4. Went into AFib in the afternoon, responded well to IV metoprolol, hospitalist following troponin levels. POD 4, clinically doing well, per cardiology discontinued diltiazem, add carvedilol, p.r.n. metoprolol continue valsartan. She is experiencing some pain on the left side. Ostomy now outputing large volume dark stool, passing flatus. Patient having echo, plan to possibly initiate anticoagulation. Was found to be hypokalemic, receiving supplemental potassium. Possibly from GI loss, poor oral intake. Echo unremarkable. Cardiology recommending holding off on anticoagulation for now as she has had no further runs of AFib. Recommending following up as an outpatient, for radiation monitor. POD 5 feeling better, tolerating more diet. Denying nausea or vomiting. Ostomy continues to have good output. No further runs of AFib. Hypertension well managed. Incision site clean dry intact, jaron in place. Potassium within normal limits. POD 6, ambulating more, still complaining of pain on the left side. Burping a lot, we will resume famotidine. Potassium again low, replaced. POD 7, doing well feeling like she is almost ready to discharge. Some difficulty with ambulation, feeling weak. Plan to discharge to SNF.. Ostomy stools good output tolerating diet. Abdomen is soft and benign. At the time of discharge patient was in stable condition. Status at Discharge Functional status at discharge: independent ambulation Overall status at discharge: patient is progressing back to baseline Time Attestation Discharge Coordination Time (in mins): 45 Quality: Safe Use of Opioids Does Pt have an Active Cancer Diagnosis on the Problem List?: No Quality: Stroke Does the patient have a stroke diagnosis?: No Physical Exam Vital Signs: Vital Signs: Last Vital Signs Temp 97.3 F 04/16/25 11:07 Pulse 67 04/16/25 11:07 Resp 16 04/16/25 11:07 BP 145/65 H 04/16/25 11:07 Pulse Ox 95 04/16/25 11:07 O2 Del Method Room Air 04/16/25 11:07 O2 Flow Rate 6 04/10/25 19:56 BMI result Body Mass Index 20.2 Const: General: comfortable and no acute distress Orientation/consciousness: patient oriented x3 GI: Other: ostomy in place, high output, dark brown liquid stool incision site clean, mild saturation of dressing, serosanguenious Inspection: No distended Palpation (GI): Soft to palpation and Tenderness to palpation present (GI) (left side) Neuro: General: patient oriented x3 DS: Data Data Completed and Pending Pending studies at discharge: Pending at discharge 04/10/25 18:16 Surgical [PTH] Routine Labs on day of discharge: Laboratory Results - last 24 hr 04/16/25 05:48 Sodium 139 Potassium 2.7 L* Chloride 107 Carbon Dioxide 23 Anion Gap 12 BUN 16 Creatinine 0.61 Estim Creat Clear Calc 59.0 Estimated GFR > 60 Random Glucose 92 Calcium 7.3 L Discharge Plan Discharge Anticipated Discharge Date/Time: 04/18/25 08:00 Patient Disposition: Xfer SNF Discharge Diagnosis: colon perforation, s/p tasia Referrals: Alena Quiroz MD [Primary Care Provider, Internal Medicine] - 1 Week Jesse Villareal MD [Physician, General Surgery] - 1 Week Marko Hogue MD [Physician, Cardiology] - 1 Week Discharge Medications: New oxycodone 5 mg tablet 5 mg PO Q6H PRN (Reason: pain) Qty: 25 0RF Rx Instructions: Partial Fill upon patient request. carvedilol 25 mg tablet 25 mg PO BID Qty: 60 0RF Rx Instructions: must administer with a meal/food docusate sodium [Colace] 100 mg capsule 100 mg PO BID Qty: 30 0RF Continued atorvastatin 10 mg tablet 10 mg PO BEDTIME famotidine 20 mg tablet 20 mg PO BID olmesartan 20 mg tablet 20 mg PO BEDTIME ibuprofen [Advil] 200 mg Tablet 200 mg PO Q6H PRN (Reason: migrine) diphenhydramine-acetaminophen [Acetaminophen PM] 25-500 mg Tablet 1 tab PO BEDTIME PRN (Reason: Sleep) sumatriptan succinate 50 mg tablet 50 mg PO DAILY PRN (Reason: Migraine Headache) Rx Instructions: 1x rx from covering provider bismuth subsalicylate [Pepto-Bismol] 262 mg/15 mL Suspension 524 mg PO QID PRN (Reason: Constipation) Discontinued diltiazem HCl 240 mg capsule,extended release 24hr 240 mg PO DAILY Diet: Advance to usual diet Activity on Discharge: No heavy lifting Stand Alone Forms: Patient Portal Discharge page Print Language: Marshallese Activity Restrictions/Additional Instructions: If your incision site is sore, you may apply ice to the area for short periods of time (no more than 20 minutes at a time, followed by 20 minutes off). You were prescribed oxycodone to assist with pain management as needed. You can additionally use OTC ibuprofen or acetaminophen as needed for pain. You can remove the dressings at home, they do not need to be redressed. Steri strips can remain in place and will likely fall on their own or in the shower. No heavy lifting >20 pounds No strenuous activity. Do not use creams, lotion, ointment on the incision sites You will follow up with Dr. villareal in the office in 2 week, you can call the office to schedule the appointment ) Please reach out to the office or be seen at the emergency department if you develop: -Fever >101.5 -Increasing pain or swelling of the area -Increased bleeding from the incision site or the incision begins to separate -If you are concerned for incision site infection such as redness, warmth, discharge. Some yellow/pink tinged discharge is normal -You develop nausea or vomiting Care Plan Goals: return to baseline follow up with cardiology Health Concerns: post op pain ostomy care new onset afib hypokalemia Plan of Treatment: transfer for short term rehab follow up in the office in 2 weeks follow up with cardiology Assessment: patient doing well
--- NOTE | 2025-04-16 13:02 | HO.WOUND ---
Ostomy Consult: Follow up Teaching 80yr old female admitted to [facility] on 04/10/25- see H&P for detailed history and admission.? Consult for new ostomy teaching. ?She had Colostomy creation on 04/10/[address] Gallagher. ?Upon entry into patient's room, patient is lying in bed, alert and oriented x 3, currently has no complaints. Her and sister were at bedside, introductions were completed, the patient appears improved today. She reports she has gotten up to the chair, and has walked in her room, but not in the hallway. We reviewed the goal for ambulation tonight and tomorrow to total of 4 times - she is agreeable to this. Chart review reveals PT made recommendation for rehab at time of d/c patient is aware and considering rehab vs home. At this time given her overall weakness I would be concerned of her ability to independently care for herself at home. Her pouch was assessed and noted to be full - she was educated on the pouch being too full and difficult to empty. She was advised to monitor her pouch as she will have to at home and to begin to participate in emptying of her pouch - she is agreeable to this as well. She reports that she has been watching staff empty pouch and has participated but has not emptied independently. She performed closure on an empty pouch. Her pouch was leaking at 9oclock in the crease. Patient was agreeable to pouch change. Patient was actively participating in pouch change and verbalized understanding of steps - removal of pouch, cleansing ck-stomal skin with water only, pat dry, apply barrier spray, 9oclock crease was filled with barrier strip, pouch was cut with template to offset for midline incision, pouch was applied. Stoma putting out serosanguineous drainage and loose dark brown stool. midline incision dressing changed also, due to leakage of ostomy onto dressing. We discussed pain control at ?5?/10 at the current moment which she reports as tolerable. ?All questions and concerns addressed at this time. Will place nutrition consult if not in place patient requesting clear ensure. Stoma 04/13/25 Next teaching session goals: Demonstrate open and close independently Demonstrate empty pouch as she can Stoma Model change 04/13/25 Midline - areas of dehiscence - alternating jaron observed - dressing dry and intact at the time of my consult. We discussed the following steps: 1. Empty pouch before pouch change 2. Remove pouch using push/pull technique from top to bottom 3. Cleanse stoma and skin with tap water only - no soap or wipes 4. Pat dry 5. Measure stoma and cut new pouch no more than 1/8 inch larger than stoma and no smaller than stoma 6. If instructed by your ostomy nurse stretch barrier seal to the size of the stoma and press onto skin around stoma (up to the edge of the stoma but not onto the stoma) 7. Press the new pouch into place and hold for several seconds (close pouch tail) 8. Empty pouch when 1/3 to 1/2 full 9. Change pouch twice weekly on a schedule (for example, every Sunday and ) and as needed for any leaking (feels like intense itch or burn at edge of stoma) 10. May order pre-cut pouches (already cut to size of stoma) once stoma measures the same size consistently at about 8-12 weeks.
[2025-04-16 17:59] LABS: Anion Gap 10 (12-20); Blood Urea Nitrogen 11 mg/dL (9-16); Calcium 7.3 mg/dL (8.4-10.2); Carbon Dioxide 23 mmol/L (22-29); Chloride 108 mmol/L (96-108); Creatinine Clr Calc Pharmacy 65.5; Estimated Glomerular Filt Rate > 60; Potassium 3.5 mmol/L (3.3-5.1); Sodium 137 mmol/L (135-145)
[2025-04-17 03:11] VITALS: BP 149/69; PULSE 57; RESP 18; TEMP 36.3; O2SAT 94
[2025-04-17 06:38] VITALS: BP 152/71; PULSE 67; RESP 16; TEMP 36.6; O2SAT 93
[2025-04-17 06:38] LABS: Anion Gap 11 (12-20); Blood Urea Nitrogen 9 mg/dL (9-16); Calcium 7.4 mg/dL (8.4-10.2); Carbon Dioxide 23 mmol/L (22-29); Chloride 106 mmol/L (96-108); Creatinine Clr Calc Pharmacy 67.9; Estimated Glomerular Filt Rate > 60; Potassium 3.4 mmol/L (3.3-5.1); Sodium 137 mmol/L (135-145)
--- NOTE | 2025-04-17 07:06 | HO.PM.IMPN ---
Subjective Subjective Date of Service: 04/16/25 Interval History: Complaints today. Patient feels well overall. Has been eating and drinking. No episodes of palpitations, chest pain, dizziness or diaphoresis. \ Review of Systems Review of Systems: Yes all other systems are reviewed and are negative Physical Exam Exam: Exam: General: A&O x3, oriented to time place person and situation, comfortable, no pain Cardiac: S1, S2 auscultated with no S3/4, no MRG. Well perfused. Respiratory: Normal breath sounds auscultated throughout all lung zones, without wheezing, rales. Normal rate. 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 No tenderness on palpation around stoma, without herniation (normal with cough), some fluid in stoma, but no stool. MSK: Normal ambulation without pain at bony prominences or musculature Neurological: Normal neurological examination on overview, without obvious CN II-XII abnormalities. Vital Signs: Vital Signs: Last Vital Signs Temp 98 F 04/17/25 06:38 Pulse 67 04/17/25 06:38 Resp 16 04/17/25 06:38 BP 152/71 H 04/17/25 06:38 Pulse Ox 93 04/17/25 06:38 O2 Del Method Room Air 04/17/25 06:38 O2 Flow Rate 6 04/10/25 19:56 BMI result Body Mass Index 20.2 Objective Data Active Medications Acetaminophen (Acetaminophen 325 Mg Tablet) 650 mg PO Q6H [facility] Last Admin: 04/17/25 04:43 Dose: 650 mg Documented By: MOSES Atorvastatin Calcium (Atorvastatin Calcium 10 Mg Tablet) 10 mg PO BEDTIME [facility] Last Admin: 04/16/25 20:39 Dose: 10 mg Documented By: MOSES Calcium Carbonate (Calcium Carbonate 750 Mg Tab.Chew) 750 mg PO Q6H PRN PRN Reason: Heartburn Last Admin: 04/16/25 16:40 Dose: 750 mg Documented By: VIVIANA Carvedilol (Carvedilol 25 Mg Tablet) 25 mg PO BID [facility]; Protocol Last Admin: 04/16/25 20:38 Dose: 25 mg Documented By: MOSES Docusate Sodium (Docusate Sodium 100 Mg Capsule) 100 mg PO BID [facility] Last Admin: 04/16/25 20:39 Dose: 100 mg Documented By: MOSES Enoxaparin Sodium (Enoxaparin Sodium 40 Mg/0.4 Ml Syringe) 40 mg SUBCUT Q24H [facility] Last Admin: 04/16/25 20:38 Dose: 40 mg Documented By: MOSES Famotidine (Famotidine 20 Mg Tablet) 20 mg PO BID [facility] Last Admin: 04/16/25 20:38 Dose: 20 mg Documented By: MOSES Hydralazine HCl (Hydralazine Hcl 20 Mg/Ml Vial) 5 mg IVPUSH Q6H PRN; Protocol PRN Reason: SBP >170 Last Admin: 04/12/25 17:20 Dose: 5 mg Documented By: ROCHELLE Piperacillin Sod/Tazobactam (Sod 3.375 gm/ Sodium Chloride) 50 mls @ 100 mls/hr IV Q6H [facility] Last Infusion: 04/17/25 05:22 Dose: Infused Documented By: MOSES Lactated Ringer's (Lr) 1,000 mls @ 80 mls/hr IVCONT .[id number] [facility] Last Admin: 04/17/25 05:22 Dose: Not Given Documented By: MOSES Non-Admin Reason: IV Running Magnesium Hydroxide (Milk Of Magnesia 30 Ml Oral.Susp) 30 ml PO DAILY PRN PRN Reason: Constipation Melatonin (Melatonin 3 Mg Tablet) 6 mg PO BEDTIME PRN PRN Reason: Insomnia Morphine Sulfate (Morphine Sulfate 4 Mg/Ml Cartridge) 4 mg IVPUSH Q4H PRN; Protocol PRN Reason: Pain, Severe (Pain Scale 7-10) Last Admin: 04/16/25 22:22 Dose: 4 mg Documented By: MOSES Naloxone HCl (Naloxone Hcl 0.4 Mg/Ml Vial) 0.04 mg IVPUSH Q5M PRN PRN Reason: Excessive sedation or RR < 8 Ondansetron HCl (Ondansetron Hcl 4 Mg/2 Ml Vial) 4 mg IVPUSH Q6H PRN PRN Reason: Nausea and Vomiting Last Admin: 04/16/25 16:03 Dose: 4 mg Documented By: VIVIANA Polyethylene Glycol (Polyethylene Glycol 3350 17 Gm Powd.Pack) 17 gm PO DAILY [facility] Last Admin: 04/16/25 09:40 Dose: 17 gm Documented By: VIVIANA Potassium Chloride (Potassium Chloride Packet 20 Meq Packet) 20 meq PO DAILY [facility] Sodium Chloride (0.9 % Sodium Chloride Flush 3 Ml Syringe) 3 ml IVFLUSH QSHIFT [facility] Last Admin: 04/17/25 00:39 Dose: Not Given Documented By: MOSES Non-Admin Reason: IV Running Sumatriptan Succinate (Sumatriptan Succinate 50 Mg Tablet) 50 mg PO DAILY PRN PRN Reason: Migraine Headache Valsartan (Valsartan 80 Mg Tablet) 80 mg PO BEDTIME [facility] Last Admin: 04/16/25 20:39 Dose: 80 mg Documented By: MOSES Labs 04/15/25 08:17 04/17/25 05:39 Labs: Laboratory Results - last 24 hr 04/16/25 04/17/25 17:35 05:39 Serum Potassium 3.5 Anion Gap 10 L 11 L Estim Creat Clear Calc 65.5 67.9 Estimated GFR > 60 > 60 Random Glucose 93 79 Calcium 7.3 L 7.4 L Assessment and Plan (1) Hypertension: Status: Acute (2) Hypertensive urgency: Status: Acute (3) Atrial fibrillation with RVR: Status: Acute (4) ANGELITO (acute kidney injury): Status: Acute (5) Status post Yael procedure: Status: Acute (6) Colon perforation: Status: Acute (7) Diverticulitis: Status: Acute (8) Hypokalemia: Status: Acute Plan 80-year-old female with at PMH significant for HTN, HLD, GERD, and migraines who presented to the hospital on 04/10 with worsening abd pain and constipation x2 days, admitted with stercoral sigmoid colitis with perforation s/p Yael procedure a sigmoid resection and end colostomy placement 04/10. Hospitalist service was consulted for hypertensive urgency. Case c/b AFib RVR with type 2/ demand NSTEMI & hypokalemia Hypokalemia Suffered with significantly reduced potassium Asymptomatic and no new issues. Has been repleted efficaciously. Potassium 2.7 this morning, repleted and rechecked, returning at 3.5. Limiting factor for patient's discharge. Stercoral sigmoid colitis with perforation Underwent Yael procedure with sigmoid resection and end colostomy on 04/10 Plan as per general surgery Hypertensive urgency BP as high as 182/88 Diltiazem was discontinued, and carvedilol was started. Patient's blood pressure and heart rate have improved. PLAN - Continue valsartan 80mg daily - discontinue diltiazem ER 240mg daily - Continue Carvedilol 25 mg b.i.d. p.o. - Metoprolol 5mg PRN IV for RVR - Hydralazine 5mg IV prn for SBP >170 - Follow BP closely AFib RVR Troponin leak Type 2 demand NSTEMI Patient suffered with heart rate 150, captured on ECG. Blood pressure preserved, however lower than prior. Troponin elevated - plateaued - consistent with type 2 demand NSTEMI 5 mg IV metoprolol administered, with improvement and resolution of RVR [id number] Score 4; indicated for anticoagulation-holding in the setting of critical illness HAS-BLED 1: Considered relatively low risk for major bleeding Echocardiography revealing preserved LVEF without valvulopathy. No wall motion abnormality. PLAN - Start apixaban 5 mg b.i.d. p.o. - IV metoprolol 5 mg p.r.n. for RVR - continue carvedilol - cardiology recommendations greatly appreciated Constipation On Miralax Encourage ambuation Management as per general surgery HLD Continue statin GERD Continue famotidine Migraines Continue sumatriptan prn Thank you for allowing us to participate in the care of this pt. We will continue to follow with you. Total time managing care of this patient today: 45 minutes. Quality Stroke Does the patient have a stroke diagnosis?: No VTE Prior VTE?: No VTE Risk Level:: Medical - moderate - high VTE Device Contraindication: N/A - Device Ordered VTE Drug Contraindication: N/A - Med Ordered
--- NOTE | 2025-04-17 07:20 | PM.PNGS ---
Subjective Subjective Date of Service: 04/17/25 <Russel Mulligan PA-C - Last Filed: 04/17/25 07:33> 04/17/25 <Jesse Rosenthal MD - Last Filed: 04/17/25 09:48> Interval history: feeling like shes improving overall, some pain currently but this is well controlled with medication. Tolerating more diet. Feels weak when ambulating but trying to do more. <Russel Mulligan PA-C - Last Filed: 04/17/25 07:33> Physical Exam Vital Signs: Vital Signs: Last Vital Signs Temp 98 F 04/17/25 06:38 Pulse 67 04/17/25 06:38 Resp 16 04/17/25 06:38 BP 152/71 H 04/17/25 06:38 Pulse Ox 93 04/17/25 06:38 O2 Del Method Room Air 04/17/25 06:38 O2 Flow Rate 6 04/10/25 19:56 BMI result Body Mass Index 20.2 <Russel Mulligan PA-C - Last Filed: 04/17/25 07:33> Const: General: comfortable and no acute distress <Russel Mulligan PA-C - Last Filed: 04/17/25 07:33> Orientation/consciousness: patient oriented x3 <Russel Mulligan PA-C - Last Filed: 04/17/25 07:33> GI: Other: incisional incision site intact, dressing in place. scant seosanguenious drainage, no erythema, purulent drainage <Russel Mulligan PA-C - Last Filed: 04/17/25 07:33> Inspection: No distended <Russel Mulligan PA-C - Last Filed: 04/17/25 07:33> Palpation (GI): Soft to palpation and Tenderness to palpation present (GI) <Russel Mulligan PA-C - Last Filed: 04/17/25 07:33> Neuro: General: patient oriented x3 <LAUREN Nur Last Filed: 04/17/25 07:33> Objective Data Active Medications Acetaminophen (Acetaminophen 325 Mg Tablet) 650 mg PO Q6H [facility] Last Admin: 04/17/25 04:43 Dose: 650 mg Documented By: MOSES Atorvastatin Calcium (Atorvastatin Calcium 10 Mg Tablet) 10 mg PO BEDTIME [facility] Last Admin: 04/16/25 20:39 Dose: 10 mg Documented By: MOSES Calcium Carbonate (Calcium Carbonate 750 Mg Tab.Chew) 750 mg PO Q6H PRN PRN Reason: Heartburn Last Admin: 04/16/25 16:40 Dose: 750 mg Documented By: VIVIANA Carvedilol (Carvedilol 25 Mg Tablet) 25 mg PO BID [facility]; Protocol Last Admin: 04/16/25 20:38 Dose: 25 mg Documented By: MOSES Docusate Sodium (Docusate Sodium 100 Mg Capsule) 100 mg PO BID [facility] Last Admin: 04/16/25 20:39 Dose: 100 mg Documented By: MOSES Enoxaparin Sodium (Enoxaparin Sodium 40 Mg/0.4 Ml Syringe) 40 mg SUBCUT Q24H [facility] Last Admin: 04/16/25 20:38 Dose: 40 mg Documented By: MOSES Famotidine (Famotidine 20 Mg Tablet) 20 mg PO BID [facility] Last Admin: 04/16/25 20:38 Dose: 20 mg Documented By: MOSES Hydralazine HCl (Hydralazine Hcl 20 Mg/Ml Vial) 5 mg IVPUSH Q6H PRN; Protocol PRN Reason: SBP >170 Last Admin: 04/12/25 17:20 Dose: 5 mg Documented By: ROCHELLE Piperacillin Sod/Tazobactam (Sod 3.375 gm/ Sodium Chloride) 50 mls @ 100 mls/hr IV Q6H [facility] Last Infusion: 04/17/25 05:22 Dose: Infused Documented By: MOSES Lactated Ringer's (Lr) 1,000 mls @ 80 mls/hr IVCONT .[id number] [facility] Last Admin: 04/17/25 05:22 Dose: Not Given Documented By: MOSES Non-Admin Reason: IV Running Magnesium Hydroxide (Milk Of Magnesia 30 Ml Oral.Susp) 30 ml PO DAILY PRN PRN Reason: Constipation Melatonin (Melatonin 3 Mg Tablet) 6 mg PO BEDTIME PRN PRN Reason: Insomnia Morphine Sulfate (Morphine Sulfate 4 Mg/Ml Cartridge) 4 mg IVPUSH Q4H PRN; Protocol PRN Reason: Pain, Severe (Pain Scale 7-10) Last Admin: 04/16/25 22:22 Dose: 4 mg Documented By: MOSES Naloxone HCl (Naloxone Hcl 0.4 Mg/Ml Vial) 0.04 mg IVPUSH Q5M PRN PRN Reason: Excessive sedation or RR < 8 Ondansetron HCl (Ondansetron Hcl 4 Mg/2 Ml Vial) 4 mg IVPUSH Q6H PRN PRN Reason: Nausea and Vomiting Last Admin: 04/16/25 16:03 Dose: 4 mg Documented By: VIVIANA Polyethylene Glycol (Polyethylene Glycol 3350 17 Gm Powd.Pack) 17 gm PO DAILY [facility] Last Admin: 04/16/25 09:40 Dose: 17 gm Documented By: VIVIANA Potassium Chloride (Potassium Chloride Packet 20 Meq Packet) 20 meq PO DAILY [facility] Sodium Chloride (0.9 % Sodium Chloride Flush 3 Ml Syringe) 3 ml IVFLUSH QSHIFT [facility] Last Admin: 04/17/25 00:39 Dose: Not Given Documented By: MOSES Non-Admin Reason: IV Running Sumatriptan Succinate (Sumatriptan Succinate 50 Mg Tablet) 50 mg PO DAILY PRN PRN Reason: Migraine Headache Valsartan (Valsartan 80 Mg Tablet) 80 mg PO BEDTIME [facility] Last Admin: 04/16/25 20:39 Dose: 80 mg Documented By: MOSES <Russel Mulligan PA-C - Last Filed: 04/17/25 07:33> Labs CBC & Chem 7: 04/15/25 08:17 04/17/25 05:39 <Russel Mulligan PA-C - Last Filed: 04/17/25 07:33> Labs: Laboratory Results - last 24 hr 04/16/25 04/17/25 17:35 05:39 Serum Potassium 3.5 Anion Gap 10 L 11 L Estim Creat Clear Calc 65.5 67.9 Estimated GFR > 60 > 60 Random Glucose 93 79 Calcium 7.3 L 7.4 L <Russel Mulligan PA-C - Last Filed: 04/17/25 07:33> Procedures Date of Service Date of Service: 04/17/25 <Russel Mulligan PA-C - Last Filed: 04/17/25 07:33> 04/17/25 <Jesse Rosenthal MD - Last Filed: 04/17/25 09:48> Progress Note: A&P Assessment and plan (1) Colon perforation: Status: Acute <Russel Mulligan PA-C - Last Filed: 04/17/25 07:33> Assessment and Plan: Says her oral intake is a little better Stoma continues to function well No fever Getting out of bed recliner Looks well clinically next Possible DC home tomorrow [facility] Continue antibiotics for now Push oral intake Seen and examined independently <Jesse Rosenthal MD - Last Filed: 04/17/25 09:48> Assessment and Plan: 80 year old female POD 7 s/p Yael procedure for perforated stercoral colonic ulcer. Continues to do well. Experiencing some intermittent pain at the incision site. Wondering what pain med she can take, recommended trialing oral narcotics, put in a new order for oral oxycodone. Walking more, She is taking in more diet. Denies nausea or vomiting Tolerating well Potassium improved this morning. will continue to check lytes daily. Abdomen is soft, tender along the left side in the incision. Ostomy looks viable, high amounts of dark stool in bag, incision site intact, clean, jaron in place, no cellulitic changes. Some mild saturation, appears serosanguenious. Daily dressing changes. Blood pressure mildly elevated this morning. Patient interested in discharging to SNF, states she does not quite feel ready today but likely we will feel ready over the weekend. continue IV abx Regular diet as tolerated ambulation as tolerated continue bowel regimen closely follow lytes, replete potassium as needed ostomy contsult appreciated <Russel Mulligan PA-C - Last Filed: 04/17/25 07:33> Time Spent With Patient Time: Total time managing care of this patient today ____ minutes. <Russel Mulligan PA-C - Last Filed: 04/17/25 07:33> Quality Stroke Does the patient have a stroke diagnosis?: No <Russel Mulligan PA-C - Last Filed: 04/17/25 07:33> VTE Prior VTE?: No <Russel Mulligan PA-C - Last Filed: 04/17/25 07:33> VTE Risk Level:: Medical - moderate - high <Russel Mulligan PA-C - Last Filed: 04/17/25 07:33> VTE Device Contraindication: N/A - Device Ordered <Russel Mulligan PA-C - Last Filed: 04/17/25 07:33> VTE Drug Contraindication: N/A - Med Ordered <Russel Mulligan PA-C - Last Filed: 04/17/25 07:33>
[2025-04-17] MEDS: Potassium Chloride Packet 20 MEQ PACKET PO (08:41)
[2025-04-17] MEDS: Lactated Ringers 1,000 ML 80 ML IVCONT (11:22)
--- NOTE | 2025-04-17 14:05 | HO.OSTOMY ---
Ostomy Consult: Follow up Teaching 80yr old female admitted to [facility] on 04/10/25- see H&P for detailed history and admission.? Consult for new ostomy teaching. ?She had Colostomy creation on 04/10/[address] Gallagher. ?Upon entry into patient's room, patient is lying in bed, alert and oriented x 3, currently has no complaints. Her is at bedside, introductions were completed, the patient appears improved today. She reports she has gotten up to the chair, and has walked 3 times. Chart review reveals PT made recommendation for rehab at time of d/c patient is aware and considering rehab vs home. At this time given her overall weakness I would be concerned of her ability to independently care for herself at home. She is not always participating in emptying her pouch. She was advised that should she be able to go home she would need to demonstrate the ability to empty her pouch independently. She reports understanding but understandably feels tired and week - we discussed this is how Rehab would benefit her - she reports understanding and reports she know she needs Rehab. Her pouch was assessed, her pouch was leaking at 9oclock in the crease. Patient was agreeable to pouch change. Patient was actively participating in pouch change and verbalized understanding of steps - removal of pouch, cleansing ck-stomal skin with water only, pat dry, apply barrier spray, 9oclock crease was filled with barrier strip, along with the inferior side of the stoma. Pouch was cut with template to offset for midline incision, pouch was applied. Stoma putting out loose dark brown stool. midline incision dressing changed also, due to leakage of ostomy onto dressing. Midline much improved at todays assessment. All questions and concerns addressed at this time. 04/17/25 somta with brava barrier strip paste placed. Continue to have patient participate in emptying of her pouch - this will help her to gain independence. 04/13/25 Midline - areas of dehiscence - alternating jaron observed - dressing dry and intact at the time of my consult. We discussed the following steps: 1. Empty pouch before pouch change 2. Remove pouch using push/pull technique from top to bottom 3. Cleanse stoma and skin with tap water only - no soap or wipes 4. Pat dry 5. Measure stoma and cut new pouch no more than 1/8 inch larger than stoma and no smaller than stoma 6. If instructed by your ostomy nurse stretch barrier seal to the size of the stoma and press onto skin around stoma (up to the edge of the stoma but not onto the stoma) 7. Press the new pouch into place and hold for several seconds (close pouch tail) 8. Empty pouch when 1/3 to 1/2 full 9. Change pouch twice weekly on a schedule (for example, every Sunday and ) and as needed for any leaking (feels like intense itch or burn at edge of stoma) 10. May order pre-cut pouches (already cut to size of stoma) once stoma measures the same size consistently at about 8-12 weeks.
[2025-04-17 14:07] VITALS: BP 152/71; PULSE 67; O2SAT 93
[2025-04-17 15:25] VITALS: BP 140/71; PULSE 67; RESP 18; TEMP 36.4; O2SAT 93
[2025-04-17 15:56] LABS: Anion Gap 11 (12-20); Blood Urea Nitrogen 8 mg/dL (9-16); Calcium 7.4 mg/dL (8.4-10.2); Carbon Dioxide 25 mmol/L (22-29); Chloride 103 mmol/L (96-108); Creatinine Clr Calc Pharmacy 69.2; Estimated Glomerular Filt Rate > 60; Potassium 3.4 mmol/L (3.3-5.1); Sodium 136 mmol/L (135-145)
[2025-04-17] MEDS: 0.9 % Sodium Chloride Flush 3 ML SYRINGE IVFLUSH (17:17)
[2025-04-17 19:44] VITALS: BP 149/69; PULSE 72; RESP 18; TEMP 37.1; O2SAT 96
[2025-04-17] MEDS: oxyCODONE HCl Immed Release 5 MG TABLET PO (22:04)
[2025-04-17 22:57] VITALS: BP 158/66; PULSE 65; RESP 18; TEMP 36.4; O2SAT 97
[2025-04-18] VITALS (14 sets, daily range): BP systolic 127–198; BP diastolic 63–94; PULSE 64–76; RESP 14–20; TEMP 36.2–36.8; O2SAT 95–98
[2025-04-18] MEDS: Lactated Ringers 1,000 ML 80 ML IVCONT (03:27)
[2025-04-18] MEDS: oxyCODONE HCl Immed Release 5 MG TABLET PO ×3 (05:02→21:10)
[2025-04-18 07:38] LABS: Anion Gap 13 (12-20); Blood Urea Nitrogen 6 mg/dL (9-16); Calcium 7.3 mg/dL (8.4-10.2); Carbon Dioxide 23 mmol/L (22-29); Chloride 104 mmol/L (96-108); Creatinine Clr Calc Pharmacy 69.2; Estimated Glomerular Filt Rate > 60; Potassium 3.0 mmol/L (3.3-5.1); Sodium 137 mmol/L (135-145)
[2025-04-18] MEDS: Potassium Chloride Packet 20 MEQ PACKET PO (08:01)
[2025-04-18] MEDS: 0.9 % Sodium Chloride Flush 3 ML SYRINGE IVFLUSH ×3 (08:09→21:36)
--- NOTE | 2025-04-18 09:04 | MHC.CM.PN ---
Addendum entered by Shereen Harry 04/18/25 10:04: CM INFORMED PT WILL NOT DC TODAY CM CALLED [facility] TO HOLD TRANSPORT, HOWEVER IT WAS NOT BOOKED PER THEIR REPORT SNF INFORMED AND WILL FOLLOW FOR DC DATE Original Note: PT BOOKED FOR 1200 TRANSPORT VIA [facility] BY PREVIOUS CM SHE WILL DC TO [facility] FOR STR SHE WILL NEED 2-3 DAYS OF OSTOMY SUPPLIES SENT WITH HER AND REPORT SHOULD BE CALLED TO [phone] MADE AWARE DCS TO BE FAXED TO [phone]
--- NOTE | 2025-04-18 10:10 | PM.PNGS ---
Subjective Subjective Date of Service: 04/18/25 Interval history: Tolerating diet Stoma continues to function well Blood pressure has been high all morning Physical Exam Vital Signs: Vital Signs: Last Vital Signs Temp 98 F 04/18/25 07:29 Pulse 65 04/18/25 09:33 Resp 14 04/18/25 07:29 BP 188/80 H 04/18/25 09:33 Pulse Ox 95 04/18/25 09:33 O2 Del Method Room Air 04/18/25 09:33 O2 Flow Rate 6 04/10/25 19:56 BMI result Body Mass Index 20.2 Const: Other: Frail looking General: comfortable and no acute distress Resp: Effort & Inspection: normal respiratory effort Cardio: Rate: regular rate GI: Other: Stoma functioning well, incision clean Palpation (GI): Soft to palpation Objective Data Active Medications Acetaminophen (Acetaminophen 325 Mg Tablet) 650 mg PO Q6H [facility] Last Admin: 04/18/25 04:13 Dose: 650 mg Documented By: AGUSTINA Atorvastatin Calcium (Atorvastatin Calcium 10 Mg Tablet) 10 mg PO BEDTIME [facility] Last Admin: 04/17/25 20:34 Dose: 10 mg Documented By: ANU Calcium Carbonate (Calcium Carbonate 750 Mg Tab.Chew) 750 mg PO Q6H PRN PRN Reason: Heartburn Last Admin: 04/17/25 23:10 Dose: 750 mg Documented By: AGUSTINA Carvedilol (Carvedilol 25 Mg Tablet) 25 mg PO BID [facility]; Protocol Last Admin: 04/18/25 08:04 Dose: 25 mg Documented By: JAYNE Docusate Sodium (Docusate Sodium 100 Mg Capsule) 100 mg PO BID [facility] Last Admin: 04/18/25 08:04 Dose: 100 mg Documented By: JAYNE Enoxaparin Sodium (Enoxaparin Sodium 40 Mg/0.4 Ml Syringe) 40 mg SUBCUT Q24H [facility] Last Admin: 04/17/25 20:34 Dose: 40 mg Documented By: ANU Famotidine (Famotidine 20 Mg Tablet) 20 mg PO BID [facility] Last Admin: 04/18/25 08:03 Dose: 20 mg Documented By: JAYNE Hydralazine HCl (Hydralazine Hcl 20 Mg/Ml Vial) 5 mg IVPUSH Q6H PRN; Protocol PRN Reason: SBP >170 Last Admin: 04/18/25 09:36 Dose: 5 mg Documented By: JAYNE Piperacillin Sod/Tazobactam (Sod 3.375 gm/ Sodium Chloride) 50 mls @ 100 mls/hr IV Q6H [facility] Last Infusion: 04/18/25 05:32 Dose: Infused Documented By: AGUSTINA Lactated Ringer's (Lr) 1,000 mls @ 80 mls/hr IVCONT .[id number] [facility] Last Infusion: 04/18/25 09:26 Dose: 0 mls/hr Documented By: JAYNE Magnesium Hydroxide (Milk Of Magnesia 30 Ml Oral.Susp) 30 ml PO DAILY PRN PRN Reason: Constipation Melatonin (Melatonin 3 Mg Tablet) 6 mg PO BEDTIME PRN PRN Reason: Insomnia Morphine Sulfate (Morphine Sulfate 4 Mg/Ml Cartridge) 4 mg IVPUSH Q4H PRN; Protocol PRN Reason: Pain, Severe (Pain Scale 7-10) Last Admin: 04/18/25 08:04 Dose: 4 mg Documented By: JAYNE Naloxone HCl (Naloxone Hcl 0.4 Mg/Ml Vial) 0.04 mg IVPUSH Q5M PRN PRN Reason: Excessive sedation or RR < 8 Ondansetron HCl (Ondansetron Hcl 4 Mg/2 Ml Vial) 4 mg IVPUSH Q6H PRN PRN Reason: Nausea and Vomiting Last Admin: 04/16/25 16:03 Dose: 4 mg Documented By: VIVIANA Oxycodone HCl (Oxycodone Hcl Immed Release 5 Mg Tablet) 5 mg PO Q4H PRN PRN Reason: Pain, Moderate(Pain Scale 4-6) Polyethylene Glycol (Polyethylene Glycol 3350 17 Gm Powd.Pack) 17 gm PO DAILY [facility] Last Admin: 04/18/25 08:02 Dose: 17 gm Documented By: JAYNE Potassium Chloride (Potassium Chloride Packet 20 Meq Packet) 20 meq PO DAILY [facility] Last Admin: 04/18/25 08:01 Dose: 20 meq Documented By: JAYNE Sodium Chloride (0.9 % Sodium Chloride Flush 3 Ml Syringe) 3 ml IVFLUSH QSHIFT [facility] Last Admin: 04/18/25 08:09 Dose: 3 ml Documented By: JAYNE Sumatriptan Succinate (Sumatriptan Succinate 50 Mg Tablet) 50 mg PO DAILY PRN PRN Reason: Migraine Headache Valsartan (Valsartan 80 Mg Tablet) 80 mg PO BEDTIME [facility] Last Admin: 04/17/25 20:34 Dose: 80 mg Documented By: ANU Labs 04/15/25 08:17 04/18/25 06:21 Labs: Laboratory Results - last 24 hr 04/17/25 04/18/25 15:35 06:21 Hold Purple Top SEE NOTE Anion Gap 11 L 13 Estim Creat Clear Calc 69.2 69.2 Estimated GFR > 60 > 60 Random Glucose 88 86 Calcium 7.4 L 7.3 L Microbiology Microbiology Results: Microbiology 04/10/25 17:36 Gram Stain - Final Peritoneal Fluid Routine Culture - Final Escherichia coli Anaerobic Culture - Final Clostridium perfringens Procedures Date of Service Date of Service: 04/18/25 Progress Note: A&P Assessment and plan (1) Colon perforation: Status: Acute Assessment and Plan: Status post Yael's procedure Still needing potassium replacement BP markedly elevated all morning We will hold off on discharge to SNF today Hospitalist following Patient updated Push oral intake, out of bed Time Spent With Patient Time: Total time managing care of this patient today ____ minutes. Quality Stroke Does the patient have a stroke diagnosis?: No VTE Prior VTE?: No VTE Risk Level:: Medical - moderate - high VTE Device Contraindication: N/A - Device Ordered VTE Drug Contraindication: N/A - Med Ordered
--- NOTE | 2025-04-18 11:21 | PC.NURSE ---
07:52- Patient had elevated BP refer to flowsheet, also complaining of pain and discomfort in abdomen. Patient seems anxious by continuously asking questions regarding their care. Reached out to provider Singh via [employer], tried IV pain medications and scheduled BP medications and reassessed. Patient denies chest pain or headache. 09:32- BP remained elevated and PRN Hydralazine administered per AUG, provider Singh notified via [employer]. Patient denies chest pain or headache.
--- NOTE | 2025-04-18 13:22 | P.PNIM_ITS ---
Subjective Subjective Date of Service: 04/18/25 Interval History: HOSPITALIST CONSULT NOTE - PROGRESS NOTE No new complaints or symptoms today Feels well overall. Some abdominal pain persistent. Eating and drinking well. Review of Systems Review of Systems: Yes all other systems are reviewed and are negative Physical Exam 2 Exam: Exam: General: A&O x3, oriented to time place person and situation, comfortable, no pain Cardiac: S1, S2 auscultated with no S3/4, no MRG. Well perfused. Respiratory: Normal breath sounds auscultated throughout all lung zones, without wheezing, rales. Normal rate. 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 No tenderness on palpation around stoma, without herniation (normal with cough), some fluid in stoma, but no stool. MSK: Normal ambulation without pain at bony prominences or musculature Neurological: Normal neurological examination on overview, without obvious CN II-XII abnormalities Vital Signs: Vital Signs: Last Vital Signs Temp 98 F 04/18/25 11:15 Pulse 70 04/18/25 11:15 Resp 16 04/18/25 11:15 BP 148/81 H 04/18/25 11:15 Pulse Ox 96 04/18/25 11:15 O2 Del Method Room Air 04/18/25 11:15 O2 Flow Rate 6 04/10/25 19:56 BMI result Body Mass Index 20.2 Objective Data Active Medications Acetaminophen (Acetaminophen 325 Mg Tablet) 650 mg PO Q6H [facility] Last Admin: 04/18/25 11:01 Dose: 650 mg Documented By: JAYNE Amlodipine Besylate (Amlodipine Besylate 5 Mg Tablet) 5 mg PO DAILY [facility]; Protocol Atorvastatin Calcium (Atorvastatin Calcium 10 Mg Tablet) 10 mg PO BEDTIME [facility] Last Admin: 04/17/25 20:34 Dose: 10 mg Documented By: ANU Calcium Carbonate (Calcium Carbonate 750 Mg Tab.Chew) 750 mg PO Q6H PRN PRN Reason: Heartburn Last Admin: 04/18/25 11:49 Dose: 750 mg Documented By: JAYNE Carvedilol (Carvedilol 25 Mg Tablet) 25 mg PO BID [facility]; Protocol Last Admin: 04/18/25 08:04 Dose: 25 mg Documented By: JAYNE Docusate Sodium (Docusate Sodium 100 Mg Capsule) 100 mg PO BID [facility] Last Admin: 04/18/25 08:04 Dose: 100 mg Documented By: JAYNE Enoxaparin Sodium (Enoxaparin Sodium 40 Mg/0.4 Ml Syringe) 40 mg SUBCUT Q24H [facility] Last Admin: 04/17/25 20:34 Dose: 40 mg Documented By: ANU Famotidine (Famotidine 20 Mg Tablet) 20 mg PO BID [facility] Last Admin: 04/18/25 08:03 Dose: 20 mg Documented By: JAYNE Hydralazine HCl (Hydralazine Hcl 20 Mg/Ml Vial) 5 mg IVPUSH Q6H PRN; Protocol PRN Reason: SBP >170 Last Admin: 04/18/25 09:36 Dose: 5 mg Documented By: JAYNE Piperacillin Sod/Tazobactam (Sod 3.375 gm/ Sodium Chloride) 50 mls @ 100 mls/hr IV Q6H [facility] Last Infusion: 04/18/25 11:31 Dose: Infused Documented By: JAYNE Lactated Ringer's (Lr) 1,000 mls @ 80 mls/hr IVCONT .[id number] [facility] Last Infusion: 04/18/25 09:26 Dose: 0 mls/hr Documented By: JAYNE Magnesium Hydroxide (Milk Of Magnesia 30 Ml Oral.Susp) 30 ml PO DAILY PRN PRN Reason: Constipation Melatonin (Melatonin 3 Mg Tablet) 6 mg PO BEDTIME PRN PRN Reason: Insomnia Morphine Sulfate (Morphine Sulfate 4 Mg/Ml Cartridge) 4 mg IVPUSH Q4H PRN; Protocol PRN Reason: Pain, Severe (Pain Scale 7-10) Last Admin: 04/18/25 08:04 Dose: 4 mg Documented By: JAYNE Naloxone HCl (Naloxone Hcl 0.4 Mg/Ml Vial) 0.04 mg IVPUSH Q5M PRN PRN Reason: Excessive sedation or RR < 8 Ondansetron HCl (Ondansetron Hcl 4 Mg/2 Ml Vial) 4 mg IVPUSH Q6H PRN PRN Reason: Nausea and Vomiting Last Admin: 04/16/25 16:03 Dose: 4 mg Documented By: VIVIANA Oxycodone HCl (Oxycodone Hcl Immed Release 5 Mg Tablet) 5 mg PO Q4H PRN PRN Reason: Pain, Moderate(Pain Scale 4-6) Polyethylene Glycol (Polyethylene Glycol 3350 17 Gm Powd.Pack) 17 gm PO DAILY [facility] Last Admin: 04/18/25 08:02 Dose: 17 gm Documented By: JAYNE Potassium Chloride (Potassium Chloride Packet 20 Meq Packet) 20 meq PO DAILY [facility] Last Admin: 04/18/25 08:01 Dose: 20 meq Documented By: JAYNE Sodium Chloride (0.9 % Sodium Chloride Flush 3 Ml Syringe) 3 ml IVFLUSH QSHIFT [facility] Last Admin: 04/18/25 08:09 Dose: 3 ml Documented By: JAYNE Sumatriptan Succinate (Sumatriptan Succinate 50 Mg Tablet) 50 mg PO DAILY PRN PRN Reason: Migraine Headache Valsartan (Valsartan 80 Mg Tablet) 80 mg PO BEDTIME [facility] Last Admin: 04/17/25 20:34 Dose: 80 mg Documented By: ANU Labs 04/15/25 08:17 04/18/25 06:21 Labs: Laboratory Results - last 24 hr 04/17/25 04/18/25 15:35 06:21 Hold Purple Top SEE NOTE Anion Gap 11 L 13 Estim Creat Clear Calc 69.2 69.2 Estimated GFR > 60 > 60 Random Glucose 88 86 Calcium 7.4 L 7.3 L Assessment and Plan (1) Hypertension: Status: Acute (2) Atrial fibrillation with RVR: Status: Acute (3) Demand ischemia: Status: Acute (4) Colon perforation: Status: Acute (5) Status post Yael procedure: Status: Acute (6) Diverticulitis: Status: Acute (7) ANGELITO (acute kidney injury): Status: Acute Plan 80-year-old female with at PMH significant for HTN, HLD, GERD, and migraines who presented to the hospital on 04/10 with worsening abd pain and constipation x2 days, admitted with stercoral sigmoid colitis with perforation s/p Yael procedure a sigmoid resection and end colostomy placement 04/10. Hospitalist service was consulted for hypertensive urgency. Case c/b AFib RVR with type 2/ demand NSTEMI Stercoral sigmoid colitis with perforation Underwent Yael procedure with sigmoid resection and end colostomy on 04/10 Plan as per general surgery Hypertensive urgency BP as high as 182/88 Diltiazem was discontinued, and carvedilol was started. Patient's blood pressure and heart rate have improved. Adding amlodipine 5mg OD PO for further management with BP 170-190mmHg systolic. PLAN - Start amlodipine 5mg OD PO - Continue valsartan 80mg daily - Continue Carvedilol 25 mg b.i.d. p.o. - Metoprolol 5mg PRN IV for RVR - Hydralazine 5mg IV prn for SBP >170 - Discontinue diltiazem ER 240mg daily - Follow BP closely AFib RVR Troponin leak Type 2 demand NSTEMI Patient suffered with heart rate 150, captured on ECG. Blood pressure preserved, however lower than prior. Troponin elevated - plateaued - consistent with type 2 demand NSTEMI 5 mg IV metoprolol administered, with improvement and resolution of RVR [id number] Score elevated; indicated for anticoagulation-holding in the setting of critical illness PLAN - consider apixaban 5 mg b.i.d. p.o. - IV metoprolol 5 mg p.r.n. for RVR - continue carvedilol - echocardiography result pending - cardiology recommendations greatly appreciated Constipation On Miralax Encourage ambuation Management as per general surgery HLD Continue statin GERD Continue famotidine Migraines Continue sumatriptan prn Thank you for allowing us to participate in the care of this pt. We will continue to follow with you. Total time managing care of this patient today: 35 minutes. Quality Stroke Does the patient have a stroke diagnosis?: No VTE Prior VTE?: No VTE Risk Level:: Medical - moderate - high VTE Device Contraindication: N/A - Device Ordered VTE Drug Contraindication: N/A - Med Ordered
[2025-04-19] VITALS (14 sets, daily range): BP systolic 124–187; BP diastolic 60–84; PULSE 66–85; RESP 15–18; TEMP 36.1–37.1; O2SAT 93–97
[2025-04-19] MEDS: oxyCODONE HCl Immed Release 5 MG TABLET PO ×4 (02:11→22:41)
--- NOTE | 2025-04-19 04:48 | PM.EVENT ---
Event Note Date of Service: 04/19/25 Event Note: Nursing called with 2 events of hypertension, 172/68 then 168/83, possibly related to pain. Nursing administered IV Hydral prn 2200 then again for second occurence 0430. Pt receiving pain meds but duration may not be long enough. Increased amlodipine to 7.5 mgs daily and hydralazine to 10 mg IV Q6H for systolic > 160. Pt is afebrile, HR in the 70's. Time Spent With Patient Time: Total time managing care of this patient today ____ minutes.
[2025-04-19 06:31] LABS: Anion Gap 14 (12-20); Blood Urea Nitrogen 6 mg/dL (9-16); Calcium 7.2 mg/dL (8.4-10.2); Carbon Dioxide 23 mmol/L (22-29); Chloride 103 mmol/L (96-108); Creatinine Clr Calc Pharmacy 67.9; Estimated Glomerular Filt Rate > 60; Potassium 2.7 mmol/L (3.3-5.1); Sodium 137 mmol/L (135-145)
[2025-04-19] MEDS: Potassium Chloride Packet 20 MEQ PACKET 40 MEQ PO (06:41)
--- NOTE | 2025-04-19 08:11 | PC.NURSE ---
At change of shift, nightclub manager RN reported that patient was asking for PRN pain medication. Pain medication removed, upon bringing it to patient, patient appeared to be sleeping, resting in bed, eyes closed, unlabored breathing.
[2025-04-19] MEDS: 0.9 % Sodium Chloride Flush 3 ML SYRINGE IVFLUSH ×3 (09:03→20:31)
--- NOTE | 2025-04-19 09:33 | PM.PNGS ---
Subjective Subjective Date of Service: 04/19/25 Interval history: No new complaints Blood pressure still elevated Stoma functioning well Tolerating diet Physical Exam Vital Signs: Vital Signs: Last Vital Signs Temp 96.9 F 04/19/25 07:45 Pulse 76 04/19/25 09:01 Resp 16 04/19/25 07:45 BP 187/78 H 04/19/25 09:01 Pulse Ox 94 04/19/25 07:45 O2 Del Method Room Air 04/19/25 07:45 O2 Flow Rate 6 04/10/25 19:56 BMI result Body Mass Index 20.2 Const: Other: Frail looking General: comfortable and no acute distress Resp: Effort & Inspection: normal respiratory effort Cardio: Rate: regular rate GI: Other: Stoma with output, midline incision clean Palpation (GI): Soft to palpation, not firm and nontender Objective Data Active Medications Acetaminophen (Acetaminophen 325 Mg Tablet) 650 mg PO Q6H [facility] Last Admin: 04/19/25 04:40 Dose: 650 mg Documented By: ANU Amlodipine Besylate (Amlodipine Besylate 2.5 Mg Tablet) 2.5 mg PO DAILY [facility]; Protocol Atorvastatin Calcium (Atorvastatin Calcium 10 Mg Tablet) 10 mg PO BEDTIME [facility] Last Admin: 04/18/25 21:36 Dose: 10 mg Documented By: ANU Calcium Carbonate (Calcium Carbonate 750 Mg Tab.Chew) 750 mg PO Q6H PRN PRN Reason: Heartburn Last Admin: 04/18/25 22:16 Dose: 750 mg Documented By: ANU Carvedilol (Carvedilol 25 Mg Tablet) 25 mg PO BID [facility]; Protocol Last Admin: 04/19/25 09:01 Dose: 25 mg Documented By: JAYNE Docusate Sodium (Docusate Sodium 100 Mg Capsule) 100 mg PO BID [facility] Last Admin: 04/19/25 09:01 Dose: 100 mg Documented By: JAYNE Enoxaparin Sodium (Enoxaparin Sodium 40 Mg/0.4 Ml Syringe) 40 mg SUBCUT Q24H [facility] Last Admin: 04/18/25 21:37 Dose: 40 mg Documented By: ANU Famotidine (Famotidine 20 Mg Tablet) 20 mg PO BID [facility] Last Admin: 04/19/25 09:01 Dose: 20 mg Documented By: JAYNE Hydralazine HCl (Hydralazine Hcl 20 Mg/Ml Vial) 10 mg IVPUSH Q6H PRN; Protocol PRN Reason: SBP >170 Last Admin: 04/19/25 05:18 Dose: 10 mg Documented By: ANU Piperacillin Sod/Tazobactam (Sod 3.375 gm/ Sodium Chloride) 50 mls @ 100 mls/hr IV Q6H [facility] Last Infusion: 04/19/25 05:36 Dose: Infused Documented By: ANU Magnesium Hydroxide (Milk Of Magnesia 30 Ml Oral.Susp) 30 ml PO DAILY PRN PRN Reason: Constipation Melatonin (Melatonin 3 Mg Tablet) 6 mg PO BEDTIME PRN PRN Reason: Insomnia Morphine Sulfate (Morphine Sulfate 4 Mg/Ml Cartridge) 4 mg IVPUSH Q4H PRN; Protocol PRN Reason: Pain, Severe (Pain Scale 7-10) Last Admin: 04/18/25 08:04 Dose: 4 mg Documented By: JAYNE Naloxone HCl (Naloxone Hcl 0.4 Mg/Ml Vial) 0.04 mg IVPUSH Q5M PRN PRN Reason: Excessive sedation or RR < 8 Ondansetron HCl (Ondansetron Hcl 4 Mg/2 Ml Vial) 4 mg IVPUSH Q6H PRN PRN Reason: Nausea and Vomiting Last Admin: 04/19/25 05:12 Dose: 4 mg Documented By: ANU Oxycodone HCl (Oxycodone Hcl Immed Release 5 Mg Tablet) 5 mg PO Q4H PRN PRN Reason: Pain, Moderate(Pain Scale 4-6) Last Admin: 04/19/25 09:01 Dose: 5 mg Documented By: JAYNE Polyethylene Glycol (Polyethylene Glycol 3350 17 Gm Powd.Pack) 17 gm PO DAILY [facility] Last Admin: 04/19/25 09:03 Dose: Not Given Documented By: JAYNE Non-Admin Reason: Physician Held Med Comments: per Dr. Rosenthal Potassium Chloride (Potassium Chloride Packet 20 Meq Packet) 20 meq PO BIDWM [facility] Sodium Chloride (0.9 % Sodium Chloride Flush 3 Ml Syringe) 3 ml IVFLUSH QSHIFT [facility] Last Admin: 04/19/25 09:03 Dose: 3 ml Documented By: HO.COLBURK Sumatriptan Succinate (Sumatriptan Succinate 50 Mg Tablet) 50 mg PO DAILY PRN PRN Reason: Migraine Headache Valsartan (Valsartan 160 Mg Tablet) 160 mg PO BEDTIME [facility] Valsartan (Valsartan 80 Mg Tablet) 80 mg PO ONCE ONE; Protocol Stop: 04/19/25 09:22 Valsartan (Valsartan 80 Mg Tablet) 80 mg PO ONCE ONE; Protocol Stop: 04/19/25 18:01 Labs 04/15/25 08:17 04/19/25 05:45 Labs: Laboratory Results - last 24 hr 04/19/25 05:45 Anion Gap 14 Estim Creat Clear Calc 67.9 Estimated GFR > 60 Random Glucose 84 Calcium 7.2 L Procedures Date of Service Date of Service: 04/19/25 Progress Note: A&P Assessment and plan (1) Colon perforation: Status: Acute Assessment and Plan: Status post Yael's procedure Stoma functioning well Her blood pressure still seems to be not well controlled Also still requiring potassium supplementation for persistent hypokalemia We will hold off on discharge to [facility] today Otherwise looks stable from surgical standpoint Discussed with the hospitalist service Time Spent With Patient Time: Total time managing care of this patient today ____ minutes. Quality Stroke Does the patient have a stroke diagnosis?: No VTE Prior VTE?: No VTE Risk Level:: Medical - moderate - high VTE Device Contraindication: N/A - Device Ordered VTE Drug Contraindication: N/A - Med Ordered
--- NOTE | 2025-04-19 12:37 | P.PNIM_ITS ---
Subjective Subjective Date of Service: 04/19/25 Interval History: INTERNAL MEDICINE CONSULT PROGRESS NOTE Overnight events reviewed. Patient has significantly hypotensive overnight, requiring hydralazine IV. Pain significantly improved. Patient also noted to have hypokalemia 2.7 mg/dL. Asymptomatic otherwise. Large volume stool output from stoma due to laxatives-these have been discontinued. Encouraging patient is intake. Review of Systems Review of Systems: Yes all other systems are reviewed and are negative Physical Exam 2 Exam: Exam: General: A&O x3, oriented to time place person and situation, comfortable, no pain Cardiac: S1, S2 auscultated with no S3/4, no MRG. Well perfused. Respiratory: Normal breath sounds auscultated throughout all lung zones, without wheezing, rales. Normal rate. 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 No tenderness on palpation around stoma, without herniation (normal with cough), some fluid in stoma, but no stool. MSK: Normal ambulation without pain at bony prominences or musculature Neurological: Normal neurological examination on overview, without obvious CN II-XII abnormalities Vital Signs: Vital Signs: Last Vital Signs Temp 96.9 F 04/19/25 07:45 Pulse 76 04/19/25 09:01 Resp 16 04/19/25 07:45 BP 164/76 H 04/19/25 09:57 Pulse Ox 94 04/19/25 07:45 O2 Del Method Room Air 04/19/25 07:45 O2 Flow Rate 6 04/10/25 19:56 BMI result Body Mass Index 20.2 Objective Data Active Medications Acetaminophen (Acetaminophen 325 Mg Tablet) 650 mg PO Q6H [facility] Last Admin: 04/19/25 09:56 Dose: 650 mg Documented By: JAYNE Amlodipine Besylate (Amlodipine Besylate 2.5 Mg Tablet) 2.5 mg PO DAILY [facility]; Protocol Last Admin: 04/19/25 09:56 Dose: 2.5 mg Documented By: JAYNE Atorvastatin Calcium (Atorvastatin Calcium 10 Mg Tablet) 10 mg PO BEDTIME [facility] Last Admin: 04/18/25 21:36 Dose: 10 mg Documented By: ANU Calcium Carbonate (Calcium Carbonate 750 Mg Tab.Chew) 750 mg PO Q6H PRN PRN Reason: Heartburn Last Admin: 04/18/25 22:16 Dose: 750 mg Documented By: ANU Carvedilol (Carvedilol 25 Mg Tablet) 25 mg PO BID [facility]; Protocol Last Admin: 04/19/25 09:01 Dose: 25 mg Documented By: JAYNE Docusate Sodium (Docusate Sodium 100 Mg Capsule) 100 mg PO BID [facility] Last Admin: 04/19/25 09:01 Dose: 100 mg Documented By: JAYNE Enoxaparin Sodium (Enoxaparin Sodium 40 Mg/0.4 Ml Syringe) 40 mg SUBCUT Q24H [facility] Last Admin: 04/18/25 21:37 Dose: 40 mg Documented By: ANU Famotidine (Famotidine 20 Mg Tablet) 20 mg PO BID [facility] Last Admin: 04/19/25 09:01 Dose: 20 mg Documented By: JAYNE Hydralazine HCl (Hydralazine Hcl 20 Mg/Ml Vial) 10 mg IVPUSH Q6H PRN; Protocol PRN Reason: SBP >170 Last Admin: 04/19/25 05:18 Dose: 10 mg Documented By: ANU Piperacillin Sod/Tazobactam (Sod 3.375 gm/ Sodium Chloride) 50 mls @ 100 mls/hr IV Q6H [facility] Last Infusion: 04/19/25 05:36 Dose: Infused Documented By: ANU Magnesium Hydroxide (Milk Of Magnesia 30 Ml Oral.Susp) 30 ml PO DAILY PRN PRN Reason: Constipation Melatonin (Melatonin 3 Mg Tablet) 6 mg PO BEDTIME PRN PRN Reason: Insomnia Morphine Sulfate (Morphine Sulfate 4 Mg/Ml Cartridge) 4 mg IVPUSH Q4H PRN; Protocol PRN Reason: Pain, Severe (Pain Scale 7-10) Last Admin: 04/18/25 08:04 Dose: 4 mg Documented By: JAYNE Naloxone HCl (Naloxone Hcl 0.4 Mg/Ml Vial) 0.04 mg IVPUSH Q5M PRN PRN Reason: Excessive sedation or RR < 8 Ondansetron HCl (Ondansetron Hcl 4 Mg/2 Ml Vial) 4 mg IVPUSH Q6H PRN PRN Reason: Nausea and Vomiting Last Admin: 04/19/25 05:12 Dose: 4 mg Documented By: ANU Oxycodone HCl (Oxycodone Hcl Immed Release 5 Mg Tablet) 5 mg PO Q4H PRN PRN Reason: Pain, Moderate(Pain Scale 4-6) Last Admin: 04/19/25 09:01 Dose: 5 mg Documented By: JAYNE Polyethylene Glycol (Polyethylene Glycol 3350 17 Gm Powd.Pack) 17 gm PO DAILY [facility] Last Admin: 04/19/25 09:03 Dose: Not Given Documented By: JAYNE Non-Admin Reason: Physician Held Med Comments: per Dr. Rosenthal Potassium Chloride (Potassium Chloride Er 20 Meq Tab.Er.Prt) 20 meq PO BID [facility] BY [facility] Sodium Chloride (0.9 % Sodium Chloride Flush 3 Ml Syringe) 3 ml IVFLUSH QSHIFT [facility]PLACED BY [facility] Last Admin: 04/19/25 09:03 Dose: 3 ml Documented By: JAYNE Sumatriptan Succinate (Sumatriptan Succinate 50 Mg Tablet) 50 mg PO DAILY PRN PRN Reason: Migraine Headache Valsartan (Valsartan 160 Mg Tablet) 160 mg PO BEDTIME [facility]PL[facility] BY [facility] Valsartan (Valsartan 80 Mg Tablet) 80 mg PO ONCE ONE; Protocol Stop: 04/19/25 18:01 Labs 04/15/25 08:17 04/19/25 05:45 Labs: Laboratory Results - last 24 hr 04/19/25 05:45 Anion Gap 14 Estim Creat Clear Calc 67.9 Estimated GFR > 60 Random Glucose 84 Calcium 7.2 L Assessment and Plan (1) Hypertensive urgency: Status: Acute (2) Demand ischemia: Status: Acute (3) Atrial fibrillation with RVR: Status: Acute (4) Diverticulitis: Status: Acute (5) Colon perforation: Status: Acute (6) Status post Yael procedure: Status: Acute (7) ANGELITO (acute kidney injury): Status: Acute (8) Hypokalemia: Status: Acute (9) Hypertension: Status: Acute Plan 80-year-old female with at PMH significant for HTN, HLD, GERD, and migraines who presented to the hospital on 04/10 with worsening abd pain and constipation x2 days, admitted with stercoral sigmoid colitis with perforation s/p Yael procedure a sigmoid resection and end colostomy placement 04/10. Hospitalist service was consulted for hypertensive urgency. Case c/b AFib RVR with type 2/ demand NSTEMI Stercoral sigmoid colitis with perforation Underwent Yael procedure with sigmoid resection and end colostomy on 04/10 Patient started on Zosyn on 04/14. PLAN - Discontinue Zosyn (order placed) - Start cephalexin 500 mg q.12 hourly (order placed) - Start metronidazole 500 mg q.12 hourly (order placed) - remainder of plan as per General surgery Hypertensive urgency BP as high as 182/88 Diltiazem was discontinued, and carvedilol was started. Patient's blood pressure and heart rate have improved. Currently on max dose carvedilol. Still having episodes of hypertensive urgency intermittently. Echocardiography unremarkable. Patient unable to tolerate high doses of amlodipine 2/2 headaches in the past PLAN - amlodipine 2.5 mg OD p.o. - increase valsartan from 80 mg to 160 mg - Continue Carvedilol 25 mg b.i.d. p.o. - Metoprolol 5mg PRN IV for RVR - Hydralazine 5mg IV prn for SBP >170 - Discontinue diltiazem ER 240mg daily - Follow BP closely AFib RVR Troponin leak Type 2 demand NSTEMI Patient suffered with heart rate 150, captured on ECG. Blood pressure preserved, however lower than prior. Troponin elevated - plateaued - consistent with type 2 demand NSTEMI 5 mg IV metoprolol administered, with improvement and resolution of RVR [id number] Score elevated; indicated for anticoagulation-holding in the setting of critical illness PLAN - consider apixaban 5 mg b.i.d. p.o. - IV metoprolol 5 mg p.r.n. for RVR - continue carvedilol - echocardiography result pending - cardiology recommendations greatly appreciated Constipation On Miralax Encourage ambuation Management as per general surgery HLD Continue statin GERD Continue famotidine Migraines Continue sumatriptan prn Thank you for allowing us to participate in the care of this pt. We will continue to follow with you. Total time managing care of this patient today: 45 minutes. Quality Stroke Does the patient have a stroke diagnosis?: No VTE Prior VTE?: No VTE Risk Level:: Medical - moderate - high VTE Device Contraindication: N/A - Device Ordered VTE Drug Contraindication: N/A - Med Ordered
--- NOTE | 2025-04-19 19:55 | HO.SKINPHOTO ---
Ostomy bag leaking, output leaked into midline incision dressing. Ostomy appliance changed - area cleaned with wet (water) cloth, surrounding area pat dry and skin prep applied, new appliance applied and ostomy paste used near side close to midline incision. Midline incision cleaned with normal saline, pat dry, gauze and tape applied. Patient tolerated change well and assisted with ostomy appliance change and was able to verbalize each step to changing appliance.
[2025-04-19] MEDS: Potassium Chloride ER 20 MEQ TAB.ER.PRT PO (20:30)
[2025-04-20] VITALS (25 sets, daily range): BP systolic 113–171; BP diastolic 60–94; PULSE 65–175; RESP 16–22; TEMP 36.6–37; O2SAT 93–97
--- NOTE | 2025-04-20 | ECG_ITS ---
Test Reason : tachycardia, chest pain Blood Pressure : */* mmHG Vent. Rate : 138 BPM Atrial Rate : * BPM P-R Int : * ms QRS Dur : 72 ms QT Int : 280 ms P-R-T Axes : * 27 222 degrees QTcB Int : 424 ms Atrial fibrillation with rapid ventricular response ST & T wave abnormality, consider inferior ischemia ST & T wave abnormality, consider anterolateral ischemia Abnormal ECG When compared to the previous EKG of Ischemic ECG chanegs noted, afib present Referred By: Cr Kim Electronically Signed By: Suresh Marks
[2025-04-20] MEDS: oxyCODONE HCl Immed Release 5 MG TABLET PO ×3 (03:52→21:18)
[2025-04-20] MEDS: Lactated Ringers 1,000 ML 999 ML IV ×2 (07:37→08:55)
[2025-04-20 07:50] LABS: Glucose, Whole Blood 77 mg/dL (60-115)
--- NOTE | 2025-04-20 08:05 | PM.PNGS ---
Subjective Subjective Date of Service: 04/20/25 Interval history: Complained of chest pain on morning rounds Was tachycardic Seen immediately by hospitalist service Stoma functioning Tolerating diet Physical Exam Vital Signs: Vital Signs: Last Vital Signs Temp 98.4 F 04/20/25 04:00 Pulse 72 04/20/25 04:00 Resp 16 04/20/25 04:00 BP 153/72 H 04/20/25 04:00 Pulse Ox 96 04/20/25 04:00 O2 Del Method Room Air 04/20/25 04:00 O2 Flow Rate 6 04/10/25 19:56 BMI result Body Mass Index 20.2 Const: General: no acute distress Resp: Effort & Inspection: normal respiratory effort Cardio: Rate: tachycardic Rhythm: abnormal rhythm GI: Other: Stoma with good out Palpation (GI): Soft to palpation, not firm and no guarding Objective Data Active Medications Acetaminophen (Acetaminophen 325 Mg Tablet) 650 mg PO Q6H [facility] Last Admin: 04/20/25 03:40 Dose: 650 mg Documented By: JAYCOB Amlodipine Besylate (Amlodipine Besylate 2.5 Mg Tablet) 2.5 mg PO DAILY [facility]; Protocol Last Admin: 04/19/25 09:56 Dose: 2.5 mg Documented By: JAYNE Atorvastatin Calcium (Atorvastatin Calcium 10 Mg Tablet) 10 mg PO BEDTIME [facility] Last Admin: 04/19/25 20:31 Dose: 10 mg Documented By: JAYCOB Calcium Carbonate (Calcium Carbonate 750 Mg Tab.Chew) 750 mg PO Q6H PRN PRN Reason: Heartburn Last Admin: 04/19/25 16:01 Dose: 750 mg Documented By: JAYNE Carvedilol (Carvedilol 25 Mg Tablet) 25 mg PO BID [facility]; Protocol Last Admin: 04/19/25 20:31 Dose: 25 mg Documented By: JAYCOB Cephalexin HCl (Cephalexin 500 Mg Capsule) 500 mg PO Q12H [facility] Last Admin: 04/20/25 01:57 Dose: 500 mg Documented By: JAYCOB Docusate Sodium (Docusate Sodium 100 Mg Capsule) 100 mg PO BID [facility] Last Admin: 04/19/25 20:30 Dose: 100 mg Documented By: JAYCBO Enoxaparin Sodium (Enoxaparin Sodium 40 Mg/0.4 Ml Syringe) 40 mg SUBCUT Q24H [facility] Last Admin: 04/19/25 20:30 Dose: 40 mg Documented By: JAYCOB Famotidine (Famotidine 20 Mg Tablet) 20 mg PO BID [facility] Last Admin: 04/19/25 20:30 Dose: 20 mg Documented By: JAYCOB Hydralazine HCl (Hydralazine Hcl 20 Mg/Ml Vial) 10 mg IVPUSH Q6H PRN; Protocol PRN Reason: SBP >170 Last Admin: 04/19/25 05:18 Dose: 10 mg Documented By: ANU Lactated Ringer's (Lr) 1,000 mls @ 999 mls/hr IV .Q1H1M [facility] Stop: 04/20/25 08:45 Diltiazem HCl 5 mg/ Sodium (Chloride) 125 mls @ 0 mls/hr IVCONT .Q0M [facility]; Protocol Magnesium Hydroxide (Milk Of Magnesia 30 Ml Oral.Susp) 30 ml PO DAILY PRN PRN Reason: Constipation Melatonin (Melatonin 3 Mg Tablet) 6 mg PO BEDTIME PRN PRN Reason: Insomnia Metronidazole (Metronidazole 500 Mg Tablet) 500 mg PO Q12H [facility] Last Admin: 04/20/25 01:57 Dose: 500 mg Documented By: JAYCOB Morphine Sulfate (Morphine Sulfate 4 Mg/Ml Cartridge) 4 mg IVPUSH Q4H PRN; Protocol PRN Reason: Pain, Severe (Pain Scale 7-10) Last Admin: 04/18/25 08:04 Dose: 4 mg Documented By: JAYNE Naloxone HCl (Naloxone Hcl 0.4 Mg/Ml Vial) 0.04 mg IVPUSH Q5M PRN PRN Reason: Excessive sedation or RR < 8 Ondansetron HCl (Ondansetron Hcl 4 Mg/2 Ml Vial) 4 mg IVPUSH Q6H PRN PRN Reason: Nausea and Vomiting Last Admin: 04/19/25 05:12 Dose: 4 mg Documented By: ANU Oxycodone HCl (Oxycodone Hcl Immed Release 5 Mg Tablet) 5 mg PO Q4H PRN PRN Reason: Pain, Moderate(Pain Scale 4-6) Last Admin: 04/20/25 03:52 Dose: 5 mg Documented By: JAYCOB Polyethylene Glycol (Polyethylene Glycol 3350 17 Gm Powd.Pack) 17 gm PO DAILY [facility] Last Admin: 04/19/25 09:03 Dose: Not Given Documented By: JAYNE Non-Admin Reason: Physician Held Med Comments: per Dr. Rosenthal Potassium Chloride (Potassium Chloride Er 20 Meq Tab.Er.Prt) 20 meq PO BID [facility] Last Admin: 04/19/25 20:30 Dose: 20 meq Documented By: JAYCOB Sodium Chloride (0.9 % Sodium Chloride Flush 3 Ml Syringe) 3 ml IVFLUSH QSHIFT [facility] Last Admin: 04/19/25 20:31 Dose: 3 ml Documented By: JAYCOB Sumatriptan Succinate (Sumatriptan Succinate 50 Mg Tablet) 50 mg PO DAILY PRN PRN Reason: Migraine Headache Valsartan (Valsartan 160 Mg Tablet) 160 mg PO BEDTIME [facility] Labs 04/15/25 08:17 04/19/25 05:45 Labs: Laboratory Results - last 24 hr 04/20/25 04/20/25 07:29 07:47 Hold Purple Top SEE NOTE POC Glucose 77 Procedures Date of Service Date of Service: 04/20/25 Progress Note: A&P Assessment and plan (1) Status post Yael procedure: Status: Acute Assessment and Plan: In AFib with a rapid ventricular response this morning Also complaining of chest pain Hospitalist at bedside as well Patient to be transferred to telemetry Abdomen is soft and benign Check labs, especially potassium Explained plan to patient Time Spent With Patient Time: Total time managing care of this patient today ____ minutes. Quality Stroke Does the patient have a stroke diagnosis?: No VTE Prior VTE?: No VTE Risk Level:: Medical - moderate - high VTE Device Contraindication: N/A - Device Ordered VTE Drug Contraindication: N/A - Med Ordered
[2025-04-20 08:14] LABS: Anion Gap 12 (12-20); Blood Urea Nitrogen 6 mg/dL (9-16); Calcium 7.5 mg/dL (8.4-10.2); Carbon Dioxide 23 mmol/L (22-29); Chloride 105 mmol/L (96-108); Creatinine Clr Calc Pharmacy 62.1; Estimated Glomerular Filt Rate > 60; Magnesium 1.7 mg/dL (1.6-2.6); Potassium 3.4 mmol/L (3.3-5.1); Sodium 137 mmol/L (135-145)
--- NOTE | 2025-04-20 08:16 | P.PNIM_ITS ---
Subjective Subjective Date of Service: 04/20/25 Interval History: Episode of AFib with rapid ventricular response noted this a.m.. Patient did complain of vague left-sided chest pain during episode Review of Systems Denies short of breath Admits to chest pain that resolved when rate decreased Denies nausea vomiting diarrhea Denies fever chills Physical Exam 2 Vital Signs: Vital Signs: Last Vital Signs Temp 98.4 F 04/20/25 04:00 Pulse 72 04/20/25 04:00 Resp 16 04/20/25 04:00 BP 153/72 H 04/20/25 04:00 Pulse Ox 96 04/20/25 04:00 O2 Del Method Room Air 04/20/25 04:00 O2 Flow Rate 6 04/10/25 19:56 BMI result Body Mass Index 20.2 Const: Other: Awake alert no acute distress Resp: Other: Clear but diminished without rales rhonchi or wheezes Cardio: Other: Irregularly irregular; tachycardic; no S4; positive S1-S2; no S3 murmurs rubs or gallops GI: Other: Ostomy intact. Positive bowel sounds Extrem: Other: No edema bilaterally Objective Data Active Medications Acetaminophen (Acetaminophen 325 Mg Tablet) 650 mg PO Q6H [facility] Last Admin: 04/20/25 03:40 Dose: 650 mg Documented By: JAYCOB Amlodipine Besylate (Amlodipine Besylate 2.5 Mg Tablet) 2.5 mg PO DAILY [facility]; Protocol Last Admin: 04/19/25 09:56 Dose: 2.5 mg Documented By: JAYNE Atorvastatin Calcium (Atorvastatin Calcium 10 Mg Tablet) 10 mg PO BEDTIME [facility] Last Admin: 04/19/25 20:31 Dose: 10 mg Documented By: JAYCBO Calcium Carbonate (Calcium Carbonate 750 Mg Tab.Chew) 750 mg PO Q6H PRN PRN Reason: Heartburn Last Admin: 04/19/25 16:01 Dose: 750 mg Documented By: JAYNE Carvedilol (Carvedilol 25 Mg Tablet) 25 mg PO BID [facility]; Protocol Last Admin: 04/19/25 20:31 Dose: 25 mg Documented By: JAYCOB Cephalexin HCl (Cephalexin 500 Mg Capsule) 500 mg PO Q12H [facility] Last Admin: 04/20/25 01:57 Dose: 500 mg Documented By: JAYCOB Docusate Sodium (Docusate Sodium 100 Mg Capsule) 100 mg PO BID [facility] Last Admin: 04/19/25 20:30 Dose: 100 mg Documented By: JAYCOB Enoxaparin Sodium (Enoxaparin Sodium 40 Mg/0.4 Ml Syringe) 40 mg SUBCUT Q24H [facility] Last Admin: 04/19/25 20:30 Dose: 40 mg Documented By: JAYCOB Famotidine (Famotidine 20 Mg Tablet) 20 mg PO BID [facility] Last Admin: 04/19/25 20:30 Dose: 20 mg Documented By: JAYCOB Hydralazine HCl (Hydralazine Hcl 20 Mg/Ml Vial) 10 mg IVPUSH Q6H PRN; Protocol PRN Reason: SBP >170 Last Admin: 04/19/25 05:18 Dose: 10 mg Documented By: ANU Lactated Ringer's (Lr) 1,000 mls @ 999 mls/hr IV .Q1H1M [facility] Stop: 04/20/25 08:45 Diltiazem HCl 5 mg/ Sodium (Chloride) 125 mls @ 0 mls/hr IVCONT .Q0M [facility]; Protocol Magnesium Hydroxide (Milk Of Magnesia 30 Ml Oral.Susp) 30 ml PO DAILY PRN PRN Reason: Constipation Melatonin (Melatonin 3 Mg Tablet) 6 mg PO BEDTIME PRN PRN Reason: Insomnia Metronidazole (Metronidazole 500 Mg Tablet) 500 mg PO Q12H [facility] Last Admin: 04/20/25 01:57 Dose: 500 mg Documented By: JAYCOB Morphine Sulfate (Morphine Sulfate 4 Mg/Ml Cartridge) 4 mg IVPUSH Q4H PRN; Protocol PRN Reason: Pain, Severe (Pain Scale 7-10) Last Admin: 04/18/25 08:04 Dose: 4 mg Documented By: JAYNE Naloxone HCl (Naloxone Hcl 0.4 Mg/Ml Vial) 0.04 mg IVPUSH Q5M PRN PRN Reason: Excessive sedation or RR < 8 Ondansetron HCl (Ondansetron Hcl 4 Mg/2 Ml Vial) 4 mg IVPUSH Q6H PRN PRN Reason: Nausea and Vomiting Last Admin: 04/19/25 05:12 Dose: 4 mg Documented By: ANU Oxycodone HCl (Oxycodone Hcl Immed Release 5 Mg Tablet) 5 mg PO Q4H PRN PRN Reason: Pain, Moderate(Pain Scale 4-6) Last Admin: 04/20/25 03:52 Dose: 5 mg Documented By: JAYCOB Polyethylene Glycol (Polyethylene Glycol 3350 17 Gm Powd.Pack) 17 gm PO DAILY [facility] Last Admin: 04/19/25 09:03 Dose: Not Given Documented By: JAYNE Non-Admin Reason: Physician Held Med Comments: per Dr. Rosenthal Potassium Chloride (Potassium Chloride Er 20 Meq Tab.Er.Prt) 20 meq PO BID [facility] Last Admin: 04/19/25 20:30 Dose: 20 meq Documented By: JAYCOB Sodium Chloride (0.9 % Sodium Chloride Flush 3 Ml Syringe) 3 ml IVFLUSH QSHIFT [facility] Last Admin: 04/19/25 20:31 Dose: 3 ml Documented By: JAYCOB Sumatriptan Succinate (Sumatriptan Succinate 50 Mg Tablet) 50 mg PO DAILY PRN PRN Reason: Migraine Headache Valsartan (Valsartan 160 Mg Tablet) 160 mg PO BEDTIME [facility] Labs 04/15/25 08:17 04/20/25 07:52 Labs: Laboratory Results - last 24 hr 04/20/25 04/20/25 04/20/25 07:29 07:47 07:52 Hold Purple Top SEE NOTE Anion Gap 12 Estim Creat Clear Calc 62.1 Estimated GFR > 60 POC Glucose 77 Random Glucose 86 Calcium 7.5 L Magnesium 1.7 Assessment and Plan (1) Status post Yael procedure: Status: Acute (2) Atrial fibrillation with RVR: Status: Acute (3) Hypertension: Status: Acute Plan 80-year-old female with at H significant for HTN, HLD, GERD, and migraines who presented to the hospital on 04/10 with worsening abd pain and constipation x2 days, admitted with stercoral sigmoid colitis with perforation s/p Yael procedure a sigmoid resection and end colostomy placement 04/10. 1.Stercoral sigmoid colitis with perforation Underwent Yael procedure with sigmoid resection and end colostomy on 04/10 Patient started on Zosyn on 04/14. PLAN - Discontinue Zosyn (order placed) - Start cephalexin 500 mg q.12 hourly (order placed) - Start metronidazole 500 mg q.12 hourly (order placed) - remainder of plan as per General surgery 2.Hypertensive urgency -Resolved; acceptable control on current therapies -adjust as indicated 3.AFib RVR -new episode this a.m. with rates to 150s with lateral STT wave changes -noted to have increased output from ostomy; 1 L bolus of normal saline given -Lopressor 5 mg x 2 with minimal response; Cardizem 10 mg IV push followed by standard drip... Good response. Rate control improved -echo done 04/14/25... LVEF 64% -transfer to telemetry -cardiology consult 4.Constipation On Miralax Encourage ambuation Management as per general surgery Thank you for allowing us to participate in the care of this pt. We will continue to follow with you. Quality Stroke Does the patient have a stroke diagnosis?: No VTE Prior VTE?: No VTE Risk Level:: Medical - moderate - high VTE Device Contraindication: N/A - Device Ordered VTE Drug Contraindication: N/A - Med Ordered
[2025-04-20 08:20] LABS: Troponin-I High Sensitivity 15.1 ng/L (<3.5-17.0)
--- NOTE | 2025-04-20 09:03 | P.PNIM_ITS ---
Subjective Subjective Date of Service: 04/20/25 Physical Exam 2 Vital Signs: Vital Signs: Last Vital Signs Temp 98.4 F 04/20/25 04:00 Pulse 72 04/20/25 04:00 Resp 16 04/20/25 04:00 BP 153/72 H 04/20/25 04:00 Pulse Ox 96 04/20/25 04:00 O2 Del Method Room Air 04/20/25 04:00 O2 Flow Rate 6 04/10/25 19:56 BMI result Body Mass Index 20.2 Objective Data Active Medications Acetaminophen (Acetaminophen 325 Mg Tablet) 650 mg PO Q6H [facility] Last Admin: 04/20/25 03:40 Dose: 650 mg Documented By: JAYCOB Amlodipine Besylate (Amlodipine Besylate 2.5 Mg Tablet) 2.5 mg PO DAILY [facility]; Protocol Last Admin: 04/19/25 09:56 Dose: 2.5 mg Documented By: JAYNE Atorvastatin Calcium (Atorvastatin Calcium 10 Mg Tablet) 10 mg PO BEDTIME [facility] Last Admin: 04/19/25 20:31 Dose: 10 mg Documented By: JAYCOB Calcium Carbonate (Calcium Carbonate 750 Mg Tab.Chew) 750 mg PO Q6H PRN PRN Reason: Heartburn Last Admin: 04/19/25 16:01 Dose: 750 mg Documented By: JAYNE Carvedilol (Carvedilol 25 Mg Tablet) 25 mg PO BID [facility]; Protocol Last Admin: 04/19/25 20:31 Dose: 25 mg Documented By: JAYCOB Cephalexin HCl (Cephalexin 500 Mg Capsule) 500 mg PO Q12H [facility] Last Admin: 04/20/25 01:57 Dose: 500 mg Documented By: JAYCOB Docusate Sodium (Docusate Sodium 100 Mg Capsule) 100 mg PO BID [facility] Last Admin: 04/19/25 20:30 Dose: 100 mg Documented By: JAYCOB Enoxaparin Sodium (Enoxaparin Sodium 40 Mg/0.4 Ml Syringe) 40 mg SUBCUT Q24H [facility] Last Admin: 04/19/25 20:30 Dose: 40 mg Documented By: JAYCOB Famotidine (Famotidine 20 Mg Tablet) 20 mg PO BID [facility] Last Admin: 04/19/25 20:30 Dose: 20 mg Documented By: JAYCOB Hydralazine HCl (Hydralazine Hcl 20 Mg/Ml Vial) 10 mg IVPUSH Q6H PRN; Protocol PRN Reason: SBP >170 Last Admin: 04/19/25 05:18 Dose: 10 mg Documented By: ANU Diltiazem HCl 5 mg/ Sodium (Chloride) 125 mls @ 0 mls/hr IVCONT .Q0M [facility]; Protocol Lactated Ringer's (Lr) 1,000 mls @ 999 mls/hr IV .Q1H1M [facility] Stop: 04/20/25 10:00 Albumin Human (Kedbumin 25 %) 100 mls @ 100 mls/hr IV Q6H [facility] Stop: 04/21/25 03:59 Magnesium Hydroxide (Milk Of Magnesia 30 Ml Oral.Susp) 30 ml PO DAILY PRN PRN Reason: Constipation Melatonin (Melatonin 3 Mg Tablet) 6 mg PO BEDTIME PRN PRN Reason: Insomnia Metronidazole (Metronidazole 500 Mg Tablet) 500 mg PO Q12H [facility] Last Admin: 04/20/25 01:57 Dose: 500 mg Documented By: JAYCOB Morphine Sulfate (Morphine Sulfate 4 Mg/Ml Cartridge) 4 mg IVPUSH Q4H PRN; Protocol PRN Reason: Pain, Severe (Pain Scale 7-10) Last Admin: 04/18/25 08:04 Dose: 4 mg Documented By: JAYNE Naloxone HCl (Naloxone Hcl 0.4 Mg/Ml Vial) 0.04 mg IVPUSH Q5M PRN PRN Reason: Excessive sedation or RR < 8 Ondansetron HCl (Ondansetron Hcl 4 Mg/2 Ml Vial) 4 mg IVPUSH Q6H PRN PRN Reason: Nausea and Vomiting Last Admin: 04/19/25 05:12 Dose: 4 mg Documented By: ANU Oxycodone HCl (Oxycodone Hcl Immed Release 5 Mg Tablet) 5 mg PO Q4H PRN PRN Reason: Pain, Moderate(Pain Scale 4-6) Last Admin: 04/20/25 03:52 Dose: 5 mg Documented By: JAYCOB Polyethylene Glycol (Polyethylene Glycol 3350 17 Gm Powd.Pack) 17 gm PO DAILY [facility] Last Admin: 04/19/25 09:03 Dose: Not Given Documented By: JAYNE Non-Admin Reason: Physician Held Med Comments: per Dr. Rosenthal Potassium Chloride (Potassium Chloride Er 20 Meq Tab.Er.Prt) 20 meq PO BID [facility] Last Admin: 04/19/25 20:30 Dose: 20 meq Documented By: JAYCOB Sodium Chloride (0.9 % Sodium Chloride Flush 3 Ml Syringe) 3 ml IVFLUSH QSHIFT [facility] Last Admin: 04/19/25 20:31 Dose: 3 ml Documented By: JAYCOB Sumatriptan Succinate (Sumatriptan Succinate 50 Mg Tablet) 50 mg PO DAILY PRN PRN Reason: Migraine Headache Valsartan (Valsartan 160 Mg Tablet) 160 mg PO BEDTIME [facility] Labs 04/15/25 08:17 04/20/25 07:52 Labs: Laboratory Results - last 24 hr 04/20/25 04/20/25 04/20/25 07:29 07:47 07:48 Hold Purple Top SEE NOTE Anion Gap Estim Creat Clear Calc Estimated GFR POC Glucose 77 Random Glucose Calcium Magnesium Troponin I High Sens 15.1 04/20/25 07:52 Hold Purple Top Anion Gap 12 Estim Creat Clear Calc 62.1 Estimated GFR > 60 POC Glucose Random Glucose 86 Calcium 7.5 L Magnesium 1.7 Troponin I High Sens Quality Stroke Does the patient have a stroke diagnosis?: No VTE Prior VTE?: No VTE Risk Level:: Medical - moderate - high VTE Device Contraindication: N/A - Device Ordered VTE Drug Contraindication: N/A - Med Ordered
[2025-04-20] MEDS: Albumin Human 25 % 100 ML IV ×3 (09:29→21:04)
[2025-04-20] MEDS: Potassium Chloride ER 20 MEQ TAB.ER.PRT PO ×2 (09:49→21:18)
[2025-04-20 10:48] LABS: Anion Gap 14 (12-20); Blood Urea Nitrogen 6 mg/dL (9-16); Calcium 7.7 mg/dL (8.4-10.2); Carbon Dioxide 23 mmol/L (22-29); Chloride 105 mmol/L (96-108); Creatinine Clr Calc Pharmacy 65.5; Estimated Glomerular Filt Rate > 60; Potassium 3.6 mmol/L (3.3-5.1); Sodium 138 mmol/L (135-145)
[2025-04-20] MEDS: Lactated Ringers 1,000 ML 100 ML IVCONT ×2 (10:59→21:37)
--- NOTE | 2025-04-20 11:35 | PC.NURSE ---
Approximately 0720- patient's HR elevated on tele monitor sustaining in 150's with c/o left sided chest pain radiating to the axilla. Rapid response called overhead. Vital signs obtained with elevated BP and HR. Dr. Martinez, Dr. Dior, RT, RN leather products supervisor Alice Tang, and TOÑA Menezes arrived to bedside. - One time dose of 5mg of IV push metoprolol ordered and administered. BP improved with HR remaining in the 150's. - POC obtained with result of 77. - EKG obtained. - Secondary IV access established. - 1L bolus of LR ordered and started. - HR continued sustaining 150's to 160's with BP improving. - Second dose of 5mg of IV push metoprolol ordered and administered. - HR remained elevated 150's-16o's after second dose of IV metoprolol. - One time dose of 10mg of IV push diltiazem and continuous infusion ordered. BP and HR improved and patient reported decrease in chest pain shortly after administration. - 0800- patient transported to [employer] by this senior technical writer, the primary care RN on Med-surg and Med-business development internTOÑA Trujillo. - HR increased again to 150's. Diltiazem infusion increased per titration by TOÑA Menezes - HR remained elevated sustaining in 160's after increase in rate. - Rate increased again by TOÑA Menezes - Initial bedside report given to TOÑA Menezes and report given over phone to Liliya Lopez with care officially transferred to receiving TOÑA Lopez. See MAR and vital signs documentation for details.
[2025-04-20 13:23] LABS: CDiff Gene PCR NEGATIVE (Negative)
--- NOTE | 2025-04-20 13:55 | P.CONCA_ITS ---
History of Present Illness History of Present Illness Date of Service: 04/20/25 Requesting physician: Gissell Dior Chief complaint: perforated diverticulitis, paroxysmal atrial fibri Narrative: [age] year lady with paroxysmal atrial fibrillation who was seen earlier by Dr. Hogue. She developed AFib with RVR today and we have been reconsulted. She was feeling a burning sensation in the chest along with chest pressure and arm discomfort. She was given Cardizem boluses and was also given IV fluids with albumin. She converted back to sinus rhythm. She is currently feeling back to normal. She is saying her abdomen is more distended. She had significant colostomy output before she developed atrial fibrillation. No fevers or chills. [facility] Past Medical History Medical History Diffuse esophageal spasm High cholesterol GERD (gastroesophageal reflux disease) Migraine with aura Migraine without aura Hypertension Surgical History Surgical History H/O wrist surgery Social History Social History Household Members: Unknown / Unable to assess Household Members Other:: son lives nearby Do you presently have visiting nurse or other home services: No Patient Tobacco Use Status: Former Tobacco user Tobacco use type: Cigarette service: No Meds Allergies Allergy/AdvReac Type Severity Reaction Status Date / Time Penicillins Allergy Intermediate Rash Verified 04/10/25 16:19 Sulfa (Sulfonamide Allergy Intermediate Rash Verified 04/10/25 16:19 Antibiotics) lisinopril AdvReac Intermediate Cough Verified 04/10/25 16:20 Active Medications: Current Medications Acetaminophen (Acetaminophen 325 Mg Tablet) 650 mg PO Q6H [facility] Last Admin: 04/20/25 09:48 Dose: 650 mg Amlodipine Besylate (Amlodipine Besylate 2.5 Mg Tablet) 2.5 mg PO DAILY [facility]; Protocol Last Admin: 04/20/25 09:48 Dose: 2.5 mg Atorvastatin Calcium (Atorvastatin Calcium 10 Mg Tablet) 10 mg PO BEDTIME [facility] Last Admin: 04/19/25 20:31 Dose: 10 mg Calcium Carbonate (Calcium Carbonate 750 Mg Tab.Chew) 750 mg PO Q6H PRN PRN Reason: Heartburn Last Admin: 04/19/25 16:01 Dose: 750 mg Carvedilol (Carvedilol 25 Mg Tablet) 25 mg PO BID [facility]; Protocol Last Admin: 04/20/25 09:48 Dose: 25 mg Cephalexin HCl (Cephalexin 500 Mg Capsule) 500 mg PO Q12H [facility] Last Admin: 04/20/25 01:57 Dose: 500 mg Docusate Sodium (Docusate Sodium 100 Mg Capsule) 100 mg PO BID [facility] Last Admin: 04/20/25 09:49 Dose: 100 mg Enoxaparin Sodium (Enoxaparin Sodium 40 Mg/0.4 Ml Syringe) 40 mg SUBCUT Q24H [facility] Last Admin: 04/19/25 20:30 Dose: 40 mg Famotidine (Famotidine 20 Mg Tablet) 20 mg PO BID [facility] Last Admin: 04/20/25 09:48 Dose: 20 mg Hydralazine HCl (Hydralazine Hcl 20 Mg/Ml Vial) 10 mg IVPUSH Q6H PRN; Protocol PRN Reason: SBP >170 Last Admin: 04/19/25 05:18 Dose: 10 mg Diltiazem HCl 5 mg/ Sodium (Chloride) 125 mls @ 0 mls/hr IVCONT .Q0M [facility]; Protocol Last Titration: 04/20/25 10:37 Dose: Infused Albumin Human (Kedbumin 25 %) 100 mls @ 100 mls/hr IV Q6H [facility] Stop: 04/21/25 03:59 Last Infusion: 04/20/25 10:30 Dose: Infused Lactated Ringer's (Lr) 1,000 mls @ 100 mls/hr IVCONT .Q10H [facility] Last Admin: 04/20/25 10:59 Dose: 100 mls/hr Magnesium Hydroxide (Milk Of Magnesia 30 Ml Oral.Susp) 30 ml PO DAILY PRN PRN Reason: Constipation Melatonin (Melatonin 3 Mg Tablet) 6 mg PO BEDTIME PRN PRN Reason: Insomnia Metronidazole (Metronidazole 500 Mg Tablet) 500 mg PO Q12H [facility] Last Admin: 04/20/25 01:57 Dose: 500 mg Morphine Sulfate (Morphine Sulfate 4 Mg/Ml Cartridge) 4 mg IVPUSH Q4H PRN; Protocol PRN Reason: Pain, Severe (Pain Scale 7-10) Last Admin: 04/20/25 10:51 Dose: 4 mg Naloxone HCl (Naloxone Hcl 0.4 Mg/Ml Vial) 0.04 mg IVPUSH Q5M PRN PRN Reason: Excessive sedation or RR < 8 Ondansetron HCl (Ondansetron Hcl 4 Mg/2 Ml Vial) 4 mg IVPUSH Q6H PRN PRN Reason: Nausea and Vomiting Last Admin: 04/19/25 05:12 Dose: 4 mg Oxycodone HCl (Oxycodone Hcl Immed Release 5 Mg Tablet) 5 mg PO Q4H PRN PRN Reason: Pain, Moderate(Pain Scale 4-6) Last Admin: 04/20/25 03:52 Dose: 5 mg Polyethylene Glycol (Polyethylene Glycol 3350 17 Gm Powd.Pack) 17 gm PO DAILY [facility] Last Admin: 04/20/25 09:49 Dose: Not Given Potassium Chloride (Potassium Chloride Er 20 Meq Tab.Er.Prt) 20 meq PO BID [facility] Last Admin: 04/20/25 09:49 Dose: 20 meq Sodium Chloride (0.9 % Sodium Chloride Flush 3 Ml Syringe) 3 ml IVFLUSH QSHIFT [facility] Last Admin: 04/20/25 09:21 Dose: Not Given Sumatriptan Succinate (Sumatriptan Succinate 50 Mg Tablet) 50 mg PO DAILY PRN PRN Reason: Migraine Headache Valsartan (Valsartan 160 Mg Tablet) 160 mg PO BEDTIME [facility] Home Medications ?Medication ?Instructions ?Recorded ?Confirmed ?Last Taken ?Type atorvastatin 10 mg tablet 10 mg PO BEDTIME 02/18/2504/08/25 History diltiazem HCl 240 mg 240 mg PO DAILY 02/18/2504/08/25 History capsule,extended release 24 hr famotidine 20 mg tablet 20 mg PO BID 02/18/2504/08/25 History olmesartan 20 mg tablet 20 mg PO BEDTIME 02/18/2504/08/25 History bismuth subsalicylate 262 mg/15 mL 524 mg PO QID PRN C onstipation 04/10/25 04/10/25 Unknown History oral suspension (Pepto-Bismol) diphenhydramine 25 1 tab PO BEDTIME PRN Sleep 1 04/10/25 Unknown History mg-acetaminophen 500 mg tablet (Acetaminophen PM) ibuprofen 200 mg tablet (Advil) 200 mg PO Q6H PRN migr ine 04/10/25 04/10/25 Unknown History sumatriptan succinate 50 mg tablet 50 mg PO DAILY PRN Migraine 04/10/25 04/10/25 Unknown History Headache Physical Exam 2 Vital Signs: Vital Signs: Last Vital Signs Temp 97.8 F 04/20/25 12:00 Pulse 65 04/20/25 12:00 Resp 22 H 04/20/25 12:00 BP 144/65 H 04/20/25 12:00 Pulse Ox 94 04/20/25 12:00 O2 Del Method Room Air 04/20/25 12:00 O2 Flow Rate 6 04/10/25 19:56 BMI result Body Mass Index 20.2 GENERAL APPEARANCE: in no acute distress, dry mucous membranes. NECK: no carotid bruit, no jugular venous distention. SKIN: no suspicious lesions, warm and dry. HEART: no murmurs, regular rate and rhythm. LUNGS: clear to auscultation bilaterally. ABDOMEN: soft, midline tenderness. Mild distention. Colostomy with liquid stools. EXTREMITIES: no edema. PERIPHERAL PULSES: equal. NEUROLOGIC: No gross deficits, AAO X 3 Objective Labs and Meds 04/15/25 08:17 04/20/25 08:42 Lab results: Laboratory Results - last 24 hr 04/20/25 04/20/25 04/20/25 07:29 07:47 07:48 Hold Purple Top SEE NOTE Sodium Potassium Chloride Carbon Dioxide Anion Gap BUN Creatinine Estim Creat Clear Calc Estimated GFR POC Glucose 77 Random Glucose Calcium Magnesium Troponin I High Sens 15.1 C. difficile Tox B Gene 04/20/25 04/20/25 04/20/25 07:52 08:42 11:30 Hold Purple Top Sodium 137 138 Potassium 3.4 D 3.6 Chloride 105 105 Carbon Dioxide 23 23 Anion Gap 12 14 BUN 6 L 6 L Creatinine 0.58 0.55 Estim Creat Clear Calc 62.1 65.5 Estimated GFR > 60 > 60 POC Glucose Random Glucose 86 81 Calcium 7.5 L 7.7 L Magnesium 1.7 Troponin I High Sens C. difficile Tox B Gene NEGATIVE Imaging Radiologist's impression: Impressions Chest X-Ray 04/20/25 08:15 IMPRESSION: Probable tiny bilateral pleural effusions. Electronically signed by: Nathaniel Dasilva MD 04/20/2025 08:36 AM EST Assessment and Plan (1) Atrial fibrillation with RVR: Status: Acute Plan Paroxysmal atrial fibrillation 80 year lady with colon perforation status post colostomy at this point. There was significant colostomy output before she developed atrial fibrillation. It is possible that dehydration played a role in this. She did improve with IV fluids and albumin. Continue IV fluids. Monitor potassium closely. If she is hypokalemic and hypotensive we can try spironolactone to keep her potassium up. A potassium stays stable then we can try amiodarone to keep her out of AFib as she may need to go to rehab at some stage. Ideally should be anticoagulated but depends on surgical stability whether she will need any further procedures or not. Currently she is in sinus rhythm and this was a short episode of atrial fibrillation. Thank you for allowing me to participate in the care of your patient. Please feel free to contact me if you have any questions. Procedures Date of Service Date of Service: 04/20/25
--- NOTE | 2025-04-20 14:02 | P.EN_ITS ---
Event Note Date of Service: 04/20/25 Event Note: Seen on afternoon rounds Transferred to [facility] Says she is comfortable Stoma functioning well Heart rate and rhythm now in regular sinus Denies chest pain Ruled out for [place] with normal enzymes Appreciate hospitalist follow-up Time Spent With Patient Time: Total time managing care of this patient today ____ minutes.
[2025-04-20 14:12] LABS: E. coli EAEC Not Detected (Not Detect.); E. coli EPEC Not Detected (Not Detect.); E. coli ETEC Not Detected (Not Detect.); E. coli STEC Not Detected (Not Detect.); Shigella sp./EIEC Not Detected (Not Detect.)
--- NOTE | 2025-04-20 14:23 | HO.OSTOMY ---
Ostomy Consult: Follow up Teaching 80yr old [place] [facility]- see H&P for detailed history and admission.? Consult for new ostomy teaching. ?She had Colostomy creation on 04/10/[address] Gallagher. ?Upon entry into patient's room, patient is lying in bed, alert and oriented x 3, currently c/o being tired. She had episode of Afib with chest pain today see provider note for details - pending cardiology consult. She reports she is participating in emptying of her pouch with staff. She reports she was able to participate with the pouch overlay plastician the weekend inclduing advising staff to fill divot with brava barrier strip paste. St this time patient is weak and tied and demonstrates good understanding of her pouch and steps to care for it. Stoma assessed through pouch appears moist and pinkwith brown pasty output. Chart review reveals Miralax remains on med list but did not receive yesterday or today. Pending C.Diff results. Midline remains improved at todays assessment. All questions and concerns addressed at this time. 04/17/25 somta with brava barrier strip paste placed. Continue to have patient participate in emptying of her pouch - this will help her to gain independence. 04/13/25 Midline - areas of dehiscence - alternating jaron observed - dressing dry and intact at the time of my consult. We discussed the following steps: 1. Empty pouch before pouch change 2. Remove pouch using push/pull technique from top to bottom 3. Cleanse stoma and skin with tap water only - no soap or wipes 4. Pat dry 5. Measure stoma and cut new pouch no more than 1/8 inch larger than stoma and no smaller than stoma 6. If instructed by your ostomy nurse stretch barrier seal to the size of the stoma and press onto skin around stoma (up to the edge of the stoma but not onto the stoma) 7. Press the new pouch into place and hold for several seconds (close pouch tail) 8. Empty pouch when 1/3 to 1/2 full 9. Change pouch twice weekly on a schedule (for example, every Sunday and ) and as needed for any leaking (feels like intense itch or burn at edge of stoma) 10. May order pre-cut pouches (already cut to size of stoma) once stoma measures the same size consistently at about 8-12 weeks.
--- NOTE | 2025-04-20 14:40 | HO.PM.IMCN ---
History of Present Illness Data of Consult Service Date: 04/20/25 Primary Care Provider: Alena Quiroz MD HPI [employer] was called this morning for chest pain with radiation to the left arm and was noted to have AFib with RVR in the 170s. Clinically she appeared to be dehydrated. GI and C diff panel were negative. Labs checked and repleted to goal Patient had to have AFib with RVR, likely in the setting of severe hypovolemia given increased ostomy output. She was bolused with 2 L LR and maintenance fluids at 100 cc an hour with good effect -thankfully was not hypotensive Patient required try tapering doses of IV Lopressor and Cardizem drip and she appeared to self reverted to sinus rhythm on the Cardizem drip once intravascular volume was repleted Cardiology consulted for acute onset AFib with RVR Surgery primary Family updated at bedside Review of Systems Review of Systems: Yes all other systems are reviewed and are negative [facility] Medical History Diffuse esophageal spasm High cholesterol GERD (gastroesophageal reflux disease) Migraine with aura Migraine without aura Hypertension Surgical History H/O wrist surgery Social History Household Members: Unknown / Unable to assess Household Members Other:: son lives nearby Do you presently have visiting nurse or other home services: No Patient Tobacco Use Status: Former Tobacco user Tobacco use type: Cigarette service: No Meds Allergies Allergy/AdvReac Type Severity Reaction Status Date / Time Penicillins Allergy Intermediate Rash Verified 04/10/25 16:19 Sulfa (Sulfonamide Allergy Intermediate Rash Verified 04/10/25 16:19 Antibiotics) lisinopril AdvReac Intermediate Cough Verified 04/10/25 16:20 Active Medications: Current Medications Acetaminophen (Acetaminophen 325 Mg Tablet) 650 mg PO Q6H [facility] Last Admin: 04/20/25 09:48 Dose: 650 mg Amlodipine Besylate (Amlodipine Besylate 2.5 Mg Tablet) 2.5 mg PO DAILY [facility]; Protocol Last Admin: 04/20/25 09:48 Dose: 2.5 mg Atorvastatin Calcium (Atorvastatin Calcium 10 Mg Tablet) 10 mg PO BEDTIME [facility] Last Admin: 04/19/25 20:31 Dose: 10 mg Calcium Carbonate (Calcium Carbonate 750 Mg Tab.Chew) 750 mg PO Q6H PRN PRN Reason: Heartburn Last Admin: 04/19/25 16:01 Dose: 750 mg Carvedilol (Carvedilol 25 Mg Tablet) 25 mg PO BID [facility]; Protocol Last Admin: 04/20/25 09:48 Dose: 25 mg Cephalexin HCl (Cephalexin 500 Mg Capsule) 500 mg PO Q12H [facility] Last Admin: 04/20/25 14:35 Dose: 500 mg Docusate Sodium (Docusate Sodium 100 Mg Capsule) 100 mg PO BID [facility] Last Admin: 04/20/25 09:49 Dose: 100 mg Enoxaparin Sodium (Enoxaparin Sodium 40 Mg/0.4 Ml Syringe) 40 mg SUBCUT Q24H [facility] Last Admin: 04/19/25 20:30 Dose: 40 mg Famotidine (Famotidine 20 Mg Tablet) 20 mg PO BID [facility] Last Admin: 04/20/25 09:48 Dose: 20 mg Hydralazine HCl (Hydralazine Hcl 20 Mg/Ml Vial) 10 mg IVPUSH Q6H PRN; Protocol PRN Reason: SBP >170 Last Admin: 04/19/25 05:18 Dose: 10 mg Diltiazem HCl 5 mg/ Sodium (Chloride) 125 mls @ 0 mls/hr IVCONT .Q0M [facility]; Protocol Last Titration: 04/20/25 10:37 Dose: Infused Albumin Human (Kedbumin 25 %) 100 mls @ 100 mls/hr IV Q6H [facility] Stop: 04/21/25 03:59 Last Infusion: 04/20/25 10:30 Dose: Infused Lactated Ringer's (Lr) 1,000 mls @ 100 mls/hr IVCONT .Q10H [facility] Last Admin: 04/20/25 10:59 Dose: 100 mls/hr Magnesium Hydroxide (Milk Of Magnesia 30 Ml Oral.Susp) 30 ml PO DAILY PRN PRN Reason: Constipation Melatonin (Melatonin 3 Mg Tablet) 6 mg PO BEDTIME PRN PRN Reason: Insomnia Metronidazole (Metronidazole 500 Mg Tablet) 500 mg PO Q12H [facility] Last Admin: 04/20/25 14:35 Dose: 500 mg Morphine Sulfate (Morphine Sulfate 4 Mg/Ml Cartridge) 4 mg IVPUSH Q4H PRN; Protocol PRN Reason: Pain, Severe (Pain Scale 7-10) Last Admin: 04/20/25 10:51 Dose: 4 mg Naloxone HCl (Naloxone Hcl 0.4 Mg/Ml Vial) 0.04 mg IVPUSH Q5M PRN PRN Reason: Excessive sedation or RR < 8 Ondansetron HCl (Ondansetron Hcl 4 Mg/2 Ml Vial) 4 mg IVPUSH Q6H PRN PRN Reason: Nausea and Vomiting Last Admin: 04/19/25 05:12 Dose: 4 mg Oxycodone HCl (Oxycodone Hcl Immed Release 5 Mg Tablet) 5 mg PO Q4H PRN PRN Reason: Pain, Moderate(Pain Scale 4-6) Last Admin: 04/20/25 03:52 Dose: 5 mg Polyethylene Glycol (Polyethylene Glycol 3350 17 Gm Powd.Pack) 17 gm PO DAILY [facility] Last Admin: 04/20/25 09:49 Dose: Not Given Potassium Chloride (Potassium Chloride Er 20 Meq Tab.Er.Prt) 20 meq PO BID [facility] Last Admin: 04/20/25 09:49 Dose: 20 meq Sodium Chloride (0.9 % Sodium Chloride Flush 3 Ml Syringe) 3 ml IVFLUSH QSHIFT [facility] Last Admin: 04/20/25 09:21 Dose: Not Given Sumatriptan Succinate (Sumatriptan Succinate 50 Mg Tablet) 50 mg PO DAILY PRN PRN Reason: Migraine Headache Valsartan (Valsartan 160 Mg Tablet) 160 mg PO BEDTIME [facility] Home Medications ?Medication ?Instructions ?Recorded ?Confirmed ?Last Taken ?Type atorvastatin 10 mg tablet 10 mg PO BEDTIME 02/18/25 04/10/25 04/08/25 History diltiazem HCl 240 mg 240 mg PO DAILY 02/18/25 04/10/25 04/08/25 History capsule,extended release 24 hr famotidine 20 mg tablet 20 mg PO BID 02/18/25 04/10/25 04/08/25 History olmesartan 20 mg tablet 20 mg PO BEDTIME 02/18/25 04/10/25 04/08/25 History bismuth subsalicylate 262 mg/15 mL 524 mg PO QID PRN Constipation 04/10/25 04/10/25 Unknown History oral suspension (Pepto-Bismol) diphenhydramine 25 1 tab PO BEDTIME PRN Sleep 04/10/25 04/10/25 Unknown History mg-acetaminophen 500 mg tablet (Acetaminophen PM) ibuprofen 200 mg tablet (Advil) 200 mg PO Q6H PRN migrine 04/10/25 04/10/25 Unknown History sumatriptan succinate 50 mg tablet 50 mg PO DAILY PRN Migraine 04/10/25 04/10/25 Unknown History Headache Physical Exam Vital Signs and Narrative: Vital Signs: Last Vital Signs Temp 97.8 F 04/20/25 12:00 Pulse 65 04/20/25 12:00 Resp 22 H 04/20/25 12:00 BP 144/65 H 04/20/25 12:00 Pulse Ox 94 04/20/25 12:00 O2 Del Method Room Air 04/20/25 12:00 O2 Flow Rate 6 04/10/25 19:56 BMI result Body Mass Index 20.2 General: AOx3, mild hypotension Resp: CTA bilaterally CVS: S1, S2, RRR GI: +BS, mild distension. Appropriate tenderness around ostomy and incision site. High-output ostomy without any bloody discharge Neuro: Cranial nerves II-XII grossly intact bilaterally. Motor grossly intact bilaterally Psych: Appropriate affect Results Labs 04/15/25 08:17 04/20/25 08:42 Labs: Laboratory Results - last 24 hr 04/20/25 04/20/25 04/20/25 07:29 07:47 07:48 Hold Purple Top SEE NOTE Anion Gap Estim Creat Clear Calc Estimated GFR POC Glucose 77 Random Glucose Calcium Magnesium Troponin I High Sens 15.1 C. difficile Tox B Gene 04/20/25 04/20/25 04/20/25 07:52 08:42 11:30 Hold Purple Top Anion Gap 12 14 Estim Creat Clear Calc 62.1 65.5 Estimated GFR > 60 > 60 POC Glucose Random Glucose 86 81 Calcium 7.5 L 7.7 L Magnesium 1.7 Troponin I High Sens C. difficile Tox B Gene NEGATIVE Imaging Radiologist's Impressions: Impressions Chest X-Ray 04/20/25 08:15 IMPRESSION: Probable tiny bilateral pleural effusions. Electronically signed by: Nathaniel Dasilva MD 04/20/2025 08:36 AM [facility] Assessment and Plan (1) Atrial fibrillation with RVR: Status: Acute Patient is new onset AFib with RVR is likely in the setting of severe dehydration secondary to large volume dark-colored stool from ostomy (s/p Yael's procedure for perforated diverticulitis). Patient was treated with 2 L LR bolus and maintenance fluid at 100 cc an hour, albumin 25 g x4 bags, and appeared to be in sinus rhythm in the afternoon. New onset AFib with RVR-likely secondary to high output ostomy, resuscitated and back to sinus now [employer] was called this morning for chest pain with radiation to the left arm and was noted to have AFib with RVR in the 170s. Pain free since I saw her at the time of [employer] Clinically she appeared to be dehydrated. GI and C diff panel were negative. Labs checked and repleted to goal Patient had to have AFib with RVR, likely in the setting of severe hypovolemia given increased ostomy output- likely dumping syndrome, albumin and ensure t.i.d. We will check albumin and proalbumin She was bolused with 2 L LR and maintenance fluids at 100 cc an hour with good effect -thankfully was not hypotensive Patient required try tapering doses of IV Lopressor and Cardizem drip (from @5 to 15) and she appeared to self reverted to sinus rhythm on the Cardizem drip once intravascular volume was repleted- hence we are downtitrating pending HDS Cardiology consulted for acute onset AFib with RVR Likely not a candidate for AC given recent surgical procedure Cont rate and will consider rhythm control TTE - hfpef Surgery primary Family updated at bedside Status post ostomy Continue Ostomy care Care by primary care I/O Will consider This note is constructed using voice recognition software. While every effort has been made to ensure accuracy, signal wirer errors may have been included. Complexity - This patient encounter is high complexity due to the acute presentation of new-onset atrial fibrillation with rapid ventricular response (RVR) in the context of severe dehydration from high-output ostomy following recent Yael?s procedure for perforated diverticulitis. The patient required urgent evaluation and management for hemodynamically significant arrhythmia, including rapid response team activation for chest pain with radiation, continuous cardiac monitoring, and titration of intravenous rate control agents (Lopressor and Cardizem drip). The clinical scenario was further complicated by ongoing large-volume fluid losses, necessitating aggressive volume resuscitation with crystalloids and albumin, frequent laboratory monitoring and electrolyte repletion, and close assessment for potential ischemia or further decompensation. Multidisciplinary coordination was required with cardiology and surgery, and anticoagulation decisions were complex due to recent abdominal surgery and bleeding risk. Additionally, the patient and family required detailed communication regarding the acute event, prognosis, and evolving management plan. The combination of acute, life-threatening cardiac arrhythmia, high risk for rapid deterioration, complex medication and fluid management, and the need for ongoing reassessment and coordination with multiple specialties justifies the high complexity of this encounter. Total time managing care of this patient today: 65 minutes.
--- NOTE | 2025-04-20 15:28 | PC.NURSE ---
Cardizem drip was decreased to 10mg/hour at approx 10:36am per provider. Cardizem drip was discontinued per cardiology at 11:00am. Patient in normal sinus rhythm.
[2025-04-20 17:34] LABS: Albumin Level 2.8 g/dL (3.5-5.0)
[2025-04-20 19:28] LABS: Prealbumin 16.0 mg/dL (20-40)
[2025-04-20] MEDS: 0.9 % Sodium Chloride Flush 3 ML SYRINGE IVFLUSH (21:19)
[2025-04-21] MEDS: oxyCODONE HCl Immed Release 5 MG TABLET PO ×4 (01:59→20:51)
[2025-04-21] MEDS: Albumin Human 25 % 100 ML IV (01:59)
[2025-04-21 03:18] VITALS: BP 115/72; PULSE 97; RESP 18; TEMP 36.4; O2SAT 96
[2025-04-21 07:25] VITALS: BP 168/77; PULSE 83; RESP 20; TEMP 37.3; O2SAT 93
[2025-04-21] MEDS: Lactated Ringers 1,000 ML 100 ML IVCONT ×2 (07:51→16:38)
[2025-04-21] MEDS: Potassium Chloride ER 20 MEQ TAB.ER.PRT PO ×2 (07:53→20:50)
--- NOTE | 2025-04-21 08:22 | PM.PNGS ---
Subjective Subjective Date of Service: 04/21/25 Interval history: No events overnight Feels ?okay? this morning Stoma functioning well Denies significant pain Oral intake still marginal Physical Exam Vital Signs: Vital Signs: Last Vital Signs Temp 99.1 F 04/21/25 07:25 Pulse 83 04/21/25 07:25 Resp 20 04/21/25 07:25 BP 168/77 H 04/21/25 07:25 Pulse Ox 93 04/21/25 07:25 O2 Del Method Room Air 04/21/25 07:25 O2 Flow Rate 6 04/10/25 19:56 BMI result Body Mass Index 20.2 Const: General: comfortable and no acute distress Resp: Effort & Inspection: normal respiratory effort Cardio: Rate: regular rate GI: Other: Stoma with good output Palpation (GI): Soft to palpation, not firm, nontender and no guarding Objective Data Active Medications Acetaminophen (Acetaminophen 325 Mg Tablet) 650 mg PO Q6H [facility] Last Admin: 04/21/25 04:11 Dose: Not Given Documented By: RUPERT Non-Admin Reason: Patient Asleep Amlodipine Besylate (Amlodipine Besylate 2.5 Mg Tablet) 2.5 mg PO DAILY [facility]; Protocol Last Admin: 04/21/25 07:53 Dose: 2.5 mg Documented By: DAX Atorvastatin Calcium (Atorvastatin Calcium 10 Mg Tablet) 10 mg PO BEDTIME [facility] Last Admin: 04/20/25 21:18 Dose: 10 mg Documented By: RUPERT Calcium Carbonate (Calcium Carbonate 750 Mg Tab.Chew) 750 mg PO Q6H PRN PRN Reason: Heartburn Last Admin: 04/19/25 16:01 Dose: 750 mg Documented By: JAYNE Carvedilol (Carvedilol 25 Mg Tablet) 25 mg PO BID [facility]; Protocol Last Admin: 04/21/25 07:53 Dose: 25 mg Documented By: DAX Cephalexin HCl (Cephalexin 500 Mg Capsule) 500 mg PO Q12H [facility] Last Admin: 04/21/25 01:59 Dose: 500 mg Documented By: RUPERT Docusate Sodium (Docusate Sodium 100 Mg Capsule) 100 mg PO BID [facility] Last Admin: 04/21/25 07:53 Dose: 100 mg Documented By: DAX Enoxaparin Sodium (Enoxaparin Sodium 40 Mg/0.4 Ml Syringe) 40 mg SUBCUT Q24H [facility] Last Admin: 04/20/25 21:04 Dose: 40 mg Documented By: RUPERT Famotidine (Famotidine 20 Mg Tablet) 20 mg PO BID [facility] Last Admin: 04/21/25 07:53 Dose: 20 mg Documented By: DAX Hydralazine HCl (Hydralazine Hcl 20 Mg/Ml Vial) 10 mg IVPUSH Q6H PRN; Protocol PRN Reason: SBP >170 Last Admin: 04/19/25 05:18 Dose: 10 mg Documented By: ANU Lactated Ringer's (Lr) 1,000 mls @ 100 mls/hr IVCONT .Q10H [facility] Last Admin: 04/21/25 07:51 Dose: 100 mls/hr Documented By: DAX Diltiazem HCl 125 mg/ Sodium (Chloride) 125 mls @ 0 mls/hr IVCONT .Q0M [facility]; Protocol Last Titration: 04/20/25 11:00 Dose: Infused Documented By: COLLEEN Magnesium Hydroxide (Milk Of Magnesia 30 Ml Oral.Susp) 30 ml PO DAILY PRN PRN Reason: Constipation Melatonin (Melatonin 3 Mg Tablet) 6 mg PO BEDTIME PRN PRN Reason: Insomnia Metronidazole (Metronidazole 500 Mg Tablet) 500 mg PO Q12H [facility] Last Admin: 04/21/25 01:59 Dose: 500 mg Documented By: RUPERT Morphine Sulfate (Morphine Sulfate 4 Mg/Ml Cartridge) 4 mg IVPUSH Q4H PRN; Protocol PRN Reason: Pain, Severe (Pain Scale 7-10) Last Admin: 04/20/25 10:51 Dose: 4 mg Documented By: RADHA Naloxone HCl (Naloxone Hcl 0.4 Mg/Ml Vial) 0.04 mg IVPUSH Q5M PRN PRN Reason: Excessive sedation or RR < 8 Ondansetron HCl (Ondansetron Hcl 4 Mg/2 Ml Vial) 4 mg IVPUSH Q6H PRN PRN Reason: Nausea and Vomiting Last Admin: 04/21/25 08:15 Dose: 4 mg Documented By: DAX Oxycodone HCl (Oxycodone Hcl Immed Release 5 Mg Tablet) 5 mg PO Q4H PRN PRN Reason: Pain, Moderate(Pain Scale 4-6) Last Admin: 04/21/25 07:53 Dose: 5 mg Documented By: DAX Polyethylene Glycol (Polyethylene Glycol 3350 17 Gm Powd.Pack) 17 gm PO DAILY [facility] Last Admin: 04/21/25 07:56 Dose: Not Given Documented By: DAX Non-Admin Reason: Patient Refused Potassium Chloride (Potassium Chloride Er 20 Meq Tab.Er.Prt) 20 meq PO BID [facility] Last Admin: 04/21/25 07:53 Dose: 20 meq Documented By: DAX Sodium Chloride (0.9 % Sodium Chloride Flush 3 Ml Syringe) 3 ml IVFLUSH QSHIFT [facility] Last Admin: 04/21/25 07:52 Dose: Not Given Documented By: DAX Non-Admin Reason: IV Running Sumatriptan Succinate (Sumatriptan Succinate 50 Mg Tablet) 50 mg PO DAILY PRN PRN Reason: Migraine Headache Valsartan (Valsartan 160 Mg Tablet) 160 mg PO BEDTIME [facility] Last Admin: 04/20/25 21:06 Dose: 160 mg Documented By: RUPERT Labs 04/15/25 08:17 04/20/25 08:42 Labs: Laboratory Results - last 24 hr 04/20/25 04/20/25 04/20/25 08:42 11:30 17:05 Hold Purple Top SEE NOTE Anion Gap 14 Estim Creat Clear Calc 65.5 Estimated GFR > 60 Random Glucose 81 Calcium 7.7 L Albumin 2.8 L Prealbumin Stl C. cayetanensis PCR Not Detected Stool Rotavirus A PCR Not Detected Stl Adenov F 40/41 PCR Not Detected Stool Astrovirus (PCR) Not Detected Stool Campylobacter PCR Not Detected Stool Cryptosporidium PCR Not Detected Stl Sh Tox Pr E STEC PCR Not Detected Stool E coli O157 PCR Not applicable Stl Enterotoxigenic E PCR Not Detected Stool EPEC (PCR) Not Detected Stool EAEC (PCR) Not Detected Stl E. histolytica PCR Not Detected Stool Giardia Lamblia PCR Not Detected Stl P. shigelloides PCR Not Detected Stool Salmonella PCR Not Detected Stool Sapovirus (PCR) Not Detected Stl Shigella/EIEC PCR Not Detected St Y.enterocolitica PCR Not Detected Stool Vibrio (PCR) Not Detected Stl Vibrio cholerae PCR Not Detected Stl Norovirus GI/GII PCR Not Detected C. difficile Tox B Gene NEGATIVE 04/20/25 19:05 Hold Purple Top Anion Gap Estim Creat Clear Calc Estimated GFR Random Glucose Calcium Albumin Prealbumin 16.0 L Stl C. cayetanensis PCR Stool Rotavirus A PCR Stl Adenov F 40/41 PCR Stool Astrovirus (PCR) Stool Campylobacter PCR Stool Cryptosporidium PCR Stl Sh Tox Pr E STEC PCR Stool E coli O157 PCR Stl Enterotoxigenic E PCR Stool EPEC (PCR) Stool EAEC (PCR) Stl E. histolytica PCR Stool Giardia Lamblia PCR Stl P. shigelloides PCR Stool Salmonella PCR Stool Sapovirus (PCR) Stl Shigella/EIEC PCR St Y.enterocolitica PCR Stool Vibrio (PCR) Stl Vibrio cholerae PCR Stl Norovirus GI/GII PCR C. difficile Tox B Gene Procedures Date of Service Date of Service: 04/21/25 Progress Note: A&P Assessment and plan (1) Colon perforation: Status: Acute Assessment and Plan: Status post Yael's procedure Stable in telemetry unit Appears to be in sinus rhythm currently Abdomen is soft and benign Stoma functioning well Push oral intake Potassium level normal Seen by cardiology - await input Appreciate hospitalist follow up Time Spent With Patient Time: Total time managing care of this patient today ____ minutes. Quality Stroke Does the patient have a stroke diagnosis?: No VTE Prior VTE?: No VTE Risk Level:: Medical - moderate - high VTE Device Contraindication: N/A - Device Ordered VTE Drug Contraindication: N/A - Med Ordered
[2025-04-21 10:38] LABS: Blood Urea Nitrogen 7 mg/dL (9-16); Calcium 7.8 mg/dL (8.4-10.2); Creatinine Clr Calc Pharmacy 66.6; Estimated Glomerular Filt Rate > 60
[2025-04-21 10:58] VITALS: BP 174/79; PULSE 78; RESP 20; TEMP 37.4; O2SAT 93
[2025-04-21 11:04] LABS: Anion Gap 12 (12-20); Carbon Dioxide 24 mmol/L (22-29); Chloride 105 mmol/L (96-108); Potassium 3.6 mmol/L (3.3-5.1); Sodium 137 mmol/L (135-145)
--- NOTE | 2025-04-21 11:10 | PM.PNCARD ---
Subjective Subjective Date of Service: 04/21/25 Interval history: Seen examined at bedside. Continues to be in sinus rhythm. Blood pressure elevated. Complaining of abdominal pain. Physical Exam Vital Signs: Last Vital Signs Temp 99.3 F 04/21/25 10:58 Pulse 78 04/21/25 10:58 Resp 20 04/21/25 10:58 BP 174/79 H 04/21/25 10:58 Pulse Ox 93 04/21/25 10:58 O2 Del Method Room Air 04/21/25 10:58 O2 Flow Rate 6 04/10/25 19:56 BMI result Body Mass Index 20.2 GENERAL APPEARANCE: in no acute distress. NECK: no carotid bruit, no jugular venous distention. SKIN: no suspicious lesions, warm and dry. HEART: no murmurs, regular rate and rhythm. LUNGS: clear to auscultation bilaterally. ABDOMEN: soft, midline tenderness. Mild distention. Colostomy with liquid stools. EXTREMITIES: no edema. PERIPHERAL PULSES: equal. NEUROLOGIC: No gross deficits, AAO X 3 Objective Labs and Meds 04/15/25 08:17 04/21/25 09:25 Lab results: Laboratory Results - last 24 hr 04/20/25 04/20/25 04/20/25 08:42 11:30 17:05 Hold Purple Top SEE NOTE Sodium Potassium Chloride Carbon Dioxide Anion Gap BUN Creatinine Estim Creat Clear Calc Estimated GFR Random Glucose Calcium Albumin 2.8 L Prealbumin Stl C. cayetanensis PCR Not Detected Stool Rotavirus A PCR Not Detected Stl Adenov F 40/41 PCR Not Detected Stool Astrovirus (PCR) Not Detected Stool Campylobacter PCR Not Detected Stool Cryptosporidium PCR Not Detected Stl Sh Tox Pr E STEC PCR Not Detected Stool E coli O157 PCR Not applicable Stl Enterotoxigenic E PCR Not Detected Stool EPEC (PCR) Not Detected Stool EAEC (PCR) Not Detected Stl E. histolytica PCR Not Detected Stool Giardia Lamblia PCR Not Detected Stl P. shigelloides PCR Not Detected Stool Salmonella PCR Not Detected Stool Sapovirus (PCR) Not Detected Stl Shigella/EIEC PCR Not Detected St Y.enterocolitica PCR Not Detected Stool Vibrio (PCR) Not Detected Stl Vibrio cholerae PCR Not Detected Stl Norovirus GI/GII PCR Not Detected C. difficile Tox B Gene NEGATIVE 11/03/25 11/04/25 19:05 09:25 Hold Purple Top SEE NOTE Sodium 137 Potassium 3.6 Chloride 105 Carbon Dioxide 24 Anion Gap 12 BUN 7 L Creatinine 0.54 Estim Creat Clear Calc 66.6 Estimated GFR > 60 Random Glucose 82 Calcium 7.8 L Albumin Prealbumin 16.0 L Stl C. cayetanensis PCR Stool Rotavirus A PCR Stl Adenov F 40/41 PCR Stool Astrovirus (PCR) Stool Campylobacter PCR Stool Cryptosporidium PCR Stl Sh Tox Pr E STEC PCR Stool E coli O157 PCR Stl Enterotoxigenic E PCR Stool EPEC (PCR) Stool EAEC (PCR) Stl E. histolytica PCR Stool Giardia Lamblia PCR Stl P. shigelloides PCR Stool Salmonella PCR Stool Sapovirus (PCR) Stl Shigella/EIEC PCR St Y.enterocolitica PCR Stool Vibrio (PCR) Stl Vibrio cholerae PCR Stl Norovirus GI/GII PCR C. difficile Tox B Gene Progress Note: A&P Assessment and plan (1) Atrial fibrillation with RVR: Status: Acute Plan 80-year-old lady with paroxysmal atrial fibrillation. She had colon perforation and has a colostomy. There was high output from colostomy and she developed AFib with RVR which improved with IV fluids and albumin bolus. Currently volume status appears to be good. She should continue to hydrate herself orally and if the colostomy output increases then she should get IV fluids to balance the fluid losses. She is having abdominal discomfort and some nausea today. I am reluctant to add any antiarrhythmic currently. Monitor electrolytes closely. Increasing amlodipine because blood pressure is elevated. Eventually will need anticoagulation. Currently she is anemic and also has ongoing abdominal pain. AFib episodes were also short. I would currently hold off on anticoagulation and this will need further discussion as her clinical situation improves. Thank you for allowing me to participate in the care of your patient. Please feel free to contact me if you have any questions. Time Spent With Patient Time: Total time managing care of this patient today ____ minutes. Progress Note: Quality Stroke Does the patient have a stroke diagnosis?: No Procedures Date of Service Date of Service: 04/21/25
[2025-04-21 13:37] VITALS: PULSE 92
--- NOTE | 2025-04-21 14:57 | HO.PM.IMPN ---
Subjective Subjective Date of Service: 04/21/25 Interval History: Pt appears HDS, AC is limited 2/2 recent surgery Appreciate cardiology input Review of Systems Review of Systems: Yes all other systems are reviewed and are negative Physical Exam Vital Signs: Vital Signs: Last Vital Signs Temp 99.3 F 04/21/25 10:58 Pulse 92 04/21/25 13:37 Resp 20 04/21/25 10:58 BP 174/79 H 04/21/25 10:58 Pulse Ox 93 04/21/25 10:58 O2 Del Method Room Air 04/21/25 10:58 O2 Flow Rate 6 04/10/25 19:56 BMI result Body Mass Index 20.2 GENERAL APPEARANCE: in no acute distress. CVS : RRR LUNGS: clear to auscultation bilaterally. ABDOMEN: soft, midline tenderness. Mild distention. Colostomy with liquid stools. NEUROLOGIC: No gross deficits, AAO X 3 Objective Data Active Medications Acetaminophen (Acetaminophen 325 Mg Tablet) 650 mg PO Q6H [facility] Last Admin: 04/21/25 09:24 Dose: 650 mg Documented By: DAX Amlodipine Besylate (Amlodipine Besylate 5 Mg Tablet) 5 mg PO DAILY [facility]; Protocol Atorvastatin Calcium (Atorvastatin Calcium 10 Mg Tablet) 10 mg PO BEDTIME [facility] Last Admin: 04/20/25 21:18 Dose: 10 mg Documented By: RUPERT Calcium Carbonate (Calcium Carbonate 750 Mg Tab.Chew) 750 mg PO Q6H PRN PRN Reason: Heartburn Last Admin: 04/19/25 16:01 Dose: 750 mg Documented By: JAYNE Carvedilol (Carvedilol 25 Mg Tablet) 25 mg PO BID [facility]; Protocol Last Admin: 04/21/25 07:53 Dose: 25 mg Documented By: DAX Cephalexin HCl (Cephalexin 500 Mg Capsule) 500 mg PO Q12H [facility] Last Admin: 04/21/25 13:25 Dose: 500 mg Documented By: DAX Docusate Sodium (Docusate Sodium 100 Mg Capsule) 100 mg PO BID [facility] Last Admin: 04/21/25 07:53 Dose: 100 mg Documented By: DAX Enoxaparin Sodium (Enoxaparin Sodium 40 Mg/0.4 Ml Syringe) 40 mg SUBCUT Q24H [facility] Last Admin: 04/20/25 21:04 Dose: 40 mg Documented By: RUPERT Famotidine (Famotidine 20 Mg Tablet) 20 mg PO BID [facility] Last Admin: 04/21/25 07:53 Dose: 20 mg Documented By: DAX Hydralazine HCl (Hydralazine Hcl 20 Mg/Ml Vial) 10 mg IVPUSH Q6H PRN; Protocol PRN Reason: SBP >170 Last Admin: 04/19/25 05:18 Dose: 10 mg Documented By: ANU Lactated Ringer's (Lr) 1,000 mls @ 100 mls/hr IVCONT .Q10H [facility] Last Admin: 04/21/25 07:51 Dose: 100 mls/hr Documented By: DAX Diltiazem HCl 125 mg/ Sodium (Chloride) 125 mls @ 0 mls/hr IVCONT .Q0M [facility]; Protocol Last Titration: 04/20/25 11:00 Dose: Infused Documented By: LESSLEE Magnesium Hydroxide (Milk Of Magnesia 30 Ml Oral.Susp) 30 ml PO DAILY PRN PRN Reason: Constipation Melatonin (Melatonin 3 Mg Tablet) 6 mg PO BEDTIME PRN PRN Reason: Insomnia Metronidazole (Metronidazole 500 Mg Tablet) 500 mg PO Q12H [facility] Last Admin: 04/21/25 13:25 Dose: 500 mg Documented By: DAX Morphine Sulfate (Morphine Sulfate 4 Mg/Ml Cartridge) 4 mg IVPUSH Q4H PRN; Protocol PRN Reason: Pain, Severe (Pain Scale 7-10) Last Admin: 04/20/25 10:51 Dose: 4 mg Documented By: RADHA Naloxone HCl (Naloxone Hcl 0.4 Mg/Ml Vial) 0.04 mg IVPUSH Q5M PRN PRN Reason: Excessive sedation or RR < 8 Ondansetron HCl (Ondansetron Hcl 4 Mg/2 Ml Vial) 4 mg IVPUSH Q6H PRN PRN Reason: Nausea and Vomiting Last Admin: 04/21/25 08:15 Dose: 4 mg Documented By: DAX Oxycodone HCl (Oxycodone Hcl Immed Release 5 Mg Tablet) 5 mg PO Q4H PRN PRN Reason: Pain, Moderate(Pain Scale 4-6) Last Admin: 04/21/25 13:25 Dose: 5 mg Documented By: DAX Polyethylene Glycol (Polyethylene Glycol 3350 17 Gm Powd.Pack) 17 gm PO DAILY [facility] Last Admin: 04/21/25 07:56 Dose: Not Given Documented By: DAX Non-Admin Reason: Patient Refused Potassium Chloride (Potassium Chloride Er 20 Meq Tab.Er.Prt) 20 meq PO BID [facility] Last Admin: 04/21/25 07:53 Dose: 20 meq Documented By: DAX Sodium Chloride (0.9 % Sodium Chloride Flush 3 Ml Syringe) 3 ml IVFLUSH QSHIFT [facility] Last Admin: 04/21/25 07:52 Dose: Not Given Documented By: DAX Non-Admin Reason: IV Running Sumatriptan Succinate (Sumatriptan Succinate 50 Mg Tablet) 50 mg PO DAILY PRN PRN Reason: Migraine Headache Valsartan (Valsartan 160 Mg Tablet) 160 mg PO BEDTIME [facility] Last Admin: 04/20/25 21:06 Dose: 160 mg Documented By: RUPERT Labs 04/15/25 08:17 04/21/25 09:25 Labs: Laboratory Results - last 24 hr 04/20/25 04/20/25 04/20/25 08:42 11:30 17:05 Hold Purple Top SEE NOTE Anion Gap Estim Creat Clear Calc Estimated GFR Random Glucose Calcium Albumin 2.8 L Prealbumin Stl C. cayetanensis PCR Not Detected Stool Rotavirus A PCR Not Detected Stl Adenov F 40/41 PCR Not Detected Stool Astrovirus (PCR) Not Detected Stool Campylobacter PCR Not Detected Stool Cryptosporidium PCR Not Detected Stl Sh Tox Pr E STEC PCR Not Detected Stool E coli O157 PCR Not applicable Stl Enterotoxigenic E PCR Not Detected Stool EPEC (PCR) Not Detected Stool EAEC (PCR) Not Detected Stl E. histolytica PCR Not Detected Stool Giardia Lamblia PCR Not Detected Stl P. shigelloides PCR Not Detected Stool Salmonella PCR Not Detected Stool Sapovirus (PCR) Not Detected Stl Shigella/EIEC PCR Not Detected St Y.enterocolitica PCR Not Detected Stool Vibrio (PCR) Not Detected Stl Vibrio cholerae PCR Not Detected Stl Norovirus GI/GII PCR Not Detected 04/20/25 04/21/25 19:05 09:25 Hold Purple Top SEE NOTE Anion Gap 12 Estim Creat Clear Calc 66.6 Estimated GFR > 60 Random Glucose 82 Calcium 7.8 L Albumin Prealbumin 16.0 L Stl C. cayetanensis PCR Stool Rotavirus A PCR Stl Adenov F 40/41 PCR Stool Astrovirus (PCR) Stool Campylobacter PCR Stool Cryptosporidium PCR Stl Sh Tox Pr E STEC PCR Stool E coli O157 PCR Stl Enterotoxigenic E PCR Stool EPEC (PCR) Stool EAEC (PCR) Stl E. histolytica PCR Stool Giardia Lamblia PCR Stl P. shigelloides PCR Stool Salmonella PCR Stool Sapovirus (PCR) Stl Shigella/EIEC PCR St Y.enterocolitica PCR Stool Vibrio (PCR) Stl Vibrio cholerae PCR Stl Norovirus GI/GII PCR Assessment and Plan (1) Status post Yael procedure: Status: Acute (2) Atrial fibrillation with RVR: Status: Acute (3) Hypertension: Status: Acute Plan 80-year-old female with at PMH significant for HTN, HLD, GERD, and migraines who presented to the hospital on 04/10 with worsening abd pain and constipation x2 days, admitted with stercoral sigmoid colitis with perforation s/p Yael procedure a sigmoid resection and end colostomy placement 04/10. New onset paroxysmal AFib with RVR-likely secondary to high output ostomy, resuscitated and back to sinus now Patient had new onset AFib with RVR is likely in the setting of severe dehydration secondary to large volume dark-colored stool from ostomy (s/p Yael's procedure for perforated diverticulitis), resolved with Fluids and albumin. Infectious workup negative. Cont rate and will consider rhythm control pending patient's tolerance TTE - hfpef Surgery primary 1.Stercoral sigmoid colitis with perforation Underwent Yael procedure with sigmoid resection and end colostomy on 04/10 Patient started on Zosyn on 04/14. PLAN - Discontinue Zosyn (order placed) - Start cephalexin 500 mg q.12 hourly (order placed) - Start metronidazole 500 mg q.12 hourly (order placed) - remainder of plan as per General surgery 2.Hypertensive urgency -Resolved; acceptable control on current therapies -adjust as indicated 3.Constipation On Miralax Encourage ambuation Management as per general surgery Thank you for allowing us to care for the patient, we will continue to follow This note is constructed using voice recognition software. 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 Quality Stroke Does the patient have a stroke diagnosis?: No VTE Prior VTE?: No VTE Risk Level:: Medical - moderate - high VTE Device Contraindication: N/A - Device Ordered VTE Drug Contraindication: N/A - Med Ordered
[2025-04-21 15:14] VITALS: BP 155/71; PULSE 79; RESP 16; TEMP 36.6; O2SAT 93
[2025-04-21 19:20] VITALS: BP 141/72; PULSE 79; RESP 18; TEMP 37; O2SAT 92
[2025-04-22] VITALS (10 sets, daily range): BP systolic 128–186; BP diastolic 64–88; PULSE 74–95; RESP 16–20; TEMP 36.7–37.4; O2SAT 92–94
[2025-04-22] MEDS: oxyCODONE HCl Immed Release 5 MG TABLET PO ×4 (03:37→22:04)
[2025-04-22] MEDS: Lactated Ringers 1,000 ML 100 ML IVCONT (03:38)
--- NOTE | 2025-04-22 07:20 | HO.PM.IMPN ---
Subjective Subjective Date of Service: 04/22/25 Physical Exam Vital Signs: Vital Signs: Last Vital Signs Temp 98.1 F 04/22/25 07:11 Pulse 83 04/22/25 07:11 Resp 18 04/22/25 07:11 BP 168/75 H 04/22/25 07:11 Pulse Ox 92 04/22/25 07:11 O2 Del Method Room Air 04/22/25 07:11 O2 Flow Rate 6 04/10/25 19:56 BMI result Body Mass Index 20.2 Objective Data Active Medications Acetaminophen (Acetaminophen 325 Mg Tablet) 650 mg PO Q6H [facility] Last Admin: 04/22/25 05:24 Dose: 650 mg Documented By: MARISELA Amlodipine Besylate (Amlodipine Besylate 5 Mg Tablet) 5 mg PO DAILY [facility]; Protocol Atorvastatin Calcium (Atorvastatin Calcium 10 Mg Tablet) 10 mg PO BEDTIME [facility] Last Admin: 04/21/25 20:50 Dose: 10 mg Documented By: MARISELA Calcium Carbonate (Calcium Carbonate 750 Mg Tab.Chew) 750 mg PO Q6H PRN PRN Reason: Heartburn Last Admin: 04/19/25 16:01 Dose: 750 mg Documented By: COLNATY Carvedilol (Carvedilol 25 Mg Tablet) 25 mg PO BID [facility]; Protocol Last Admin: 04/21/25 20:51 Dose: 25 mg Documented By: MARISELA Cephalexin HCl (Cephalexin 500 Mg Capsule) 500 mg PO Q12H [facility] Last Admin: 04/22/25 01:10 Dose: 500 mg Documented By: MARISELA Docusate Sodium (Docusate Sodium 100 Mg Capsule) 100 mg PO BID [facility] Last Admin: 04/21/25 20:50 Dose: 100 mg Documented By: MARISELA Enoxaparin Sodium (Enoxaparin Sodium 40 Mg/0.4 Ml Syringe) 40 mg SUBCUT Q24H [facility] Last Admin: 04/21/25 20:52 Dose: 40 mg Documented By: MARISELA Famotidine (Famotidine 20 Mg Tablet) 20 mg PO BID [facility] Last Admin: 04/21/25 20:51 Dose: 20 mg Documented By: MARISELA Hydralazine HCl (Hydralazine Hcl 20 Mg/Ml Vial) 10 mg IVPUSH Q6H PRN; Protocol PRN Reason: SBP >170 Last Admin: 04/22/25 05:25 Dose: 10 mg Documented By: MARISELA Lactated Ringer's (Lr) 1,000 mls @ 100 mls/hr IVCONT .Q10H [facility] Last Admin: 04/22/25 03:38 Dose: 100 mls/hr Documented By: MARISELA Diltiazem HCl 125 mg/ Sodium (Chloride) 125 mls @ 0 mls/hr IVCONT .Q0M [facility]; Protocol Last Titration: 04/20/25 11:00 Dose: Infused Documented By: COLLEEN Magnesium Hydroxide (Milk Of Magnesia 30 Ml Oral.Susp) 30 ml PO DAILY PRN PRN Reason: Constipation Melatonin (Melatonin 3 Mg Tablet) 6 mg PO BEDTIME PRN PRN Reason: Insomnia Metronidazole (Metronidazole 500 Mg Tablet) 500 mg PO Q12H [facility] Last Admin: 04/22/25 01:10 Dose: 500 mg Documented By: MARISELA Naloxone HCl (Naloxone Hcl 0.4 Mg/Ml Vial) 0.04 mg IVPUSH Q5M PRN PRN Reason: Excessive sedation or RR < 8 Ondansetron HCl (Ondansetron Hcl 4 Mg/2 Ml Vial) 4 mg IVPUSH Q6H PRN PRN Reason: Nausea and Vomiting Last Admin: 04/21/25 23:30 Dose: 4 mg Documented By: MARISELA Oxycodone HCl (Oxycodone Hcl Immed Release 5 Mg Tablet) 5 mg PO Q4H PRN PRN Reason: Pain, Moderate(Pain Scale 4-6) Last Admin: 04/22/25 03:37 Dose: 5 mg Documented By: MARISELA Polyethylene Glycol (Polyethylene Glycol 3350 17 Gm Powd.Pack) 17 gm PO DAILY [facility] Last Admin: 04/21/25 07:56 Dose: Not Given Documented By: DAX Non-Admin Reason: Patient Refused Potassium Chloride (Potassium Chloride Er 20 Meq Tab.Er.Prt) 20 meq PO BID [facility] Last Admin: 04/21/25 20:50 Dose: 20 meq Documented By: MARISELA Sodium Chloride (0.9 % Sodium Chloride Flush 3 Ml Syringe) 3 ml IVFLUSH QSHIFT [facility] Last Admin: 04/21/25 23:18 Dose: Not Given Documented By: MARISELA Non-Admin Reason: IV Running Sumatriptan Succinate (Sumatriptan Succinate 50 Mg Tablet) 50 mg PO DAILY PRN PRN Reason: Migraine Headache Valsartan (Valsartan 160 Mg Tablet) 160 mg PO BEDTIME [facility] Last Admin: 04/21/25 20:51 Dose: 160 mg Documented By: MARISELA Labs 04/15/25 08:17 04/21/25 09:25 Labs: Laboratory Results - last 24 hr 04/21/25 09:25 Hold Purple Top SEE NOTE Anion Gap 12 Estim Creat Clear Calc 66.6 Estimated GFR > 60 Random Glucose 82 Calcium 7.8 L Quality Stroke Does the patient have a stroke diagnosis?: No VTE Prior VTE?: No VTE Risk Level:: Medical - moderate - high VTE Device Contraindication: N/A - Device Ordered VTE Drug Contraindication: N/A - Med Ordered
[2025-04-22] MEDS: Potassium Chloride ER 20 MEQ TAB.ER.PRT PO ×2 (07:56→22:04)
--- NOTE | 2025-04-22 08:19 | P.PNGS_ITS ---
Subjective Subjective Date of Service: 04/22/25 <Russel Mulligan PA-C - Last Filed: 04/22/25 08:32> 04/23/25 <Jesse Rosenthal MD - Last Filed: 04/23/25 09:54> Interval history: Feels tired. She is worried about this new cardiac issue. Denies chest pain, palpitations, shortness of breath. Some mild pain in the abdomen. Mild nausea yesterday with diet. Tried more solid food, did not have any of the ensure. Reports she has been getting her p.r.n. antihypertensives as she was hypertensive overnight. <Russel Mulligan PA-C - Last Filed: 04/22/25 08:32> Physical Exam 2 Vital Signs: Vital Signs: Last Vital Signs Temp 98.1 F 04/22/25 07:11 Pulse 83 04/22/25 07:11 Resp 18 04/22/25 07:11 BP 168/75 H 04/22/25 07:11 Pulse Ox 92 04/22/25 07:11 O2 Del Method Room Air 04/22/25 07:11 O2 Flow Rate 6 04/10/25 19:56 BMI result Body Mass Index 20.2 <Russel Mulligan PA-C - Last Filed: 04/22/25 08:32> Const: General: comfortable and no acute distress <LAUREN Nur Last Filed: 04/22/25 08:32> Orientation/consciousness: patient oriented x3 <Russel Mulligan PA-C - Last Filed: 04/22/25 08:32> Resp: Effort & Inspection: normal respiratory effort and able to speak in complete sentences <Russel Mulligan PA-C - Last Filed: 04/22/25 08:32> GI: Other: Good ostomy output stoma viable. Incision site clean dry intact, dressings in place, jaron in place. <LAUREN Nur Last Filed: 04/22/25 08:32> Inspection: No distended <LAUREN Nur Last Filed: 04/22/25 08:32> Palpation (GI): Soft to palpation, Tenderness to palpation present (GI) (Generalized tenderness throughout) and no guarding <LAUREN Nur Last Filed: 04/22/25 08:32> Neuro: General: patient oriented x3 <Russel Mulligan PA-C - Last Filed: 04/22/25 08:32> Objective Data Active Medications Acetaminophen (Acetaminophen 325 Mg Tablet) 650 mg PO Q6H [facility] Last Admin: 04/22/25 05:24 Dose: 650 mg Documented By: MARISELA Amlodipine Besylate (Amlodipine Besylate 5 Mg Tablet) 5 mg PO DAILY [facility]; Protocol Last Admin: 04/22/25 07:55 Dose: 5 mg Documented By: CORINNE Atorvastatin Calcium (Atorvastatin Calcium 10 Mg Tablet) 10 mg PO BEDTIME [facility] Last Admin: 04/21/25 20:50 Dose: 10 mg Documented By: MARISELA Calcium Carbonate (Calcium Carbonate 750 Mg Tab.Chew) 750 mg PO Q6H PRN PRN Reason: Heartburn Last Admin: 04/19/25 16:01 Dose: 750 mg Documented By: COLNATY Carvedilol (Carvedilol 25 Mg Tablet) 25 mg PO BID [facility]; Protocol Last Admin: 04/22/25 07:56 Dose: 25 mg Documented By: CORINNE Cephalexin HCl (Cephalexin 500 Mg Capsule) 500 mg PO Q12H [facility] Last Admin: 04/22/25 01:10 Dose: 500 mg Documented By: MARISELA Docusate Sodium (Docusate Sodium 100 Mg Capsule) 100 mg PO BID [facility] Last Admin: 04/22/25 07:55 Dose: 100 mg Documented By: CORINNE Enoxaparin Sodium (Enoxaparin Sodium 40 Mg/0.4 Ml Syringe) 40 mg SUBCUT Q24H [facility] Last Admin: 04/21/25 20:52 Dose: 40 mg Documented By: MARISELA Famotidine (Famotidine 20 Mg Tablet) 20 mg PO BID [facility] Last Admin: 04/22/25 07:55 Dose: 20 mg Documented By: CORINNE Hydralazine HCl (Hydralazine Hcl 20 Mg/Ml Vial) 10 mg IVPUSH Q6H PRN; Protocol PRN Reason: SBP >170 Last Admin: 04/22/25 05:25 Dose: 10 mg Documented By: MARISELA Lactated Ringer's (Lr) 1,000 mls @ 100 mls/hr IVCONT .Q10H [facility] Last Admin: 04/22/25 03:38 Dose: 100 mls/hr Documented By: MARISELA Diltiazem HCl 125 mg/ Sodium (Chloride) 125 mls @ 0 mls/hr IVCONT .Q0M [facility]; Protocol Last Titration: 04/20/25 11:00 Dose: Infused Documented By: COLLEEN Magnesium Hydroxide (Milk Of Magnesia 30 Ml Oral.Susp) 30 ml PO DAILY PRN PRN Reason: Constipation Melatonin (Melatonin 3 Mg Tablet) 6 mg PO BEDTIME PRN PRN Reason: Insomnia Metronidazole (Metronidazole 500 Mg Tablet) 500 mg PO Q12H [facility] Last Admin: 04/22/25 01:10 Dose: 500 mg Documented By: MARISELA Naloxone HCl (Naloxone Hcl 0.4 Mg/Ml Vial) 0.04 mg IVPUSH Q5M PRN PRN Reason: Excessive sedation or RR < 8 Ondansetron HCl (Ondansetron Hcl 4 Mg/2 Ml Vial) 4 mg IVPUSH Q6H PRN PRN Reason: Nausea and Vomiting Last Admin: 04/21/25 23:30 Dose: 4 mg Documented By: MARISELA Oxycodone HCl (Oxycodone Hcl Immed Release 5 Mg Tablet) 5 mg PO Q4H PRN PRN Reason: Pain, Moderate(Pain Scale 4-6) Last Admin: 04/22/25 07:58 Dose: 5 mg Documented By: CORINNE Polyethylene Glycol (Polyethylene Glycol 3350 17 Gm Powd.Pack) 17 gm PO DAILY [facility] Last Admin: 04/22/25 07:56 Dose: Not Given Documented By: CORINNE Non-Admin Reason: Patient Refused Potassium Chloride (Potassium Chloride Er 20 Meq Tab.Er.Prt) 20 meq PO BID [facility] Last Admin: 04/22/25 07:56 Dose: 20 meq Documented By: CORINNE Sodium Chloride (0.9 % Sodium Chloride Flush 3 Ml Syringe) 3 ml IVFLUSH QSHIFT [facility] Last Admin: 04/22/25 08:08 Dose: Not Given Documented By: CORINNE Non-Admin Reason: IV Running Sumatriptan Succinate (Sumatriptan Succinate 50 Mg Tablet) 50 mg PO DAILY PRN PRN Reason: Migraine Headache Valsartan (Valsartan 160 Mg Tablet) 160 mg PO BEDTIME [facility] Last Admin: 04/21/25 20:51 Dose: 160 mg Documented By: MARISELA <Russel Mulligan PA-C - Last Filed: 04/22/25 08:32> Labs CBC & Chem 7: 04/22/25 08:57 04/22/25 08:57 <Russel Mulligan PA-C - Last Filed: 04/22/25 08:32> Labs: Laboratory Results - last 24 hr 04/21/25 09:25 Hold Purple Top SEE NOTE Anion Gap 12 Estim Creat Clear Calc 66.6 Estimated GFR > 60 Random Glucose 82 Calcium 7.8 L <Russel Mulligan PA-C - Last Filed: 04/22/25 08:32> Procedures Date of Service Date of Service: 04/22/25 <Russel Mulligan PA-C - Last Filed: 04/22/25 08:32> 04/23/25 <Jesse Rosenthal MD - Last Filed: 04/23/25 09:54> Progress Note: A&P Assessment and plan (1) Colon perforation: Status: Acute <Russel Mulligan PA-C - Last Filed: 04/22/25 08:32> Assessment and Plan: 80 year old female s/p Yael procedure for perforated stercoral colonic ulcer. Feeling tired today, some vague abdominal pain. Seen again by Cardiology yesterday, holding off on antiarrhythmics, anticoagulation for now. Recommending increasing amlodipine dose. On exam abdomen is soft, mildly tender throughout. Ostomy continues to have good output. Incision site clean dry intact, jaron in place. Continue with dressings daily. A.m. labs pending, closely watching potassium. She did increase some oral intake yesterday but was limited by nausea. Stressed the importance of her getting optimal nutrition. From a surgical standpoint doing well. Remains hypertensive, care per Medicine, Cardiology. continue IV abx, now metronidazole, cephalexin Regular diet as tolerated, recommended trying ensure today ambulation as tolerated Repeat labs pending. closely follow lytes, replete potassium as needed <Russel Mulligan PA-C - Last Filed: 04/22/25 08:32> Time Spent With Patient Time: Total time managing care of this patient today ____ minutes. <Russel Mulligan PA-C - Last Filed: 04/22/25 08:32> Quality Stroke Does the patient have a stroke diagnosis?: No <Russel Mulligan PA-C - Last Filed: 04/22/25 08:32> VTE Prior VTE?: No <Russel Mulligan PA-C - Last Filed: 04/22/25 08:32> VTE Risk Level:: Medical - moderate - high <Russel Mulligan PA-C - Last Filed: 04/22/25 08:32> VTE Device Contraindication: N/A - Device Ordered <Russel Mulligan PA-C - Last Filed: 04/22/25 08:32> VTE Drug Contraindication: N/A - Med Ordered <Russel Mulligan PA-C - Last Filed: 04/22/25 08:32>
--- NOTE | 2025-04-22 08:39 | PM.IMCN ---
History of Present Illness Data of Consult Service Date: 04/22/25 Primary Care Provider: Alena Quiroz MD HPI Patient is mildly hypotensive Spoke to the patient's son who is a neurologist and answered his questions regarding why we are not initiating anticoagulation-given her anemia and possible high-risk of bleed Patient is in sinus rhythm and risks versus benefits medical versus surgical being evaluated Patient is on rate control, unlikely to tolerate rhythm control (states GI issues) Otherwise was acute issues We will stop fluids Review of Systems Review of Systems: Yes all other systems are reviewed and are negative [facility] Medical History Diffuse esophageal spasm High cholesterol GERD (gastroesophageal reflux disease) Migraine with aura Migraine without aura Hypertension Surgical History H/O wrist surgery Social History Household Members: Unknown / Unable to assess Household Members Other:: son lives nearby Do you presently have visiting nurse or other home services: No Patient Tobacco Use Status: Former Tobacco user Tobacco use type: Cigarette service: No Meds Allergies Allergy/AdvReac Type Severity Reaction Status Date / Time Penicillins Allergy Intermediate Rash Verified 04/10/25 16:19 Sulfa (Sulfonamide Allergy Intermediate Rash Verified 04/10/25 16:19 Antibiotics) lisinopril AdvReac Intermediate Cough Verified 04/10/25 16:20 Active Medications: Current Medications Acetaminophen (Acetaminophen 325 Mg Tablet) 650 mg PO Q6H [facility] Last Admin: 04/22/25 05:24 Dose: 650 mg Amlodipine Besylate (Amlodipine Besylate 5 Mg Tablet) 5 mg PO DAILY [facility]; Protocol Last Admin: 04/22/25 07:55 Dose: 5 mg Atorvastatin Calcium (Atorvastatin Calcium 10 Mg Tablet) 10 mg PO BEDTIME [facility] Last Admin: 04/21/25 20:50 Dose: 10 mg Calcium Carbonate (Calcium Carbonate 750 Mg Tab.Chew) 750 mg PO Q6H PRN PRN Reason: Heartburn Last Admin: 04/19/25 16:01 Dose: 750 mg Carvedilol (Carvedilol 25 Mg Tablet) 25 mg PO BID [facility]; Protocol Last Admin: 04/22/25 07:56 Dose: 25 mg Cephalexin HCl (Cephalexin 500 Mg Capsule) 500 mg PO Q12H [facility] Last Admin: 04/22/25 01:10 Dose: 500 mg Docusate Sodium (Docusate Sodium 100 Mg Capsule) 100 mg PO BID [facility] Last Admin: 04/22/25 07:55 Dose: 100 mg Enoxaparin Sodium (Enoxaparin Sodium 40 Mg/0.4 Ml Syringe) 40 mg SUBCUT Q24H [facility] Last Admin: 04/21/25 20:52 Dose: 40 mg Famotidine (Famotidine 20 Mg Tablet) 20 mg PO BID [facility] Last Admin: 04/22/25 07:55 Dose: 20 mg Hydralazine HCl (Hydralazine Hcl 20 Mg/Ml Vial) 10 mg IVPUSH Q6H PRN; Protocol PRN Reason: SBP >170 Last Admin: 04/22/25 05:25 Dose: 10 mg Lactated Ringer's (Lr) 1,000 mls @ 100 mls/hr IVCONT .Q10H [facility] Last Admin: 04/22/25 03:38 Dose: 100 mls/hr Diltiazem HCl 125 mg/ Sodium (Chloride) 125 mls @ 0 mls/hr IVCONT .Q0M [facility]; Protocol Last Titration: 04/20/25 11:00 Dose: Infused Magnesium Hydroxide (Milk Of Magnesia 30 Ml Oral.Susp) 30 ml PO DAILY PRN PRN Reason: Constipation Melatonin (Melatonin 3 Mg Tablet) 6 mg PO BEDTIME PRN PRN Reason: Insomnia Metronidazole (Metronidazole 500 Mg Tablet) 500 mg PO Q12H [facility] Last Admin: 04/22/25 01:10 Dose: 500 mg Naloxone HCl (Naloxone Hcl 0.4 Mg/Ml Vial) 0.04 mg IVPUSH Q5M PRN PRN Reason: Excessive sedation or RR < 8 Ondansetron HCl (Ondansetron Hcl 4 Mg/2 Ml Vial) 4 mg IVPUSH Q6H PRN PRN Reason: Nausea and Vomiting Last Admin: 04/21/25 23:30 Dose: 4 mg Oxycodone HCl (Oxycodone Hcl Immed Release 5 Mg Tablet) 5 mg PO Q4H PRN PRN Reason: Pain, Moderate(Pain Scale 4-6) Last Admin: 04/22/25 07:58 Dose: 5 mg Polyethylene Glycol (Polyethylene Glycol 3350 17 Gm Powd.Pack) 17 gm PO DAILY [facility] Last Admin: 04/22/25 07:56 Dose: Not Given Potassium Chloride (Potassium Chloride Er 20 Meq Tab.Er.Prt) 20 meq PO BID [facility] Last Admin: 04/22/25 07:56 Dose: 20 meq Sodium Chloride (0.9 % Sodium Chloride Flush 3 Ml Syringe) 3 ml IVFLUSH QSHIFT [facility] Last Admin: 04/22/25 08:08 Dose: Not Given Sumatriptan Succinate (Sumatriptan Succinate 50 Mg Tablet) 50 mg PO DAILY PRN PRN Reason: Migraine Headache Valsartan (Valsartan 160 Mg Tablet) 160 mg PO BEDTIME [facility] Last Admin: 04/21/25 20:51 Dose: 160 mg Home Medications ?Medication ?Instructions ?Recorded ?Confirmed ?Last Taken ?Type atorvastatin 10 mg tablet 10 mg PO BEDTIME 02/18/25 04/10/25 04/08/25 History diltiazem HCl 240 mg 240 mg PO DAILY 02/18/25 04/10/25 04/08/25 History capsule,extended release 24 hr famotidine 20 mg tablet 20 mg PO BID 02/18/25 04/10/25 04/08/25 History olmesartan 20 mg tablet 20 mg PO BEDTIME 02/18/25 04/10/25 04/08/25 History bismuth subsalicylate 262 mg/15 mL 524 mg PO QID PRN Constipation 04/10/25 04/10/25 Unknown History oral suspension (Pepto-Bismol) diphenhydramine 25 1 tab PO BEDTIME PRN Sleep 04/10/25 04/10/25 Unknown History mg-acetaminophen 500 mg tablet (Acetaminophen PM) ibuprofen 200 mg tablet (Advil) 200 mg PO Q6H PRN migrine 04/10/25 04/10/25 Unknown History sumatriptan succinate 50 mg tablet 50 mg PO DAILY PRN Migraine 04/10/25 04/10/25 Unknown History Headache Physical Exam Vital Signs and Narrative: Vital Signs: Last Vital Signs Temp 98.1 F 04/22/25 07:11 Pulse 83 04/22/25 07:11 Resp 18 04/22/25 07:11 BP 168/75 H 04/22/25 07:11 Pulse Ox 92 04/22/25 07:11 O2 Del Method Room Air 04/22/25 07:11 O2 Flow Rate 6 10/24/25 19:56 BMI result Body Mass Index 20.2 General: AOx3, mild hypertension Resp: CTA bilaterally CVS: S1, S2, RRR GI: +BS, mild distension. Appropriate tenderness around ostomy and incision site. High-output ostomy without any bloody discharge Neuro: Cranial nerves II-XII grossly intact bilaterally. Motor grossly intact bilaterally Psych: Appropriate affect Results Labs 04/22/25 08:57 04/22/25 08:57 Labs: Laboratory Results - last 24 hr 04/21/25 09:25 Hold Purple Top SEE NOTE Anion Gap 12 Estim Creat Clear Calc 66.6 Estimated GFR > 60 Random Glucose 82 Calcium 7.8 L Assessment and Plan (1) Atrial fibrillation with RVR: Status: Acute 80-year-old female with at PMH significant for HTN, HLD, GERD, and migraines who presented to the hospital on 04/10 with worsening abd pain and constipation x2 days, admitted with stercoral sigmoid colitis with perforation s/p Yael procedure a sigmoid resection and end colostomy placement 04/10. 04/22/25: Spoke at length to the patient's son who is a neurologist and explained the rationale given guarding not starting anticoagulation Patient does have anemia which is likely in the setting of pathology Patient likely also needs catheterization soon given severe T-wave inversions at the time of rapid response suggestive of typical angina Patient is in sinus rhythm, we will continue to monitor on telemetry and check electrolytes and treat p.r.n. New onset paroxysmal AFib with RVR-likely secondary to high output ostomy, resuscitated and back to sinus now Patient had new onset AFib with RVR is likely in the setting of severe dehydration secondary to large volume dark-colored stool from ostomy (s/p Yael's procedure for perforated diverticulitis), resolved with Fluids and albumin. Infectious workup negative. Cont rate and will consider rhythm control pending patient's tolerance TTE - hfpef Surgery primary 1.Stercoral sigmoid colitis with perforation Underwent Yael procedure with sigmoid resection and end colostomy on 04/10 Patient started on Zosyn on 04/14. PLAN - Discontinue Zosyn (order placed) - Start cephalexin 500 mg q.12 hourly (order placed) - Start metronidazole 500 mg q.12 hourly (order placed) - remainder of plan as per General surgery 2.Hypertensive urgency -Resolved; acceptable control on current therapies -adjust as indicated 3.Constipation On Miralax Encourage ambuation Management as per general surgery Thank you for allowing us to care for the patient, we will continue to follow This note is constructed using voice recognition software. While every effort has been made to ensure accuracy, construction administrator errors may have been included. Total time managing care of this patient today: 65 minutes.
[2025-04-22 09:08] LABS: Hematocrit 22.4 % (37.0-47.0); Hemoglobin 7.4 g/dl (12.0-16.0); Mean Corpuscular HGB Conc 33.0 g/dl (31.0-35.0); Mean Corpuscular Hemoglobin 28.9 pg (27.0-33.0); Mean Corpuscular Volume 87.5 fL (80.0-98.0); NRBC Abs Auto 0.000 X10*3/uL (0.0-0.012); NRBC Pct Auto 0.0 /100WBC (0.0-0.2); Platelet Count 659 X10*3/uL (160-400); Red Blood Count 2.56 X10*6/uL (4.20-5.50); White Blood Count 13.4 X10*3/uL (4.8-10.8)
[2025-04-22 09:49] LABS: Anion Gap 12 (12-20); Blood Urea Nitrogen 6 mg/dL (9-16); Calcium 7.8 mg/dL (8.4-10.2); Carbon Dioxide 22 mmol/L (22-29); Chloride 108 mmol/L (96-108); Creatinine Clr Calc Pharmacy 64.3; Estimated Glomerular Filt Rate > 60; Potassium 3.6 mmol/L (3.3-5.1); Sodium 138 mmol/L (135-145)
--- NOTE | 2025-04-22 10:22 | MHC.CM.PN ---
Patient is not yet medically cleared for dc (elevated BP, advancing diet); Patient has been accepted @ [facility] and CM will continue to follow.
--- NOTE | 2025-04-22 11:34 | MHC.CLN ---
CONSULT DIET RX:REGULAR. ENSURE CLEAR TID ADDED BY PROVIDER 04/20/25. SUPPLEMENT PROVIDES 720 KCALS, 24 G PROTEIN. MOST RECENT INTAKE APPEARS GOOD. NO ADDITIONAL NUTRITION INTERVENTIONS AT THIS TIME.
--- NOTE | 2025-04-22 15:00 | HO.OSTOMY ---
Ostomy Consult: Follow up Teaching 80yr old female admitted to [facility] on 04/10/25- see H&P for detailed history and admission.? Consult for new ostomy teaching. ?She had Colostomy creation on 04/10/[address] Gallagher. ?Upon entry into patient's room, patient is lying in bed, alert and oriented x 3, currently c/o being tired. She had episode of Afib with chest pain today see provider note for details - pending cardiology consult. She reports she is participating in emptying of her pouch with staff. At this time patient is weak and tired and demonstrates good understanding of her pouch and steps to care for it. Stoma assessed through pouch appears moist and pink with brown pasty output. Pending C.Diff results. Midline remains improved at todays assessment. All questions and concerns addressed at this time. Pouch was not full enough to empty- pouch was intact without leaks. 04/17/25 04/17/25 somta with brava barrier strip paste placed. Continue to have patient participate in emptying of her pouch - this will help her to gain independence. 04/13/25 Midline - areas of dehiscence - alternating jaron observed - dressing dry and intact at the time of my consult. We discussed the following steps: 1. Empty pouch before pouch change 2. Remove pouch using push/pull technique from top to bottom 3. Cleanse stoma and skin with tap water only - no soap or wipes 4. Pat dry 5. Measure stoma and cut new pouch no more than 1/8 inch larger than stoma and no smaller than stoma 6. If instructed by your ostomy nurse stretch barrier seal to the size of the stoma and press onto skin around stoma (up to the edge of the stoma but not onto the stoma) 7. Press the new pouch into place and hold for several seconds (close pouch tail) 8. Empty pouch when 1/3 to 1/2 full 9. Change pouch twice weekly on a schedule (for example, every Sunday and ) and as needed for any leaking (feels like intense itch or burn at edge of stoma) 10. May order pre-cut pouches (already cut to size of stoma) once stoma measures the same size consistently at about 8-12 weeks.
[2025-04-22] MEDS: 0.9 % Sodium Chloride Flush 3 ML SYRINGE IVFLUSH (22:06)
[2025-04-23] MEDS: oxyCODONE HCl Immed Release 5 MG TABLET PO ×2 (03:07→18:17)
[2025-04-23 03:18] VITALS: BP 134/77; PULSE 158; RESP 18; TEMP 37.6; O2SAT 93
[2025-04-23 05:34] LABS: Troponin-I High Sensitivity 13.4 ng/L (<3.5-17.0)
[2025-04-23 07:14] VITALS: BP 175/83; PULSE 76; RESP 20; TEMP 37; O2SAT 92
--- NOTE | 2025-04-23 07:41 | PM.PNGS ---
Subjective Subjective Date of Service: 04/23/25 <Russel Mulligan PA-C - Last Filed: 04/23/25 14:14> 04/23/25 <Jesse Rosenthal MD - Last Filed: 04/23/25 09:55> Interval history: doing okay, another run of afib last night. He feels okay. Denies chest pain, shortness of breath, palpitation. Complaining some mild abdominal pain. <Russel Mulligan PA-C - Last Filed: 04/23/25 14:14> Physical Exam Vital Signs: Vital Signs: Last Vital Signs Temp 98.6 F 04/23/25 07:14 Pulse 76 04/23/25 07:14 Resp 20 04/23/25 07:14 BP 175/83 H 04/23/25 07:14 Pulse Ox 92 04/23/25 07:14 O2 Del Method Room Air 04/23/25 07:14 O2 Flow Rate 6 04/10/25 19:56 BMI result Body Mass Index 20.2 <Russel Mulligan PA-C - Last Filed: 04/23/25 14:14> Const: General: comfortable and no acute distress <Russel Mulligan PA-C - Last Filed: 04/23/25 14:14> Orientation/consciousness: patient oriented x3 <LAUREN Nru Last Filed: 04/23/25 14:14> Resp: Effort & Inspection: normal respiratory effort and able to speak in complete sentences <Russel Mulligan PA-C - Last Filed: 04/23/25 14:14> GI: Other: Incision has some scant serous drainage. Dressing changed. No purulence noted, no surrounding cellulitis. Ostomy with good output, stoma viable. <Russel Mulligan PA-C - Last Filed: 04/23/25 14:14> Inspection: No distended <LAUREN Nur Last Filed: 04/23/25 14:14> Palpation (GI): Soft to palpation and Tenderness to palpation present (GI) (Tender from midline incision to left lower quadrant) <LAUREN Nur Last Filed: 04/23/25 14:14> Neuro: General: patient oriented x3 <LAUREN Nur Last Filed: 04/23/25 14:14> Objective Data Active Medications Acetaminophen (Acetaminophen 325 Mg Tablet) 650 mg PO Q6H [facility] Last Admin: 04/23/25 05:17 Dose: 650 mg Documented By: MARISELA Amlodipine Besylate (Amlodipine Besylate 10 Mg Tablet) 10 mg PO DAILY [facility]; Protocol Atorvastatin Calcium (Atorvastatin Calcium 10 Mg Tablet) 10 mg PO BEDTIME [facility] Last Admin: 04/22/25 22:04 Dose: 10 mg Documented By: MARISELA Calcium Carbonate (Calcium Carbonate 750 Mg Tab.Chew) 750 mg PO Q6H PRN PRN Reason: Heartburn Last Admin: 04/19/25 16:01 Dose: 750 mg Documented By: COLBUREneida Carvedilol (Carvedilol 25 Mg Tablet) 25 mg PO BID [facility]; Protocol Last Admin: 04/22/25 22:05 Dose: 25 mg Documented By: MARISELA Cephalexin HCl (Cephalexin 500 Mg Capsule) 500 mg PO Q12H [facility] Last Admin: 04/23/25 03:07 Dose: 500 mg Documented By: MARISELA Docusate Sodium (Docusate Sodium 100 Mg Capsule) 100 mg PO BID [facility] Last Admin: 04/22/25 22:04 Dose: 100 mg Documented By: MARISELA Enoxaparin Sodium (Enoxaparin Sodium 40 Mg/0.4 Ml Syringe) 40 mg SUBCUT Q24H [facility] Last Admin: 04/22/25 22:05 Dose: 40 mg Documented By: MARISELA Famotidine (Famotidine 20 Mg Tablet) 20 mg PO BID [facility] Last Admin: 04/22/25 22:04 Dose: 20 mg Documented By: MARISELA Magnesium Hydroxide (Milk Of Magnesia 30 Ml Oral.Susp) 30 ml PO DAILY PRN PRN Reason: Constipation Melatonin (Melatonin 3 Mg Tablet) 6 mg PO BEDTIME PRN PRN Reason: Insomnia Metronidazole (Metronidazole 500 Mg Tablet) 500 mg PO Q12H [facility] Last Admin: 04/23/25 03:07 Dose: 500 mg Documented By: MARISELA Naloxone HCl (Naloxone Hcl 0.4 Mg/Ml Vial) 0.04 mg IVPUSH Q5M PRN PRN Reason: Excessive sedation or RR < 8 Ondansetron HCl (Ondansetron Hcl 4 Mg/2 Ml Vial) 4 mg IVPUSH Q6H PRN PRN Reason: Nausea and Vomiting Last Admin: 04/21/25 23:30 Dose: 4 mg Documented By: MARISELA Oxycodone HCl (Oxycodone Hcl Immed Release 5 Mg Tablet) 5 mg PO Q4H PRN PRN Reason: Pain, Moderate(Pain Scale 4-6) Last Admin: 04/23/25 03:07 Dose: 5 mg Documented By: MARISELA Polyethylene Glycol (Polyethylene Glycol 3350 17 Gm Powd.Pack) 17 gm PO DAILY [facility] Last Admin: 04/22/25 07:56 Dose: Not Given Documented By: CORINNE Non-Admin Reason: Patient Refused Potassium Chloride (Potassium Chloride Er 20 Meq Tab.Er.Prt) 20 meq PO BID [facility] Last Admin: 04/22/25 22:04 Dose: 20 meq Documented By: MARISELA Sodium Chloride (0.9 % Sodium Chloride Flush 3 Ml Syringe) 3 ml IVFLUSH QSHIFT [facility] Last Admin: 04/22/25 22:06 Dose: 3 ml Documented By: MARISELA Valsartan (Valsartan 160 Mg Tablet) 160 mg PO BID [facility] Last Admin: 04/22/25 22:04 Dose: 160 mg Documented By: MARISELA <Russel Mulligan PA-C - Last Filed: 04/23/25 14:14> Labs CBC & Chem 7: 04/23/25 10:57 04/23/25 10:57 <Russel Mulligan PA-C - Last Filed: 04/23/25 14:14> Labs: Laboratory Results - last 24 hr 04/22/25 04/23/25 08:57 04:41 MCV 87.5 MCH 28.9 MCHC 33.0 RDW 16.0 Plt Count 659 H D MPV 8.6 L Absolute Nucleated RBC 0.000 Nucleated RBC % (auto) 0.0 Anion Gap 12 Estim Creat Clear Calc 64.3 Estimated GFR > 60 Random Glucose 95 Calcium 7.8 L Troponin I High Sens 13.4 <Russel Mulligan PA-C - Last Filed: 04/23/25 14:14> Procedures Date of Service Date of Service: 04/23/25 <Russel Mulligan PA-C - Last Filed: 04/23/25 14:14> 04/23/25 <Jesse Rosenthal MD - Last Filed: 04/23/25 09:55> Progress Note: A&P Assessment and plan (1) Colon perforation: Status: Acute <Russel Mulligan PA-C - Last Filed: 04/23/25 14:14> Assessment and Plan: Seen earlier this morning Had a short run of AFib last night Says she is okay this morning Abdomen is soft Stoma with good output Potassium okay Stable from surgical standpoint Hospitalist following Seen and examined independently <Jesse Rosenthal MD - Last Filed: 04/23/25 09:55> Assessment and Plan: 80 year old female s/p Yael procedure for perforated stercoral colonic ulcer. She is having some mild abdominal pain on the left side of the abdomen and at the incision site. Appropriate at this point postoperatively. Additional run of AFib yesterday. She spontaneously converted to sinus rhythm. Remains hypertensive. On exam abdomen is soft, mildly tender from the midline to the left lower quadrant of the abdomen. Ostomy continues to have good output. Incision site clean dry intact, jaron in place. Some scant serous drainage. Continue with dressings as needed. Potassium stable yesterday, white count 13.5. Continuing to increase diet as tolerated. From a surgical standpoint doing well. Additional recommendations per Medicine, Cardiology continue IV abx, now metronidazole, cephalexin Regular diet as tolerated, recommended trying ensure today ambulation as tolerated <Russel Mulligan PA-C - Last Filed: 04/23/25 14:14> Time Spent With Patient Time: Total time managing care of this patient today ____ minutes. <Russel Mulligan PA-C - Last Filed: 04/23/25 14:14> Quality Stroke Does the patient have a stroke diagnosis?: No <Russel Mulligan PA-C - Last Filed: 04/23/25 14:14> VTE Prior VTE?: No <Russel Mulligan PA-C - Last Filed: 04/23/25 14:14> VTE Risk Level:: Medical - moderate - high <Russel Mulligan PA-C - Last Filed: 04/23/25 14:14> VTE Device Contraindication: N/A - Device Ordered <Russel Mulligan PA-C - Last Filed: 04/23/25 14:14> VTE Drug Contraindication: N/A - Med Ordered <Russel Mulligan PA-C - Last Filed: 04/23/25 14:14>
[2025-04-23] MEDS: Potassium Chloride ER 20 MEQ TAB.ER.PRT PO (09:43)
[2025-04-23] MEDS: 0.9 % Sodium Chloride Flush 3 ML SYRINGE IVFLUSH ×2 (09:43→21:11)
--- NOTE | 2025-04-23 09:55 | PM.EVENT ---
Event Note Date of Service: 04/23/25 Event Note: Rapid response called just now Patient was in AFib with RVR Currently awake, alert and appears comfortable Does not appear to be short of breath Abdomen remained soft and benign Hospitalists in the room Time Spent With Patient Time: Total time managing care of this patient today ____ minutes.
--- NOTE | 2025-04-23 09:57 | ECG_ITS ---
Test Reason : CP Blood Pressure : */* mmHG Vent. Rate : 154 BPM Atrial Rate : * BPM P-R Int : * ms QRS Dur : 70 ms QT Int : 288 ms P-R-T Axes : * 20 225 degrees QTcB Int : 461 ms Atrial fibrillation with rapid ventricular response Anterior infarct , age undetermined Marked ST abnormality, possible inferior subendocardial injury Abnormal ECG When compared with ECG of 20-Apr-2025 07:32, T wave inversion no longer evident in Anterior leads Referred By: Cortney Gallagher Electronically Signed By: Suresh Marks
--- NOTE | 2025-04-23 10:38 | HO.PM.IMPN ---
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 Dressing changed. No purulence noted, no surrounding cellulitis. Ostomy with good output, stoma viable. Inspection: No distended Palpation (GI): Soft to palpation and Tenderness to palpation present (GI) (Tender from midline incision to left lower quadrant) Neuro: General: patient oriented x3 Objective Data Active Medications Acetaminophen (Acetaminophen 325 Mg Tablet) 650 mg PO Q6H [facility] Last Admin: 04/23/25 05:17 Dose: 650 mg Documented By: MARISELA Amlodipine Besylate (Amlodipine Besylate 10 Mg Tablet) 10 mg PO DAILY [facility]; Protocol Last Admin: 04/23/25 09:43 Dose: 10 mg Documented By: MEGAN Atorvastatin Calcium (Atorvastatin Calcium 10 Mg Tablet) 10 mg PO BEDTIME [facility] Last Admin: 04/22/25 22:04 Dose: 10 mg Documented By: MARISELA Calcium Carbonate (Calcium Carbonate 750 Mg Tab.Chew) 750 mg PO Q6H PRN PRN Reason: Heartburn Last Admin: 04/19/25 16:01 Dose: 750 mg Documented By: COLNATY Carvedilol (Carvedilol 25 Mg Tablet) 25 mg PO BID [facility]; Protocol Last Admin: 04/23/25 09:42 Dose: 25 mg Documented By: MEGAN Cephalexin HCl (Cephalexin 500 Mg Capsule) 500 mg PO Q12H [facility] Last Admin: 04/23/25 03:07 Dose: 500 mg Documented By: MARISELA Docusate Sodium (Docusate Sodium 100 Mg Capsule) 100 mg PO BID [facility] Last Admin: 04/23/25 09:43 Dose: 100 mg Documented By: MEGAN Enoxaparin Sodium (Enoxaparin Sodium 40 Mg/0.4 Ml Syringe) 40 mg SUBCUT Q24H [facility] Last Admin: 04/22/25 22:05 Dose: 40 mg Documented By: MARISELA Famotidine (Famotidine 20 Mg Tablet) 20 mg PO BID [facility] Last Admin: 04/23/25 09:43 Dose: 20 mg Documented By: MEGAN Magnesium Hydroxide (Milk Of Magnesia 30 Ml Oral.Susp) 30 ml PO DAILY PRN PRN Reason: Constipation Melatonin (Melatonin 3 Mg Tablet) 6 mg PO BEDTIME PRN PRN Reason: Insomnia Metronidazole (Metronidazole 500 Mg Tablet) 500 mg PO Q12H [facility] Last Admin: 04/23/25 03:07 Dose: 500 mg Documented By: MARISELA Naloxone HCl (Naloxone Hcl 0.4 Mg/Ml Vial) 0.04 mg IVPUSH Q5M PRN PRN Reason: Excessive sedation or RR < 8 Ondansetron HCl (Ondansetron Hcl 4 Mg/2 Ml Vial) 4 mg IVPUSH Q6H PRN PRN Reason: Nausea and Vomiting Last Admin: 04/21/25 23:30 Dose: 4 mg Documented By: MARISELA Polyethylene Glycol (Polyethylene Glycol 3350 17 Gm Powd.Pack) 17 gm PO DAILY [facility] Last Admin: 04/23/25 10:01 Dose: Not Given Documented By: MEGAN Non-Admin Reason: Patient Refused Potassium Chloride (Potassium Chloride Er 20 Meq Tab.Er.Prt) 20 meq PO BID [facility] Last Admin: 04/23/25 09:43 Dose: 20 meq Documented By: MEGAN Sodium Chloride (0.9 % Sodium Chloride Flush 3 Ml Syringe) 3 ml IVFLUSH QSHIFT [facility] Last Admin: 04/23/25 09:43 Dose: 3 ml Documented By: MEGAN Valsartan (Valsartan 160 Mg Tablet) 160 mg PO BID [facility] Last Admin: 04/23/25 09:43 Dose: 160 mg Documented By: MEGAN Labs 04/22/25 08:57 04/22/25 08:57 Labs: Laboratory Results - last 24 hr 04/23/25 04:41 Troponin I High Sens 13.4 Assessment and Plan (1) Atrial fibrillation with RVR: Status: Acute Plan 80F PMH htn, hld, gerd presented 04/10/25 with abd pain found to have sigmoid colitis with perforation, underwent sigmoid resection and end colostomy 04/10/25, course complicated by afib with rvr, clostidium perf. bacteremia pafib with rvr cardio appreciated, will start amio 400mg daily AC deferred for now due to significant anemia and possible need for further surgical intervention sigmoid colitis complicated by perforation and clostridium perfrigens bacteremia s/p don 04/10/25 recevied iv zosyn from 04/13/25 to 04/18/25, then switched to ceftin flagyl repeat cultures, follow up ID [id number] ecoli bacturia ?significance, repeat culture, ID eval acute hypokalemia increase potassium to 40meq bid, monitor hypertension coreg, amldoipine, diovan anemia suspect inflammatory ?blood loss dvt prophylaxis- lovenox full code Quality Stroke Does the patient have a stroke diagnosis?: No VTE Prior VTE?: No VTE Risk Level:: Medical - moderate - high VTE Device Contraindication: N/A - Device Ordered VTE Drug Contraindication: N/A - Med Ordered
[2025-04-23 10:59] VITALS: BP 157/77; PULSE 81; RESP 18; TEMP 36.9; O2SAT 94
[2025-04-23 11:24] LABS: Hematocrit 25.1 % (37.0-47.0); Hemoglobin 8.0 g/dl (12.0-16.0); Mean Corpuscular HGB Conc 31.9 g/dl (31.0-35.0); Mean Corpuscular Hemoglobin 28.4 pg (27.0-33.0); Mean Corpuscular Volume 89.0 fL (80.0-98.0); NRBC Abs Auto 0.000 X10*3/uL (0.0-0.012); NRBC Pct Auto 0.0 /100WBC (0.0-0.2); Platelet Count 807 X10*3/uL (160-400); Red Blood Count 2.82 X10*6/uL (4.20-5.50); White Blood Count 12.0 X10*3/uL (4.8-10.8)
[2025-04-23 11:43] LABS: Anion Gap 11 (12-20)
[2025-04-23 11:47] LABS: Troponin-I High Sensitivity 14.2 ng/L (<3.5-17.0)
[2025-04-23 11:52] LABS: Alanine Aminotransferase 9 U/L (0-31); Albumin Level 3.5 g/dL (3.5-5.0); Alkaline Phosphatase 60 U/L (39-117); Aspartate Amino Transferase 25 U/L (5-31); Blood Urea Nitrogen 8 mg/dL (9-16); Calcium 8.0 mg/dL (8.4-10.2); Carbon Dioxide 25 mmol/L (22-29); Chloride 107 mmol/L (96-108); Creatinine Clr Calc Pharmacy 59.0; Estimated Glomerular Filt Rate > 60; Magnesium 1.7 mg/dL (1.6-2.6); Potassium 3.6 mmol/L (3.3-5.1); Sodium 139 mmol/L (135-145); Total Protein 5.6 g/dL (6.5-8.0)
[2025-04-23 12:35] LABS: Iron 22 mcg/dL (30-160); Percent Iron Saturation 15 % (15-50); Total Iron Binding Capacity 149 mcg/dL (228-428); Unsaturated Iron Binding 127 ug/dL
[2025-04-23 12:50] LABS: Ferritin 63 ng/mL (10-250)
[2025-04-23] MEDS: Magnesium Sulfate/H2O 2 GM/50 ML PIGGYBACK IV (13:08)
--- NOTE | 2025-04-23 13:49 | HO.OSTOMY ---
Ostomy Consult: Follow up Teaching 80yr old female admitted to [facility] [place]25- see H&P for detailed history and admission.? Consult for new ostomy teaching. ?She had Colostomy creation on 04/10/[address] Gallagher. ?Upon entry into patient's room, patient is lying in bed, alert and oriented x 3, currently c/o being tired. She reports another episode of afib this morning with rapid response. She reports she is participating in emptying of her pouch with staff. At this time patient is weak and tired and demonstrates good understanding of her pouch and steps to care for it. Stoma assessed through pouch appears moist and pink with brown pasty output. Midline remains improved at todays assessment. All questions and concerns addressed at this time. Pouch was not full enough to empty- pouch was intact without leaks. Pouch was emptied - patient engaged in emptying - once emptied and cleaned patient was able to independently close pouch. 04/17/25 04/17/25 somta with brava barrier strip paste placed. Continue to have patient participate in emptying of her pouch - this will help her to gain independence. 04/13/25 Midline - areas of dehiscence - alternating jaron observed - dressing dry and intact at the time of my consult. We discussed the following steps: 1. Empty pouch before pouch change 2. Remove pouch using push/pull technique from top to bottom 3. Cleanse stoma and skin with tap water only - no soap or wipes 4. Pat dry 5. Measure stoma and cut new pouch no more than 1/8 inch larger than stoma and no smaller than stoma 6. If instructed by your ostomy nurse stretch barrier seal to the size of the stoma and press onto skin around stoma (up to the edge of the stoma but not onto the stoma) 7. Press the new pouch into place and hold for several seconds (close pouch tail) 8. Empty pouch when 1/3 to 1/2 full 9. Change pouch twice weekly on a schedule (for example, every Sunday and ) and as needed for any leaking (feels like intense itch or burn at edge of stoma) 10. May order pre-cut pouches (already cut to size of stoma) once stoma measures the same size consistently at about 8-12 weeks.
[2025-04-23 15:35] VITALS: BP 135/72; PULSE 77; RESP 18; TEMP 37.1; O2SAT 93
[2025-04-23 19:46] VITALS: BP 127/74; PULSE 76; RESP 19; TEMP 37.3; O2SAT 94
[2025-04-23] MEDS: Potassium Chloride ER 20 MEQ TAB.ER.PRT 40 MEQ PO (21:09)
--- NOTE | 2025-04-23 22:42 | W.PM.IDCN ---
History of Present Illness Data of Consult Service Date: 04/23/25 Requesting physician: Jesse Rosenthal Primary Care Provider: Alena Quiroz MD HPI Reason for consult: bacteremia She presents on 04/10 with severe diffuse abdominal pain 03/27 with chills. She was found to have perforated diverticulitis and had Blanco procedure/colostomy. She also had clostidium clostidiforme bacteremia She has been on po Keflex and Flagyl po, She feels better. Review of Systems Review of Systems: Yes all other systems are reviewed and are negative [facility] Past Medical History Medical History Diffuse esophageal spasm High cholesterol GERD (gastroesophageal reflux disease) Migraine with aura Migraine without aura Hypertension Family History Family history: reviewed and not pertinent Surgical History Surgical History H/O wrist surgery Social History Social History Household Members: Unknown / Unable to assess Household Members Other:: son lives nearby Do you presently have visiting nurse or other home services: No Patient Tobacco Use Status: Former Tobacco user Tobacco use type: Cigarette service: No Meds Allergies Allergy/AdvReac Type Severity Reaction Status Date / Time Penicillins Allergy Intermediate Rash Verified 04/10/25 16:19 Sulfa (Sulfonamide Allergy Intermediate Rash Verified 04/10/25 16:19 Antibiotics) lisinopril AdvReac Intermediate Cough Verified 04/10/25 16:20 Active Medications: Current Medications Acetaminophen (Acetaminophen 325 Mg Tablet) 650 mg PO Q6H [facility] Last Admin: 04/23/25 21:10 Dose: 650 mg Amiodarone HCl (Amiodarone Hcl 200 Mg Tablet) 400 mg PO DAILY [facility] Last Admin: 04/23/25 11:33 Dose: 400 mg Amlodipine Besylate (Amlodipine Besylate 10 Mg Tablet) 10 mg PO DAILY [facility]; Protocol Last Admin: 04/23/25 09:43 Dose: 10 mg Atorvastatin Calcium (Atorvastatin Calcium 10 Mg Tablet) 10 mg PO BEDTIME [facility] Last Admin: 04/23/25 21:09 Dose: 10 mg Calcium Carbonate (Calcium Carbonate 750 Mg Tab.Chew) 750 mg PO Q6H PRN PRN Reason: Heartburn Last Admin: 04/19/25 16:01 Dose: 750 mg Carvedilol (Carvedilol 25 Mg Tablet) 25 mg PO BID [facility]; Protocol Last Admin: 04/23/25 21:10 Dose: 25 mg Cephalexin HCl (Cephalexin 500 Mg Capsule) 500 mg PO Q12H [facility] Last Admin: 04/23/25 13:08 Dose: 500 mg Docusate Sodium (Docusate Sodium 100 Mg Capsule) 100 mg PO BID [facility] Last Admin: 04/23/25 21:10 Dose: 100 mg Enoxaparin Sodium (Enoxaparin Sodium 40 Mg/0.4 Ml Syringe) 40 mg SUBCUT Q24H [facility] Last Admin: 04/23/25 21:10 Dose: 40 mg Famotidine (Famotidine 20 Mg Tablet) 20 mg PO BID [facility] Last Admin: 04/23/25 21:09 Dose: 20 mg Magnesium Hydroxide (Milk Of Magnesia 30 Ml Oral.Susp) 30 ml PO DAILY PRN PRN Reason: Constipation Melatonin (Melatonin 3 Mg Tablet) 6 mg PO BEDTIME PRN PRN Reason: Insomnia Metronidazole (Metronidazole 500 Mg Tablet) 500 mg PO Q12H [facility] Last Admin: 04/23/25 13:08 Dose: 500 mg Naloxone HCl (Naloxone Hcl 0.4 Mg/Ml Vial) 0.04 mg IVPUSH Q5M PRN PRN Reason: Excessive sedation or RR < 8 Ondansetron HCl (Ondansetron Hcl 4 Mg/2 Ml Vial) 4 mg IVPUSH Q6H PRN PRN Reason: Nausea and Vomiting Last Admin: 04/21/25 23:30 Dose: 4 mg Oxycodone HCl (Oxycodone Hcl Immed Release 5 Mg Tablet) 5 mg PO Q4H PRN PRN Reason: Pain, Moderate(Pain Scale 4-6) Last Admin: 04/23/25 18:17 Dose: 5 mg Polyethylene Glycol (Polyethylene Glycol 3350 17 Gm Powd.Pack) 17 gm PO DAILY [facility] Last Admin: 04/23/25 10:01 Dose: Not Given Potassium Chloride (Potassium Chloride Er 20 Meq Tab.Er.Prt) 40 meq PO BID [facility] Last Admin: 04/23/25 21:09 Dose: 40 meq Sodium Chloride (0.9 % Sodium Chloride Flush 3 Ml Syringe) 3 ml IVFLUSH QSHIFT [facility] Last Admin: 04/23/25 21:11 Dose: 3 ml Valsartan (Valsartan 160 Mg Tablet) 160 mg PO BID [facility] Last Admin: 04/23/25 21:09 Dose: 160 mg Home Medications ?Medication ?Instructions ?Recorded ?Confirmed ?Last Taken ?Type atorvastatin 10 mg tablet 10 mg PO BEDTIME 02/18/25 04/10/25 04/08/25 History diltiazem HCl 240 mg 240 mg PO DAILY 02/18/25 04/10/25 04/08/25 History capsule,extended release 24 hr famotidine 20 mg tablet 20 mg PO BID 02/18/25 04/10/25 04/08/25 History olmesartan 20 mg tablet 20 mg PO BEDTIME 02/18/25 04/10/25 04/08/25 History bismuth subsalicylate 262 mg/15 mL 524 mg PO QID PRN Constipation 04/10/25 04/10/25 Unknown History oral suspension (Pepto-Bismol) diphenhydramine 25 1 tab PO BEDTIME PRN Sleep 04/10/25 04/10/25 Unknown History mg-acetaminophen 500 mg tablet (Acetaminophen PM) ibuprofen 200 mg tablet (Advil) 200 mg PO Q6H PRN migrine 04/10/25 04/10/25 Unknown History sumatriptan succinate 50 mg tablet 50 mg PO DAILY PRN Migraine 04/10/25 04/10/25 Unknown History Headache Physical Exam Vital Signs: Vital Signs: Last Vital Signs Temp 99.1 F 04/23/25 19:46 Pulse 76 04/23/25 19:46 Resp 19 04/23/25 19:46 BP 127/74 04/23/25 19:46 Pulse Ox 94 04/23/25 19:46 O2 Del Method Room Air 04/23/25 19:46 O2 Flow Rate 6 04/10/25 19:56 BMI result Body Mass Index 20.2 Const: General: cooperative HEENT: Head: Yes normal to inspection Face and sinus: Yes normal facial exam Mouth: Normal oral and palatal mucosa present Teeth and gingiva: dentition normal Eyes: General: appearance normal, both eyes and all related structures Pupils: Equal, round and reactive pupils present Resp: Effort & Inspection: normal respiratory effort Cardio: Rate: regular rate Rhythm: regular rhythm GI: Other: ostomy Palpation (GI): Soft to palpation and nontender : General: Yes no CVA tenderness Back/Spine/Pelvis: Back: no CVA tenderness Skin: General skin exam: no rashes or lesions noted Neuro: General: moves all extremities Cranial nerves: Yes Equal, round and reactive pupils present Extrem: General: Yes normal to inspection Psych: Appearance: grossly normal Results Labs 04/23/25 10:57 04/23/25 10:57 Labs: Short CBC 04/23/25 Range/Units 10:57 WBC 12.0 H (4.8-10.8) X10*3/uL Hgb 8.0 L (12.0-16.0) g/dl Hct 25.1 L (37.0-47.0) % Plt Count 807 H (160-400) X10*3/uL BMP 04/23/25 10:57 Sodium 139 Potassium 3.6 Chloride 107 Carbon Dioxide 25 BUN 8 L Creatinine 0.61 Calcium 8.0 L Liver Function 04/23/25 Range/Units 10:57 Total Bilirubin 0.3 (0.0-1.0) mg/dL Direct Bilirubin 0.2 (0.0-0.5) mg/dL AST 25 (5-31) U/L ALT 9 (0-31) U/L Alkaline Phosphatase 60 (39-117) U/L Albumin 3.5 (3.5-5.0) g/dL Microbiology Microbiology Results: Microbiology 04/10/25 17:36 Peritoneal Fluid Gram Stain - Final 04/10/25 17:36 Peritoneal Fluid Routine Culture - Final Escherichia coli 04/10/25 17:36 Peritoneal Fluid Anaerobic Culture - Final Clostridium perfringens 04/10/25 11:42 Blood - Venous Blood Culture - Final No growth after 5 days. 04/10/25 11:29 Blood - Venous Blood Culture - Final Clostridium clostridiiforme 04/10/25 Unknown Urine clean catch - Clean Catch Midstream Urine Culture - Final Escherichia coli Assessment and Plan (1) Diverticulitis: Status: Acute (2) Colon perforation: Status: Acute Plan She is doing better with lower WBC. Would continue keflex and flagyl for total 14 days
[2025-04-23 23:39] VITALS: BP 152/68; PULSE 70; RESP 17; TEMP 36.6; O2SAT 93
[2025-04-24] VITALS (10 sets, daily range): BP systolic 117–168; BP diastolic 63–82; PULSE 67–79; RESP 14–20; TEMP 36.6–37.6; O2SAT 93–97
[2025-04-24] MEDS: oxyCODONE HCl Immed Release 5 MG TABLET PO ×3 (03:05→20:11)
[2025-04-24] MEDS: Potassium Chloride ER 20 MEQ TAB.ER.PRT 40 MEQ PO ×2 (07:16→20:12)
[2025-04-24] MEDS: 0.9 % Sodium Chloride Flush 3 ML SYRINGE IVFLUSH ×3 (07:23→21:44)
[2025-04-24 07:26] LABS: Hematocrit 22.0 % (37.0-47.0); Hemoglobin 7.1 g/dl (12.0-16.0); Mean Corpuscular HGB Conc 32.3 g/dl (31.0-35.0); Mean Corpuscular Hemoglobin 28.4 pg (27.0-33.0); Mean Corpuscular Volume 88.0 fL (80.0-98.0); NRBC Abs Auto 0.000 X10*3/uL (0.0-0.012); NRBC Pct Auto 0.0 /100WBC (0.0-0.2); Platelet Count 691 X10*3/uL (160-400); Red Blood Count 2.50 X10*6/uL (4.20-5.50); White Blood Count 10.2 X10*3/uL (4.8-10.8)
[2025-04-24 07:46] LABS: Anion Gap 10 (12-20); Blood Urea Nitrogen 8 mg/dL (9-16); Calcium 7.8 mg/dL (8.4-10.2); Carbon Dioxide 22 mmol/L (22-29); Chloride 109 mmol/L (96-108); Creatinine Clr Calc Pharmacy 62.1; Estimated Glomerular Filt Rate > 60; Magnesium 2.0 mg/dL (1.6-2.6); Potassium 4.1 mmol/L (3.3-5.1); Sodium 137 mmol/L (135-145)
--- NOTE | 2025-04-24 09:46 | P.PNGS_ITS ---
Subjective Subjective Date of Service: 04/24/25 <Russel Mulligan PA-C - Last Filed: 04/24/25 09:52> 04/24/25 <Jesse Rosenthal MD - Last Filed: 04/24/25 09:57> Interval history: says she feels better today. Continues to have pain in the abdomen on the left to the midline incision. <Russel Mulligan PA-C - Last Filed: 04/24/25 09:52> Physical Exam 2 Vital Signs: Vital Signs: Last Vital Signs Temp 98.2 F 04/24/25 09:18 Pulse 77 04/24/25 09:18 Resp 18 04/24/25 09:18 BP 124/69 04/24/25 09:18 Pulse Ox 93 04/24/25 07:03 O2 Del Method Room Air 04/24/25 07:03 O2 Flow Rate 6 04/10/25 19:56 BMI result Body Mass Index 20.2 <Russel Mulligan PA-C - Last Filed: 04/24/25 09:52> Const: General: comfortable and no acute distress <Russel Mulligan PA-C - Last Filed: 04/24/25 09:52> Orientation/consciousness: patient oriented x3 <LAUREN Nur Last Filed: 04/24/25 09:52> Resp: Effort & Inspection: normal respiratory effort and able to speak in complete sentences <Russel Mulligan PA-C - Last Filed: 04/24/25 09:52> GI: Other: Incision has some scant serous drainage. Dressing changed. No purulence noted, no surrounding cellulitis. Ostomy with good output, stoma viable. <Russel Mulligan PA-C - Last Filed: 04/24/25 09:52> Inspection: No distended <Russel Mulligan PA-C - Last Filed: 04/24/25 09:52> Palpation (GI): Soft to palpation and Tenderness to palpation present (GI) (Tender from midline incision to left lower quadrant) <LAUREN Nur Last Filed: 04/24/25 09:52> Neuro: General: patient oriented x3 <LAUREN Nur Last Filed: 04/24/25 09:52> Objective Data Active Medications Acetaminophen (Acetaminophen 325 Mg Tablet) 650 mg PO Q6H [facility] Last Admin: 04/24/25 03:05 Dose: Not Given Documented By: MARISA Non-Admin Reason: Patient Refused Amiodarone HCl (Amiodarone Hcl 200 Mg Tablet) 400 mg PO DAILY [facility] Last Admin: 04/24/25 07:18 Dose: 400 mg Documented By: MEGAN Amlodipine Besylate (Amlodipine Besylate 10 Mg Tablet) 10 mg PO DAILY [facility]; Protocol Last Admin: 04/24/25 07:16 Dose: 10 mg Documented By: MEGAN Atorvastatin Calcium (Atorvastatin Calcium 10 Mg Tablet) 10 mg PO BEDTIME [facility] Last Admin: 04/23/25 21:09 Dose: 10 mg Documented By: MARISA Calcium Carbonate (Calcium Carbonate 750 Mg Tab.Chew) 750 mg PO Q6H PRN PRN Reason: Heartburn Last Admin: 04/19/25 16:01 Dose: 750 mg Documented By: COLNATY Carvedilol (Carvedilol 25 Mg Tablet) 25 mg PO BID [facility]; Protocol Last Admin: 04/24/25 07:17 Dose: 25 mg Documented By: MEGAN Cefuroxime Axetil (Cefuroxime Axetil 500 Mg Tablet) 500 mg PO Q12H [facility] Docusate Sodium (Docusate Sodium 100 Mg Capsule) 100 mg PO BID [facility] Last Admin: 04/24/25 07:18 Dose: 100 mg Documented By: MEGAN Enoxaparin Sodium (Enoxaparin Sodium 40 Mg/0.4 Ml Syringe) 50 mg SUBCUT Q12H [facility] Famotidine (Famotidine 20 Mg Tablet) 20 mg PO BID [facility] Last Admin: 04/24/25 07:17 Dose: 20 mg Documented By: MEGAN Magnesium Hydroxide (Milk Of Magnesia 30 Ml Oral.Susp) 30 ml PO DAILY PRN PRN Reason: Constipation Melatonin (Melatonin 3 Mg Tablet) 6 mg PO BEDTIME PRN PRN Reason: Insomnia Metronidazole (Metronidazole 500 Mg Tablet) 500 mg PO Q12H [facility] Last Admin: 04/24/25 03:03 Dose: 500 mg Documented By: MARISA Naloxone HCl (Naloxone Hcl 0.4 Mg/Ml Vial) 0.04 mg IVPUSH Q5M PRN PRN Reason: Excessive sedation or RR < 8 Ondansetron HCl (Ondansetron Hcl 4 Mg/2 Ml Vial) 4 mg IVPUSH Q6H PRN PRN Reason: Nausea and Vomiting Last Admin: 04/21/25 23:30 Dose: 4 mg Documented By: MARISELA Oxycodone HCl (Oxycodone Hcl Immed Release 5 Mg Tablet) 5 mg PO Q4H PRN PRN Reason: Pain, Moderate(Pain Scale 4-6) Last Admin: 04/24/25 07:29 Dose: 5 mg Documented By: MEGAN Polyethylene Glycol (Polyethylene Glycol 3350 17 Gm Powd.Pack) 17 gm PO DAILY [facility] Last Admin: 04/24/25 07:36 Dose: Not Given Documented By: MEGAN Non-Admin Reason: Patient Refused Potassium Chloride (Potassium Chloride Er 20 Meq Tab.Er.Prt) 40 meq PO BID [facility] Last Admin: 04/24/25 07:16 Dose: 40 meq Documented By: MEGAN Sodium Chloride (0.9 % Sodium Chloride Flush 3 Ml Syringe) 3 ml IVFLUSH QSHIFT [facility] Last Admin: 04/24/25 07:23 Dose: 3 ml Documented By: MEGAN Valsartan (Valsartan 160 Mg Tablet) 160 mg PO BID [facility] Last Admin: 04/24/25 07:16 Dose: 160 mg Documented By: MEGAN <Russel Mulligan PA-C - Last Filed: 04/24/25 09:52> Labs CBC & Chem 7: 04/24/25 07:05 04/24/25 07:05 <Russel Mulligan PA-C - Last Filed: 04/24/25 09:52> Labs: Laboratory Results - last 24 hr 04/23/25 04/23/25 04/24/25 10:57 11:32 07:05 MCV 89.0 88.0 MCH 28.4 28.4 MCHC 31.9 32.3 RDW 16.6 H 16.5 H Plt Count 807 H 691 H MPV 8.8 L 8.7 L Absolute Nucleated RBC 0.000 0.000 Nucleated RBC % (auto) 0.0 0.0 Anion Gap 11 L 10 L Estim Creat Clear Calc 59.0 62.1 Estimated GFR > 60 > 60 Random Glucose 100 81 Calcium 8.0 L 7.8 L Magnesium 1.7 2.0 Iron 22 L TIBC 149 L % Saturation 15 Unsat Iron Binding 127 Ferritin 63 Total Bilirubin 0.3 Direct Bilirubin 0.2 AST 25 ALT 9 Alkaline Phosphatase 60 Troponin I High Sens 14.2 Total Protein 5.6 L Albumin 3.5 TSH 1.81 Blood Type B Positive Antibody Screen NEGATIVE Crossmatch See Detail <Russel Mulligan PA-C - Last Filed: 04/24/25 09:52> Procedures Date of Service Date of Service: 04/24/25 <Russel Mulligan PA-C - Last Filed: 04/24/25 09:52> 04/24/25 <Jesse Rosenthal MD - Last Filed: 04/24/25 09:57> Progress Note: A&P Assessment and plan (1) Colon perforation: Status: Acute <Russel Mulligan PA-C - Last Filed: 04/24/25 09:52> Assessment and Plan: Feels weak had a CAT scan yesterday which was unremarkable Otherwise tolerating diet Poor appetite Good stoma function Looks well clinically Being managed by hospitalist for AFib, hypertension, hypokalemia Care as per hospitalist service Doing well from surgical standpoint <Jesse Rosenthal MD - Last Filed: 04/24/25 09:57> Assessment and Plan: 80 year old female s/p Yael procedure for perforated stercoral colonic ulcer. States she is actually feeling better overall today. She is having some mild abdominal pain on the left side of the abdomen and at the incision site. Appropriate at this point postoperatively. She was started on amio 400 mg daily per hopsitalist. ID recommending continuing current ABX regimen. On exam abdomen is soft, mildly tender from the midline to the left lower quadrant of the abdomen. Ostomy continues to have good output. Incision site clean dry intact, jaron in place. Some scant serous drainage on dressing. Continue with dressings as needed. Potassium stable yesterday, white count WNL. Worsening anemia, now hemoglobin 7.1, getting a unit of blood this morning. Continuing to increase diet as tolerated, was eating during evaluation.. From a surgical standpoint doing well. Additional recommendations per Medicine, Cardiology continue IV abx, now metronidazole, cephalexin Regular diet as tolerated, recommended trying ensure today ambulation as tolerated <Russel Mulligan PA-C - Last Filed: 04/24/25 09:52> Time Spent With Patient Time: Total time managing care of this patient today ____ minutes. <Russel Mulligan PA-C - Last Filed: 04/24/25 09:52> Quality Stroke Does the patient have a stroke diagnosis?: No <Russel Mulligan PA-C - Last Filed: 04/24/25 09:52> VTE Prior VTE?: No <Russel Mulligan PA-C - Last Filed: 04/24/25 09:52> VTE Risk Level:: Medical - moderate - high <Russel Mulligan PA-C - Last Filed: 04/24/25 09:52> VTE Device Contraindication: N/A - Device Ordered <Russel Mulligan PA-C - Last Filed: 04/24/25 09:52> VTE Drug Contraindication: N/A - Med Ordered <Russel Mulligan PA-C - Last Filed: 04/24/25 09:52>
--- NOTE | 2025-04-24 10:12 | HO.PM.IMPN ---
Subjective Subjective Date of Service: 04/24/25 Interval History: no further afib Physical Exam Vital Signs: Vital Signs: Last Vital Signs Temp 98.5 F 04/24/25 09:30 Pulse 74 04/24/25 09:30 Resp 18 04/24/25 09:30 BP 117/64 04/24/25 09:30 Pulse Ox 93 04/24/25 07:03 O2 Del Method Room Air 04/24/25 07:03 O2 Flow Rate 6 04/10/25 19:56 BMI result Body Mass Index 20.2 Const: General: comfortable and no acute distress Orientation/consciousness: patient oriented x3 Resp: Effort & Inspection: normal respiratory effort and able to speak in complete sentences GI: Other: Incision has some scant serous drainage. Dressing changed. No purulence noted, no surrounding cellulitis. Ostomy with good output, stoma viable. Inspection: No distended Palpation (GI): Soft to palpation and Tenderness to palpation present (GI) (Tender from midline incision to left lower quadrant) Neuro: General: patient oriented x3 Objective Data Active Medications Acetaminophen (Acetaminophen 325 Mg Tablet) 650 mg PO Q6H [facility] 234 BEDS AT THE [facility] Last Admin: 04/24/25 03:05 Dose: Not Given Documented By: MARISA Non-Admin Reason: Patient Refused Amiodarone HCl (Amiodarone Hcl 200 Mg Tablet) 400 mg PO DAILY [facility] 234 BEDS AT THE [facility] Last Admin: 04/24/25 07:18 Dose: 400 mg Documented By: MEGAN Amlodipine Besylate (Amlodipine Besylate 10 Mg Tablet) 10 mg PO DAILY [facility] 234 BEDS AT THE [facility]; Protocol Last Admin: 04/24/25 07:16 Dose: 10 mg Documented By: MEGAN Atorvastatin Calcium (Atorvastatin Calcium 10 Mg Tablet) 10 mg PO BEDTIME [facility]CLUDE 234 BEDS AT THE [facility] Last Admin: 04/23/25 21:09 Dose: 10 mg Documented By: MARISA Calcium Carbonate (Calcium Carbonate 750 Mg Tab.Chew) 750 mg PO Q6H PRN PRN Reason: Heartburn Last Admin: 04/19/25 16:01 Dose: 750 mg Documented By: JAYNE Carvedilol (Carvedilol 25 Mg Tablet) 25 mg PO BID [facility] 234 BEDS AT THE [facility]; Protocol Last Admin: 04/24/25 07:17 Dose: 25 mg Documented By: MEGAN Cefuroxime Axetil (Cefuroxime Axetil 500 Mg Tablet) 500 mg PO Q12H [facility]CLUDE 234 BEDS AT THE [facility] Last Admin: 04/24/25 09:55 Dose: 500 mg Documented By: MEGAN Docusate Sodium (Docusate Sodium 100 Mg Capsule) 100 mg PO BID [facility] 234 BEDS AT THE [facility] Last Admin: 04/24/25 07:18 Dose: 100 mg Documented By: MEGAN Enoxaparin Sodium (Enoxaparin Sodium 40 Mg/0.4 Ml Syringe) 50 mg SUBCUT Q12H [facility]S [facility]CLUDE 234 BEDS AT THE [facility] Famotidine (Famotidine 20 Mg Tablet) 20 mg PO BID [facility] 234 BEDS AT THE [facility] Last Admin: 04/24/25 07:17 Dose: 20 mg Documented By: MEGAN Magnesium Hydroxide (Milk Of Magnesia 30 Ml Oral.Susp) 30 ml PO DAILY PRN PRN Reason: Constipation Melatonin (Melatonin 3 Mg Tablet) 6 mg PO BEDTIME PRN PRN Reason: Insomnia Metronidazole (Metronidazole 500 Mg Tablet) 500 mg PO Q12H [facility]CLUDE 234 BEDS AT THE [facility] Last Admin: 04/24/25 03:03 Dose: 500 mg Documented By: MARISA Naloxone HCl (Naloxone Hcl 0.4 Mg/Ml Vial) 0.04 mg IVPUSH Q5M PRN PRN Reason: Excessive sedation or RR < 8 Ondansetron HCl (Ondansetron Hcl 4 Mg/2 Ml Vial) 4 mg IVPUSH Q6H PRN PRN Reason: Nausea and Vomiting Last Admin: 04/21/25 23:30 Dose: 4 mg Documented By: MARISELA Oxycodone HCl (Oxycodone Hcl Immed Release 5 Mg Tablet) 5 mg PO Q4H PRN PRN Reason: Pain, Moderate(Pain Scale 4-6) Last Admin: 04/24/25 07:29 Dose: 5 mg Documented By: MEGAN Polyethylene Glycol (Polyethylene Glycol 3350 17 Gm Powd.Pack) 17 gm PO DAILY [facility]CLUDE 234 BEDS AT THE [facility] Last Admin: 04/24/25 07:36 Dose: Not Given Documented By: MEGAN Non-Admin Reason: Patient Refused Potassium Chloride (Potassium Chloride Er 20 Meq Tab.Er.Prt) 40 meq PO BID [facility] 234 BEDS AT THE [facility] Last Admin: 04/24/25 07:16 Dose: 40 meq Documented By: MEGAN Sodium Chloride (0.9 % Sodium Chloride Flush 3 Ml Syringe) 3 ml IVFLUSH QSHIFT COUNTS INCLUDE 234 BEDS AT THE [facility] Last Admin: 04/24/25 07:23 Dose: 3 ml Documented By: MEGAN Valsartan (Valsartan 160 Mg Tablet) 160 mg PO BID [facility] Last Admin: 04/24/25 07:16 Dose: 160 mg Documented By: MEGAN Labs 04/24/25 07:05 04/24/25 07:05 Labs: Laboratory Results - last 24 hr 04/23/25 04/23/25 04/24/25 10:57 11:32 07:05 MCV 89.0 88.0 MCH 28.4 28.4 MCHC 31.9 32.3 RDW 16.6 H 16.5 H Plt Count 807 H 691 H MPV 8.8 L 8.7 L Absolute Nucleated RBC 0.000 0.000 Nucleated RBC % (auto) 0.0 0.0 Anion Gap 11 L 10 L Estim Creat Clear Calc 59.0 62.1 Estimated GFR > 60 > 60 Random Glucose 100 81 Calcium 8.0 L 7.8 L Magnesium 1.7 2.0 Iron 22 L TIBC 149 L % Saturation 15 Unsat Iron Binding 127 Ferritin 63 Total Bilirubin 0.3 Direct Bilirubin 0.2 AST 25 ALT 9 Alkaline Phosphatase 60 Troponin I High Sens 14.2 Total Protein 5.6 L Albumin 3.5 TSH 1.81 Blood Type B Positive Antibody Screen NEGATIVE Crossmatch See Detail Assessment and Plan (1) Atrial fibrillation with RVR: Status: Acute Plan 80F PMH htn, hld, gerd presented 04/10/25 with abd pain found to have sigmoid colitis with perforation, underwent sigmoid resection and end colostomy 04/10/25, course complicated by afib with rvr, clostidium perf. bacteremia pafib with rvr now in sinus started amio 400mg daily 04/23/25 discussed risks and benefits of AC, currently no overt signs of bleeding, inflammation likely primary utility driver of anemia, will increase lovenox to 1mg/kg bid, if hgb stable and no bleed will transition to oral AC sigmoid colitis complicated by perforation and clostridium perfrigens bacteremia, with ecoli intraabdominal s/p don 04/10/25 received iv zosyn from 04/13/25 to 04/18/25, then switched to keflex, flagyl repeat cultures, given ecoli, will change keflex to ceftin ESBL ecoli bacturia ?significance, repeat culture, unlikely contributing pathogen, will not treat for now acute hypokalemia increased potassium to 40meq bid, monitor hypertension coreg, amldoipine, diovan anemia iron studies consitent with inflammatory anemia with possible secondary component of blood loss will transfuse 1 unit prbc, monitor dvt prophylaxis- lovenox full code Quality Stroke Does the patient have a stroke diagnosis?: No VTE Prior VTE?: No VTE Risk Level:: Medical - moderate - high VTE Device Contraindication: N/A - Device Ordered VTE Drug Contraindication: N/A - Med Ordered
--- NOTE | 2025-04-24 10:22 | MHC.CM.PN ---
Patient is not yet medically cleared for dc (abdominal pain, IV ABX, advancing diet); [facility] has accepted Patient and CM will continue to follow.
--- NOTE | 2025-04-24 13:23 | PC.NURSE ---
Late entry - On 04/23/2025 around 0935 pt. reported left shoulder blade pain and GERD. HR sustaining in 160's. [facility] ASSISTANT called. LORETO Kim at bedside. ECG obtained. 10 mg Cardizem IVP administered with positive effect.
--- NOTE | 2025-04-24 14:32 | MHC.CM.PN ---
EMR REVIEWED, PT S/P COLON PREFERATION AND NEW STOMA, PT W/PAIN AT INCISION SITE, [facility] FOLLOWING, CM WILL CONT TO FOLLOW DC NEEDS.
--- NOTE | 2025-04-24 14:56 | PM.PNCARD ---
Subjective Subjective Date of Service: 04/24/25 Interval history: Seen examined at bedside. Blood pressure better controlled. She continues to have some abdominal pain. Physical Exam Vital Signs: Last Vital Signs Temp 98.9 F 04/24/25 12:15 Pulse 74 04/24/25 12:15 Resp 18 04/24/25 12:15 BP 136/74 04/24/25 12:15 Pulse Ox 95 04/24/25 11:07 O2 Del Method Room Air 04/24/25 11:07 O2 Flow Rate 6 04/10/25 19:56 BMI result Body Mass Index 20.2 GENERAL APPEARANCE: in no acute distress. NECK: no carotid bruit, no jugular venous distention. SKIN: no suspicious lesions, warm and dry. HEART: no murmurs, regular rate and rhythm. LUNGS: clear to auscultation bilaterally. ABDOMEN: soft, midline tenderness. EXTREMITIES: no edema. PERIPHERAL PULSES: equal. NEUROLOGIC: No gross deficits, AAO X 3 Objective Labs and Meds 04/24/25 07:05 04/24/25 07:05 Lab results: Laboratory Results - last 24 hr 04/23/25 04/24/25 10:57 07:05 WBC 10.2 RBC 2.50 L Hgb 7.1 L Hct 22.0 L MCV 88.0 MCH 28.4 MCHC 32.3 RDW 16.5 H Plt Count 691 H MPV 8.7 L Absolute Nucleated RBC 0.000 Nucleated RBC % (auto) 0.0 Sodium 137 Potassium 4.1 Chloride 109 H Carbon Dioxide 22 Anion Gap 10 L BUN 8 L Creatinine 0.58 Estim Creat Clear Calc 62.1 Estimated GFR > 60 Random Glucose 81 Calcium 7.8 L Magnesium 2.0 Blood Type B Positive Antibody Screen NEGATIVE Crossmatch See Detail Progress Note: A&P Assessment and plan (1) Atrial fibrillation with RVR: Status: Acute Plan 80-year-old lady with paroxysmal atrial fibrillation. She had colon perforation and has a colostomy. Postop she had atrial fibrillation with rapid ventricular response couple of times. She usually gets rapid ventricular response and gets symptomatic with indigestion like feeling and ECG changes with ST depressions. She is also anemic which lowers her threshold for ischemia. We have started her on amiodarone 400 mg daily. Monitor electrolytes closely and make sure potassium is more than 4 and magnesium is more than 2. She is on Lovenox therapeutic dose currently. If she tolerates Lovenox without any drop in hemoglobin then she can get started on apixaban. She received blood transfusion today and we will monitor the hemoglobin closely. Once she improves then outpatient ischemic evaluation will be done. Thank you for allowing me to participate in the care of your patient. Please feel free to contact me if you have any questions. Time Spent With Patient Time: Total time managing care of this patient today ____ minutes. Progress Note: Quality Stroke Does the patient have a stroke diagnosis?: No Procedures Date of Service Date of Service: 04/24/25
--- NOTE | 2025-04-24 17:08 | HO.WOUND ---
Wound Consult: Initial 80yr old?female admitted to [facility] on 04/10/25 - See progress notes and H&P for detailed history.? Patient is followed for ostomy care - while at bedside she reported tenderness to her buttock coccyx area skin assessed - see below. Sacrum and Coccyx Etiology: ?Redness Wound Bed: intact red pink dry blanchable tissue Drainage / Odor: None Stella wound: intact ? No Induration, Fluctuance or Warmth noted Pain: tenderness at times Goals of Treatment: ? Off Load Pressure with Q2 hr turns and preventative foam dressings Bilateral Heels Etiology: ??Redness Wound Bed: intact red pink dry blanchable tissue Drainage / Odor: None Edges: ? attached Stella wound: intact tissue ? No Induration, Fluctuance or Warmth noted Pain: tenderness reported Goals of Treatment: ?Off load pressure with pillows and preventative foam dresing to be applied Recommendations: 1. Turn and Reposition every 2 hours and as needed for patient comfort.? Use pillows or wedges to support off loading positions. 2. Off Load all bony prominences with use of pillows and heel boots if needed.? Apply Preventative foams where needed. ? 3. Monitor for incontinence and moisture control, use barrier creams when needed for prevention and treatment. 4. Provide adequate and supplemental nutrition.? 5. Order low air loss mattress. 6. When applicable maintain blood glucose levels per Providers order. Sacrum? - Off Load Pressure with Q2 hr turns and use of pillows - Routine cleansing.? Apply skin prep allow to dry.? Cover with foam dressing to aid in off loading and protection from friction. Change every 3 days and PRN. Bilateral Heels? - Elevate heels off of bed surface with pillows.? Float heels off of pillows.? Apply skin prep allow to dry.? Apply heel foam dressings, peel back and assess Q shift and change every 5-7 days and PRN. Re-consult wound care Nurse for wound deterioration or wound changes.
--- NOTE | 2025-04-24 17:15 | HO.OSTOMY ---
Ostomy Consult: Follow up Teaching 80yr old female admitted to [facility] on 04/10/25- see H&P for detailed history and admission.? Consult for new ostomy teaching. ?She had Colostomy creation on 04/10/[address] Gallagher. ?Upon entry into patient's room, patient is lying in bed, alert and oriented x 3, currently feeling well and in good spirts. She reports another episode of afib yesterday morning with rapid response, however she reports feeling well since she received a blood transfusion. She reports she is participating in emptying of her pouch with staff. At this time patient is weak and tired and demonstrates good understanding of her pouch and steps to care for it. She was to weak to get out of bed at this time per her admission but was agreeable to empty the pouch with a container in bed - she did so independently with out assistance. Stood byt for encouragement but task was performed independently. Due for a pouch change pouch removed to reveal some pink MASD noted from 6-9 o'clock silent leak noted. Patient educated on silent leak symptoms of burning and itching - she reports she did have those sensations. Stoma is red moist and oval down facing os, MCJ intact. Patient was able to verbally walk me through a pouch change and observed and participated in pouch change. Changed into Coloplast cut to fit oval size template left at bedside - brava barrier strip paste used around entire stoma and to fill crease at 9 o'clock. Midline remains improved at todays assessment. All questions and concerns addressed at this time. 04/17/25 04/17/25 somta with brava barrier strip paste placed. Continue to have patient participate in emptying of her pouch - this will help her to gain independence. 04/13/25 Midline - areas of dehiscence - alternating jaron observed - dressing dry and intact at the time of my consult. We discussed the following steps: 1. Empty pouch before pouch change 2. Remove pouch using push/pull technique from top to bottom 3. Cleanse stoma and skin with tap water only - no soap or wipes 4. Pat dry 5. Measure stoma and cut new pouch no more than 1/8 inch larger than stoma and no smaller than stoma 6. If instructed by your ostomy nurse stretch barrier seal to the size of the stoma and press onto skin around stoma (up to the edge of the stoma but not onto the stoma) 7. Press the new pouch into place and hold for several seconds (close pouch tail) 8. Empty pouch when 1/3 to 1/2 full 9. Change pouch twice weekly on a schedule (for example, every Sunday and ) and as needed for any leaking (feels like intense itch or burn at edge of stoma) 10. May order pre-cut pouches (already cut to size of stoma) once stoma measures the same size consistently at about 8-12 weeks.
--- NOTE | 2025-04-24 17:20 | HO.WOUND ---
Wound Consult: Initial 80yr old?female admitted to [facility] [place] on 04/10/25 - See progress notes and H&P for detailed history.? Patient is followed for ostomy care - while at bedside she reported tenderness to her buttock coccyx area skin assessed - see below. Midline incision Some small areas remain open with oozing of serous fluid noted. The periwound is noted for some slight erythema and question of fungal dermatitis beginning. Treated with skin prep and Durafiber Ag to incision to pull and trap moisture away from skin. followed by dry gauze. Sacrum and Coccyx Etiology: ?Redness Wound Bed: intact red pink dry blanchable tissue Drainage / Odor: None Stella wound: intact ? No Induration, Fluctuance or Warmth noted Pain: tenderness at times Goals of Treatment: ? Off Load Pressure with Q2 hr turns and preventative foam dressings Bilateral Heels Etiology: ??Redness Wound Bed: intact red pink dry blanchable tissue Drainage / Odor: None Edges: ? attached Stella wound: intact tissue ? No Induration, Fluctuance or Warmth noted Pain: tenderness reported Goals of Treatment: ?Off load pressure with pillows and preventative foam dresing to be applied Recommendations: 1. Turn and Reposition every 2 hours and as needed for patient comfort.? Use pillows or wedges to support off loading positions. 2. Off Load all bony prominences with use of pillows and heel boots if needed.? Apply Preventative foams where needed. ? 3. Monitor for incontinence and moisture control, use barrier creams when needed for prevention and treatment. 4. Provide adequate and supplemental nutrition.? 5. Order low air loss mattress. 6. When applicable maintain blood glucose levels per Providers order. Sacrum? - Off Load Pressure with Q2 hr turns and use of pillows - Routine cleansing.? Apply skin prep allow to dry.? Cover with foam dressing to aid in off loading and protection from friction. Change every 3 days and PRN. Bilateral Heels? - Elevate heels off of bed surface with pillows.? Float heels off of pillows.? Apply skin prep allow to dry.? Apply heel foam dressings, peel back and assess Q shift and change every 5-7 days and PRN. Midline - Cleanse with ns moist gauze, pat dry. apply skin prep allow to dry. Cover open parts of incision with durafiber AG followed by dry gauze, ABD pad and tape. change Daily. Re-consult wound care Nurse for wound deterioration or wound changes.
[2025-04-25] MEDS: oxyCODONE HCl Immed Release 5 MG TABLET PO ×4 (02:20→20:35)
[2025-04-25 03:21] VITALS: BP 155/79; PULSE 69; RESP 16; TEMP 37; O2SAT 95
[2025-04-25 06:26] LABS: Hematocrit 26.9 % (37.0-47.0); Hemoglobin 9.0 g/dl (12.0-16.0); Mean Corpuscular HGB Conc 33.5 g/dl (31.0-35.0); Mean Corpuscular Hemoglobin 29.4 pg (27.0-33.0); Mean Corpuscular Volume 87.9 fL (80.0-98.0); NRBC Abs Auto 0.000 X10*3/uL (0.0-0.012); NRBC Pct Auto 0.0 /100WBC (0.0-0.2); Platelet Count 686 X10*3/uL (160-400); Red Blood Count 3.06 X10*6/uL (4.20-5.50); White Blood Count 10.3 X10*3/uL (4.8-10.8)
[2025-04-25 06:42] LABS: Anion Gap 12 (12-20); Blood Urea Nitrogen 6 mg/dL (9-16); Calcium 8.2 mg/dL (8.4-10.2); Carbon Dioxide 20 mmol/L (22-29); Chloride 110 mmol/L (96-108); Creatinine Clr Calc Pharmacy 65.5; Estimated Glomerular Filt Rate > 60; Potassium 4.3 mmol/L (3.3-5.1); Sodium 138 mmol/L (135-145)
[2025-04-25 08:00] VITALS: BP 130/77; PULSE 66; RESP 18; TEMP 37.1; O2SAT 94
--- NOTE | 2025-04-25 09:02 | P.PNIM_ITS ---
Subjective Subjective Date of Service: 04/25/25 Interval History: no bleeding Physical Exam 2 Vital Signs: Vital Signs: Last Vital Signs Temp 98.7 F 04/25/25 08:00 Pulse 66 04/25/25 08:00 Resp 18 04/25/25 08:00 BP 130/77 04/25/25 08:00 Pulse Ox 94 04/25/25 08:00 O2 Del Method Room Air 04/25/25 08:00 O2 Flow Rate 6 04/10/25 19:56 BMI result Body Mass Index 20.2 GENERAL APPEARANCE: in no acute distress. NECK: no carotid bruit, no jugular venous distention. SKIN: no suspicious lesions, warm and dry. HEART: no murmurs, regular rate and rhythm. LUNGS: clear to auscultation bilaterally. ABDOMEN: soft, midline tenderness. EXTREMITIES: no edema. PERIPHERAL PULSES: equal. NEUROLOGIC: No gross deficits, AAO X 3 Objective Data Active Medications Acetaminophen (Acetaminophen 325 Mg Tablet) 650 mg PO Q6H [facility] Last Admin: 04/25/25 03:22 Dose: 650 mg Documented By: GAMALIEL Amiodarone HCl (Amiodarone Hcl 200 Mg Tablet) 400 mg PO DAILY [facility] Last Admin: 04/24/25 07:18 Dose: 400 mg Documented By: MEGAN Amlodipine Besylate (Amlodipine Besylate 10 Mg Tablet) 10 mg PO DAILY [facility]; Protocol Last Admin: 04/24/25 07:16 Dose: 10 mg Documented By: MEGAN Atorvastatin Calcium (Atorvastatin Calcium 10 Mg Tablet) 10 mg PO BEDTIME [facility] Last Admin: 04/24/25 20:12 Dose: 10 mg Documented By: GAMALIEL Calcium Carbonate (Calcium Carbonate 750 Mg Tab.Chew) 750 mg PO Q6H PRN PRN Reason: Heartburn Last Admin: 04/24/25 21:43 Dose: 750 mg Documented By: GAMALIEL Carvedilol (Carvedilol 25 Mg Tablet) 25 mg PO BID [facility]; Protocol Last Admin: 04/24/25 20:12 Dose: 25 mg Documented By: GAMALIEL Cefuroxime Axetil (Cefuroxime Axetil 500 Mg Tablet) 500 mg PO Q12H [facility] Last Admin: 04/24/25 20:12 Dose: 500 mg Documented By: GAMALIEL Docusate Sodium (Docusate Sodium 100 Mg Capsule) 100 mg PO BID [facility] Last Admin: 04/24/25 20:13 Dose: 100 mg Documented By: GAMALIEL Enoxaparin Sodium (Enoxaparin Sodium 40 Mg/0.4 Ml Syringe) 50 mg SUBCUT Q12H [facility] Last Admin: 04/24/25 20:11 Dose: 50 mg Documented By: GAMALIEL Famotidine (Famotidine 20 Mg Tablet) 20 mg PO BID [facility] Last Admin: 04/24/25 20:12 Dose: 20 mg Documented By: GAMALIEL Magnesium Hydroxide (Milk Of Magnesia 30 Ml Oral.Susp) 30 ml PO DAILY PRN PRN Reason: Constipation Melatonin (Melatonin 3 Mg Tablet) 6 mg PO BEDTIME PRN PRN Reason: Insomnia Metronidazole (Metronidazole 500 Mg Tablet) 500 mg PO Q12H [facility] Last Admin: 04/25/25 02:06 Dose: 500 mg Documented By: GAMALIEL Naloxone HCl (Naloxone Hcl 0.4 Mg/Ml Vial) 0.04 mg IVPUSH Q5M PRN PRN Reason: Excessive sedation or RR < 8 Ondansetron HCl (Ondansetron Hcl 4 Mg/2 Ml Vial) 4 mg IVPUSH Q6H PRN PRN Reason: Nausea and Vomiting Last Admin: 04/21/25 23:30 Dose: 4 mg Documented By: MARISELA Oxycodone HCl (Oxycodone Hcl Immed Release 5 Mg Tablet) 5 mg PO Q4H PRN PRN Reason: Pain, Moderate(Pain Scale 4-6) Last Admin: 04/25/25 08:33 Dose: 5 mg Documented By: CORINNE Polyethylene Glycol (Polyethylene Glycol 3350 17 Gm Powd.Pack) 17 gm PO DAILY [facility] Last Admin: 04/24/25 07:36 Dose: Not Given Documented By: MEGAN Non-Admin Reason: Patient Refused Potassium Chloride (Potassium Chloride Er 20 Meq Tab.Er.Prt) 40 meq PO BID [facility] Last Admin: 04/24/25 20:12 Dose: 40 meq Documented By: GAMALIEL Sodium Chloride (0.9 % Sodium Chloride Flush 3 Ml Syringe) 3 ml IVFLUSH QSHIFT [facility] Last Admin: 04/24/25 21:44 Dose: 3 ml Documented By: GAMALIEL Valsartan (Valsartan 160 Mg Tablet) 160 mg PO BID [facility] Last Admin: 04/24/25 20:12 Dose: 160 mg Documented By: GAMALIEL Labs 04/25/25 05:44 04/25/25 05:44 Labs: Laboratory Results - last 24 hr 04/23/25 04/25/25 10:57 05:44 MCV 87.9 MCH 29.4 MCHC 33.5 RDW 16.0 Plt Count 686 H MPV 8.8 L Absolute Nucleated RBC 0.000 Nucleated RBC % (auto) 0.0 Anion Gap 12 Estim Creat Clear Calc 65.5 Estimated GFR > 60 Random Glucose 81 Calcium 8.2 L Blood Type B Positive Antibody Screen NEGATIVE Crossmatch See Detail Microbiology Microbiology Results: Microbiology 04/23/25 11:32 Blood Culture - Preliminary Blood - Venous No growth after 24 hours. 04/23/25 10:30 Blood Culture - Preliminary Blood - Venous No growth after 24 hours. 04/23/25 12:19 Urine Culture - Final Urine clean catch - Clean Catch Midstream No growth. Assessment and Plan (1) Atrial fibrillation with RVR: Status: Acute Plan 80F PMH htn, hld, gerd presented 04/10/25 with abd pain found to have sigmoid colitis with perforation, underwent sigmoid resection and end colostomy 04/10/25, course complicated by afib with rvr, clostidium perf. bacteremia pafib with rvr now in sinus started amio 400mg daily 04/23/25 started on therapeutic lovenox 04/24/25, so far no signs of bleeding, if hgb stable 04/26/25 will change to po eliquis sigmoid colitis complicated by perforation and clostridium perfrigens bacteremia, with ecoli intraabdominal s/p don 04/10/25 received iv zosyn from 04/13/25 to 04/18/25, then switched to keflex, flagyl repeat cultures, given ecoli, will change keflex to ceftin ESBL ecoli bacturia negative repeat culture, unlikely contributing pathogen, no treatment needed acute hypokalemia increased potassium to 40meq bid, monitor hypertension coreg, amldoipine, diovan anemia iron studies consitent with inflammatory anemia with possible secondary component of blood loss transfused 1 unit prbc 04/24/25, hgb improved appropriately, monitor dvt prophylaxis- lovenox full code reason for continued hospitalization:monitor for bleed Quality Stroke Does the patient have a stroke diagnosis?: No VTE Prior VTE?: No VTE Risk Level:: Medical - moderate - high VTE Device Contraindication: N/A - Device Ordered VTE Drug Contraindication: N/A - Med Ordered
[2025-04-25] MEDS: Potassium Chloride ER 20 MEQ TAB.ER.PRT 40 MEQ PO ×2 (09:13→20:32)
--- NOTE | 2025-04-25 09:47 | P.PNGS_ITS ---
Subjective Subjective Date of Service: 04/25/25 Interval history: Mainly reports incisional pain, not very hungry but she is trying to eat. Ostomy appears to be functioning well. Physical Exam 2 Vital Signs: Vital Signs: Last Vital Signs Temp 98.7 F 04/25/25 08:00 Pulse 66 04/25/25 08:00 Resp 18 04/25/25 08:00 BP 130/77 04/25/25 08:00 Pulse Ox 94 04/25/25 08:00 O2 Del Method Room Air 04/25/25 08:00 O2 Flow Rate 6 04/10/25 19:56 BMI result Body Mass Index 20.2 Const: General: no acute distress Nutritional Appearance: thin O rientation/consciousness: patient oriented x3 Resp: Effort & Inspection: normal respiratory effort GI: Other: Abdominal dressings are clean and intact. Ostomy is pink and functioning well with loose stool noted within bag. No bleeding noted. Skin: Other: Warm, dry, no rash Neuro: General: patient oriented x3 Objective Data Active Medications Acetaminophen (Acetaminophen 325 Mg Tablet) 650 mg PO Q6H [facility] Last Admin: 04/25/25 09:13 Dose: 650 mg Documented By: CORINNE Amiodarone HCl (Amiodarone Hcl 200 Mg Tablet) 400 mg PO DAILY [facility] Last Admin: 04/25/25 09:13 Dose: 400 mg Documented By: CORINNE Amlodipine Besylate (Amlodipine Besylate 10 Mg Tablet) 10 mg PO DAILY [facility]; Protocol Last Admin: 04/25/25 09:13 Dose: 10 mg Documented By: CORINNE Atorvastatin Calcium (Atorvastatin Calcium 10 Mg Tablet) 10 mg PO BEDTIME [facility] Last Admin: 04/24/25 20:12 Dose: 10 mg Documented By: GAMALIEL Calcium Carbonate (Calcium Carbonate 750 Mg Tab.Chew) 750 mg PO Q6H PRN PRN Reason: Heartburn Last Admin: 04/24/25 21:43 Dose: 750 mg Documented By: GAMALIEL Carvedilol (Carvedilol 25 Mg Tablet) 25 mg PO BID [facility]; Protocol Last Admin: 04/25/25 09:12 Dose: 25 mg Documented By: CORINNE Cefuroxime Axetil (Cefuroxime Axetil 500 Mg Tablet) 500 mg PO Q12H [facility] Last Admin: 04/25/25 09:12 Dose: 500 mg Documented By: CORINNE Docusate Sodium (Docusate Sodium 100 Mg Capsule) 100 mg PO BID [facility] Last Admin: 04/25/25 09:12 Dose: 100 mg Documented By: CORINNE Enoxaparin Sodium (Enoxaparin Sodium 60 Mg/0.6 Ml Syringe) 50 mg SUBCUT Q12H [facility] Famotidine (Famotidine 20 Mg Tablet) 20 mg PO BID [facility] Last Admin: 04/25/25 09:13 Dose: 20 mg Documented By: CORINNE Magnesium Hydroxide (Milk Of Magnesia 30 Ml Oral.Susp) 30 ml PO DAILY PRN PRN Reason: Constipation Melatonin (Melatonin 3 Mg Tablet) 6 mg PO BEDTIME PRN PRN Reason: Insomnia Metronidazole (Metronidazole 500 Mg Tablet) 500 mg PO Q12H [facility] Last Admin: 04/25/25 02:06 Dose: 500 mg Documented By: GAMALIEL Naloxone HCl (Naloxone Hcl 0.4 Mg/Ml Vial) 0.04 mg IVPUSH Q5M PRN PRN Reason: Excessive sedation or RR < 8 Ondansetron HCl (Ondansetron Hcl 4 Mg/2 Ml Vial) 4 mg IVPUSH Q6H PRN PRN Reason: Nausea and Vomiting Last Admin: 04/21/25 23:30 Dose: 4 mg Documented By: MARISELA Oxycodone HCl (Oxycodone Hcl Immed Release 5 Mg Tablet) 5 mg PO Q4H PRN PRN Reason: Pain, Moderate(Pain Scale 4-6) Last Admin: 04/25/25 08:33 Dose: 5 mg Documented By: CORINNE Polyethylene Glycol (Polyethylene Glycol 3350 17 Gm Powd.Pack) 17 gm PO DAILY [facility] Last Admin: 04/25/25 09:37 Dose: Not Given Documented By: CORINNE Non-Admin Reason: Patient Refused Potassium Chloride (Potassium Chloride Er 20 Meq Tab.Er.Prt) 40 meq PO BID [facility] Last Admin: 04/25/25 09:13 Dose: 40 meq Documented By: CORINNE Sodium Chloride (0.9 % Sodium Chloride Flush 3 Ml Syringe) 3 ml IVFLUSH QSHIFT [facility] Last Admin: 04/25/25 09:37 Dose: Not Given Documented By: CORINNE Non-Admin Reason: Patient Refused Valsartan (Valsartan 160 Mg Tablet) 160 mg PO BID [facility] Last Admin: 04/25/25 09:12 Dose: 160 mg Documented By: CORINNE Labs 04/25/25 05:44 04/25/25 05:44 Labs: Laboratory Results - last 24 hr 04/23/25 04/25/25 10:57 05:44 MCV 87.9 MCH 29.4 MCHC 33.5 RDW 16.0 Plt Count 686 H MPV 8.8 L Absolute Nucleated RBC 0.000 Nucleated RBC % (auto) 0.0 Anion Gap 12 Estim Creat Clear Calc 65.5 Estimated GFR > 60 Random Glucose 81 Calcium 8.2 L Crossmatch See Detail Microbiology Microbiology Results: Microbiology 04/23/25 11:32 Blood Culture - Preliminary Blood - Venous No growth after 24 hours. 04/23/25 10:30 Blood Culture - Preliminary Blood - Venous No growth after 24 hours. 04/23/25 12:19 Urine Culture - Final Urine clean catch - Clean Catch Midstream No growth. Procedures Date of Service Date of Service: 04/25/25 Progress Note: A&P Assessment and plan (1) Colon perforation: Status: Acute Plan 80-year-old female patient status post Yael procedure for stercoral clinical ulcer. She continues to report some incisional pain but has limited appetite. She is trying to improve her nutrition. Incisions are clean and intact, ostomy functioning properly. Further management per hospitalist team. Time Spent With Patient Time: Total time managing care of this patient today ____ minutes. Quality Stroke Does the patient have a stroke diagnosis?: No VTE Prior VTE?: No VTE Risk Level:: Medical - moderate - high VTE Device Contraindication: N/A - Device Ordered VTE Drug Contraindication: N/A - Med Ordered
[2025-04-25 12:00] VITALS: BP 128/69; PULSE 76; RESP 18; TEMP 37; O2SAT 96
--- NOTE | 2025-04-25 13:10 | PM.PNCARD ---
Subjective Subjective Date of Service: 04/25/25 Interval history: Seen examined at bedside. Feeling better. Physical Exam Vital Signs: Last Vital Signs Temp 98.6 F 04/25/25 12:00 Pulse 76 04/25/25 12:00 Resp 18 04/25/25 12:00 BP 128/69 04/25/25 12:00 Pulse Ox 96 04/25/25 12:00 O2 Del Method Room Air 04/25/25 08:00 O2 Flow Rate 6 04/10/25 19:56 BMI result Body Mass Index 20.2 GENERAL APPEARANCE: in no acute distress. NECK: no carotid bruit, no jugular venous distention. SKIN: no suspicious lesions, warm and dry. HEART: no murmurs, regular rate and rhythm. LUNGS: clear to auscultation bilaterally. ABDOMEN: soft, midline tenderness. EXTREMITIES: no edema. PERIPHERAL PULSES: equal. NEUROLOGIC: No gross deficits, AAO X 3 Objective Labs and Meds 04/25/25 05:44 04/25/25 05:44 Lab results: Laboratory Results - last 24 hr 04/25/25 05:44 WBC 10.3 RBC 3.06 L D Hgb 9.0 L D Hct 26.9 L D MCV 87.9 MCH 29.4 MCHC 33.5 RDW 16.0 Plt Count 686 H MPV 8.8 L Absolute Nucleated RBC 0.000 Nucleated RBC % (auto) 0.0 Sodium 138 Potassium 4.3 Chloride 110 H Carbon Dioxide 20 L Anion Gap 12 BUN 6 L Creatinine 0.55 Estim Creat Clear Calc 65.5 Estimated GFR > 60 Random Glucose 81 Calcium 8.2 L Progress Note: A&P Assessment and plan (1) Atrial fibrillation with RVR: Status: Acute Plan 80-year-old lady with paroxysmal atrial fibrillation. She had colon perforation and has a colostomy. Postop she had atrial fibrillation with rapid ventricular response couple of times. She usually gets rapid ventricular response and gets symptomatic with indigestion like feeling and ECG changes with ST depressions. She is also anemic which lowers her threshold for ischemia. We have started her on amiodarone 400 mg daily. Monitor electrolytes closely and make sure potassium is more than 4 and magnesium is more than 2. She is on Lovenox therapeutic dose currently. If she tolerates Lovenox without any drop in hemoglobin then she can get started on apixaban. She received blood transfusion today and we will monitor the hemoglobin closely. Once she improves then outpatient ischemic evaluation will be done. Thank you for allowing me to participate in the care of your patient. Please feel free to contact me if you have any questions. Time Spent With Patient Time: Total time managing care of this patient today ____ minutes. Progress Note: Quality Stroke Does the patient have a stroke diagnosis?: No Procedures Date of Service Date of Service: 04/25/25
[2025-04-25] MEDS: Magnesium Hydrox/Alum Hydrox 30 ML ORAL.SUSP 15 ML PO (13:42)
[2025-04-25] MEDS: 0.9 % Sodium Chloride Flush 3 ML SYRINGE IVFLUSH ×2 (15:44→20:35)
[2025-04-25 16:00] VITALS: BP 117/72; PULSE 72; RESP 18; TEMP 36.6; O2SAT 96
[2025-04-25 19:21] VITALS: BP 138/67; PULSE 71; RESP 16; TEMP 36.6; O2SAT 96
[2025-04-26] VITALS: BP 142/77; PULSE 52; RESP 16; TEMP 37.6; O2SAT 95
[2025-04-26 02:59] VITALS: BP 139/80; PULSE 64; RESP 16; TEMP 36.7; O2SAT 96
[2025-04-26] MEDS: oxyCODONE HCl Immed Release 5 MG TABLET PO ×3 (03:05→15:47)
[2025-04-26 07:51] LABS: Hematocrit 30.2 % (37.0-47.0); Hemoglobin 9.9 g/dl (12.0-16.0); Mean Corpuscular HGB Conc 32.8 g/dl (31.0-35.0); Mean Corpuscular Hemoglobin 29.5 pg (27.0-33.0); Mean Corpuscular Volume 89.9 fL (80.0-98.0); NRBC Abs Auto 0.000 X10*3/uL (0.0-0.012); NRBC Pct Auto 0.0 /100WBC (0.0-0.2); Platelet Count 691 X10*3/uL (160-400); Red Blood Count 3.36 X10*6/uL (4.20-5.50); White Blood Count 8.5 X10*3/uL (4.8-10.8)
[2025-04-26 08:00] VITALS: BP 143/77; PULSE 71; RESP 18; TEMP 36.5; O2SAT 97
[2025-04-26 08:10] LABS: Anion Gap 15 (12-20); Blood Urea Nitrogen 6 mg/dL (9-16); Calcium 8.5 mg/dL (8.4-10.2); Carbon Dioxide 20 mmol/L (22-29); Chloride 108 mmol/L (96-108); Creatinine Clr Calc Pharmacy 60.0; Estimated Glomerular Filt Rate > 60; Potassium 4.6 mmol/L (3.3-5.1); Sodium 138 mmol/L (135-145)
[2025-04-26] MEDS: Potassium Chloride ER 20 MEQ TAB.ER.PRT 40 MEQ PO (08:41)
[2025-04-26] MEDS: 0.9 % Sodium Chloride Flush 3 ML SYRINGE IVFLUSH (08:42)
--- NOTE | 2025-04-26 09:25 | PM.PNGS ---
Subjective Subjective Date of Service: 04/26/25 Interval history: Reports still not much of an appetite. Does not like boost clear because it mclaughlin, would prefer the vanilla ensure. Ostomy is working fine, does not feel she needs MiraLax anymore. Physical Exam Vital Signs: Vital Signs: Last Vital Signs Temp 97.7 F 04/26/25 08:00 Pulse 71 04/26/25 08:00 Resp 18 04/26/25 08:00 BP 143/77 H 04/26/25 08:00 Pulse Ox 97 04/26/25 08:00 O2 Del Method Room Air 04/26/25 08:00 O2 Flow Rate 6 04/10/25 19:56 BMI result Body Mass Index 20.2 Const: General: comfortable Nutritional Appearance: thin Orientation/consciousness: patient oriented x3 Resp: Effort & Inspection: normal respiratory effort, no audible wheezes, no cough and no respiratory distress GI: Inspection: Yes normal to inspection Skin: General skin exam: no rashes or lesions noted Neuro: General: patient oriented x3 Objective Data Active Medications Acetaminophen (Acetaminophen 325 Mg Tablet) 650 mg PO Q6H [facility] Last Admin: 04/26/25 03:21 Dose: Not Given Documented By: GAMALIEL Non-Admin Reason: Patient Refused Al Hydroxide/Mg Hydroxide (Magnesium Hydrox/Alum Hydrox 30 Ml Oral.Susp) 15 ml PO Q4H PRN PRN Reason: Heartburn Last Admin: 04/25/25 13:42 Dose: 15 ml Documented By: CORINNE Amiodarone HCl (Amiodarone Hcl 200 Mg Tablet) 400 mg PO DAILY [facility] Last Admin: 04/26/25 08:40 Dose: 400 mg Documented By: CORINNE Amlodipine Besylate (Amlodipine Besylate 10 Mg Tablet) 10 mg PO DAILY [facility]; Protocol Last Admin: 04/26/25 08:41 Dose: 10 mg Documented By: CORINNE Atorvastatin Calcium (Atorvastatin Calcium 10 Mg Tablet) 10 mg PO BEDTIME [facility] Last Admin: 04/25/25 20:31 Dose: 10 mg Documented By: GAMALIEL Calcium Carbonate (Calcium Carbonate 750 Mg Tab.Chew) 750 mg PO Q6H PRN PRN Reason: Heartburn Last Admin: 04/25/25 11:07 Dose: 750 mg Documented By: CORINNE Carvedilol (Carvedilol 25 Mg Tablet) 25 mg PO BID [facility]; Protocol Last Admin: 04/26/25 08:40 Dose: 25 mg Documented By: CORINNE Cefuroxime Axetil (Cefuroxime Axetil 500 Mg Tablet) 500 mg PO Q12H [facility] Last Admin: 04/26/25 08:40 Dose: 500 mg Documented By: CORINNE Docusate Sodium (Docusate Sodium 100 Mg Capsule) 100 mg PO BID [facility] Last Admin: 04/26/25 08:40 Dose: 100 mg Documented By: CORINNE Enoxaparin Sodium (Enoxaparin Sodium 60 Mg/0.6 Ml Syringe) 50 mg SUBCUT Q12H [facility] Last Admin: 04/26/25 08:42 Dose: 50 mg Documented By: CORINNE Famotidine (Famotidine 20 Mg Tablet) 20 mg PO BID [facility] Last Admin: 04/26/25 08:40 Dose: 20 mg Documented By: CORINNE Magnesium Hydroxide (Milk Of Magnesia 30 Ml Oral.Susp) 30 ml PO DAILY PRN PRN Reason: Constipation Melatonin (Melatonin 3 Mg Tablet) 6 mg PO BEDTIME PRN PRN Reason: Insomnia Metronidazole (Metronidazole 500 Mg Tablet) 500 mg PO Q12H [facility] Last Admin: 04/26/25 01:25 Dose: 500 mg Documented By: GAMALIEL Naloxone HCl (Naloxone Hcl 0.4 Mg/Ml Vial) 0.04 mg IVPUSH Q5M PRN PRN Reason: Excessive sedation or RR < 8 Ondansetron HCl (Ondansetron Hcl 4 Mg/2 Ml Vial) 4 mg IVPUSH Q6H PRN PRN Reason: Nausea and Vomiting Last Admin: 04/21/25 23:30 Dose: 4 mg Documented By: MARISELA Oxycodone HCl (Oxycodone Hcl Immed Release 5 Mg Tablet) 5 mg PO Q4H PRN PRN Reason: Pain, Moderate(Pain Scale 4-6) Last Admin: 04/26/25 08:41 Dose: 5 mg Documented By: CORINNE Potassium Chloride (Potassium Chloride Er 20 Meq Tab.Er.Prt) 40 meq PO BID [facility] Last Admin: 04/26/25 08:41 Dose: 40 meq Documented By: CORINNE Sodium Chloride (0.9 % Sodium Chloride Flush 3 Ml Syringe) 3 ml IVFLUSH QSHIFT [facility] Last Admin: 04/26/25 08:42 Dose: 3 ml Documented By: CORINNE Valsartan (Valsartan 160 Mg Tablet) 160 mg PO BID [facility] Last Admin: 04/26/25 08:41 Dose: 160 mg Documented By: CORINNE Labs 04/26/25 07:20 04/26/25 07:20 Labs: Laboratory Results - last 24 hr 04/26/25 07:20 MCV 89.9 MCH 29.5 MCHC 32.8 RDW 16.2 H Plt Count 691 H MPV 9.0 L Absolute Nucleated RBC 0.000 Nucleated RBC % (auto) 0.0 Anion Gap 15 Estim Creat Clear Calc 60.0 Estimated GFR > 60 Random Glucose 90 Calcium 8.5 Microbiology Microbiology Results: Microbiology 04/23/25 11:32 Blood Culture - Preliminary Blood - Venous No growth after 48 hours. 04/23/25 10:30 Blood Culture - Preliminary Blood - Venous No growth after 48 hours. Procedures Date of Service Date of Service: 04/26/25 Progress Note: A&P Assessment and plan (1) Colon perforation: Status: Acute Plan 80-year-old female patient status post Yael procedure for stercoral clinical ulcer. Overall she is feeling improved with decreased incisional pain but limited appetite. She is willing to try ensure dietary supplement. Ostomy is working with loose stool and no blood. Incisions are clean and intact with a minimal discharge noted. Dressings changed. Patient currently on Lovenox, plan to switch to apixaban. Time Spent With Patient Time: Total time managing care of this patient today ____ minutes. Quality Stroke Does the patient have a stroke diagnosis?: No VTE Prior VTE?: No VTE Risk Level:: Medical - moderate - high VTE Device Contraindication: N/A - Device Ordered VTE Drug Contraindication: N/A - Med Ordered
--- NOTE | 2025-04-26 11:17 | HO.PM.IMPN ---
Subjective Subjective Date of Service: 04/26/25 Interval History: no bleeding Physical Exam Vital Signs: Vital Signs: Last Vital Signs Temp 97.7 F 04/26/25 08:00 Pulse 71 04/26/25 08:00 Resp 18 04/26/25 08:00 BP 143/77 H 04/26/25 08:00 Pulse Ox 97 04/26/25 08:00 O2 Del Method Room Air 04/26/25 08:00 O2 Flow Rate 6 04/10/25 19:56 BMI result Body Mass Index 20.2 Const: General: comfortable Nutritional Appearance: thin Orientation/consciousness: patient oriented x3 Resp: Effort & Inspection: normal respiratory effort, no audible wheezes, no cough and no respiratory distress GI: Inspection: Yes normal to inspection Skin: General skin exam: no rashes or lesions noted Neuro: General: patient oriented x3 Objective Data Active Medications Acetaminophen (Acetaminophen 325 Mg Tablet) 650 mg PO Q6H [facility] Last Admin: 04/26/25 10:36 Dose: 650 mg Documented By: CORINNE Al Hydroxide/Mg Hydroxide (Magnesium Hydrox/Alum Hydrox 30 Ml Oral.Susp) 15 ml PO Q4H PRN PRN Reason: Heartburn Last Admin: 04/25/25 13:42 Dose: 15 ml Documented By: CORINNE Amiodarone HCl (Amiodarone Hcl 200 Mg Tablet) 400 mg PO DAILY [facility] Last Admin: 04/26/25 08:40 Dose: 400 mg Documented By: CORINNE Amlodipine Besylate (Amlodipine Besylate 10 Mg Tablet) 10 mg PO DAILY [facility]; Protocol Last Admin: 04/26/25 08:41 Dose: 10 mg Documented By: CORINNE Atorvastatin Calcium (Atorvastatin Calcium 10 Mg Tablet) 10 mg PO BEDTIME [facility] Last Admin: 04/25/25 20:31 Dose: 10 mg Documented By: GAMALIEL Calcium Carbonate (Calcium Carbonate 750 Mg Tab.Chew) 750 mg PO Q6H PRN PRN Reason: Heartburn Last Admin: 04/25/25 11:07 Dose: 750 mg Documented By: CORINNE Carvedilol (Carvedilol 25 Mg Tablet) 25 mg PO BID [facility]; Protocol Last Admin: 04/26/25 08:40 Dose: 25 mg Documented By: CORINNE Cefuroxime Axetil (Cefuroxime Axetil 500 Mg Tablet) 500 mg PO Q12H [facility] Last Admin: 04/26/25 08:40 Dose: 500 mg Documented By: CORINNE Docusate Sodium (Docusate Sodium 100 Mg Capsule) 100 mg PO BID [facility] Last Admin: 04/26/25 08:40 Dose: 100 mg Documented By: CORINNE Enoxaparin Sodium (Enoxaparin Sodium 60 Mg/0.6 Ml Syringe) 50 mg SUBCUT Q12H [facility] Last Admin: 04/26/25 08:42 Dose: 50 mg Documented By: CORINNE Famotidine (Famotidine 20 Mg Tablet) 20 mg PO BID [facility] Last Admin: 04/26/25 08:40 Dose: 20 mg Documented By: CORINNE Magnesium Hydroxide (Milk Of Magnesia 30 Ml Oral.Susp) 30 ml PO DAILY PRN PRN Reason: Constipation Melatonin (Melatonin 3 Mg Tablet) 6 mg PO BEDTIME PRN PRN Reason: Insomnia Metronidazole (Metronidazole 500 Mg Tablet) 500 mg PO Q12H [facility] Last Admin: 04/26/25 01:25 Dose: 500 mg Documented By: GAMALIEL Naloxone HCl (Naloxone Hcl 0.4 Mg/Ml Vial) 0.04 mg IVPUSH Q5M PRN PRN Reason: Excessive sedation or RR < 8 Ondansetron HCl (Ondansetron Hcl 4 Mg/2 Ml Vial) 4 mg IVPUSH Q6H PRN PRN Reason: Nausea and Vomiting Last Admin: 04/21/25 23:30 Dose: 4 mg Documented By: MARISELA Oxycodone HCl (Oxycodone Hcl Immed Release 5 Mg Tablet) 5 mg PO Q4H PRN PRN Reason: Pain, Moderate(Pain Scale 4-6) Last Admin: 04/26/25 08:41 Dose: 5 mg Documented By: CORINNE Potassium Chloride (Potassium Chloride Er 20 Meq Tab.Er.Prt) 40 meq PO BID [facility] Last Admin: 04/26/25 08:41 Dose: 40 meq Documented By: CORINNE Sodium Chloride (0.9 % Sodium Chloride Flush 3 Ml Syringe) 3 ml IVFLUSH QSHIFT [facility] Last Admin: 04/26/25 08:42 Dose: 3 ml Documented By: CORINNE Valsartan (Valsartan 160 Mg Tablet) 160 mg PO BID [facility] Last Admin: 04/26/25 08:41 Dose: 160 mg Documented By: CORINNE Labs 04/26/25 07:20 04/26/25 07:20 Labs: Laboratory Results - last 24 hr 04/26/25 07:20 MCV 89.9 MCH 29.5 MCHC 32.8 RDW 16.2 H Plt Count 691 H MPV 9.0 L Absolute Nucleated RBC 0.000 Nucleated RBC % (auto) 0.0 Anion Gap 15 Estim Creat Clear Calc 60.0 Estimated GFR > 60 Random Glucose 90 Calcium 8.5 Microbiology Microbiology Results: Microbiology 04/23/25 11:32 Blood Culture - Preliminary Blood - Venous No growth after 48 hours. 04/23/25 10:30 Blood Culture - Preliminary Blood - Venous No growth after 48 hours. Assessment and Plan (1) Atrial fibrillation with RVR: Status: Acute Plan 80F PMH htn, hld, gerd presented 04/10/25 with abd pain found to have sigmoid colitis with perforation, underwent sigmoid resection and end colostomy 04/10/25, course complicated by afib with rvr, clostidium perf. bacteremia pafib with rvr now in sinus started amio 400mg daily 04/23/25, will decrease to 200mg daily on 05/07/25 tolerated therapeutic lovenox changing to po eliquis sigmoid colitis complicated by perforation and clostridium perfrigens bacteremia, with ecoli intraabdominal s/p don 04/10/25 received iv zosyn from 04/13/25 to 04/18/25, then switched to keflex, flagyl repeat cultures negative, given ecoli, changed keflex to ceftin ESBL ecoli bacturia negative repeat culture, unlikely contributing pathogen, no treatment needed acute hypokalemia increased potassium to 40meq bid, monitor, will decrease back to daily on discharge hypertension coreg, amldoipine, diovan anemia iron studies consitent with inflammatory anemia with possible secondary component of blood loss transfused 1 unit prbc 04/24/25, hgb improved appropriately, stable dvt prophylaxis- apixaban full code reason for continued hospitalization:dc planning Quality Stroke Does the patient have a stroke diagnosis?: No VTE Prior VTE?: No VTE Risk Level:: Medical - moderate - high VTE Device Contraindication: N/A - Device Ordered VTE Drug Contraindication: N/A - Med Ordered
--- NOTE | 2025-04-26 11:23 | PM.DS ---
DS: Providers Provider Date of Service: 04/26/25 Date of admission: 04/10/25 14:31 Date of discharge: 04/26/25 Primary care physician: Alena Quiroz MD Consults: 04/12/25 16:12 Consult to Hospitalist Routine Comment: Consulting Provider: [facility] [place] [facility] Reason For Exam: medical management 04/13/25 05:54 Consult to Ostomy Care Routine 04/13/25 16:30 Consult to Cardiology Routine Consulting Provider: [facility] Reason for consultation: new afib rvr, htn, trop leak (CP) 04/20/25 08:06 Consult to Cardiology Stat Consulting Provider: [facility] Reason for consultation: New onset afib with RVR 04/20/25 15:39 Consult to Cardiology Routine Consulting Provider: [facility] Reason for consultation: Afib with RVR 04/23/25 10:48 Consult to Infectious Diseases Routine Consulting Provider: [facility] Reason for consultation: recent clostridium bacteremia and esbl in urine DS: Diagnosis Discharge Diagnosis (1) Atrial fibrillation with RVR: Status: Acute DS: Summary Hospital Course Hospital Course: Admission HPI: 80 year old female who presents to the emergency room after a 2 day history of increasing abdominal pain and having worsening constipation as well. She normally has some baseline GI symptoms however most of this is upper GI with issues consisting of dysphagia and reflux. She sees a environmental research project manager at [facility]. She did have a colonoscopy about 5 years ago and said that she knew that she had diverticular disease and the small polyp. As far as she knows she has never had any significant diverticulitis. Her pain was getting worse and she felt nauseated at times. As a result today she came to the emergency room. Here [place] [address] with 6 bandemia and diffuse peritonitis. CT scan of her abdomen and pelvis was carried out and shows thickened sigmoid colon with some loculated areas of free air in the lower pelvic area. Her creatinine was elevated and despite resuscitation her lactic acid was still little elevated around 2.5. Surgical consultation was had and after reviewing the CT scan and the patient it was determined that she would benefit from exploration and most likely sigmoid colectomy and colostomy creation. She denied any significant fever or chills. No urinary symptoms no chest pain no shortness of breath. She has never had any surgery before. Patient's son is a neurologist at [employer] and her case was discussed with him preoperatively Hospital course: Patient was admitted for sigmoid colitis complicated by perforation Clostridium perfringens bacteremia and intra-abdominal E coli. She underwent sigmoid resection and colostomy on 04/10/2025. Was treated with IV Zosyn and then eventually switched to Ceftin and Flagyl which she will continue for 7 more days on discharge. Repeat cultures are negative. Course was complicated by new onset atrial fibrillation with rapid ventricular response. Was seen by Cardiology and started on carvedilol and amiodarone 400 mg daily, she should decrease to 200 mg daily on 05/07/2025. Patient converted to normal sinus rhythm and has remained in normal sinus for the last 48 hours. Goal is to keep magnesium above 2 and potassium above 4. Patient noted to have ESBL E coli in her urine this does not appear to be a contributing pathogen, did not received treatment and urine culture is now negative. For acute hypokalemia received replacement. She will continue 20 mEq daily on discharge. For hypertension uncontrolled was started on carvedilol, amlodipine, olmesartan changed to Diovan. Blood pressure improved. For acute on chronic anemia iron studies were consistent with inflammatory anemia with minor component of chronic iron-deficiency. She was transfused 1 unit PRBC and hemoglobin improved appropriately and remained stable even on anticoagulation which was started and tolerated. Patient will be discharged to long-term facility she is expected require less than 30 days. Time Attestation Discharge Coordination Time (in mins): 35 Quality: Safe Use of Opioids Does Pt have an Active Cancer Diagnosis on the Problem List?: No Quality: Stroke Does the patient have a stroke diagnosis?: No Physical Exam Vital Signs: Vital Signs: Last Vital Signs Temp 97.7 F 04/26/25 08:00 Pulse 71 04/26/25 08:00 Resp 18 04/26/25 08:00 BP 143/77 H 04/26/25 08:00 Pulse Ox 97 04/26/25 08:00 O2 Del Method Room Air 04/26/25 08:00 O2 Flow Rate 6 04/10/25 19:56 BMI result Body Mass Index 20.2 Const: General: comfortable Nutritional Appearance: thin Orientation/consciousness: patient oriented x3 Resp: Effort & Inspection: normal respiratory effort, no audible wheezes, no cough and no respiratory distress GI: Inspection: Yes normal to inspection Skin: General skin exam: no rashes or lesions noted Neuro: General: patient oriented x3 DS: Data Data Completed and Pending Completed studies during hospitalization [Text1]: Pending at discharge 04/10/25 18:16 Surgical [PTH] Routine Labs on day of discharge: Laboratory Results - last 24 hr 04/26/25 07:20 WBC 8.5 RBC 3.36 L Hgb 9.9 L Hct 30.2 L MCV 89.9 MCH 29.5 MCHC 32.8 RDW 16.2 H Plt Count 691 H MPV 9.0 L Absolute Nucleated RBC 0.000 Nucleated RBC % (auto) 0.0 Sodium 138 Potassium 4.6 Chloride 108 Carbon Dioxide 20 L Anion Gap 15 BUN 6 L Creatinine 0.60 Estim Creat Clear Calc 60.0 Estimated GFR > 60 Random Glucose 90 Calcium 8.5 Preliminary micro results at discharge 04/23/25 11:32 Blood Culture - Preliminary Blood - Venous No growth after 48 hours. 04/23/25 10:30 Blood Culture - Preliminary Blood - Venous No growth after 48 hours. Discharge Plan Discharge Anticipated Discharge Date/Time: 04/26/25 11:19 Patient Disposition: Xfer SNF Discharge Diagnosis: colon perforation, s/p tasia Referrals: Alena Quiroz MD [Primary Care Provider, Internal Medicine] - 1 Week Jesse Rosenthal MD [Physician, General Surgery] - 1 Week Marko Hogue MD [Physician, Cardiology] - 1 Week Discharge Medications: New carvedilol 25 mg tablet 25 mg PO BID Qty: 60 0RF Rx Instructions: must administer with a meal/food docusate sodium [Colace] 100 mg capsule 100 mg PO BID Qty: 30 0RF oxycodone 5 mg tablet 5 mg PO Q6H PRN (Reason: pain) Qty: 25 0RF Rx Instructions: Partial Fill upon patient request. amiodarone 200 mg Tablet 400 mg PO DAILY Qty: 270 0RF Rx Instructions: 400mg daily until 05/07/25 then decrease to 200mg daily metronidazole 500 mg Tablet 500 mg PO Q12H 7 Days Qty: 14 0RF cefuroxime axetil 500 mg Tablet 500 mg PO Q12H 7 Days Qty: 14 0RF Eliquis 5 mg Tablet 5 mg PO BID Qty: 0 0RF potassium chloride 20 mEq Tablet,Er Particles/Crystals 20 meq PO DAILY Qty: 0 0RF amlodipine 10 mg Tablet 10 mg PO DAILY Qty: 0 0RF Protocol: Hold for SBP< HOLD for SBP < : 90 valsartan 160 mg Tablet 160 mg PO BID Qty: 0 0RF Continued atorvastatin 10 mg tablet 10 mg PO BEDTIME famotidine 20 mg tablet 20 mg PO BID ibuprofen [Advil] 200 mg Tablet 200 mg PO Q6H PRN (Reason: migrine) diphenhydramine-acetaminophen [Acetaminophen PM] 25-500 mg Tablet 1 tab PO BEDTIME PRN (Reason: Sleep) sumatriptan succinate 50 mg tablet 50 mg PO DAILY PRN (Reason: Migraine Headache) Rx Instructions: 1x rx from covering provider bismuth subsalicylate [Pepto-Bismol] 262 mg/15 mL Suspension 524 mg PO QID PRN (Reason: Constipation) Discontinued diltiazem HCl 240 mg capsule,extended release 24hr 240 mg PO DAILY olmesartan 20 mg tablet 20 mg PO BEDTIME Discharge Orders: Discharge Order (Routine); Ordered 04/26/25 Ordered By: Brendan Sears Diet: Advance to usual diet Activity on Discharge: No heavy lifting Stand Alone Forms: Patient Portal Discharge page Print Language: Australian Activity Restrictions/Additional Instructions: If your incision site is sore, you may apply ice to the area for short periods of time (no more than 20 minutes at a time, followed by 20 minutes off). You were prescribed oxycodone to assist with pain management as needed. You can additionally use OTC ibuprofen or acetaminophen as needed for pain. You can remove the dressings at home, they do not need to be redressed. Steri strips can remain in place and will likely fall on their own or in the shower. No heavy lifting >20 pounds No strenuous activity. Do not use creams, lotion, ointment on the incision sites You will follow up with Dr. rosenthal in the office in 2 week, you can call the office to schedule the appointment ) Please reach out to the office or be seen at the emergency department if you develop: -Fever >101.5 -Increasing pain or swelling of the area -Increased bleeding from the incision site or the incision begins to separate -If you are concerned for incision site infection such as redness, warmth, discharge. Some yellow/pink tinged discharge is normal -You develop nausea or vomiting Care Plan Goals: return to baseline follow up with cardiology Health Concerns: post op pain ostomy care new onset afib hypokalemia Plan of Treatment: transfer for short term rehab follow up in the office in 2 weeks follow up with cardiology See med reconciliation, amiodarone load of 400 mg daily until 05/07/25 then decrease to 200 mg daily Assessment: patient doing well
[2025-04-26 12:00] VITALS: BP 135/65; PULSE 65; RESP 18; TEMP 36.9; O2SAT 97
--- NOTE | 2025-04-26 14:18 | MHC.CM.PN ---
Second IMM, Pt. has been medically cleared to DC, she will go to [facility] this afternoon via BLS for STR.
== END 2025-04-26 16:10 | disposition skilled nursing facility (03) | DRG 329 ==
LOC: HO.ED 14:10 → HO.EDOVER 14:40 → HO.SSSA 16:38 → HO.S3 19:17 → HO.IMC 04-20 08:18
PROVIDERS: Hospitalist; Nurse Practitioner Family; Student in an Organized Health Care Education/Training Program; Admitting Provider Surgery; Emergency Provider Emergency Medicine; PCP Internal Medicine; Visit Provider Internal Medicine
PROC: 0D1N0Z4 Bypass Sigmoid Colon to Cutaneous, Open Approach (ICD-10-PCS; CPT 49000; principal; 2025-04-10 16:30)
DX: K63.1 Perforation of intestine (nontraumatic) (principal); I21.A1 Myocardial infarction type 2; K65.9 Peritonitis, unspecified; R78.81 Bacteremia; I50.32 Chronic diastolic (congestive) heart failure; G89.18 Other acute postprocedural pain; K52.89 Other specified noninfective gastroenteritis and colitis; I16.0 Hypertensive urgency; K59.00 Constipation, unspecified; I48.0 Paroxysmal atrial fibrillation; E86.0 Dehydration; E86.1 Hypovolemia; I11.0 Hypertensive heart disease with heart failure; B96.7 Clostridium perfringens [C. perfringens] as the cause of diseases classified elsewhere; D50.0 Iron deficiency anemia secondary to blood loss (chronic); E78.5 Hyperlipidemia, unspecified; I95.9 Hypotension, unspecified; E87.6 Hypokalemia; K21.9 Gastro-esophageal reflux disease without esophagitis; G43.909 Migraine, unspecified, not intractable, without status migrainosus; Z87.891 Personal history of nicotine dependence; Z79.01 Long term (current) use of anticoagulants; Z79.899 Other long term (current) drug therapy
CPT/HCPCS: 36415; 71045; 74176; 80048; 80053; 80076; 81001; 82040; 82550; 82728; 82947; 83540; 83605; 83690; 83735; 84100; 84132; 84134; 84443; 84484; 85007; 85025; 85027; 85610; 86140; 86850; 86900; 86901; 86923; 87040; 87070; 87073; 87076; 87077; 87086; 87088; 87185; 87186; 87205; 87493; 87507; 88307; 93005; 93306; 94799; 97110; 97116; 97162; 97530; 99285; J0131; J0360; J0525; J0616; J1100; J1163; J1171; J1308; J1650; J2003; J2270; J2405; J2470; J2543; J2704; J3010; J3475; J3480; J7120; P9016; P9047; Q9957

== ENCOUNTER → 2025-04-10 11:01 | Outpatient (BNV) | payer MEDICARE, OTHER, SELFPAY | PROVIDERS: Emergency Provider Emergency Medicine; PCP Internal Medicine; Visit Provider Internal Medicine Cardiovascular Disease | DX: R10.9 Unspecified abdominal pain (principal) | CPT/HCPCS: 93010 ==

== ENCOUNTER → 2025-04-10 11:06 | Outpatient (BNV) | payer MEDICARE, OTHER, SELFPAY | PROVIDERS: Admitting Provider Surgery; Emergency Provider Emergency Medicine; PCP Internal Medicine; Visit Provider Radiology Diagnostic Radiology | DX: R18.8 Other ascites (principal); K52.89 Other specified noninfective gastroenteritis and colitis; K59.00 Constipation, unspecified | CPT/HCPCS: 74176 ==

== ENCOUNTER 2025-04-10 14:31 | Outpatient (BNV) | payer MEDICARE, OTHER, SELFPAY | END 2025-04-20 07:32 | PROVIDERS: Admitting Provider Surgery; Emergency Provider Emergency Medicine; PCP Internal Medicine; Visit Provider Internal Medicine Cardiovascular Disease | DX: I48.91 Unspecified atrial fibrillation (principal) | CPT/HCPCS: 93010 ==

== ENCOUNTER 2025-04-10 14:31 | Outpatient (BNV) | payer MEDICARE, OTHER, SELFPAY | END 2025-04-13 14:07 | PROVIDERS: Admitting Provider Surgery; Emergency Provider Emergency Medicine; PCP Internal Medicine; Visit Provider Internal Medicine | DX: I48.91 Unspecified atrial fibrillation (principal) | CPT/HCPCS: 93010 ==

== ENCOUNTER 2025-04-10 14:31 | Outpatient (BNV) | payer MEDICARE, OTHER, SELFPAY | END 2025-04-23 09:57 | PROVIDERS: Admitting Provider Surgery; Emergency Provider Emergency Medicine; PCP Internal Medicine; Visit Provider Internal Medicine Cardiovascular Disease | DX: I48.91 Unspecified atrial fibrillation (principal) | CPT/HCPCS: 93010 ==

== ENCOUNTER 2025-04-10 14:31 | Outpatient (BNV) | payer MEDICARE, OTHER, SELFPAY | END 2025-04-20 08:15 | PROVIDERS: Admitting Provider Surgery; Emergency Provider Emergency Medicine; PCP Internal Medicine; Visit Provider Radiology Diagnostic Radiology | DX: R06.02 Shortness of breath (principal) | CPT/HCPCS: 71045 ==

== ENCOUNTER 2025-04-10 14:31 | Outpatient (BNV) | payer MEDICARE, OTHER, SELFPAY | END 2025-04-14 07:00 | PROVIDERS: Admitting Provider Surgery; Emergency Provider Emergency Medicine; PCP Internal Medicine; Visit Provider Internal Medicine | DX: I35.8 Other nonrheumatic aortic valve disorders (principal); I35.1 Nonrheumatic aortic (valve) insufficiency; I34.81 Nonrheumatic mitral (valve) annulus calcification; R94.31 Abnormal electrocardiogram [ECG] [EKG]; I48.91 Unspecified atrial fibrillation | CPT/HCPCS: 93010; 93306 ==

== ENCOUNTER 2025-04-10 14:31 | Outpatient (BNV) | payer MEDICARE, OTHER, SELFPAY | END 2025-04-23 17:15 | PROVIDERS: Admitting Provider Surgery; Emergency Provider Emergency Medicine; PCP Internal Medicine; Visit Provider Radiology Diagnostic Radiology | DX: J90 Pleural effusion, not elsewhere classified (principal); J98.11 Atelectasis; R60.1 Generalized edema | CPT/HCPCS: 74176 ==

== ENCOUNTER → 2025-04-10 14:31 | Outpatient (BNV) | payer MEDICARE, OTHER, SELFPAY | PROVIDERS: Admitting Provider Surgery; Emergency Provider Emergency Medicine; PCP Internal Medicine; Visit Provider Surgery | DX: K63.1 Perforation of intestine (nontraumatic) (principal) | CPT/HCPCS: 99024; 99499 ==

== ENCOUNTER → 2025-04-10 14:31 | Outpatient (BNV) | payer MEDICARE, OTHER, SELFPAY | PROVIDERS: Admitting Provider Surgery; Emergency Provider Emergency Medicine; PCP Internal Medicine; Visit Provider Internal Medicine | DX: I48.91 Unspecified atrial fibrillation (principal); E87.6 Hypokalemia; I16.0 Hypertensive urgency | CPT/HCPCS: 99223; 99233 ==

== ENCOUNTER → 2025-04-10 14:31 | Outpatient (BNV) | payer MEDICARE, OTHER, SELFPAY | PROVIDERS: Admitting Provider Surgery; Emergency Provider Emergency Medicine; PCP Internal Medicine; Visit Provider Internal Medicine | DX: K63.1 Perforation of intestine (nontraumatic) (principal); K57.92 Diverticulitis of intestine, part unspecified, without perforation or abscess without bleeding | CPT/HCPCS: 99222 ==

== ENCOUNTER → 2025-04-10 14:31 | Outpatient (BNV) | payer MEDICARE, OTHER, SELFPAY | PROVIDERS: Admitting Provider Surgery; Emergency Provider Emergency Medicine; PCP Internal Medicine; Visit Provider Student in an Organized Health Care Education/Training Program | DX: I48.91 Unspecified atrial fibrillation (principal) | CPT/HCPCS: 99223; 99232; 99233; 99499 ==

== ENCOUNTER 2025-05-12 10:54 | Outpatient (AMB) | payer MEDICARE, OTHER, SELFPAY ==
--- NOTE | 2025-05-12 11:01 | A.OFFVIS_ITS ---
Vital Signs 05/12/25 11:12 Height 5 ft 2 in Weight 99 lb 2 oz BMI 18.1 BP 110/59 L Blood Pressure Location Rt brachial Position Sitting Pulse 62 Intake Visit Reasons: s/p perforated Intake Note: Patient presents for post-op assessment status post exploratory laparotomy with sigmoid resection and end colostomy. (04/10/2025 ) Pt c/o; reports no complaints at this time. Digital Performance Analyst Required: No Accompanied by: Family/Other Allergies Penicillins Allergy (Intermediate, Verified 05/12/25 11:13) Rash Sulfa (Sulfonamide Antibiotics) Allergy (Intermediate, Verified 05/12/25 11:13) Rash lisinopril Adverse Reaction (Intermediate, Verified 05/12/25 11:13) Cough HPI HPI s/p perforated: Details: Doing okay, struggling with some management of the bag while at a rehab facility. States that this has been leaking along the side closest to the incision site. This has been causing some localized skin breakdown for which the provider thought this appeared fungal in nature and started her on nystatin topical. Her appetite is improving. Still having some difficulty with swallowing. Requesting GI referral. She does still have some pain at the incision site. Has been doing a good job ambulating. Additionally she did have labs drawn at this rehab and wanted us to review them as she had had some electrolyte imbalances while inpatient. [facility] Medical History (Updated 05/12/25 @ 13:01 by Russel Mulligan PA-C) Diffuse esophageal spasm High cholesterol GERD (gastroesophageal reflux disease) Migraine with aura Migraine without aura Hypertension Surgical History (Updated 05/18/25 @ 13:11 by Russel Mulligan PA-C) History of surgical procedure (~04/10/25) H/O wrist surgery Social History Household Members: Unknown / Unable to assess Household Members Other:: son lives nearby Do you presently have visiting nurse or other home services: No Patient Tobacco Use Status: Former Tobacco user Tobacco use type: Cigarette service: No Physical Exam Vital Signs: Last Vital Signs Pulse 62 05/12/25 11:12 BP 110/59 L 05/12/25 11:12 BMI result Body Mass Index 18.1 Const General: comfortable and no acute distress Orientation/consciousness: patient oriented x3 GI Other: Midline incision jaron in place. Removed in office. Ostomy in place, good output. Some evidence of leakage towards the midline incision. Surrounding this areas a beefy red skin consistent with Mary. Inspection: No distended Palpation (GI): Soft to palpation and Tenderness to palpation present (GI) (Mild incisional) Neuro General: patient oriented x3 Assessment & Plan Assessment & Plan (1) Status post exploratory laparotomy: Comment: Sigmoid resection and end colostomy Dr. Gallagher 04/10/2025 Code(s): Z98.890 - Other specified postprocedural states Category: Medical Plan 80-year-old female SP exploratory laparotomy with sigmoid resection and colostomy creation on 04/10/[address] Gallagher for stercoral colitis seen in office for 1st postop visit. Patient has been at rehab, things have been going well. Although she is having some difficulty with managing her ostomy. She has been having difficulty with leakage is towards the midline incision. Also now having some skin breakdown. Has already been on nystatin topical for possible candidal infection. On exam it does appear like the skin breakdown is related to the ostomy leakage is. It is okay to continue with topical nystatin for now. I did have our ostomy nurse me with this patient to discuss changes to her appliance and to give some tips for preventing leakages. We will continue to follow up with this at her next visit. Otherwise she is doing well does have some abdominal planning related to the midline incision which I reassured her as appropriate this point. Midline incision although his beefy red from the skin irritation does look to be healing well, jaron were removed without complication in the office. No concern for deep infection at this time. We will continue with activity restrictions no heavy lifting greater than 15-20 lb until her next visit. Additionally she has improving from a dietary standpoint but is still struggling with swallowing, feeling like food is getting stuck. We will send for a GI referral for workup of this difficulty swallowing, possible upper endoscopy down the road. I was unfortunately unable to obtain records of her labs from her the rehab but reassured her that if there was abnormalities they will reach out to her and make appropriate changes. Her abdomen is otherwise soft, benign. She will follow up in 2-3 weeks for re-evaluation. Orders: Referrals Gastroenterology Referral K21.9 - Gastro-esophageal reflux disease without esophagitis, K22.4 - Dyskinesia of esophagus Coding Level of Care Code Global (80596) Diagnoses Status post exploratory laparotomy Z98.890
[2025-05-12 11:12] VITALS: BP 110/59; PULSE 62; BMI 18.1
--- OUTSIDE RECORDS SUMMARY | 2025-05-12 14:16 | XMS_ITS | Encounter Summary ---
Author Organization [facility] Address [address] [place] [address] Care Team Providers Care Cyber Intelligence Analyst Name Role Phone Alena Quiroz MD Primary Care Provider [phone] Encounter Details Date Type Department Care Team (Late Contact Info) Description 04/27/2025 Lab Requisition [facility] - Main Lab [address] [facility] [place] [address] Manoj Kearns MD [address] [place] [address] Essential (primary) hypertension Social History Tobacco Use Types Packs/Day Years Used Date Smoking Tobacco: Former Cigarettes 0 Q uit: 06/18/1969 Smokeless Tobacco: Never Alcohol Use Standard Drinks/Week Comments Yes 0 (1 standard drink = 0.6 oz pur e alcohol) Comments No Sex and Gender Information Value Date Recorded Sex Assigned at Not on file Legal Sex Female 8:20 AM EST Gender Identity Not on file Sexual Orientation Not on file documented as of this encounter Plan of Treatment Upcoming Encounters Date Type Department Care Team (Late Contact Info) Description 05/28/2025 9:00 AM EST Office Visit Adult Medicine [address] [phone] Alena Quiroz MD [address] [place] [address] documented as of this encounter Procedures Procedure Name Priority Date/Time Associated Diagnosis Comments COMPLETE BLOOD COUNT Routine 04/27/2025 5:14 AM EST Essential (primary) hypertension THYROID STIMULATING HORMONE Routine 04/27/2025 5:14 AM EST Essential (primary) hypertension FOLATE Routine 04/27/2025 5:14 AM EST Essential (primary) hypertension COMPREHENSIVE METABOLIC PANEL Routine 04/27/2025 5:14 AM EST Essential (primary) hypertension documented in this encounter Results * Thyroid stimulating hormone (04/27/2025 5:14 AM EST) TSH 2.08 0.40 - 4.00 mcIU/mL LAB CHEMISTRY METHOD 04/27/2025 4:16 PM EST [facility] Blood Venous blood specimen / Unknown Venipuncture / Unknown 04/27/2025 5:14 AM EST 04/27/2025 10:27 AM EST us Manoj Kearns MD LAB BLOOD ORDERABLES Final Resul t Performing Organization Address City/[facility]/ZIP Co de Phone Number [facility] [address] [place] [address], [place] [phone] * Folate (04/27/2025 5:14 AM EST) Folate 5.6 2.8 - 17.0 ng/ml LAB CHEMISTRY METHOD 04/27/2025 1:27 PM EST [facility] Blood Venous blood specimen / Unknown Venipuncture / Unknown 04/27/2025 5:14 AM EST 04/27/2025 10:27 AM EST us Manoj Kearns MD LAB BLOOD ORDERABLES Final Resul t [facility] [address] [place] [address], [place] [phone] * (ABNORMAL) Comprehensive metabolic panel (04/27/2025 5:14 AM EST) [facility] Signature Sodium 138 133 - 145 mmol/L LAB CHEMISTRY METHOD 04/27/2025 1:27 PM [facility] Potassium 5.0 3.5 - 5.5 mmol/L LAB CHEMISTRY METHOD 04/27/2025 1:27 PM [facility] Chloride 107 96 - 110 mmol/L LAB CHEMISTRY METHOD 04/27/2025 1:27 PM [facility] CO2 23 21 - 32 mmol/L LAB CHEMISTRY METHOD 04/27/2025 1:27 PM [facility] Anion Gap 8 3 - 11 LAB CHEMISTRY METHOD 04/27/2025 1:27 PM [facility] Glucose 79 70 - 100 mg/dL LAB CHEMISTRY METHOD 04/27/2025 1:27 PM [facility] BUN 8 5 - 25 mg/dL LAB CHEMISTRY METHOD 04/27/2025 1:27 PM [facility] Creatinine 0.63 0.50 - 1.10 mg/dL LAB CHEMISTRY METHOD 04/27/2025 1:27 PM [facility] eGFR 90 >=60 mL/min/1. 73m2 LAB CHEMISTRY METHOD 04/27/2025 1:27 PM [facility] Comment:Calculation based on the Chronic Kidney Disease Epidemiology Collaboration (CKD-EPI) equation refit without adjustment for race. BUN/Creatinine Ratio 12.7 LAB CHEMISTRY METHOD 04/27/2025 1:27 PM [facility] Calcium 7.9(L) 8.5 - 10.5 mg/dL LAB CHEMISTRY METHOD 04/27/2025 1:27 PM [facility] AST (SGOT) 15 10 - 42 unit/L LAB CHEMISTRY METHOD 04/27/2025 1:27 PM [facility] ALT (SGPT) 16 10 - 60 unit/L LAB CHEMISTRY METHOD 04/27/2025 1:27 PM [facility] Alkaline Phosphatase 60 42 - 121 unit/L LAB CHEMISTRY METHOD 04/27/2025 1:27 PM EST [facility] Total Protein 5.6(L) 6.0 - 8.0 g/dL LAB CHEMISTRY METHOD 04/27/2025 1:27 PM [facility] Albumin 2.8(L) 3.2 - 5.0 g/dL LAB CHEMISTRY METHOD 04/27/2025 1:27 PM [facility] Total Bilirubin 0.3 0.0 - 1.4 mg/dL LAB CHEMISTRY METHOD 04/27/2025 1:27 PM [facility] Blood Venous blood specimen / Unknown Venipuncture / Unknown 04/27/2025 5:14 AM EST 04/27/2025 10:27 AM EST us Manoj Kearns MD LAB BLOOD ORDERABLES Final Resul t [facility] [address] [place] [address], [place] [phone] * (ABNORMAL) Complete blood count (04/27/2025 5:14 AM EST) WBC 7.9 4.8 - 10.8 K/mcL LAB HEMETOLOGY METHOD 04/27/2025 1:13 PM [facility] RBC 3.20(L) 3.80 - 4.80 M/mcL LAB HEMETOLOGY METHOD 04/27/2025 1:13 PM [facility] Hemoglobin 9.3(L) 11.5 - 16.0 g/dL LAB HEMETOLOGY METHOD 04/27/2025 1:13 PM [facility] Hematocrit 29.5(L) 35.0 - 47.0 % LAB HEMETOLOGY METHOD 04/27/2025 1:13 PM [facility] MCV 93.4 79.0 - 98.0 FL LAB HEMETOLOGY METHOD 04/27/2025 1:13 PM EST [facility] MCH 29.4 27.0 - 32.0 pcg LAB HEMETOLOGY METHOD 04/27/2025 1:13 PM [facility] MCHC 31.5(L) 32.0 - 37.0 g/dL LAB HEMETOLOGY METHOD 04/27/2025 1:13 PM [facility] RDW 16.4(H) 11.0 - 15.0 % LAB HEMETOLOGY METHOD 04/27/2025 1:13 PM [facility] Platelets 652(H) 130 - 400 K/mcL LAB HEMETOLOGY METHOD 04/27/2025 1:13 PM [facility] MPV 9.0 7.0 - 11.0 FL LAB HEMETOLOGY METHOD 04/27/2025 1:13 PM [facility] NRBC 0.0 <1.0 % LAB HEMETOLOGY METHOD 04/27/2025 1:13 PM [facility] NRBC Absolute 0.00 <0.10 K/mcL LAB HEMETOLOGY METHOD 04/27/2025 1:13 PM [facility] Blood Venous blood specimen / Unknown Venipuncture / Unknown 04/27/2025 5:14 AM EST 04/27/2025 10:27 AM EST us Manoj Kearns MD LAB BLOOD ORDERABLES Final Resul t [facility] [address] [place] [address], documented in this encounter Visit Diagnoses Diagnosis Essential (primary) hypertension Unspecified essential hypertension documented in this encounter Care Teams Cyber Intelligence Analyst Relationship Specialty Start Date End Date Alena Quiroz MD [address] [place], [place] PCP - General Internal Medicine 01/23/22 documented as of this encounter
--- OUTSIDE RECORDS SUMMARY | 2025-05-12 14:16 | XMS_ITS | Clinical Summary ---
Author Organization [facility] [address] [place] [address] [place] [phone] Phone Care Team Providers Care Material Control Supervisor Name Role Phone Alena Quiroz MD Primary Care Provider Allergies Active Allergy Reactions Criticality Noted Date Comments Lisinopril 04/21/2019 Dry cough Sulfa (Sulfonamide Antibiotics) Rash 03/20 Medications loratadine (CLARITIN) 10 mg tablet Take 1 tablet (10 mg total) by mouth. Active Imitrex 50 mg tablet Take by mouth. 7 Active famotidine (PEPCID) 20 mg tablet TAKE 1 TABLET BY MOUTH TWICE A DAY 180 tablet 1 5 Active dilTIAZem CD (CARDIZEM CD) 240 mg 24 hr capsule TAKE 1 CAPSULE BY MOUTH EVERY DAY 90 capsule 1 5 Active atorvastatin (LIPITOR) 10 mg tablet TAKE 1 TABLET BY MOUTH EVERYDAY AT BEDTIME 90 tablet 1 5 Active olmesartan (BENICAR) 20 mg tablet TAKE 1 TABLET (20 MG TOTAL) BY MOUTH ONCE DAILY 90 tablet 5 Active olmesartan (BENICAR) 20 mg tablet TAKE 1 TABLET (20 MG TOTAL) BY MOUTH ONCE DAILY 90 tablet 5 025 Discontinued Active Problems Problem Noted Date Diagnosed Date [...] with aura 04/16/2006 Overview (05/23/2024): IMO update Encounters Date Type Department Care Team Description 05/08/2025 Lab Requisition [facility] - Main Lab [address] [facility] [email or web address] [address] Manoj Kearns MD Hyperlipidemia, unspecified; Unspecified atrial fibrillation ([facility]/HCC V24, CMS/HCC V28); Diverticulitis of small intestine with perforation and abscess without bleeding 05/08/[address] [phone] Alena Quiroz MD 05/04/[address] [phone] Alena Quiroz MD 05/01/[address] [facility] Main Lab [address] [facility] [email or web address] [address] Manoj Kearns MD Hyperlipidemia, unspecified; Unspecified atrial fibrillation (CMS/HCC V24, CMS/[facility] V28); Diverticulitis of small intestine with perforation and abscess without bleeding 04/27/[address] [phone] Alena Quiroz MD 04/27/2025 Lab Requisition [facility] Lab [address] [facility] [email or web address] [phone] Manoj Kearns MD Essential (primary) hypertension 04/14/[address] [phone] Alena Quiroz MD from Last 3 Months Immunizations Immunization Administration Dates Next Due Influenza [...] Site/Laterality Comments OTHER SURGICAL HISTORY 12/10/2007 PROCEDURE: NM ESOPHAGEAL MOTILITY STUDY W/INTERP&RPT; COMMENT: diffuse esophageal spasm TONSILLECTOMY 1950 PROCEDURE: HISTORICAL TONSILLECTOMY WRIST SURGERY PROCEDURE: HISTORICAL WRIST SURGERY; COMMENT: left, fx COLONOSCOPY 03/22/2007 PROCEDURE: HISTORICAL COLONOSCOPY; COMMENT: negative UPPER GASTROINTESTINAL ENDOSCOPY 01/24/2007 PROCEDURE: NM UPPER GI ENDOSCOPY PERFORMED UPPER GASTROINTESTINAL ENDOSCOPY 03/07/2019 PROCEDURE: NM UPPER GI ENDOSCOPY PERFORMED; COMMENT: No visible [...] Mother CABG Sister 1 in her 70s, senior copywriter d Cervical cancer Sister 2 Hypertension Sister [...] 0 Q uit: 06/18/1969 Smokeless Tobacco: Never Tobacco [...] Care Team (Late st Contact Info) Description 05/28/2025 9:00 AM EST Office Visit Adult Medicine [address] [phone] Alena Quiroz MD [address] [place] [phone] Health Maintenance Due Date Last Done Comments [...] 04/15/2025 04/15/2024 Hypertension/CHF/CAD Annual BMP Blood Test 05/11/2026 05/11/2025, 05/04/2025, 04/27/2025, Additional history exists DTaP,Tdap,and Td Vaccines (3 - Td or Tdap) 01/08/2029 01/08/2019, 03/04/2007 Cholesterol Screening (Lipid Panel) 05/04/2030 05/04/2025, 03/07/2024, 03/07/2024 Colorectal Cancer Screening: Colonoscopy 04/28/2032 [...] Associated Diagnosis Comments BASIC METABOLIC PANEL Routine 05/11/2025 8:37 AM EST Hyperlipidemia, unspecified Unspecified atrial fibrillation (CMS/HCC V24, CMS/HCC V28) Diverticulitis of small intestine with perforation and abscess without bleeding COMPLETE BLOOD COUNT Routine 05/11/2025 8:37 AM EST Hyperlipidemia, unspecified Unspecified atrial fibrillation (CMS/HCC V24, CMS/HCC V28) Diverticulitis of small intestine with perforation and abscess without bleeding LIPID PANEL WITH REFLEX TO DIRECT LDL Routine 05/04/2025 8:49 AM EST Hyperlipidemia, unspecified Unspecified atrial fibrillation (CMS/HCC V24, CMS/HCC V28) Diverticulitis of small intestine with perforation and abscess without bleeding BASIC METABOLIC PANEL Routine 05/04/2025 8:49 AM EST Hyperlipidemia, unspecified Unspecified atrial fibrillation (CMS/HCC V24, CMS/HCC V28) Diverticulitis of small intestine with perforation and abscess without bleeding COMPLETE BLOOD COUNT Routine 05/04/2025 8:49 AM EST Hyperlipidemia, unspecified Unspecified atrial fibrillation (CMS/HCC V24, CMS/HCC V28) Diverticulitis of small intestine with perforation and abscess without bleeding THYROID STIMULATING HORMONE Routine 04/27/2025 5:14 AM EST Essential (primary) hypertension FOLATE Routine 04/27/2025 5:14 AM EST Essential (primary) hypertension COMPREHENSIVE METABOLIC PANEL Routine 04/27/2025 5:14 AM EST Essential (primary) hypertension COMPLETE BLOOD COUNT Routine 04/27/2025 5:14 AM EST Essential (primary) hypertension EXTERNAL XRAY REPORT 04/20/2025 EXTERNAL XRAY REPORT 04/20/[address] REPORT 04/10/[address] REPORT 04/10/2025 FALLS RISK ASSESSMENT Routine 04/15/2024 DEPRESSION SCREENING Routine 03/06/2024 DXA BONE DENSITY STUDY 1+ SITS AXIAL SKEL Routine 05/08/2022 1:00 PM EST Other specified disorders of bone density and structure, unspecified thigh EXTERNAL COLONOSCOPY REPORT Routine 04/28/2022 7:47 AM EST HEPATITIS C SCREENING Routine 10/24/2013 from Last 3 Months or Most Recently Relevant to Health Maintenance Results * (ABNORMAL) Complete blood count (05/11/2025 8:37 AM EST) Only the most recent of3 resultswithin the time period is included. WBC 6.8 4.8 - 10.8 K/mcL LAB HEMETOLOGY METHOD 05/11/2025 10:27 AM [facility] RBC 3.30(L) 3.80 - 4.80 M/mcL LAB HEMETOLOGY METHOD 05/11/2025 10:27 AM [facility] Hemoglobin 9.8(L) 11.5 - 16.0 g/dL LAB HEMETOLOGY METHOD 05/11/2025 10:27 AM [facility] Hematocrit 30.5(L) 35.0 - 47.0 % LAB HEMETOLOGY METHOD 05/11/2025 10:27 AM [facility] MCV 92.1 79.0 - 98.0 FL LAB HEMETOLOGY METHOD 05/11/2025 10:27 AM [facility] MCH 29.6 27.0 - 32.0 pcg LAB HEMETOLOGY METHOD 05/11/2025 10:27 AM EST [facility] MCHC 32.1 32.0 - 37.0 g/dL LAB HEMETOLOGY METHOD 05/11/2025 10:27 AM [facility] RDW 15.9(H) 11.0 - 15.0 % LAB HEMETOLOGY METHOD 05/11/2025 10:27 AM [facility] Platelets 307 130 - 400 K/mcL LAB HEMETOLOGY METHOD 05/11/2025 10:27 AM [facility] MPV 9.8 7.0 - 11.0 FL LAB HEMETOLOGY METHOD 05/11/2025 10:27 AM [facility] NRBC 0.0 <1.0 % LAB HEMETOLOGY METHOD 05/11/2025 10:27 AM [facility] NRBC Absolute 0.00 <0.10 K/mcL LAB HEMETOLOGY METHOD 05/11/2025 10:27 AM [facility] Blood Venous blood specimen / Unknown Venipuncture / Unknown 05/11/2025 8:37 AM EST 05/11/2025 10:14 AM EST us Manoj Kearns MD LAB BLOOD ORDERABLES Final Resul t [facility] [address] [place] [address], * (ABNORMAL) Basic metabolic panel (05/11/2025 8:37 AM EST) Only the most recent of2 resultswithin the time period is included. Sodium 142 133 - 145 mmol/L 05/11/2025 11:15 AM [facility] Potassium 3.4(L) 3.5 - 5.5 mmol/L 05/11/2025 11:15 AM [facility] Chloride 104 96 - 110 mmol/L 05/11/2025 11:15 AM [facility] CO2 27 21 - 32 mmol/L 05/11/2025 11:15 AM [facility] Anion Gap 11 3 - 11 05/11/2025 11:15 AM [facility] Glucose 90 70 - 100 mg/dL 05/11/2025 11:15 AM [facility] BUN 11 5 - 25 mg/dL 05/11/2025 11:15 AM [facility] Creatinine 0.77 0.50 - 1.10 mg/dL 05/11/2025 11:15 AM [facility] eGFR 79 >=60 mL/min/1. 73m2 05/11/2025 11:15 AM [facility] Comment:Calculation based on the Chronic Kidney Disease Epidemiology Collaboration (CKD-EPI) equation refit without adjustment for race. BUN/Creatinine Ratio 14.3 05/11/2025 11:15 AM [facility] Calcium 8.3(L) 8.5 - 10.5 mg/dL 05/11/2025 11:15 AM [facility] Blood Venous blood specimen / Unknown Venipuncture / Unknown 05/11/2025 8:37 AM EST 05/11/2025 10:14 AM EST us Manoj Kearns MD LAB BLOOD ORDERABLES Final Resul t [facility] [address] [place] [address], * Lipid panel with reflex to direct LDL (05/04/2025 8:49 AM EST) Cholesterol 117 0 - 200 mg/dL LAB CHEMISTRY METHOD 05/04/2025 11:14 AM [facility] Triglycerides 88 0 - 150 mg/dL LAB CHEMISTRY METHOD 05/04/2025 11:14 AM [facility] HDL 47 >=40 mg/dL LAB CHEMISTRY METHOD 05/04/2025 11:14 AM [facility] LDL Calculated 52 0 - 100 mg/dL LAB CHEMISTRY METHOD 05/04/2025 11:14 AM [facility] Comment:Estimated LDL Calcul ated using equation: Total cholesterol - HDL cholesterol - (Triglycerides/5) VLDL Cholesterol [place] 17.6 mg/dL LAB CHEMISTRY METHOD 05/04/2025 11:14 AM [facility] Non HDL Chol. (LDL+VLDL) 70 <145 mg/dL LAB CHEMISTRY METHOD 05/04/2025 11:14 AM [facility] Chol/HDL Ratio 2.5 0.0 - 4.4 LAB CHEMISTRY METHOD 05/04/2025 11:14 AM [facility] Blood Venous blood specimen / Unknown Venipuncture / Unknown 05/04/2025 8:49 AM EST 05/04/2025 9:51 AM EST us Manoj Kearns MD LAB BLOOD ORDERABLES Final Resul t Performing Organization Address City/[facility]/ZIP Co de Phone Number [facility] [address] [place] [address], [place] [phone] * Thyroid stimulating hormone (04/27/2025 5:14 AM EST) TSH 2.08 0.40 - 4.00 mcIU/mL LAB CHEMISTRY METHOD 04/27/2025 4:16 PM [facility] Blood Venous blood specimen / Unknown Venipuncture / Unknown 04/27/2025 5:14 AM EST 04/27/2025 10:27 AM EST us Manoj Kearns MD LAB BLOOD ORDERABLES Final Resul t [facility] [address] [place] [address], [place] [phone] * Folate (04/27/2025 5:14 AM EST) Pathologist [facility] Folate 5.6 2.8 - 17.0 ng/ml LAB CHEMISTRY METHOD 04/27/2025 1:27 PM [facility] Blood Venous blood specimen / Unknown Venipuncture / Unknown 04/27/2025 5:14 AM EST 04/27/2025 10:27 AM EST us Manoj Kearns MD LAB BLOOD ORDERABLES Final Resul t [facility] [address] [place] [address], [place] [phone] * (ABNORMAL) Comprehensive metabolic panel (04/27/2025 5:14 AM EST) [facility] Sodium 138 133 - 145 mmol/L LAB CHEMISTRY METHOD 04/27/2025 1:27 PM [facility] Potassium 5.0 3.5 - 5.5 mmol/L LAB CHEMISTRY METHOD 04/27/2025 1:27 PM [facility] Chloride 107 96 - 110 mmol/L LAB CHEMISTRY METHOD 04/27/2025 1:27 PM [facility] CO2 23 21 - 32 mmol/L LAB CHEMISTRY METHOD 04/27/2025 1:27 PM [facility] Anion Gap 8 3 - 11 LAB CHEMISTRY METHOD 04/27/2025 1:27 PM [facility] Glucose 79 70 - 100 mg/dL LAB CHEMISTRY METHOD 04/27/2025 1:27 PM [facility] BUN 8 5 - 25 mg/dL LAB CHEMISTRY METHOD 04/27/2025 1:27 PM [facility] Creatinine 0.63 0.50 - 1.10 mg/dL LAB CHEMISTRY METHOD 04/27/2025 1:27 PM [facility] eGFR 90 >=60 mL/min/1. 73m2 LAB CHEMISTRY METHOD 04/27/2025 1:27 PM [facility] Comment:Calculation based on the Chronic Kidney Disease Epidemiology Collaboration (CKD-EPI) equation refit without adjustment for race. BUN/Creatinine Ratio 12.7 LAB CHEMISTRY METHOD 04/27/2025 1:27 PM [facility] Calcium 7.9(L) 8.5 - 10.5 mg/dL LAB CHEMISTRY METHOD 04/27/2025 1:27 PM [facility] AST (SGOT) 15 10 - 42 unit/L LAB CHEMISTRY METHOD 04/27/2025 1:27 PM [facility] ALT (SGPT) 16 10 - 60 unit/L LAB CHEMISTRY METHOD 04/27/2025 1:27 PM [facility] Alkaline Phosphatase 60 42 - 121 unit/L LAB CHEMISTRY METHOD 04/27/2025 1:27 PM [facility] Total Protein 5.6(L) 6.0 - 8.0 g/dL LAB CHEMISTRY METHOD 04/27/2025 1:27 PM [facility] Albumin 2.8(L) 3.2 - 5.0 g/dL LAB CHEMISTRY METHOD 04/27/2025 1:27 PM [facility] Total Bilirubin 0.3 0.0 - 1.4 mg/dL LAB CHEMISTRY METHOD 04/27/2025 1:27 PM [facility] Blood Venous blood specimen / Unknown Venipuncture / Unknown 04/27/2025 5:14 AM EST 04/27/2025 10:27 AM EST us Manoj Kearns MD LAB BLOOD ORDERABLES Final Resul t [facility] [address] [place] [address], * External Xray Report (04/20/2025) Only the most recent of2 resultswithin the time period is included. Anatomical Region Laterality Modality Radiographic Aissatou ging Provider [facility] XR PROCEDURES Final Result * External CT Report (04/10/2025) Only the most recent of2 resultswithin the time period is included. Anatomical Region Laterality Modality Computed Tomogra phy Provider [facility] PROCEDURES Final Result * Falls Risk Assessment (04/15/2024) Falls Risk Assessment abstracted [facility] Provider MD HEALTH MAINTENANCE Final Result * Depression Screening (03/06/2024) Depression Screening abstracted [facility] Provider HEALTH MAINTENANCE Final Result * DXA [...] (World Health Organization Fracture Risk Assessment) [facility] Department of Internal Medicine recommends using National [...] alternative screening schedule based on issa Mayer., [facility] July 06, 2011 for patients with osteopenia [...] years. (World HealthOrganization Fracture Risk Assessment) [facility] Department of Internal Medicine [...] alternative screening schedule based on issa Mayer., [facility] for patients with [facility]openia (based on [...] inal Result * Hepatitis C Screening (10/24/2013) Pathologist Replaced by [facility] Hepatitis C Screening abstracted Historical Provider HEALTH MAINTENANCE Final Result from Last 3 Months or Most Recently Relevant to Health Maintenance Insurance MEDIC[facility] Care Teams Material Control Supervisor Relationship Specialty Start Date End Date Alena Quiroz MD [address] [place] [phone] PCP - General Internal Medicine 01/23/22
--- OUTSIDE RECORDS SUMMARY | 2025-05-12 14:16 | XMS_ITS | Encounter Summary ---
Author Organization [facility] Address [address] [place] [address] Care Team Providers Care Emergency Specialist Name Role Phone Alena Quiroz MD Primary Care Provider [phone] Encounter Details Date Type Department Care Team (Late st Contact Info) Description 05/08/2025 Lab Requisition [facility] - Main Lab [address] [facility] [place] [address] Manoj Kearns MD [address] [place] [address] Hyperlipidemia, unspecified; Unspecified atrial fibrillation (CMS/HCC V24, CMS/HCC V28); Diverticulitis of small intestine with perforation and abscess without bleeding Social History Tobacco Use Types Packs/Day Years [...] 9:00 AM EST Office Visit Adult Medicine [address] [phone] Alena Quiroz MD [address] [place] [address] documented as of this encounter Procedures Procedure Name Priority Date/Time Associated Diagnosis Comments COMPLETE BLOOD COUNT Routine 05/11/2025 8:37 AM EST Hyperlipidemia, unspecified Unspecified atrial fibrillation (CMS/HCC V24, CMS/HCC V28) Diverticulitis of small intestine with perforation and abscess without bleeding BASIC METABOLIC PANEL Routine 05/11/2025 8:37 AM EST Hyperlipidemia, unspecified Unspecified atrial fibrillation (CMS/HCC V24, CMS/HCC V28) Diverticulitis of small intestine with perforation and abscess without bleeding documented in this encounter Results * (ABNORMAL) Basic metabolic panel (05/11/2025 8:37 AM EST) Sodium 142 133 - 145 mmol/L 05/11/2025 11:15 AM [facility] Potassium 3.4(L) 3.5 - 5.5 mmol/L 05/11/2025 11:15 AM [facility] Chloride 104 96 - 110 mmol/L 05/11/2025 11:15 AM [facility] CO2 27 21 - 32 mmol/L 05/11/2025 11:15 AM [facility] Anion Gap 11 3 - 11 05/11/2025 11:15 AM [facility] Glucose 90 70 - 100 mg/dL 05/11/2025 11:15 AM [facility] BUN 11 5 - 25 mg/dL 05/11/2025 11:15 AM [facility] Creatinine 0.77 0.50 - 1.10 mg/dL 05/11/2025 11:15 AM [facility] eGFR 79 >=60 mL/min/1. 73m2 05/11/2025 11:15 AM [facility] Comment:Calculation based on the Chronic Kidney Disease Epidemiology Collaboration (CKD-EPI) equation refit without adjustment for race. BUN/Creatinine Ratio 14.3 05/11/2025 11:15 AM [facility] Calcium 8.3(L) 8.5 - 10.5 mg/dL 05/11/2025 11:15 AM [facility] Blood Venous blood specimen / Unknown Venipuncture / Unknown 05/11/2025 8:37 AM EST 05/11/2025 10:14 AM EST us Manoj Kearns MD LAB BLOOD ORDERABLES Final Resul t [facility] [address] [place] [address], * (ABNORMAL) Complete blood count (05/11/2025 8:37 AM EST) WBC 6.8 4.8 - 10.8 K/mcL LAB HEMETOLOGY METHOD 05/11/2025 10:27 AM [facility] RBC 3.30(L) 3.80 - 4.80 M/mcL LAB HEMETOLOGY METHOD 05/11/2025 10:27 AM [facility] Hemoglobin 9.8(L) 11.5 - 16.0 g/dL LAB HEMETOLOGY METHOD 05/11/2025 10:27 AM [facility] Hematocrit 30.5(L) 35.0 - 47.0 % LAB HEMETOLOGY METHOD 05/11/2025 10:27 AM [facility] MCV 92.1 79.0 - 98.0 FL LAB HEMETOLOGY METHOD 05/11/2025 10:27 AM [facility] MCH 29.6 27.0 - 32.0 pcg LAB HEMETOLOGY METHOD 05/11/2025 10:27 AM [facility] MCHC 32.1 32.0 - 37.0 g/dL LAB HEMETOLOGY METHOD 05/11/2025 10:27 AM [facility] RDW 15.9(H) 11.0 - 15.0 % LAB HEMETOLOGY METHOD 05/11/2025 10:27 AM EST [facility] Platelets 307 130 - 400 K/mcL LAB HEMETOLOGY METHOD 05/11/2025 10:27 AM [facility] MPV 9.8 7.0 - 11.0 FL LAB HEMETOLOGY METHOD 05/11/2025 10:27 AM EST [facility] NRBC 0.0 <1.0 % LAB HEMETOLOGY METHOD 05/11/2025 10:27 AM [facility] NRBC Absolute 0.00 <0.10 K/mcL LAB HEMETOLOGY METHOD 05/11/2025 10:27 AM [facility] Blood Venous blood specimen / Unknown Venipuncture / Unknown 05/11/2025 8:37 AM EST 05/11/2025 10:14 AM EST us Manoj Kearns MD LAB BLOOD ORDERABLES Final Resul t [facility] [address] [place] [address], documented in this encounter Visit Diagnoses Diagnosis Hyperlipidemia, unspecified Unspecified atrial fibrillation (CMS/HCC V24, CMS/HCC V28) Diverticulitis of small intestine with perforation and abscess without bleeding documented in this encounter Care Teams Emergency Specialist Relationship Specialty Start Date End Date Alena Quiroz MD [address] [place] [address] PCP - General Internal Medicine 01/23/22 documented as of this encounter
--- OUTSIDE RECORDS SUMMARY | 2025-05-12 14:16 | XMS_ITS | Encounter Summary ---
Author Organization [facility] Address [address] [place] [address] Care Team Providers Care Smearer Name Role Phone Alena Quiroz MD Primary Care Provider [phone] Reason for Visit * Reason Onset Date Comments Hospital Follow-up 05/08/2025 Encounter Details Date Type Department Care Team ([facility] st Contact Info) Description 05/08/2025 Telephone Adult Medicine [address] [phone] Alena Quiroz MD [address] [place] [address] Social History Tobacco Use Types Packs/Day Years [...] on file documented as of this encounter Progress Notes * Kyleigh Joaquin RN - 05/11/2025 1:51 PM EST Called and spoke with betzy pt being discharge 05/15 hosp fu for 05/28 * Cristina Hamlin - 05/11/2025 12:49 PM EST [facility] [employer] Assistant from [facility] returning call back. Please call [phone] * Melva Villarreal RN - 05/08/2025 3:06 PM EST Message left for christianne to book pt for f/u * Cristina Hamlin - 05/08/2025 2:50 PM EST Hospital/ER follow up appointment needed Hospital patient was treated at: [facility] Was this only an ER visit or was the patient admitted to the hospital? Admitted to the hospital/kept overnight Date of visit if ER visit only: n/a If patient was admitted what was the date of discharge? 04/26/2025 Reason/diagnosis for visit or stay: Abdominal pain Per Betzy [employer] Assistant Patient New diagnosis of AFib and colonoscopy bag When was the patient told to follow up? 7-10 days Was visit or stay related to an injury? If yes, what was the date of injury (DOI)? No If yes, was the injury due to: n/a documented in this encounter Plan of Treatment Upcoming Encounters Date Type Department Care Team (Late st Contact Info) Description 05/28/2025 9:00 AM EST Office Visit Adult Medicine [address] [phone] Alena Quiroz MD [address] [place] [address] documented as of this encounter Visit Diagnoses Not on filedocumented in this encounter Care Teams Smearer Relationship Specialty Start Date End Date Alena Quiroz MD [address] [place] [address] PCP - General Internal Medicine 01/23/22 documented as of this encounter
--- OUTSIDE RECORDS SUMMARY | 2025-05-12 14:16 | XMS_ITS | Encounter Summary ---
Author Organization [facility] Address [address] [place] [address] Care Team Providers Care Russian Teacher Name Role Phone Alena Quiroz MD Primary Care Provider [phone] Encounter Details Date Type Department Care Team (Late st Contact Info) Description 05/01/2025 Lab Requisition [facility] - Main Lab 299 [facility] [place] [address] Manoj Kearns MD [address] [place] [address] Hyperlipidemia, unspecified; Unspecified atrial fibrillation (CMS/HCC V24, [...] 9:00 AM EST Office Visit Adult Medicine [address] [phone] Alena Quiroz MD [address] [place] [address] documented as of this encounter Procedures Procedure Name Priority Date/Time Associated Diagnosis Comments LIPID PANEL WITH REFLEX TO DIRECT LDL [...] Hyperlipidemia, unspecified Unspecified atrial fibrillation (CMS/HCC V24, [facility] V28) Diverticulitis of small intestine with perforation and abscess without bleeding documented in this encounter Results * Lipid panel with reflex to direct LDL (05/04/2025 8:49 AM EST) Cholesterol 117 0 - 200 mg/dL LAB CHEMISTRY METHOD 05/04/2025 11:14 AM [facility] Triglycerides 88 0 - 150 mg/dL LAB CHEMISTRY METHOD 05/04/2025 11:14 AM [facility] HDL 47 >=40 mg/dL LAB CHEMISTRY METHOD 05/04/2025 11:14 AM [facility] LDL Calculated 52 0 - 100 mg/dL LAB CHEMISTRY METHOD 05/04/2025 11:14 AM [facility] Comment:Estimated LDL Calcul ated using equation: Total cholesterol - HDL cholesterol - (Triglycerides/5) VLDL Cholesterol [place] 17.6 mg/dL LAB CHEMISTRY METHOD 05/04/2025 11:14 AM [facility] Non HDL Chol. (LDL+VLDL) 70 <145 mg/dL LAB CHEMISTRY METHOD 05/04/2025 11:14 AM [facility] Chol/HDL Ratio 2.5 0.0 - 4.4 LAB CHEMISTRY METHOD 05/04/2025 11:14 AM [facility] Blood Venous blood specimen / Unknown Venipuncture / Unknown 05/04/2025 8:49 AM EST 05/04/2025 9:51 AM EST Manoj Kearns MD LAB BLOOD ORDERABLES Final Resul t [facility] [address] [place] [address], * (ABNORMAL) Basic metabolic panel (05/04/2025 8:49 AM EST) Sodium 141 133 - 145 mmol/L LAB CHEMISTRY METHOD 05/04/2025 11:17 AM [facility] Potassium 3.6 3.5 - 5.5 mmol/L LAB CHEMISTRY METHOD 05/04/2025 11:17 AM [facility] Chloride 109 96 - 110 mmol/L LAB CHEMISTRY METHOD 05/04/2025 11:17 AM [facility] CO2 26 21 - 32 mmol/L LAB CHEMISTRY METHOD 05/04/2025 11:17 AM [facility] Anion Gap 6 3 - 11 LAB CHEMISTRY METHOD 05/04/2025 11:17 AM [facility] Glucose 113(H) 70 - 100 mg/dL LAB CHEMISTRY METHOD 05/04/2025 11:17 AM [facility] BUN 18 5 - 25 mg/dL LAB CHEMISTRY METHOD 05/04/2025 11:17 AM [facility] Creatinine 0.67 0.50 - 1.10 mg/dL LAB CHEMISTRY METHOD 05/04/2025 11:17 AM [facility] eGFR 89 >=60 mL/min/1. 73m2 LAB CHEMISTRY METHOD 05/04/2025 11:17 AM [facility] Comment:Calculation based on the Chronic Kidney Disease Epidemiology Collaboration (CKD-EPI) equation refit without adjustment for race. BUN/Creatinine Ratio 26.9 LAB CHEMISTRY METHOD 05/04/2025 11:17 AM [facility] Calcium 8.4(L) 8.5 - 10.5 mg/dL LAB CHEMISTRY METHOD 05/04/2025 11:17 AM [facility] Blood Venous blood specimen / Unknown Venipuncture / Unknown 05/04/2025 8:49 AM EST 05/04/2025 9:51 AM EST us Manoj Kearns MD LAB BLOOD ORDERABLES Final Resul t [facility] [address] [place] [address], * (ABNORMAL) Complete blood count (05/04/2025 8:49 AM EST) WBC 7.4 4.8 - 10.8 K/mcL LAB HEMETOLOGY METHOD 05/04/2025 10:19 AM [facility] RBC 3.30(L) 3.80 - 4.80 M/mcL LAB HEMETOLOGY METHOD 05/04/2025 10:19 AM [facility] Hemoglobin 9.8(L) 11.5 - 16.0 g/dL LAB HEMETOLOGY METHOD 05/04/2025 10:19 AM [facility] Hematocrit 30.4(L) 35.0 - 47.0 % LAB HEMETOLOGY METHOD 05/04/2025 10:19 AM [facility] MCV 92.4 79.0 - 98.0 FL LAB HEMETOLOGY METHOD 05/04/2025 10:19 AM [facility] MCH 29.8 27.0 - 32.0 pcg LAB HEMETOLOGY METHOD 05/04/2025 10:19 AM [facility] MCHC 32.2 32.0 - 37.0 g/dL LAB HEMETOLOGY METHOD 05/04/2025 10:19 AM EST [facility] RDW 15.9(H) 11.0 - 15.0 % LAB HEMETOLOGY METHOD 05/04/2025 10:19 AM EST [facility] Platelets 395 130 - 400 K/mcL LAB HEMETOLOGY METHOD 05/04/2025 10:19 AM [facility] MPV 9.9 7.0 - 11.0 FL LAB HEMETOLOGY METHOD 05/04/2025 10:19 AM [facility] NRBC 0.0 <1.0 % LAB HEMETOLOGY METHOD 05/04/2025 10:19 AM [facility] NRBC Absolute 0.00 <0.10 K/mcL LAB HEMETOLOGY METHOD 05/04/2025 10:19 AM [facility] Blood Venous blood specimen / Unknown Venipuncture / Unknown 05/04/2025 8:49 AM EST 05/04/2025 9:51 AM EST us Manoj Kearns MD LAB BLOOD ORDERABLES Final Resul t [facility] [address] [place] [address], documented in this encounter Visit Diagnoses Diagnosis Hyperlipidemia, unspecified Unspecified atrial fibrillation (CMS/HCC V24, CMS/HCC V28) Diverticulitis of small intestine with perforation and abscess without bleeding documented in this encounter Care Teams Russian Teacher Relationship Specialty Start Date End Date Alena Quiroz MD [address] [place] [address] PCP - General Internal Medicine 01/23/22 documented as of this encounter
== END 2025-05-12 11:52 | disposition home or self-care (01) ==
LOC: HO.HGS 10:54
PROVIDERS: PCP Internal Medicine
DX: Z98.890 Other specified postprocedural states (principal)
CPT/HCPCS: 99024

== ENCOUNTER → 2025-05-12 10:54 | Outpatient (BNVA) | payer MEDICARE, OTHER, SELFPAY | PROVIDERS: PCP Internal Medicine | DX: Z98.890 Other specified postprocedural states (principal); K22.4 Dyskinesia of esophagus; K21.9 Gastro-esophageal reflux disease without esophagitis; Z93.3 Colostomy status | CPT/HCPCS: 99212 ==

== ENCOUNTER 2025-06-09 12:49 | Outpatient (AMB) | payer MEDICARE, OTHER, SELFPAY ==
[2025-06-09 12:56] VITALS: BP 106/58; PULSE 61; BMI 18.8
--- NOTE | 2025-06-09 12:56 | MHC.OFFVIS ---
Vital Signs 06/09/25 12:56 Height 5 ft 2 in Weight 103 lb BMI 18.8 BP 106/58 L Blood Pressure Location Lt brachial Position Sitting Pulse 61 Intake Visit Reasons: 1 mo f/u Intake Note: Patient here for 1m follow up from last office visit on 05-12-2025. S/p status post exploratory laparotomy with sigmoid resection and end colostomy. Patient c/o: still some discomfort. Slowly gaining weight. Reports med change. Amlodipine now 5mg QD decrease from 10mg. Surgery: Dr. Gallagher~ 04-10-2025 Cranberry Sorter Required: No Accompanied by: sister Dudley Allergies Penicillins Allergy (Intermediate, Verified 06/09/25 13:05) Rash Sulfa (Sulfonamide Antibiotics) Allergy (Intermediate, Verified 06/09/25 13:05) Rash lisinopril Adverse Reaction (Intermediate, Verified 06/09/25 13:05) Cough HPI HPI 1 mo f/u: Details: She is doing overall well but still feels weak. She is having physical therapy and does feel like she is gaining some strength back. She also has been having some issues with her ostomy, states that her stools are pretty firm, goes every other or every 2 days and stools are usually formed but soft. In this results in leakage from the ostomies contact with the skin. She has been taking Colace but has not gotten much relief from this. She reports her amlodipine dose was changed by her coal mill operator to now 5 mg daily. Continues to struggle with oral intake due to swallowing issues. She does have a appointment with GI in July. Reports her weight is slowly increasing. She denies nausea or vomiting. The rash around the incision site has resolved at this point states that sometimes when there is stool leakage she gets skin irritation but has been trying to keep the area clean. She has not been putting anything on this area. [facility] Medical History (Updated 06/15/25 @ 08:39 by Russel Mulligan PA-C) Diffuse esophageal spasm High cholesterol GERD (gastroesophageal reflux disease) Migraine with aura Migraine without aura Hypertension Surgical History (Updated 05/18/25 @ 13:11 by Russel Mulligan PA-C) History of surgical procedure (~04/10/25) H/O wrist surgery Social History Household Members: Unknown / Unable to assess Household Members Other:: son lives nearby Do you presently have visiting nurse or other home services: No Patient Tobacco Use Status: Former Tobacco user Tobacco use type: Cigarette service: No Physical Exam Vital Signs: Last Vital Signs Pulse 61 06/09/25 12:56 BP 106/58 L 06/09/25 12:56 BMI result Body Mass Index 18.8 Assessment & Plan Assessment & Plan (1) Status post exploratory laparotomy: Comment: Sigmoid resection and end colostomy Dr. Gallagher 04/10/2025 Code(s): Z98.890 - Other specified postprocedural states Category: Medical (2) Status post Yael procedure: Code(s): Z93.3 - Colostomy status Category: Medical (3) Constipation: Code(s): K59.00 - Constipation, unspecified Category: Medical Plan 80-year-old female SP exploratory laparotomy with sigmoid resection and colostomy creation on 04/10/[address] Gallagher for stercoral colitis seen in office for 1st postop visit. She is now home after being at rehab. She is doing well, still feels weak but has been working with physical therapy to improve this. She does report some issues with her ostomy states her stools have been pretty formed, going every few days but this has been resulting in some leakage of the ostomy. She has been using Colace as needed but this has not helped very much. Reconnected her with our ostomy care nurse Stuart the her some recommendations about changes to how she is applying the ostomy. Additional supplies will be ordered. Also recommended continuing Colace, recommended trying Metamucil and increasing water intake to help soften the stools. She does continue to complain of difficulty swallowing, this is a known issue, she is seeing GI in July. To note she is gaining some weight, so her oral intake is likely improving. She continues to follow up with Cardiology who has changed her dose of amlodipine to 5 mg daily now. The can due to a rash from last visit which was likely due to leakage of stool has improved, no evidence of the site exam. Abdomen is soft and benign. Incision site is well healed. Ostomy is pink and patent. She will follow up in about a month to discuss with the plan for possible reversal of colostomy in the future. Coding Level of Care Code Global (54016) Diagnoses Status post exploratory laparotomy Z98.890 Status post Yael procedure Z93.3 Constipation K59.00
--- OUTSIDE RECORDS SUMMARY | 2025-06-09 13:52 | XMS_ITS | Encounter Summary ---
Author Organization [facility] Address [address] [place] [address] Care Team Providers Care Manufacturing Process Technician Name Role Phone Alena Quiroz MD Primary Care Provider [phone] Encounter Details Date Type Department Care Team (Late Contact Info) Description 05/08/2025 Lab Requisition [facility] - Main Lab 299 [facility] [place] [id number] Manoj Kearns MD [address] [place] [address] Hyperlipidemia, unspecified; Unspecified atrial fibrillation (CMS/HCC V24, [...] Department Care Team (Late Contact Info) Description 06/25/2025 10:15 AM EST Office Visit Adult Medicine [address] [address] Alena Quiroz MD [address] [place] [address] documented as of this encounter Procedures Procedure [...] 133 - 145 mmol/L 05/11/2025 11:15 AM [facility] Potassium 3.4(L) 3.5 - 5.5 mmol/L 05/11/2025 11:15 AM [facility] Chloride 104 96 - 110 mmol/L 05/11/2025 11:15 AM [facility] CO2 27 21 - 32 mmol/L 05/11/2025 11:15 AM [facility] Anion Gap 11 3 - 11 05/11/2025 11:15 AM [facility] Glucose 90 70 - 100 mg/dL 05/11/2025 11:15 AM [facility] BUN 11 5 - 25 mg/dL 05/11/2025 11:15 AM [facility] Creatinine 0.77 0.50 - 1.10 mg/dL 05/11/2025 11:15 AM [facility] eGFR 79 >=60 mL/min/1. 73m2 05/11/2025 11:15 AM EST [facility] Comment:Calculation based on the Chronic Kidney Disease Epidemiology Collaboration (CKD-EPI) equation refit without adjustment for race. BUN/Creatinine Ratio 14.3 05/11/2025 11:15 AM [facility] Calcium 8.3(L) 8.5 - 10.5 mg/dL 05/11/2025 11:15 AM [facility] Blood Venous blood specimen / Unknown Venipuncture / Unknown 05/11/2025 8:37 AM EST 05/11/2025 10:14 AM EST us Manoj Kearns MD LAB BLOOD ORDERABLES Final Resul t [facility] [address] [place] [address], [place] [phone] * (ABNORMAL) Complete blood count (05/11/2025 8:37 AM EST) WBC 6.8 4.8 - 10.8 K/mcL LAB HEMETOLOGY METHOD 05/11/2025 10:27 AM [facility] RBC 3.30(L) 3.80 - 4.80 M/mcL LAB HEMETOLOGY METHOD 05/11/2025 10:27 AM [facility] Hemoglobin 9.8(L) 11.5 - 16.0 g/dL LAB HEMETOLOGY METHOD 05/11/2025 10:27 AM [facility] Hematocrit 30.5(L) 35.0 - 47.0 % LAB HEMETOLOGY METHOD 05/11/2025 10:27 AM [facility] MCV 92.1 79.0 - 98.0 FL LAB HEMETOLOGY METHOD 05/11/2025 10:27 AM [facility] MCH 29.6 27.0 - 32.0 pcg LAB HEMETOLOGY METHOD 05/11/2025 10:27 AM [facility] MCHC 32.1 32.0 - 37.0 g/dL LAB HEMETOLOGY METHOD 05/11/2025 10:27 AM [facility] RDW 15.9(H) 11.0 - 15.0 % LAB HEMETOLOGY METHOD 05/11/2025 10:27 AM [facility] Platelets 307 130 - 400 K/mcL LAB HEMETOLOGY METHOD 05/11/2025 10:27 AM [facility] MPV 9.8 7.0 - 11.0 FL LAB HEMETOLOGY METHOD 05/11/2025 10:27 AM [facility] NRBC 0.0 <1.0 % LAB HEMETOLOGY METHOD 05/11/2025 10:27 AM [facility] NRBC Absolute 0.00 <0.10 K/mcL LAB HEMETOLOGY METHOD 05/11/2025 10:27 AM [facility] Blood Venous blood specimen / Unknown Venipuncture / Unknown 05/11/2025 8:37 AM EST 05/11/2025 10:14 AM EST us Manoj Kearns MD LAB BLOOD ORDERABLES Final Resul t [facility] [address] [place] [address], documented in this encounter Visit Diagnoses Diagnosis Hyperlipidemia, unspecified Unspecified atrial fibrillation (CMS/HCC V24, CMS/HCC V28) Diverticulitis of small intestine with perforation and abscess without bleeding documented in this encounter Care Teams Manufacturing Process Technician Relationship Specialty Start Date End Date Alena Quiroz MD [address] [place] [address] PCP - General Internal Medicine 01/23/22 documented as of this encounter
--- OUTSIDE RECORDS SUMMARY | 2025-06-09 13:52 | XMS_ITS | Encounter Summary ---
Author Organization [facility] Address [address] [place] [address] Care Team Providers Care Call Taker Name Role Phone Alena Quiroz MD Primary Care Provider [phone] Encounter Details Date Type Department Care Team (Late st Contact Info) Description 05/15/2025 Lab Requisition [facility] - Main Lab [address] [facility] [place] [id number] Manoj Kearns MD [address] [place] [address] Hyperlipidemia, unspecified; Unspecified atrial fibrillation (CMS/HCC V24, CMS/HCC V28); Diverticulitis of small intestine with perforation and abscess without bleeding Social History Tobacco Use Types Packs/Day Years Used Date Smoking Tobacco: Former Cigarettes 0 Q uit: 06/18/1969 Smokeless Tobacco: Never Alcohol Use Standard Drinks/Week Comments Yes 0 (1 standard drink = 0.6 oz pur e alcohol) Housing Instability Answer Date Recorde d Are you worried that in the next 2 months you may not have stable housing? No 05/18/2025 Food Access & Nutrition Answer Date Rec orded Do you have access to a vari ety of food including fruits and vegetables? Yes 05/18/2025 Access to Healthcare Answer Date Record ed Within the last 3 months, ho w many times did you visit the emergency department for your medical care? 1 05/18/2025 Financial Risk Answer Date Recorded How hard is it for you to pa y for the very basics like food, housing, medical care, and air conditioning / heating? Not very hard 05/18/2025 Transportation Answer Date Recorded Has the lack of transportati on kept you from meetings, work, or from getting things needed for daily living? No Has the lack of transportati on kept you from medical appointments or from getting medications? No 05/18/2025 Food Risk Answer Date Recorded Within the past 12 months we worried whether our food would run out before we got money to buy more. Never true 05/18/2025 Within the past 12 months th e food we bought just didn't last and we didn't have money to get more. Never true 05/18/2025 Education Answer Date Recorded Do you think completing more education or training, like finishing a GED, going to college, or learning a trade, would be helpful for you? N/A 05/18/2025 Employment and Income Answer Date Recor ded During the last four weeks, have you been actively looking for work? No 05/18/2025 Living Situation Answer Date Recorded What is your living situation? Unrecognized valu e 05/18/2025 Comments No Sex and Gender Information Value Date Recorded Sex Assigned at Not on file Legal Sex Female 8:20 AM EST Gender Identity Not on file Sexual Orientation Not on file documented as of this encounter Plan of Treatment Upcoming Encounters Date Type Department Care Team (Late st Contact Info) Description 06/25/2025 10:15 AM EST Office Visit Adult Medicine [address] [phone] Alena Quiroz MD [address] [place] [address] documented as of this encounter Visit Diagnoses Diagnosis Hyperlipidemia, unspecified Unspecified atrial fibrillation (CMS/HCC V24, CMS/HCC V28) Diverticulitis of small intestine with perforation and abscess without bleeding documented in this encounter Care Teams Call Taker Relationship Specialty Start Date End Date Alena Quiroz MD [address] [place] [address] PCP - General Internal Medicine 01/23/22 documented as of this encounter
--- OUTSIDE RECORDS SUMMARY | 2025-06-09 13:52 | XMS_ITS | Encounter Summary ---
Author Organization [facility] Address [address] [place] [address] Care Team Providers Care Adult School Teacher Name Role Phone Alena Quiroz MD Primary Care Provider [phone] Encounter Details Date Type Department Care Team (Late st Contact Info) Description 05/28/2025 Results Follow-Up Adult Medicine [address] [phone] Alena Quiroz MD [address] [place] [address] Social History Tobacco Use Types Packs/Day Years [...] Record ed Within the last 3 months, joon briggs many times did you visit the emergency [...] 10:15 AM EST Office Visit Adult Medicine [address] [phone] Alena Quiroz MD [address] [place] [address] documented as of this encounter Visit Diagnoses Not on filedocumented in this encounter Care Teams Adult School Teacher Relationship Specialty Start Date End Date Alena Quiroz MD [address] [place] [address] PCP - General Internal Medicine 01/23/22 documented as of this encounter
--- OUTSIDE RECORDS SUMMARY | 2025-06-09 13:52 | XMS_ITS | Encounter Summary ---
Author Organization [facility] Address [address] [place] [address] Care Team Providers Care Category Manager Name Role Phone Alena Quiroz MD Primary Care Provider [phone] Encounter Details Date Type Department Care Team (Late st Contact Info) Description 05/28/2025 Results Follow-Up Adult Medicine [address] [phone] Pritesh Christianson PA [address] [place] [id number] Social History Tobacco Use Types Packs/Day Years [...] 10:15 AM EST Office Visit Adult Medicine [address] [phone] Alena Quiroz MD [address] [place] [address] documented as of this encounter Visit Diagnoses Not on filedocumented in this encounter Care Teams Category Manager Relationship Specialty Start Date End Date Alena Quiroz MD [address] [place] [address] PCP - General Internal Medicine 01/23/22 documented as of this encounter
--- OUTSIDE RECORDS SUMMARY | 2025-06-09 13:52 | XMS_ITS | Encounter Summary ---
[facility] Address [address] [place] [address] Care Team Providers Care [employer] Analyst Name Role Phone Alena Quiroz MD Primary Care Provider [phone] Reason for Visit * Reason Onset Date Comments faxed vna orders 06/08/2025 [phone] & Home Health Cert [phone] Encounter Details Date Type Department Care Team (Late st Contact Info) Description 06/08/2025 Telephone Adult Medicine [address] [phone] Alena Quiroz MD [address] [place] [address] Social History Tobacco Use Types Packs/Day Years [...] as of this encounter Progress Notes * Nette Bedolla - 06/08/2025 1:18 PM EST [phone] [phone] please sign and fax to [phone]. documented in this encounter Plan of Treatment Upcoming Encounters Date Type Department Care Team (Late st Contact Info) Description 06/25/2025 10:15 AM EST Office Visit Adult Medicine [address] [phone] Alena Quiroz MD [address] [place] [address] documented as of this encounter Visit Diagnoses Not on filedocumented in this encounter Care Teams [employer] Analyst Relationship Specialty Start Date End Date Alena Quiroz MD [address] [place] [address] PCP - General Internal Medicine 01/23/22 documented as of this encounter
--- OUTSIDE RECORDS SUMMARY | 2025-06-09 13:52 | XMS_ITS | Clinical Summary ---
Author Organization [facility] [address] [facility] Address [address] [place] [phone] Phone Care Team Providers Care Assistant Oceanographer Name Role Phone Alena Quiroz MD Primary Care Provider [phone] Allergies Active Allergy Reactions Criticality Noted Date Comments Lisinopril 04/21/2019 Dry cough Penicillins Rash High 04/10/2025 Sulfa (Sulfonamide Antibiotics) Rash 03/20 Medications loratadine (CLARITIN) 10 mg tablet Take 1 tablet (10 mg total) by mouth. Active Imitrex 50 mg tablet Take by mouth. 7 Active famotidine (PEPCID) 20 mg tablet TAKE 1 TABLET BY MOUTH TWICE A DAY 180 tablet 1 5 Active atorvastatin (LIPITOR) 10 mg tablet TAKE 1 TABLET BY MOUTH EVERYDAY AT BEDTIME 90 tablet 1 5 Active valsartan (DIOVAN) 160 mg tablet Take 1 tablet (160 mg total) by mouth 2 (two) times a day. Active docusate sodium (COLACE) 100 mg capsule Take 1 capsule (100 mg total) by mouth 2 (two) times a day. Active apixaban (ELIQUIS) 5 mg tablet Take 1 tablet (5 mg total) by mouth 2 (two) times a day. Active amiodarone (PACERONE) 400 mg tablet Take 0.5 tablets (200 mg total) by mouth 1 (one) time each day. Active carvedilol (COREG) 25 mg tablet Take 1 tablet (25 mg total) by mouth 2 (two) times a day. Active potassium chloride 20 mEq tablet extended release Take 1 tablet by mouth 1 (one) time each day. 5 Active amLODIPine (NORVASC) 5 mg tablet Take 1 tablet (5 mg total) by mouth 1 (one) time each day. 90 each 5 08/27/19 26 Active dilTIAZem CD (CARDIZEM CD) 240 mg 24 hr capsule TAKE 1 CAPSULE BY MOUTH EVERY DAY 90 capsule 1 5 05/28/20 25 Discontinue d(Discontin ued by another clinician) olmesartan (BENICAR) 20 mg tablet TAKE 1 TABLET (20 MG TOTAL) BY MOUTH ONCE DAILY 90 tablet 5 05/28/20 25 Discontinue d(Discontin ued by another clinician) potassium (POTASSIMIN ORAL) Take 20 mg by mouth 1 (one) time each day. 05/28/20 25 Discontinue d(Duplicate order) amLODIPine (NORVASC) 10 mg tablet Take 1 tablet (10 mg total) by mouth 1 (one) time each day. 05/28/20 25 Discontinue d(Dose adjustment) Active Problems Problem Noted Date Diagnosed Date Paroxysmal atrial fibrillation 05/28/2025 Tubular adenoma of colon 05/16/2022 Overview (05/23/2024): CN done 04/28/2022 Abnormal MRI of abdomen 04/13/2022 Renal cyst 04/13/[address] of the abdomen 04/07/2022 Altered taste 04/04/2022 Grief 04/04/2022 Osteopenia of hip 04/04/2022 Weight loss 04/04/2022 Mild aortic insufficiency 03/26/2019 Overview (05/23/2024): Per echo 02/05/19, ECHO 12/14/2020 mild-moderate AI Cylindrical bronchiectasis 02/13/2019 Ascending aorta dilation 01/21/2019 Overview (05/23/2024): 3.[address] chest [...] Encounters Date Type Department Care Team Description 06/08/2025 Telephone Adult Medicine [address] [phone] Alena Quiroz MD 06/03/2025 Telephone Adult Medicine [address] [phone] Alena Quiroz MD 05/28/2025 11:05 AM EST Lab Draw Station [address] Anemia, unspecified type; Hypokalemia; Microcytic anemia 05/28/2025 9:00 AM EST Office Visit Adult [address] [phone] Alena Quiroz MD Hospital discharge follow-up (Primary Dx); Intestinal perforation (CMS/HCC V24, CMS/HCC V28); Colostomy present (CMS/HCC V24, CMS/HCC V28); Paroxysmal atrial fibrillation (CMS/HCC V24, CMS/HCC V28); Hypertensive urgency; Anemia, unspecified type; Hypokalemia 05/28/2025 Results Follow-Up [address] [phone] Pritesh Christianson PA 05/28/2025 Results Follow-Up [address] [phone] Alena Quiroz MD 05/28/[address] [phone] Alena Quiroz MD 05/18/[address] [phone] Alena Quiroz MD 05/15/2025 Lab Requisition [facility] [address] [place] [phone] Manoj Kearns MD Hyperlipidemia, unspecified; Unspecified atrial fibrillation (CMS/HCC V24, CMS/HCC V28); Diverticulitis of small intestine with perforation and abscess without bleeding 05/08/2025 Lab Requisition [facility] [address] [place] [phone] Manoj Kearns MD Hyperlipidemia, unspecified; Unspecified atrial fibrillation (CMS/HCC V24, CMS/HCC V28); Diverticulitis of small intestine with perforation and abscess without bleeding 05/08/[address] [phone] Alena Quiroz MD 05/04/[address] [phone] Alena Quiroz MD 05/01/2025 Lab Requisition [facility] [address] [place] [phone] Manoj Kearns MD Hyperlipidemia, unspecified; Unspecified atrial fibrillation (CMS/HCC V24, CMS/HCC V28); Diverticulitis of small intestine with perforation and abscess without bleeding 04/27/2025 Telephone Adult Medicine [address] [phone] Alena Quiroz MD 04/27/2025 Lab Requisition [facility] [address] [place] [address] Manoj Kearns MD Essential (primary) hypertension 04/14/2025 Telephone Adult Medicine [address] [phone] Alena Quiroz MD from Last 3 Months Immunizations Immunization Administration Dates Next Due Influenza Quadravalent, 0.5m l (Fluad) 65yo and older 05/06/2021 Influenza trivalent, 0.5mL ( Fluad) 65yo and older 03/06/2024,02/26/2023,04/04/2022,03/31,03/24/2019 Influenza trivalent, 0.5mL ( Fluzone High-dose) 65yo and older 02/26/2023,04/04/2022,03/31/2020,03/24 Influenza trivalent, 0.5mL, preservative free (Fluarix; FluLaval; Fluzone) ages 6mo and older (Afluria) 3 years and older 03/23/2010 Influenza trivalent, with pr eservative (Fluzone; Afluria) 6mo and older 03/23/2010 Influenza, Unspecified 05/06/2021,04/07/2014 Moderna [...] Site/Laterality Comments OTHER SURGICAL HISTORY 12/10/2007 PROCEDURE: [place] ESOPHAGEAL MOTILITY STUDY W/INTERP&RPT; COMMENT: diffuse esophageal spasm TONSILLECTOMY 1950 PROCEDURE: HISTORICAL TONSILLECTOMY WRIST SURGERY PROCEDURE: HISTORICAL WRIST SURGERY; COMMENT: left, fx COLONOSCOPY 03/22/2007 PROCEDURE: HISTORICAL COLONOSCOPY; COMMENT: negative UPPER GASTROINTESTINAL ENDOSCOPY 01/24/2007 PROCEDURE: [place] UPPER GI ENDOSCOPY PERFORMED UPPER GASTROINTESTINAL ENDOSCOPY 03/07/2019 PROCEDURE: [place] UPPER GI ENDOSCOPY PERFORMED; COMMENT: No visible [...] Mother CABG Sister 1 in her 70s, coper hand d Cervical cancer Sister 2 Hypertension Sister [...] ed Within the last 3 months, ho chester many times did you visit the emergency [...] Sign Reading Time Taken Comments Blood Pressure 102/58 05/28/2025 10:17 AM EST Pulse 62 05/28/2025 9:31 AM EST Temperature 36.6 C (97.9 F) 05/28/2025 9:31 AM EST Respiratory Rate 14 05/28/2025 9:31 AM EST Oxygen Saturation 98% 05/28/2025 9:31 AM EST Inhaled Oxygen Concentration - - Weight 45.4 kg (100 lb) 05/28/2025 9:31 AM EST Height 157.5 cm (5' 2 ) 05/28/2025 9:31 AM EST Body Mass Index 18.29 05/28/2025 9:31 AM EST Plan of Treatment Upcoming Encounters Date Type Department Care Team (Late st Contact Info) Description 06/25/2025 10:15 AM EST Office Visit Adult Medicine [address] [phone] Alena Quiroz MD [address] [place] [address] Health Maintenance Due Date Last Done Comments Zoster Vaccines (1 of 2) 02/22/1996 RSV Immunization Adult Patients (1 - 1-dose 75+ series) 2021 Depression Screening 06/18/2024 03/06/2024 COVID-19 Vaccine ( season) 2025 04/17/2022, 04/17/2022, 05/06/2021, Additional history exists Influenza Vaccine (#1) 2025 , 02/26/2023, 02/26/2023, Additional history exists Medicare Annual Wellness Visit 03/06/2025 03/06/2024 Falls Risk Assessment 04/15/2025 04/15/2024 Social Influencers of Health Screening 05/18/2026 05/18/2025 Hypertension/CHF/CAD Annual BMP Blood Test 05/28/2026 05/28/2025, 05/11/2025, 05/04/2025, Additional history exists DTaP,Tdap,and Td Vaccines (3 [...] Procedure Name Priority Date/Time Associated Diagnosis Comments CBC WITH AUTO DIFFERENTIAL Routine 05/28/2025 11:09 AM EST Anemia, unspecified type FERRITIN Routine 05/28/2025 11:09 AM EST Microcytic anemia VITAMIN B12 Routine 05/28/2025 11:09 AM EST Microcytic anemia FOLATE Routine 05/28/2025 11:09 AM EST Microcytic anemia COMPREHENSIVE METABOLIC PANEL Routine 05/28/2025 11:09 AM EST Hypokalemia CBC AND DIFFERENTIAL Routine 05/28/2025 11:09 AM EST Anemia, unspecified type BASIC METABOLIC PANEL Routine 05/11/2025 8:37 AM [...] Relevant to Health Maintenance Results * (ABNORMAL) CBC auto differential (05/28/2025 11:09 AM EST) WBC 8.9 4.8 - 10.8 K/mcL LAB HEMETOLOGY METHOD 05/28/2025 12:26 PM [facility] RBC 3.60(L) 3.80 - 4.80 M/mcL LAB HEMETOLOGY METHOD 05/28/2025 12:26 PM [facility] Hemoglobin 10.8(L) 11.5 - 16.0 g/dL LAB HEMETOLOGY METHOD 05/28/2025 12:26 PM [facility] Hematocrit 34.0(L) 35.0 - 47.0 % LAB HEMETOLOGY METHOD 05/28/2025 12:26 PM [facility] MCV 94.7 79.0 - 98.0 FL LAB HEMETOLOGY METHOD 05/28/2025 12:26 PM [facility] MCH 30.1 27.0 - 32.0 pcg LAB HEMETOLOGY METHOD 05/28/2025 12:26 PM [facility] MCHC 31.8(L) 32.0 - 37.0 g/dL LAB HEMETOLOGY METHOD 05/28/2025 12:26 PM [facility] RDW 16.4(H) 11.0 - 15.0 % LAB HEMETOLOGY METHOD 05/28/2025 12:26 PM [facility] Platelets 354 130 - 400 K/mcL LAB HEMETOLOGY METHOD 05/28/2025 12:26 PM [facility] MPV 9.9 7.0 - 11.0 FL LAB HEMETOLOGY METHOD 05/28/2025 12:26 PM [facility] NRBC 0.0 <1.0 % LAB HEMETOLOGY METHOD 05/28/2025 12:26 PM [facility] NRBC Absolute 0.00 <0.10 K/mcL LAB HEMETOLOGY METHOD 05/28/2025 12:26 PM [facility] Neutrophils Relative 62.0 % LAB HEMETOLOGY METHOD 05/28/2025 12:26 PM [facility] Lymphocytes Relative 23.0 % LAB HEMETOLOGY METHOD 05/28/2025 12:26 PM [facility] Monocytes Relative 9.8 % LAB HEMETOLOGY METHOD 05/28/2025 12:26 PM [facility] Eosinophils Relative 3.7 % LAB HEMETOLOGY METHOD 05/28/2025 12:26 PM [facility] Basophils Relative 1.2 % LAB HEMETOLOGY METHOD 05/28/2025 12:26 PM [facility] Immature Granulocytes Relative 0.3 % LAB HEMETOLOGY METHOD 05/28/2025 12:26 PM [facility] Neutrophils Absolute 5.49 1.50 - 7.00 K/mcL LAB HEMETOLOGY METHOD 05/28/2025 12:26 PM [facility] Lymphocytes Absolute 2.04 1.00 - 5.00 K/mcL LAB HEMETOLOGY METHOD 05/28/2025 12:26 PM EST [facility] Monocytes Absolute 0.87 0.20 - 1.00 K/mcL LAB HEMETOLOGY METHOD 05/28/2025 12:26 PM EST [facility] Eosinophils Absolute 0.33 0.00 - 0.50 K/mcL LAB HEMETOLOGY METHOD 05/28/2025 12:26 PM EST [facility] Basophils Absolute 0.11 0.00 - 0.20 K/mcL LAB HEMETOLOGY METHOD 05/28/2025 12:26 PM EST [facility] Immature Granulocytes Absolute 0.03 0.00 - 0.03 K/mcL LAB HEMETOLOGY METHOD 05/28/2025 12:26 PM [facility] Blood Venous blood specimen / Unknown Venipuncture / Unknown 05/28/2025 11:09 AM EST 05/28/2025 11:09 AM EST us Alena Quiroz MD LAB BLOOD ORDERABLES Final Resul t [facility] [address] [place] [address], * Folate (05/28/2025 11:09 AM EST) Only the most recent of2 resultswithin the time period is included. Folate 13.6 >=5.4 ng/ml 05/28/2025 1:15 PM EST [facility] Blood Venous blood specimen / Unknown Venipuncture / Unknown 05/28/2025 11:09 AM EST 05/28/2025 11:09 AM EST Narrative [facility] - 05/28/2025 1:15 PM EST Over the counter supplements containing high doses of biotin may interfere with this assay. If interference is suspected, patients shoud be retested after refraining from biotin supplements for 72 hours. [facility] BLOOD ORDERABLES Final Res ult Performing Organization Address City/[facility]/ZIP Co de Phone Number [facility] [address] [place] [address], [place] [phone] * Ferritin (05/28/2025 11:09 AM EST) Ferritin 25 7 - 271 ng/mL 05/28/2025 1:15 PM EST [facility] Blood Venous blood specimen / Unknown Venipuncture / Unknown 05/28/2025 11:09 AM EST 05/28/2025 11:09 AM EST [facility] LAB BLOOD ORDERABLES Final Res ult Performing Organization Address [facility] Co de Phone Number [facility] [address] [place] [address], [place] [phone] * Vitamin B12 (05/28/2025 11:09 AM EST) Vitamin B-12 299 211 - 911 pcg/mL 05/28/2025 1:15 PM EST [facility] Blood Venous blood specimen / Unknown Venipuncture / Unknown 05/28/2025 11:09 AM EST 05/28/2025 11:09 AM EST [facility] LAB BLOOD ORDERABLES Final Res ult Performing Organization Address City/[facility]/ZIP Co de Phone Number [facility] [address] [place] [address], [place] [phone] * (ABNORMAL) Comprehensive metabolic panel (05/28/2025 11:09 AM EST) Only the most recent of2 resultswithin the time period is included. Sodium 139 133 - 145 mmol/L 05/28/2025 2:43 PM EST [facility] Potassium 5.0 3.5 - 5.5 mmol/L 05/28/2025 2:43 PM [facility] Chloride 105 96 - 110 mmol/L 05/28/2025 2:43 PM [facility] CO2 24 21 - 32 mmol/L 05/28/2025 2:43 PM [facility] Anion Gap 10 3 - 11 05/28/2025 2:43 PM [facility] Glucose 93 70 - 100 mg/dL 05/28/2025 2:43 PM [facility] BUN 17 5 - 25 mg/dL 05/28/2025 2:43 PM [facility] Creatinine 1.16(H) 0.50 - 1.10 mg/dL 05/28/2025 2:43 PM [facility] eGFR 48(L) >=60 mL/min/1. 73m2 05/28/2025 2:43 PM [facility] Comment:Calculation based on the Chronic Kidney Disease Epidemiology Collaboration (CKD-EPI) equation refit without adjustment for race. BUN/Creatinine Ratio 14.7 05/28/2025 2:43 PM [facility] Calcium 9.4 8.5 - 10.5 mg/dL 05/28/2025 2:43 PM [facility] AST (SGOT) 13 10 - 42 unit/L 05/28/2025 2:43 PM [facility] ALT (SGPT) <7(L) 10 - 60 unit/L 05/28/2025 2:43 PM [facility] Alkaline Phosphatase 89 42 - 121 unit/L 05/28/2025 2:43 PM [facility] Total Protein 7.4 6.0 - 8.0 g/dL 05/28/2025 2:43 PM [facility] Albumin 4.5 3.2 - 5.0 g/dL 05/28/2025 2:43 PM [facility] Total Bilirubin 0.3 0.0 - 1.4 mg/dL 05/28/2025 2:43 PM [facility] Blood Venous blood specimen / Unknown Venipuncture / Unknown 05/28/2025 11:09 AM EST 05/28/2025 11:09 AM EST us Alena Quiroz MD LAB BLOOD ORDERABLES Final Resul t [facility] [address] [place] [address], * (ABNORMAL) Complete blood count (05/11/2025 8:37 AM EST) Only the most recent of3 resultswithin the time period is included. WBC 6.8 4.8 - 10.8 K/mcL LAB HEMETOLOGY METHOD 05/11/2025 10:27 AM [facility] RBC 3.30(L) 3.80 - 4.80 M/mcL LAB HEMETOLOGY METHOD 05/11/2025 10:27 AM [facility] Hemoglobin 9.8(L) 11.5 - 16.0 g/dL LAB HEMETOLOGY METHOD 05/11/2025 10:27 AM [facility] Hematocrit 30.5(L) 35.0 - 47.0 % LAB HEMETOLOGY METHOD 05/11/2025 10:27 AM [facility] MCV 92.1 79.0 - 98.0 FL LAB HEMETOLOGY METHOD 05/11/2025 10:27 AM [facility] MCH 29.6 27.0 - 32.0 pcg LAB HEMETOLOGY METHOD 05/11/2025 10:27 AM [facility] MCHC 32.1 32.0 - 37.0 g/dL LAB HEMETOLOGY METHOD 05/11/2025 10:27 AM EST [facility] RDW 15.9(H) 11.0 - 15.0 % LAB HEMETOLOGY METHOD 05/11/2025 10:27 AM EST [facility] Platelets 307 130 - 400 K/mcL LAB HEMETOLOGY METHOD 05/11/2025 10:27 AM [facility] MPV 9.8 7.0 - 11.0 FL LAB HEMETOLOGY METHOD 05/11/2025 10:27 AM EST [facility] NRBC 0.0 <1.0 % LAB HEMETOLOGY METHOD 05/11/2025 10:27 AM EST [facility] NRBC Absolute 0.00 <0.10 K/mcL LAB HEMETOLOGY METHOD 05/11/2025 10:27 AM [facility] Blood Venous blood specimen / Unknown Venipuncture / Unknown 05/11/2025 8:37 AM EST 05/11/2025 10:14 AM EST us Manoj Kearns MD LAB BLOOD ORDERABLES Final Resul t [facility] [address] [place] [address], [place] [phone] * (ABNORMAL) Basic metabolic panel (05/11/2025 8:37 AM EST) Only the most recent of2 resultswithin the time period is included. Sodium 142 133 - 145 mmol/L 05/11/2025 11:15 AM [facility] Potassium 3.4(L) 3.5 - 5.5 mmol/L 05/11/2025 11:15 AM [facility] Chloride 104 96 - 110 mmol/L 05/11/2025 11:15 AM [facility] CO2 27 21 - 32 mmol/L 05/11/2025 11:15 AM [facility] Anion Gap 11 3 - 11 05/11/2025 11:15 AM [facility] Glucose 90 70 - 100 mg/dL 05/11/2025 11:15 AM [facility] BUN 11 5 - 25 mg/dL 05/11/2025 11:15 AM [facility] Creatinine 0.77 0.50 - 1.10 mg/dL 05/11/2025 11:15 AM [facility] eGFR 79 >=60 mL/min/1. 73m2 05/11/2025 11:15 AM [facility] Comment:Calculation based on the Chronic Kidney Disease Epidemiology Collaboration (CKD-EPI) equation refit without adjustment for race. BUN/Creatinine Ratio 14.3 05/11/2025 11:15 AM [facility] Calcium 8.3(L) 8.5 - 10.5 mg/dL 05/11/2025 11:15 AM [facility] Blood Venous blood specimen / Unknown Venipuncture / Unknown 05/11/2025 8:37 AM EST 05/11/2025 10:14 AM EST us Manoj Kearns MD LAB BLOOD ORDERABLES Final Resul t [facility] [address] [place] [address], * Lipid panel with reflex to direct LDL (05/04/2025 8:49 AM EST) Cholesterol 117 0 - 200 mg/dL LAB CHEMISTRY METHOD 05/04/2025 11:14 AM [facility] Triglycerides 88 0 - 150 mg/dL LAB CHEMISTRY METHOD 05/04/2025 11:14 AM [facility] HDL 47 >=40 mg/dL LAB CHEMISTRY METHOD 05/04/2025 11:14 AM [facility] LDL Calculated 52 0 - 100 mg/dL LAB CHEMISTRY METHOD 05/04/2025 11:14 AM [facility] Comment:Estimated LDL Calcul ated using equation: Total cholesterol - HDL cholesterol - (Triglycerides/5) VLDL Cholesterol [place] 17.6 mg/dL LAB CHEMISTRY METHOD 05/04/2025 11:14 AM [facility] Non HDL Chol. (LDL+VLDL) 70 <145 mg/dL LAB CHEMISTRY METHOD 05/04/2025 11:14 AM [facility] Chol/HDL Ratio 2.5 0.0 - 4.4 LAB CHEMISTRY METHOD 05/04/2025 11:14 AM [facility] Blood Venous blood specimen / Unknown Venipuncture / Unknown 05/04/2025 8:49 AM EST 05/04/2025 9:51 AM EST us Manoj Kearns MD LAB BLOOD ORDERABLES Final Resul t Performing Organization Address City/[facility]/ZIP Co de Phone Number [facility] [address] [place] [address], [place] [phone] * Thyroid stimulating hormone (04/27/2025 5:14 AM EST) [facility] Signature TSH 2.08 0.40 - 4.00 mcIU/mL LAB CHEMISTRY METHOD 04/27/2025 4:16 PM EST [facility] Blood Venous blood specimen / Unknown Venipuncture / Unknown 04/27/2025 5:14 AM EST 04/27/2025 10:27 AM EST us Manoj Kearns MD LAB BLOOD ORDERABLES Final Resul t Performing Organization Address City/[facility]/ZIP Co de Phone Number [facility] [address] [place] [address], [place] [phone] * External Xray Report (04/20/2025) Only the most recent of2 resultswithin the time period is included. Anatomical Region Laterality Modality Radiographic Aissatou ging Provider [facility] XR PROCEDURES Final Result * External CT Report (04/10/2025) Only the most recent of2 resultswithin the time period is included. Anatomical Region Laterality Modality Computed Tomogra phy us Provider [facility] PROCEDURES Final Result * Falls Risk Assessment (04/15/2024) Falls Risk Assessment abstracted Historical Provider HEALTH MAINTENANCE Final Result * Depression Screening (03/06/2024) Depression Screening abstracted Result [facility] Provider HEALTH MAINTENANCE Final Result * DXA [...] (World Health Organization Fracture Risk Assessment) [facility] Department of Internal Medicine recommends using National [...] alternative screening schedule based on issa Mayer., [facility] July 06, 2011 for patients [...] years. (World HealthOrganization Fracture Risk Assessment) [facility] Department of Internal Medicine recommendsusing National Osteoporosis [...] alternative screening schedule based on iss[facility] for [facility] with [facility] (based on [...] Most Recently Relevant to Health Maintenance [place] [phone] MEDICARE [facility] Advance Directives * Full Code - Confirmed (Latest Code Status on File) Date Activated Date Inactivated Comments 05/28/2025 12:[address] atus was ascertained in the following way: Code status discussion: per living will or healthcare instructions/MOLST form To update the patient's code status, place a code status order. Do not modify or discontinue any currently active code status orders. Care Teams Assistant Oceanographer Relationship Specialty Start Date End Date Alena Quiroz MD [address] [place] [phone] PCP - General Internal Medicine 01/23/22
--- OUTSIDE RECORDS SUMMARY | 2025-06-09 13:52 | XMS_ITS | Encounter Summary ---
Author Organization [facility] Address [address] [place] [address] Care Team Providers Care Can Maker Name Role Phone Alena Quiroz MD Primary Care Provider [phone] Encounter Details Date Type Department Care Team (Late Contact Info) Description 05/01/2025 Lab Requisition [facility] - Main Lab [address] [facility] [place] [phone] Manoj Kearns MD [address] [place] [address] Hyperlipidemia, unspecified; Unspecified atrial fibrillation (CMS/HCC V24, [...] 10:15 AM EST Office Visit Adult Medicine [address] [phone] Alena Quiroz MD [address] [place] [address] documented as of this encounter Procedures Procedure [...] mg/dL LAB CHEMISTRY METHOD 05/04/2025 11:14 AM [facility] Triglycerides 88 0 - 150 mg/dL LAB CHEMISTRY METHOD 05/04/2025 11:14 AM [facility] HDL 47 >=40 mg/dL LAB CHEMISTRY METHOD 05/04/2025 11:14 AM [facility] LDL Calculated 52 0 - 100 mg/dL LAB CHEMISTRY METHOD 05/04/2025 11:14 AM [facility] Comment:Estimated LDL Calcul ated using equation: Total cholesterol - HDL cholesterol - (Triglycerides/5) VLDL Cholesterol [place] 17.6 mg/dL LAB CHEMISTRY METHOD 05/04/2025 11:14 AM [facility] Non HDL Chol. (LDL+VLDL) 70 <145 mg/dL LAB CHEMISTRY METHOD 05/04/2025 11:14 AM [facility] Chol/HDL Ratio 2.5 0.0 - 4.4 LAB CHEMISTRY METHOD 05/04/2025 11:14 AM [facility] Blood Venous blood specimen / Unknown Venipuncture / Unknown 05/04/2025 8:49 AM EST 05/04/2025 9:51 AM EST us Manoj Kearns MD LAB BLOOD ORDERABLES Final Resul t [facility] [address] [place] [address], [place] [phone] * (ABNORMAL) Basic metabolic panel (05/04/2025 8:49 AM EST) Sodium 141 133 - 145 mmol/L LAB CHEMISTRY METHOD 05/04/2025 11:17 AM [facility] Potassium 3.6 3.5 - 5.5 mmol/L LAB CHEMISTRY METHOD 05/04/2025 11:17 AM [facility] Chloride 109 96 - 110 mmol/L LAB CHEMISTRY METHOD 05/04/2025 11:17 AM [facility] CO2 26 21 - 32 mmol/L LAB CHEMISTRY METHOD 05/04/2025 11:17 AM [facility] Anion Gap 6 3 - 11 LAB CHEMISTRY METHOD 05/04/2025 11:17 AM [facility] Glucose 113(H) 70 - 100 mg/dL LAB CHEMISTRY METHOD 05/04/2025 11:17 AM [facility] BUN 18 5 - 25 mg/dL LAB CHEMISTRY METHOD 05/04/2025 11:17 AM [facility] Creatinine 0.67 0.50 - 1.10 mg/dL LAB CHEMISTRY METHOD 05/04/2025 11:17 AM [facility] eGFR 89 >=60 mL/min/1. 73m2 LAB CHEMISTRY METHOD 05/04/2025 11:17 AM [facility] Comment:Calculation based on the Chronic Kidney Disease Epidemiology Collaboration (CKD-EPI) equation refit without adjustment for race. BUN/Creatinine Ratio 26.9 LAB CHEMISTRY METHOD 05/04/2025 11:17 AM [facility] Calcium 8.4(L) 8.5 - 10.5 mg/dL LAB CHEMISTRY METHOD 05/04/2025 11:17 AM [facility] Blood Venous blood specimen / Unknown Venipuncture / Unknown 05/04/2025 8:49 AM EST 05/04/2025 9:51 AM EST us Manoj Kearns MD LAB BLOOD ORDERABLES Final Resul t [facility] [address] [place] [address], [place] [phone] * (ABNORMAL) Complete blood count (05/04/2025 8:49 AM EST) WBC 7.4 4.8 - 10.8 K/mcL LAB HEMETOLOGY METHOD 05/04/2025 10:19 AM [facility] RBC 3.30(L) 3.80 - 4.80 M/mcL LAB HEMETOLOGY METHOD 05/04/2025 10:19 AM [facility] Hemoglobin 9.8(L) 11.5 - 16.0 g/dL LAB HEMETOLOGY METHOD 05/04/2025 10:19 AM [facility] Hematocrit 30.4(L) 35.0 - 47.0 % LAB HEMETOLOGY METHOD 05/04/2025 10:19 AM [facility] MCV 92.4 79.0 - 98.0 FL LAB HEMETOLOGY METHOD 05/04/2025 10:19 AM [facility] MCH 29.8 27.0 - 32.0 pcg LAB HEMETOLOGY METHOD 05/04/2025 10:19 AM [facility] MCHC 32.2 32.0 - 37.0 g/dL LAB HEMETOLOGY METHOD 05/04/2025 10:[address] [facility] RDW 15.9(H) 11.0 - 15.0 % LAB HEMETOLOGY METHOD 05/04/2025 10:19 AM [facility] Platelets 395 130 - 400 K/mcL LAB HEMETOLOGY METHOD 05/04/2025 10:19 AM [facility] MPV 9.9 7.0 - 11.0 FL LAB HEMETOLOGY METHOD 05/04/2025 10:19 AM [facility] NRBC 0.0 <1.0 % LAB HEMETOLOGY METHOD 05/04/2025 10:19 AM [facility] NRBC Absolute 0.00 <0.10 K/mcL LAB HEMETOLOGY METHOD 05/04/2025 10:19 AM [facility] Blood Venous blood specimen / Unknown Venipuncture / Unknown 05/04/2025 8:49 AM EST 05/04/2025 9:51 AM EST Manoj Kearns MD LAB BLOOD ORDERABLES Final Resul t [facility] [address] [place] [address], documented in this encounter Visit Diagnoses Diagnosis Hyperlipidemia, unspecified Unspecified atrial fibrillation (CMS/HCC V24, CMS/HCC V28) Diverticulitis of small intestine with perforation and abscess without bleeding documented in this encounter Care Teams Can Maker Relationship Specialty Start Date End Date Alena Quiroz MD [address] [place] [address] PCP - General Internal Medicine 01/23/22 documented as of this encounter
--- OUTSIDE RECORDS SUMMARY | 2025-06-09 13:52 | XMS_ITS | Encounter Summary ---
Author Organization [facility] Address [address] [place] [address] Care Team Providers Care Test Fixture Assembler Name Role Phone Alena Quiroz MD Primary Care Provider [phone] Reason for Visit * Reason Onset Date Comments faxed vna orders 06/03/2025 [facility] [phone] Encounter Details Date Type Department Care Team (Late st Contact Info) Description 06/03/2025 Telephone Adult Medicine [address] [phone] Alena Quiroz MD [address] [place] [address] Social History Tobacco Use Types Packs/Day Years [...] encounter Progress Notes * Nette Bedolla - 06/03/2025 3:12 PM EST Faxed orders received from [facility] [phone], [phone] please sign and fax to [phone]. documented in this encounter Plan of Treatment Upcoming Encounters Date Type Department Care Team (Late st Contact Info) Description 06/25/2025 10:15 AM EST Office Visit Adult Medicine [address] [phone] Alena Quiroz MD [address] [place] [address] documented as of this encounter Visit Diagnoses Not on filedocumented in this encounter Care Teams Test Fixture Assembler Relationship Specialty Start Date End Date Alena Quiroz MD [address] [place] [phone] PCP - General Internal Medicine 01/23/22 documented as of this encounter
--- OUTSIDE RECORDS SUMMARY | 2025-06-09 13:52 | XMS_ITS ---
Author Organization [address] Address [address] [place] [phone] Phone Care Team Providers Care Heat Treater Helper Name Role Phone Alena Quiroz MD Primary Care Provider [phone] Transitional Care Management Status:Ongoing (Active) Start date:05/15/2025 Enrollment date:05/15/2025 Enrollment reason:Identified using hospital discharge data Case Team Name Relationship Phone Ashlyn Zuniga LPN(Responsible Staff) Photography Intern Continued Care and Services Coordination
--- OUTSIDE RECORDS SUMMARY | 2025-06-09 13:52 | XMS_ITS | Encounter Summary ---
Author Organization [facility] Address [address] [place] [address] Care Team Providers Care Geography Instructor Name Role Phone Alena Quiroz MD Primary Care Provider [phone] Encounter Details Date Type Department Care Team (Late st Contact Info) Description 04/27/2025 Lab Requisition [facility] - Main Lab [address] [facility] [place] [phone] Manoj Kearns MD [address] [place] [address] Essential (primary) hypertension Social History Tobacco Use [...] 10:15 AM EST Office Visit Adult Medicine [address] [phone] Alena Quiroz MD [address] [place] [address] documented as of this encounter Procedures Procedure [...] LAB CHEMISTRY METHOD 04/27/2025 4:16 PM EST [facility] Blood Venous blood specimen / Unknown Venipuncture / Unknown 04/27/2025 5:14 AM EST 04/27/2025 10:27 AM EST us Manoj Kearns MD LAB BLOOD ORDERABLES Final Resul t Performing Organization Address [facility] de Phone Number [facility] [address] [place] [address], * Folate (04/27/2025 5:14 AM EST) Pathologist [facility] Folate 5.6 2.8 - 17.0 ng/ml LAB CHEMISTRY METHOD 04/27/2025 1:27 PM EST [facility] Blood Venous blood specimen / Unknown Venipuncture / Unknown 04/27/2025 5:14 AM EST 04/27/2025 10:27 AM EST us Manoj Kearns MD LAB BLOOD ORDERABLES Final Resul t [facility] [address] [place] [address], [place] [phone] * (ABNORMAL) Comprehensive metabolic panel (04/27/2025 5:14 AM EST) Sodium 138 133 - 145 mmol/L LAB CHEMISTRY METHOD 04/27/2025 1:27 PM [facility] Potassium 5.0 3.5 - 5.5 mmol/L LAB CHEMISTRY METHOD 04/27/2025 1:27 PM [facility] Chloride 107 96 - 110 mmol/L LAB CHEMISTRY METHOD 04/27/2025 1:27 PM [facility] CO2 23 21 - 32 mmol/L LAB CHEMISTRY METHOD 04/27/2025 1:27 PM [facility] Anion Gap 8 3 - 11 LAB CHEMISTRY METHOD 04/27/2025 1:27 PM [facility] Glucose 79 70 - 100 mg/dL LAB CHEMISTRY METHOD 04/27/2025 1:27 PM [facility] BUN 8 5 - 25 mg/dL LAB CHEMISTRY METHOD 04/27/2025 1:27 PM [facility] Creatinine 0.63 0.50 - 1.10 mg/dL LAB CHEMISTRY METHOD 04/27/2025 1:27 PM [facility] eGFR 90 >=60 mL/min/1. 73m2 LAB CHEMISTRY METHOD 04/27/2025 1:27 PM [facility] Comment:Calculation based on the Chronic Kidney Disease Epidemiology Collaboration (CKD-EPI) equation refit without adjustment for race. BUN/Creatinine Ratio 12.7 LAB CHEMISTRY METHOD 04/27/2025 1:27 PM [facility] Calcium 7.9(L) 8.5 - 10.5 mg/dL LAB CHEMISTRY METHOD 04/27/2025 1:27 PM [facility] AST (SGOT) 15 10 - 42 unit/L LAB CHEMISTRY METHOD 04/27/2025 1:27 PM [facility] ALT (SGPT) 16 10 - 60 unit/L LAB CHEMISTRY METHOD 04/27/2025 1:27 PM [facility] Alkaline Phosphatase 60 42 - 121 unit/L LAB CHEMISTRY METHOD 04/27/2025 1:27 PM [facility] Total Protein 5.6(L) 6.0 - 8.0 g/dL LAB CHEMISTRY METHOD 04/27/2025 1:27 PM [facility] Albumin 2.8(L) 3.2 - 5.0 g/dL LAB CHEMISTRY METHOD 04/27/2025 1:27 PM [facility] Total Bilirubin 0.3 0.0 - 1.4 mg/dL LAB CHEMISTRY METHOD 04/27/2025 1:27 PM [facility] Blood Venous blood specimen / Unknown Venipuncture / Unknown 04/27/2025 5:14 AM EST 04/27/2025 10:27 AM EST us Manoj Kearns MD LAB BLOOD ORDERABLES Final Resul t [facility] [address] [place] [address], * (ABNORMAL) Complete blood count (04/27/2025 5:14 AM EST) WBC 7.9 4.8 - 10.8 K/mcL LAB HEMETOLOGY METHOD 04/27/2025 1:13 PM [facility] RBC 3.20(L) 3.80 - 4.80 M/mcL LAB HEMETOLOGY METHOD 04/27/2025 1:13 PM [facility] Hemoglobin 9.3(L) 11.5 - 16.0 g/dL LAB HEMETOLOGY METHOD 04/27/2025 1:13 PM [facility] Hematocrit 29.5(L) 35.0 - 47.0 % LAB HEMETOLOGY METHOD 04/27/2025 1:13 PM EST [facility] MCV 93.4 79.0 - 98.0 FL LAB HEMETOLOGY METHOD 04/27/2025 1:13 PM EST [facility] MCH 29.4 27.0 - 32.0 pcg LAB HEMETOLOGY METHOD 04/27/2025 1:13 PM [facility] MCHC 31.5(L) 32.0 - 37.0 g/dL LAB HEMETOLOGY METHOD 04/27/2025 1:13 PM EST [facility] RDW 16.4(H) 11.0 - 15.0 % LAB HEMETOLOGY METHOD 04/27/2025 1:13 PM [facility] Platelets 652(H) 130 - 400 K/mcL LAB HEMETOLOGY METHOD 04/27/2025 1:13 PM EST [facility] MPV 9.0 7.0 - 11.0 FL LAB HEMETOLOGY METHOD 04/27/2025 1:13 PM EST [facility] NRBC 0.0 <1.0 % LAB HEMETOLOGY METHOD 04/27/2025 1:13 PM [facility] NRBC Absolute 0.00 <0.10 K/mcL LAB HEMETOLOGY METHOD 04/27/2025 1:13 PM [facility] Blood Venous blood specimen / Unknown Venipuncture / Unknown 04/27/2025 5:14 AM EST 04/27/2025 10:27 AM EST us Manoj Kearns MD LAB BLOOD ORDERABLES Final Resul t [facility] [address] [place] [address], documented in this encounter Visit Diagnoses Diagnosis Essential (primary) hypertension Unspecified essential hypertension documented in this encounter Care Teams Geography Instructor Relationship Specialty Start Date End Date Alena Quiroz MD [address] [place] [phone] PCP - General Internal Medicine 01/23/22 documented as of this encounter
== END 2025-06-09 13:24 | disposition home or self-care (01) ==
LOC: HO.HGS 12:49
PROVIDERS: PCP Internal Medicine
DX: Z98.890 Other specified postprocedural states (principal); Z93.3 Colostomy status; K59.00 Constipation, unspecified
CPT/HCPCS: 99024

== ENCOUNTER → 2025-06-09 12:49 | Outpatient (BNVA) | payer MEDICARE, OTHER, SELFPAY | PROVIDERS: PCP Internal Medicine | DX: Z48.815 Encounter for surgical aftercare following surgery on the digestive system (principal); Z93.3 Colostomy status; K59.00 Constipation, unspecified | CPT/HCPCS: 99212 ==

== ENCOUNTER 2025-06-15 10:10 | Outpatient (AMB) | payer MEDICARE, OTHER, SELFPAY ==
--- NOTE | 2025-06-15 10:17 | A.OFFVIS_ITS ---
Vital Signs 06/15/25 10:21 Height 5 ft 2 in Weight 105 lb 13.15 oz BMI 19.4 BP 100/60 Blood Pressure Location Lt brachial Position Sitting Pulse 60 Pulse Source Monitor Intake Visit Reasons: r/s 05/08/25 [facility] d/c Intake Note: r/s 05/08/25 [facility] dc Residential Program Director Required: No Accompanied by: Daughter Allergies Penicillins Allergy (Intermediate, Verified 06/09/25 13:05) Rash Sulfa (Sulfonamide Antibiotics) Allergy (Intermediate, Verified 06/09/25 13:05) Rash lisinopril Adverse Reaction (Intermediate, Verified 06/09/25 13:05) Cough Medication List - Last Reconciled 06/15/25 by Mariela Castro NP-C amiodarone 200 mg PO DAILY amlodipine 5 mg PO DAILY apixaban (Eliquis) 5 mg PO BID atorvastatin 10 mg PO BEDTIME carvedilol 25 mg PO BID diphenhydramine-acetaminophen 25-500 mg (Acetaminophen PM) 1 tab PO BEDTIME PRN docusate sodium (Colace) 100 mg PO BID famotidine 20 mg PO BID potassium chloride ER 20 mEq PO DAILY sumatriptan succinate 50 mg PO DAILY PRN valsartan 160 mg PO BID HPI Comments Details: History of Present Illness The patient is a 80 year old female presenting for post-hospitalization followup. She was hospitalized in March 2025 for abdominal discomfort and was diagnosed with sigmoid colitis with perforation. 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 Postoperatively, she developed an episode of atrial fibrillation with RVR that lasted less than an hour and converted to sinus rhythm spontaneously. She subsequently had recurrent, short episodes of atrial fibrillation with RVR that were managed medically, including with IV diltiazem. She was placed on amiodarone for rhythm control and transitioned from Lovenox to Eliquis for stroke prophylaxis at discharge. She reports feeling a weird sensation in her chest during these episodes. During her admission, she also had a low hemoglobin and hematocrit, for which she received a blood transfusion. Labs at discharge on 04/26/2025 showed a hemoglobin of 9.9 and creatinine of 0.6. An echocardiogram from 04/14/2025 revealed an EF of 64% with mild aortic regurgitation and mild mitral annular calcification. Since discharge, she has not experienced any further episodes of irregular heartbeat. In early May, her PCP decreased her amlodipine from 10 mg to 5 mg due to low blood pressure readings, though she denies symptoms of dizziness or lightheadedness. She is being evaluated for a potential colostomy reversal, which is pending further testing including a colonoscopy. The patient reports new-onset fatigue since her surgery and hospitalization, as well as difficulty sleeping. Daughter is present. [facility] Medical History Diffuse esophageal spasm High cholesterol GERD (gastroesophageal reflux disease) Migraine with aura Migraine without aura Hypertension Surgical History History of surgical procedure (~04/10/25) H/O wrist surgery Social History Household Members: Unknown / Unable to assess Household Members Other:: son lives nearby Do you presently have visiting nurse or other home services: No Patient Tobacco Use Status: Former Tobacco user Tobacco use type: Cigarette service: No Review of Systems Const All systems reviewed & are unremarkable except as noted in HPI and below Denies chills, Denies fatigue, Denies fever(s), Denies frequent falls, Denies weakness, Denies weight gain and Denies weight loss ENT Denies dizziness Card Denies chest pain, Denies leg edema, Denies lightheadedness, Denies palpitations, Denies dyspnea and Denies dyspnea on exertion Resp Denies cough, Denies dyspnea and Denies dyspnea on exertion GI Denies hematochezia Musc Denies abnormal gait, Denies muscle weakness, Denies numbness, Denies radiating pain into limb and Denies tingling Neuro Denies abnormal gait, Denies dizziness, Denies frequent falls, Denies numbness, Denies tingling and Denies weakness Endo Denies fatigue and Denies palpitations Physical Exam Vital Signs: Last Vital Signs Pulse 60 06/15/25 10:21 BP 100/60 06/15/25 10:21 BMI result Body Mass Index 19.4 Const General: cooperative, healthy appearing, comfortable and no acute distress Orientation/consciousness: patient oriented x3 Neck Neck: Yes normal visual inspection Resp Effort & Inspection: normal respiratory effort Auscultation: clear to auscultation bilaterally, no rales, no rhonchi and no wheezes Cardio Rate: regular rate Rhythm: regular rhythm Heart sounds: S1 normal heart sound present, S2 normal heart sound present, no murmurs and no rubs Neuro General: patient oriented x3 Extrem General: Yes normal to inspection, No no pedal edema and No calf tenderness Psych Appearance: grossly normal Mental Status: mental status grossly normal Speech and movement: Normal speech and movement present Office Procedures EKG Details: Today, read by me, normal sinus rhythm, rate 60, Qtc 414ms [id number], Complete Assessment & Plan Assessment & Plan (1) Paroxysmal atrial fibrillation: Code(s): I48.0 - Paroxysmal atrial fibrillation Category: Medical (2) Troponin level elevated: Code(s): R79.89 - Other specified abnormal findings of blood chemistry Category: Medical (3) Hypertension: Code(s): I10 - Essential (primary) hypertension Category: Medical (4) Hospital discharge follow-up: Code(s): Z51.89 - Encounter for other specified aftercare Category: Medical Plan Plan 1. Paroxysmal Atrial Fibrillation New onset PAF during recent hospitalization. Being treated with rhythm control using amiodarone and carvedilol. EKG today showing sinus rhythm, rate 60. A Holter monitor will be ordered to screen for any breakthrough atrial fibrillation. A lab slip will be provided to monitor for side effects of amiodarone, including liver and thyroid function tests. A pharmacological nuclear stress test will be ordered to assess for ischemia. Cardiology follow up in 2-3 months, sooner if needed. 3. Hypertension The patient's blood pressure is 100/60 mmHg today. Her PCP recently halved her amlodipine dose due to low readings. As she is asymptomatic for hypotension, her current antihypertensive medications will be continued without change. Continued blood pressure monitoring at home is advised. Discussion Notes I discussed with the patient that her episodes of a fast, irregular heartbeat in the hospital were due to atrial fibrillation (Afib), a condition that increases the risk of stroke. I explained that Eliquis is prescribed for stroke prevention and amiodarone is for maintaining a normal heart rhythm. I clarified that the slight rise in her troponin level during hospitalization indicated heart strain from the rapid heart rate, not a true heart attack. Given this, and the potential need for future surgery, I recommended a nuclear stress test to ensure her heart is in good shape for another procedure. We discussed the importance of monitoring for side effects from amiodarone, which requires periodic blood tests to check liver and thyroid function, as well as lung monitoring for long-term use. I also recommended a Holter monitor to ensure her rhythm is well-controlled. We addressed her medication dosing, and I will send a new prescription for 200 mg amiodarone tablets to simplify her re gikari. I acknowledged her blood pressure is on the lower side but affirmed that since she is not having symptoms, we will maintain her current medications. She has follow-up scheduled with her PCP and will return to see me in 2-3 months. Patient Instructions - Continue taking all your medications as they are currently prescribed. - I will send a new prescription for amiodarone 200 mg tablets to your pharmacy so you do not have to split the pills. - Keep checking your blood pressure at home. If you start to feel dizzy or lightheaded, please contact our office. - Since you are on the blood thinner Eliquis, watch for any signs of unusual bleeding, such as blood in your urine or stool, or nosebleeds. - Our office will schedule you for a nuclear stress test to check the blood flow to your heart. - We will also arrange for you to wear a Holter monitor, which is a portable device that records your heart's rhythm. - I have given you a lab slip for blood work. Please have these labs drawn after your appointment with your primary care doctor next week. - Continue with your scheduled follow-up with your primary care doctor. - Plan to follow up in this office in 2 to 3 months. Patient was informed and verbally consented to the use of an ambient scribe for clinic note documentation during this visit. Visit time spent on chart review, interview, assessment, orders, documentation. Orders: Orders TSH reflex Free T4 Today I10 - Essential (primary) hypertension, I48.91 - Unspecified atrial fibrillation NM cardiolite stress test Today I48.0 - Paroxysmal atrial fibrillation, R79.89 - Other specified abnormal findings of blood chemistry Comprehensive Met. Panel Today I10 - Essential (primary) hypertension, I48.91 - Unspecified atrial fibrillation Complete Blood Count Auto Diff Today I10 - Essential (primary) hypertension, I48.91 - Unspecified atrial fibrillation CA lexiscan stress w franko Today I48.0 - Paroxysmal atrial fibrillation, R79.89 - Other specified abnormal findings of blood chemistry ECG 3 day holter monitor Today I48.0 - Paroxysmal atrial fibrillation Medications: Changed From amiodarone 400mg daily until 05/07/25 then decrease to 200mg daily 200 mg PO DAILY To amiodarone 200 mg PO DAILY 30 tabs 5RF Coding Level of Care Code Est Pt Level 4 (69516) Add On Problem Visit Only Diagnoses Paroxysmal atrial fibrillation I48.0 Troponin level elevated R79.89 Hypertension I10 Hospital discharge follow-up Z51.89 CPT Codes EKG - CPT: [id number], Complete ([id number]) Time Spent (min) 32
[2025-06-15 10:21] VITALS: BP 100/60; PULSE 60; BMI 19.4
--- OUTSIDE RECORDS SUMMARY | 2025-06-15 11:24 | XMS_ITS | Encounter Summary ---
Author Organization [facility] Address [address] [place] [address] Care Team Providers Care Safety Aide Name Role Phone Alena Quiroz MD Primary Care Provider [phone] Encounter Details Date Type Department Care Team (Late st Contact Info) Description 04/27/2025 Lab Requisition [facility] - Main Lab [address] [facility] [place] [phone] Manoj Kearns MD [address] [place] [address] Essential (primary) hypertension Social History Tobacco Use [...] 10:15 AM EST Office Visit Adult Medicine [address] [phone] Alena Quiroz MD [address] [place] [address] documented as of this encounter Procedures Procedure [...] LAB CHEMISTRY METHOD 04/27/2025 4:16 PM EST [facility] Blood Venous blood specimen / Unknown Venipuncture / Unknown 04/27/2025 5:14 AM EST 04/27/2025 10:27 AM EST us Manoj Kearns MD LAB BLOOD ORDERABLES Final Resul t Performing Organization Address [facility] de Phone Number [facility] [address] [place] [address], * Folate (04/27/2025 5:14 AM EST) Pathologist [facility] Folate 5.6 2.8 - 17.0 ng/ml LAB CHEMISTRY METHOD 04/27/2025 1:27 PM EST [facility] Blood Venous blood specimen / Unknown Venipuncture / Unknown 04/27/2025 5:14 AM EST 04/27/2025 10:27 AM EST us Manoj Kearns MD LAB BLOOD ORDERABLES Final Resul t [facility] [address] [place] [address], [place] [phone] * (ABNORMAL) Comprehensive metabolic panel (04/27/2025 5:14 AM EST) Sodium 138 133 - 145 mmol/L LAB CHEMISTRY METHOD 04/27/2025 1:27 PM [facility] Potassium 5.0 3.5 - 5.5 mmol/L LAB CHEMISTRY METHOD 04/27/2025 1:27 PM [facility] Chloride 107 96 - 110 mmol/L LAB CHEMISTRY METHOD 04/27/2025 1:27 PM [facility] CO2 23 21 - 32 mmol/L LAB CHEMISTRY METHOD 04/27/2025 1:27 PM [facility] Anion Gap 8 3 - 11 LAB CHEMISTRY METHOD 04/27/2025 1:27 PM [facility] Glucose 79 70 - 100 mg/dL LAB CHEMISTRY METHOD 04/27/2025 1:27 PM [facility] BUN 8 5 - 25 mg/dL LAB CHEMISTRY METHOD 04/27/2025 1:27 PM [facility] Creatinine 0.63 0.50 - 1.10 mg/dL LAB CHEMISTRY METHOD 04/27/2025 1:27 PM [facility] eGFR 90 >=60 mL/min/1. 73m2 LAB CHEMISTRY METHOD 04/27/2025 1:27 PM [facility] Comment:Calculation based on the Chronic Kidney Disease Epidemiology Collaboration (CKD-EPI) equation refit without adjustment for race. BUN/Creatinine Ratio 12.7 LAB CHEMISTRY METHOD 04/27/2025 1:27 PM [facility] Calcium 7.9(L) 8.5 - 10.5 mg/dL LAB CHEMISTRY METHOD 04/27/2025 1:27 PM [facility] AST (SGOT) 15 10 - 42 unit/L LAB CHEMISTRY METHOD 04/27/2025 1:27 PM [facility] ALT (SGPT) 16 10 - 60 unit/L LAB CHEMISTRY METHOD 04/27/2025 1:27 PM [facility] Alkaline Phosphatase 60 42 - 121 unit/L LAB CHEMISTRY METHOD 04/27/2025 1:27 PM [facility] Total Protein 5.6(L) 6.0 - 8.0 g/dL LAB CHEMISTRY METHOD 04/27/2025 1:27 PM [facility] Albumin 2.8(L) 3.2 - 5.0 g/dL LAB CHEMISTRY METHOD 04/27/2025 1:27 PM [facility] Total Bilirubin 0.3 0.0 - 1.4 mg/dL LAB CHEMISTRY METHOD 04/27/2025 1:27 PM [facility] Blood Venous blood specimen / Unknown Venipuncture / Unknown 04/27/2025 5:14 AM EST 04/27/2025 10:27 AM EST us Manoj Kearns MD LAB BLOOD ORDERABLES Final Resul t [facility] [address] [place] [address], * (ABNORMAL) Complete blood count (04/27/2025 5:14 AM EST) WBC 7.9 4.8 - 10.8 K/mcL LAB HEMETOLOGY METHOD 04/27/2025 1:13 PM [facility] RBC 3.20(L) 3.80 - 4.80 M/mcL LAB HEMETOLOGY METHOD 04/27/2025 1:13 PM [facility] Hemoglobin 9.3(L) 11.5 - 16.0 g/dL LAB HEMETOLOGY METHOD 04/27/2025 1:13 PM [facility] Hematocrit 29.5(L) 35.0 - 47.0 % LAB HEMETOLOGY METHOD 04/27/2025 1:13 PM EST [facility] MCV 93.4 79.0 - 98.0 FL LAB HEMETOLOGY METHOD 04/27/2025 1:13 PM EST [facility] MCH 29.4 27.0 - 32.0 pcg LAB HEMETOLOGY METHOD 04/27/2025 1:13 PM [facility] MCHC 31.5(L) 32.0 - 37.0 g/dL LAB HEMETOLOGY METHOD 04/27/2025 1:13 PM EST [facility] RDW 16.4(H) 11.0 - 15.0 % LAB HEMETOLOGY METHOD 04/27/2025 1:13 PM [facility] Platelets 652(H) 130 - 400 K/mcL LAB HEMETOLOGY METHOD 04/27/2025 1:13 PM EST [facility] MPV 9.0 7.0 - 11.0 FL LAB HEMETOLOGY METHOD 04/27/2025 1:13 PM EST [facility] NRBC 0.0 <1.0 % LAB HEMETOLOGY METHOD 04/27/2025 1:13 PM [facility] NRBC Absolute 0.00 <0.10 K/mcL LAB HEMETOLOGY METHOD 04/27/2025 1:13 PM [facility] Blood Venous blood specimen / Unknown Venipuncture / Unknown 04/27/2025 5:14 AM EST 04/27/2025 10:27 AM EST us Manoj Kearns MD LAB BLOOD ORDERABLES Final Resul t [facility] [address] [place] [address], documented in this encounter Visit Diagnoses Diagnosis Essential (primary) hypertension Unspecified essential hypertension documented in this encounter Care Teams Safety Aide Relationship Specialty Start Date End Date Alena Quiroz MD [address] [place] [phone] PCP - General Internal Medicine 01/23/22 documented as of this encounter
--- OUTSIDE RECORDS SUMMARY | 2025-06-15 11:25 | XMS_ITS | Encounter Summary ---
Author Organization [facility] Address [address] [place] [address] Care Team Providers Care Boilermaker Ship Name Role Phone Alean Quiroz MD Primary Care Provider [phone] Encounter Details Date Type Department Care Team (Late Contact Info) Description 05/08/2025 Lab Requisition [facility] - Main Lab [address] [facility] [place] [phone] Manoj Kearns MD [address] [place] [address] Hyperlipidemia, unspecified; Unspecified atrial fibrillation (CMS/HCC V24, [...] 10:15 AM EST Office Visit Adult Medicine [address] [phone] Alena Quiroz MD [address] [place] [address] documented as of this encounter Procedures Procedure [...] 133 - 145 mmol/L 05/11/2025 11:15 AM [facility] Potassium 3.4(L) 3.5 - 5.5 mmol/L 05/11/2025 11:15 AM [facility] Chloride 104 96 - 110 mmol/L 05/11/2025 11:15 AM [facility] CO2 27 21 - 32 mmol/L 05/11/2025 11:15 AM [facility] Anion Gap 11 3 - 11 05/11/2025 11:15 AM [facility] Glucose 90 70 - 100 mg/dL 05/11/2025 11:15 AM [facility] BUN 11 5 - 25 mg/dL 05/11/2025 11:15 AM [facility] Creatinine 0.77 0.50 - 1.10 mg/dL 05/11/2025 11:15 AM [facility] eGFR 79 >=60 mL/min/1. 73m2 05/11/2025 11:15 AM EST [facility] Comment:Calculation based on the Chronic Kidney Disease Epidemiology Collaboration (CKD-EPI) equation refit without adjustment for race. BUN/Creatinine Ratio 14.3 05/11/2025 11:15 AM [facility] Calcium 8.3(L) 8.5 - 10.5 mg/dL 05/11/2025 11:15 AM [facility] Blood Venous blood specimen / Unknown Venipuncture / Unknown 05/11/2025 8:37 AM EST 05/11/2025 10:14 AM EST us Manoj Kearns MD LAB BLOOD ORDERABLES Final Resul t [facility] [address] [place] [address], [place] [phone] * (ABNORMAL) Complete blood count (05/11/2025 8:37 AM EST) WBC 6.8 4.8 - 10.8 K/mcL LAB HEMETOLOGY METHOD 05/11/2025 10:27 AM [facility] RBC 3.30(L) 3.80 - 4.80 M/mcL LAB HEMETOLOGY METHOD 05/11/2025 10:27 AM [facility] Hemoglobin 9.8(L) 11.5 - 16.0 g/dL LAB HEMETOLOGY METHOD 05/11/2025 10:27 AM [facility] Hematocrit 30.5(L) 35.0 - 47.0 % LAB HEMETOLOGY METHOD 05/11/2025 10:27 AM [facility] MCV 92.1 79.0 - 98.0 FL LAB HEMETOLOGY METHOD 05/11/2025 10:27 AM [facility] MCH 29.6 27.0 - 32.0 pcg LAB HEMETOLOGY METHOD 05/11/2025 10:27 AM [facility] MCHC 32.1 32.0 - 37.0 g/dL LAB HEMETOLOGY METHOD 05/11/2025 10:27 AM [facility] RDW 15.9(H) 11.0 - 15.0 % LAB HEMETOLOGY METHOD 05/11/2025 10:27 AM [facility] Platelets 307 130 - 400 K/mcL LAB HEMETOLOGY METHOD 05/11/2025 10:27 AM [facility] MPV 9.8 7.0 - 11.0 FL LAB HEMETOLOGY METHOD 05/11/2025 10:27 AM [facility] NRBC 0.0 <1.0 % LAB HEMETOLOGY METHOD 05/11/2025 10:27 AM [facility] NRBC Absolute 0.00 <0.10 K/mcL LAB HEMETOLOGY METHOD 05/11/2025 10:27 AM [facility] Blood Venous blood specimen / Unknown Venipuncture / Unknown 05/11/2025 8:37 AM EST 05/11/2025 10:14 AM EST us Manoj Kearns MD LAB BLOOD ORDERABLES Final Resul t [facility] [address] [place] [address], documented in this encounter Visit Diagnoses Diagnosis Hyperlipidemia, unspecified Unspecified atrial fibrillation (CMS/HCC V24, CMS/HCC V28) Diverticulitis of small intestine with perforation and abscess without bleeding documented in this encounter Care Teams Boilermaker Ship Relationship Specialty Start Date End Date Alena Quiroz MD [address] [place] [address] PCP - General Internal Medicine 01/23/22 documented as of this encounter
--- OUTSIDE RECORDS SUMMARY | 2025-06-15 11:25 | XMS_ITS ---
Author Organization [address] Address [address] [place] [phone] Phone Care Team Providers Care Dope Maintenance Worker Name Role Phone Alena Quiorz MD Primary Care Provider [phone] Transitional Care Management Status:Ongoing (Active) Start date:05/15/2025 Enrollment date:05/15/2025 Enrollment reason:Identified using hospital discharge data Case Team Name Relationship Phone Ashlyn Zuniga LPN(Responsible Staff) Beamer Helper Continued Care and Services Coordination
--- OUTSIDE RECORDS SUMMARY | 2025-06-15 11:25 | XMS_ITS | Encounter Summary ---
Author Organization [facility] Address [address] [place] [address] Care Team Providers Care Relationship Executive Name Role Phone Alena Quiroz MD Primary Care Provider [phone] Reason for Visit * Reason Onset Date Comments faxed vna orders 06/03/2025 [facility] [phone] Encounter Details Date Type Department Care Team (Late st Contact Info) Description 06/03/2025 Telephone Adult Medicine [address] [phone] Alena Quiroz MD [address] [place] [address] Social History Tobacco Use Types Packs/Day Years [...] as of this encounter Progress Notes * Camila Carpenter MA - 06/12/2025 8:37 AM EST Orders signed scanned and faxed back to [facility] via right fax * Nette Bedolla - 06/03/2025 3:12 PM EST Faxed orders received from [facility] [phone], [phone] please sign and fax to [phone]. documented in this encounter Plan of Treatment Upcoming Encounters Date Type Department Care Team (Late st Contact Info) Description 06/25/2025 10:15 AM EST Office Visit Adult [address] [phone] Alena Quiroz MD [address] [place], [place] documented as of this encounter Visit Diagnoses Not on filedocumented in this encounter Care Teams Relationship Executive Relationship Specialty Start Date End Date Alena Quiroz MD [address] [place] [address] PCP - General Internal Medicine 01/23/22 documented as of this encounter
--- OUTSIDE RECORDS SUMMARY | 2025-06-15 11:25 | XMS_ITS | Encounter Summary ---
Author Organization [facility] Address [address] [place] [address] Care Team Providers Care Brake Coupler Dinkey Name Role Phone Alena Quiroz MD Primary Care Provider [phone] Reason for Visit * Reason Onset Date Comments faxed vna orders 06/08/2025 [facility] [phone] & Home Health Cert [phone] Encounter Details Date Type Department Care Team (Late st Contact Info) Description 06/08/2025 Telephone Adult Medicine [address] [phone] Alena Quiroz MD [address] [place] [address] Social History Tobacco Use Types Packs/Day Years [...] 06/08/2025 1:18 PM EST [phone] [phone] please sign and fax to [phone]. documented in this encounter Plan of Treatment Upcoming Encounters Date Type Department Care Team (Late st Contact Info) Description 06/25/2025 10:15 AM EST Office Visit Adult Medicine [address] [phone] Alena Quiroz MD [address] [place] [address] documented as of this encounter Visit Diagnoses Not on filedocumented in this encounter Care Teams Brake Coupler Dinkey Relationship Specialty Start Date End Date Alena Quiroz MD [address] [place] [address] PCP - General Internal Medicine 01/23/22 documented as of this encounter
--- OUTSIDE RECORDS SUMMARY | 2025-06-15 11:25 | XMS_ITS | Encounter Summary ---
Author Organization [facility] Address [address] [place] [address] Care Team Providers Care Academic Dean Name Role Phone Alena Quiroz MD Primary Care Provider [phone] Encounter Details Date Type Department Care Team (Late st Contact Info) Description 05/28/2025 Results Follow-Up Adult Medicine [address] [phone] Pritesh Christianson PA [address] [place] [phone] Social History Tobacco Use Types Packs/Day Years [...] 10:15 AM EST Office Visit Adult Medicine [address] [phone] Alena Quiroz MD [address] [place] [address] documented as of this encounter Visit Diagnoses Not on filedocumented in this encounter Care Teams Academic Dean Relationship Specialty Start Date End Date Alena Quiroz MD [address] [place] [address] PCP - General Internal Medicine 01/23/22 documented as of this encounter
--- OUTSIDE RECORDS SUMMARY | 2025-06-15 11:25 | XMS_ITS | Encounter Summary ---
Author Organization [facility] Address [address] [place] [address] Care Team Providers Care Paper Cutter Operator Name Role Phone Alena Quiroz MD Primary Care Provider [phone] Encounter Details Date Type Department Care Team (Late st Contact Info) Description 05/28/2025 Results Follow-Up Adult Medicine [address] [phone] Alena Quiroz MD [address] [place] [address] Social History Tobacco Use Types Packs/Day Years [...] 10:15 AM EST Office Visit Adult Medicine [address] [phone] Alena Quiroz MD [address] [place] [address] documented as of this encounter Visit Diagnoses Not on filedocumented in this encounter Care Teams Paper Cutter Operator Relationship Specialty Start Date End Date Alena Quiroz MD [address] [place] [address] PCP - General Internal Medicine 01/23/22 documented as of this encounter
--- OUTSIDE RECORDS SUMMARY | 2025-06-15 11:25 | XMS_ITS | Encounter Summary ---
Author Organization [facility] Address [address] [place] [address] Care Team Providers Care Securities Research Analyst Name Role Phone Alena Quiroz MD Primary Care Provider [phone] Reason for Visit * Reason Onset Date Comments faxed vna order [facility]/10/20[phone] Encounter Details Date Type Department Care Team (Late st Contact Info) Description 06/10/2025 Telephone Adult Medicine [address] [phone] Alena Quiroz MD [address] [place] [address] Social History Tobacco Use Types Packs/Day Years [...] encounter Progress Notes * Nette Bedolla - 06/10/2025 11:37 AM EST Faxed order received from [facility] [phone] please sign and fax to [phone]. documented in this encounter Plan of Treatment Upcoming Encounters Date Type Department Care Team (Late st Contact Info) Description 06/25/2025 10:15 AM EST Office Visit Adult Medicine [address] [phone] Alena Quiroz MD [address] [place] [address] documented as of this encounter Visit Diagnoses Not on filedocumented in this encounter Care Teams Securities Research Analyst Relationship Specialty Start Date End Date Alena Quiroz MD [address] [place] [phone] PCP - General Internal Medicine 01/23/22 documented as of this encounter
--- OUTSIDE RECORDS SUMMARY | 2025-06-15 11:25 | XMS_ITS | Encounter Summary ---
Author Organization [facility] Address [address] [place] [address] Care Team Providers Care Metal Burnisher Name Role Phone Alena Quiroz MD Primary Care Provider [phone] Encounter Details Date Type Department Care Team (Late st Contact Info) Description 05/15/2025 Lab Requisition [facility] - Main Lab [address] [facility] [place] [phone] Manoj Kearns MD [address] [place] [address] Hyperlipidemia, unspecified; Unspecified atrial fibrillation (CMS/HCC V24, [...] 10:15 AM EST Office Visit Adult Medicine [address] [phone] Alena Quiroz MD [address] [place] [address] documented as of this encounter Visit Diagnoses Diagnosis Hyperlipidemia, unspecified Unspecified atrial fibrillation (CMS/HCC V24, CMS/HCC V28) Diverticulitis of small intestine with perforation and abscess without bleeding documented in this encounter Care Teams Metal Burnisher Relationship Specialty Start Date End Date Alena Quiroz MD [address] [place] [address] PCP - General Internal Medicine 01/23/22 documented as of this encounter
--- OUTSIDE RECORDS SUMMARY | 2025-06-15 11:25 | XMS_ITS | Encounter Summary ---
Author Organization [facility] Address [address] [place] [address] Care Team Providers Care Funeral Home Assistant Name Role Phone Alena Quiroz MD Primary Care Provider [phone] Encounter Details Date Type Department Care Team (Late Contact Info) Description 05/01/2025 Lab Requisition [facility] - Main Lab 299 [facility] [place] [phone] Manoj Kearns MD [address] [place] [address] Hyperlipidemia, unspecified; Unspecified atrial fibrillation (CMS/HCC V24, [...] 10:15 AM EST Office Visit Adult Medicine [address] [phone] Alena Quiroz MD [address] [place] [address] documented as of this encounter Procedures Procedure [...] mg/dL LAB CHEMISTRY METHOD 05/04/2025 11:14 AM [facility] Triglycerides 88 0 - 150 mg/dL LAB CHEMISTRY METHOD 05/04/2025 11:14 AM [facility] HDL 47 >=40 mg/dL LAB CHEMISTRY METHOD 05/04/2025 11:14 AM [facility] LDL Calculated 52 0 - 100 mg/dL LAB CHEMISTRY METHOD 05/04/2025 11:14 AM [facility] Comment:Estimated LDL Calcul ated using equation: Total cholesterol - HDL cholesterol - (Triglycerides/5) VLDL Cholesterol [place] 17.6 mg/dL LAB CHEMISTRY METHOD 05/04/2025 11:14 AM [facility] Non HDL Chol. (LDL+VLDL) 70 <145 mg/dL LAB CHEMISTRY METHOD 05/04/2025 11:14 AM [facility] Chol/HDL Ratio 2.5 0.0 - 4.4 LAB CHEMISTRY METHOD 05/04/2025 11:14 AM [facility] Blood Venous blood specimen / Unknown Venipuncture / Unknown 05/04/2025 8:49 AM EST 05/04/2025 9:51 AM EST us Manoj Kearns MD LAB BLOOD ORDERABLES Final Resul t [facility] [address] [place] [address], [place] [phone] * (ABNORMAL) Basic metabolic panel (05/04/2025 8:49 AM EST) Sodium 141 133 - 145 mmol/L LAB CHEMISTRY METHOD 05/04/2025 11:17 AM [facility] Potassium 3.6 3.5 - 5.5 mmol/L LAB CHEMISTRY METHOD 05/04/2025 11:17 AM [facility] Chloride 109 96 - 110 mmol/L LAB CHEMISTRY METHOD 05/04/2025 11:17 AM [facility] CO2 26 21 - 32 mmol/L LAB CHEMISTRY METHOD 05/04/2025 11:17 AM [facility] Anion Gap 6 3 - 11 LAB CHEMISTRY METHOD 05/04/2025 11:17 AM [facility] Glucose 113(H) 70 - 100 mg/dL LAB CHEMISTRY METHOD 05/04/2025 11:17 AM [facility] BUN 18 5 - 25 mg/dL LAB CHEMISTRY METHOD 05/04/2025 11:17 AM [facility] Creatinine 0.67 0.50 - 1.10 mg/dL LAB CHEMISTRY METHOD 05/04/2025 11:17 AM [facility] eGFR 89 >=60 mL/min/1. 73m2 LAB CHEMISTRY METHOD 05/04/2025 11:17 AM [facility] Comment:Calculation based on the Chronic Kidney Disease Epidemiology Collaboration (CKD-EPI) equation refit without adjustment for race. BUN/Creatinine Ratio 26.9 LAB CHEMISTRY METHOD 05/04/2025 11:17 AM [facility] Calcium 8.4(L) 8.5 - 10.5 mg/dL LAB CHEMISTRY METHOD 05/04/2025 11:17 AM [facility] Blood Venous blood specimen / Unknown Venipuncture / Unknown 05/04/2025 8:49 AM EST 05/04/2025 9:51 AM EST us Manoj Kearns MD LAB BLOOD ORDERABLES Final Resul t [facility] [address] [place] [address], [place] [phone] * (ABNORMAL) Complete blood count (05/04/2025 8:49 AM EST) WBC 7.4 4.8 - 10.8 K/mcL LAB HEMETOLOGY METHOD 05/04/2025 10:19 AM [facility] RBC 3.30(L) 3.80 - 4.80 M/mcL LAB HEMETOLOGY METHOD 05/04/2025 10:19 AM [facility] Hemoglobin 9.8(L) 11.5 - 16.0 g/dL LAB HEMETOLOGY METHOD 05/04/2025 10:19 AM [facility] Hematocrit 30.4(L) 35.0 - 47.0 % LAB HEMETOLOGY METHOD 05/04/2025 10:19 AM [facility] MCV 92.4 79.0 - 98.0 FL LAB HEMETOLOGY METHOD 05/04/2025 10:19 AM [facility] MCH 29.8 27.0 - 32.0 pcg LAB HEMETOLOGY METHOD 05/04/2025 10:19 AM [facility] MCHC 32.2 32.0 - 37.0 g/dL LAB HEMETOLOGY METHOD 05/04/2025 10:19 AM EST [facility] RDW 15.9(H) 11.0 - 15.0 % LAB HEMETOLOGY METHOD 05/04/2025 10:19 AM [facility] Platelets 395 130 - 400 K/mcL LAB HEMETOLOGY METHOD 05/04/2025 10:19 AM [facility] MPV 9.9 7.0 - 11.0 FL LAB HEMETOLOGY METHOD 05/04/2025 10:19 AM [facility] NRBC 0.0 <1.0 % LAB HEMETOLOGY METHOD 05/04/2025 10:19 AM [facility] NRBC Absolute 0.00 <0.10 K/mcL LAB HEMETOLOGY METHOD 05/04/2025 10:19 AM [facility] Blood Venous blood specimen / Unknown Venipuncture / Unknown 05/04/2025 8:49 AM EST 05/04/2025 9:51 AM EST Manoj Kearns MD LAB BLOOD ORDERABLES Final Resul t [facility] [address] [place] [address], documented in this encounter Visit Diagnoses Diagnosis Hyperlipidemia, unspecified Unspecified atrial fibrillation (CMS/HCC V24, CMS/HCC V28) Diverticulitis of small intestine with perforation and abscess without bleeding documented in this encounter Care Teams Funeral Home Assistant Relationship Specialty Start Date End Date Alena Quiroz MD [address] [place] [address] PCP - General Internal Medicine 01/23/22 documented as of this encounter
--- OUTSIDE RECORDS SUMMARY | 2025-06-15 11:25 | XMS_ITS | Clinical Summary ---
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 90 each 5 08/27/19 26 Active valsartan (DIOVAN) 160 mg tablet Take 1 tablet (160 mg total) by mouth 2 (two) times a day. 180 tablet 5 Active carvedilol (COREG) 25 mg tablet Take 1 tablet (25 mg total) by mouth 2 (two) times a day. 180 tablet 5 Active dilTIAZem CD (CARDIZEM CD) 240 mg 24 hr capsule TAKE 1 CAPSULE BY MOUTH EVERY DAY 90 capsule 1 5 05/28/20 25 Discontinue d(Discontin ued by another clinician) olmesartan (BENICAR) 20 mg tablet TAKE 1 TABLET (20 MG TOTAL) BY MOUTH ONCE DAILY 90 tablet 5 05/28/20 25 Discontinue d(Discontin ued by another clinician) valsartan (DIOVAN) 160 mg tablet Take 1 tablet (160 mg total) by mouth 2 (two) times a day. 06/08/20 Discontinue d(Reorder) potassium (POTASSIMIN ORAL) Take 20 mg by mouth 1 (one) time each day. 05/28/20 Discontinue d(Duplicate order) amiodarone (PACERONE) 400 mg tablet Take 0.5 tablets (200 mg total) by mouth 1 (one) time each day. 06/10/20 Discontinue d(Dose adjustment) amLODIPine (NORVASC) 10 mg tablet Take 1 tablet (10 mg total) by mouth 1 (one) time each day. 05/28/20 Discontinue d(Dose adjustment) carvedilol (COREG) 25 mg tablet Take 1 tablet (25 mg total) by mouth 2 (two) times a day. 06/08/20 Discontinue d(Reorder) Active Problems Problem Noted Date Diagnosed Date [...] Encounters Date Type Department Care Team Description 06/10/2025 Telephone Adult Medicine [address] [phone] Alena Quiroz MD 06/08/2025 Telephone Adult Medicine [address] [phone] Alena Quiroz MD 06/03/2025 Telephone Adult Medicine [address] [phone] Alena Quiroz MD 05/28/2025 11:05 AM EST Lab Draw [address] Anemia, unspecified type; Hypokalemia; Microcytic anemia 05/28/2025 9:00 AM EST Office Visit [address] [phone] Alena Quiroz MD Hospital discharge follow-up (Primary Dx); Intestinal perforation (CMS/HCC V24, CMS/HCC V28); Colostomy present (CMS/HCC V24, CMS/HCC V28); Paroxysmal atrial fibrillation (CMS/HCC V24, CMS/HCC V28); Hypertensive urgency; Anemia, unspecified type; Hypokalemia 05/28/2025 Results Follow-Up [address] [phone] Pritesh Christianson PA 05/28/2025 Results Follow-Up [address] [phone] Alena Quiroz MD 05/28/[address] [phone] Alena Quiroz MD 05/18/[address] [phone] Alena Quiroz MD 05/15/2025 Lab Requisition [facility] Main Lab [address] [facility] [place] [address] Manoj Kearns MD Hyperlipidemia, unspecified; Unspecified atrial fibrillation (CMS/HCC V24, CMS/HCC V28); Diverticulitis of small intestine with perforation and abscess without bleeding 05/08/2025 Lab Requisition [facility] Main Lab [address] [facility] [place] [address] Manoj Kearns MD Hyperlipidemia, unspecified; Unspecified atrial fibrillation (CMS/HCC V24, CMS/HCC V28); Diverticulitis of small intestine with perforation and abscess without bleeding 05/08/[address] [phone] Alena Quiroz MD 05/04/[address] [phone] Alena Quiroz MD 05/01/2025 Lab Requisition [facility] Main Lab [address] [facility] [place] [address] Manoj Kearns MD Hyperlipidemia, unspecified; Unspecified atrial fibrillation (CMS/HCC V24, CMS/[facility] V28); Diverticulitis of small intestine with perforation and abscess without bleeding 04/27/[address] [phone] Alena Quiroz MD 04/27/[address] [facility] Lab [address] [facility] [place] [phone] Manoj Kearns MD Essential (primary) hypertension 04/14/[address] [phone] Alena Quiroz MD from Last 3 Months [...] Site/Laterality Comments OTHER SURGICAL HISTORY 12/10/2007 PROCEDURE: LA ESOPHAGEAL MOTILITY STUDY W/INTERP&RPT; COMMENT: diffuse esophageal spasm TONSILLECTOMY 1950 PROCEDURE: HISTORICAL TONSILLECTOMY WRIST SURGERY PROCEDURE: HISTORICAL WRIST SURGERY; COMMENT: left, fx COLONOSCOPY 03/22/2007 PROCEDURE: HISTORICAL COLONOSCOPY; COMMENT: negative UPPER GASTROINTESTINAL ENDOSCOPY 01/24/2007 PROCEDURE: LA UPPER GI ENDOSCOPY PERFORMED UPPER GASTROINTESTINAL ENDOSCOPY 03/07/2019 PROCEDURE: LA UPPER GI ENDOSCOPY PERFORMED; COMMENT: No visible [...] Mother CABG Sister 1 in her 70s, 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 d Cervical cancer Sister 2 Hypertension Sister [...] 10:15 AM EST Office Visit Adult Medicine [address] [phone] Alena Quiroz MD [address] [place] [address] Health Maintenance Due Date Last Done Comments Zoster Vaccines (1 of 2) 02/22/1996 RSV Immunization Adult Patients (1 - 1-dose 75+ series) 2021 Depression Screening 06/18/2024 03/06/2024 COVID-19 Vaccine (6 - season) 2025 04/17/2022, 04/17/2022, 05/06/2021, Additional history [...] COLONOSCOPY REPORT Routine 04/28/2022 7:47 AM EST HM HEPATITIS C SCREENING Routine 10/24/2013 from Last 3 Months or Most Recently Relevant to Health Maintenance Results * (ABNORMAL) CBC auto differential (05/28/2025 11:09 AM EST) WBC 8.9 4.8 - 10.8 K/mcL LAB HEMETOLOGY METHOD 05/28/2025 12:26 PM EST [facility] RBC 3.60(L) 3.80 - 4.80 M/mcL LAB HEMETOLOGY METHOD 05/28/2025 12:26 PM EST [facility] Hemoglobin 10.8(L) 11.5 - 16.0 g/dL LAB HEMETOLOGY METHOD 05/28/2025 12:[address] [facility] Hematocrit 34.0(L) 35.0 - 47.0 % LAB HEMETOLOGY METHOD 05/28/2025 12:[address] [facility] MCV 94.7 79.0 - 98.0 FL LAB HEMETOLOGY METHOD 05/28/2025 12:[address] [facility] MCH 30.1 27.0 - 32.0 pcg LAB HEMETOLOGY METHOD 05/28/2025 12:[address] [facility] MCHC 31.8(L) 32.0 - 37.0 g/dL LAB HEMETOLOGY METHOD 05/28/2025 12:[address] [facility] RDW 16.4(H) 11.0 - 15.0 % LAB HEMETOLOGY METHOD 05/28/2025 12:[address] [facility] Platelets 354 130 - 400 K/mcL LAB HEMETOLOGY METHOD 05/28/2025 12:[address] [facility] MPV 9.9 7.0 - 11.0 FL LAB HEMETOLOGY METHOD 05/28/2025 12:[address] [facility] NRBC 0.0 <1.0 % LAB HEMETOLOGY METHOD 05/28/2025 12:[address] [facility] NRBC Absolute 0.00 <0.10 K/mcL LAB HEMETOLOGY METHOD 05/28/2025 12:[address] [facility] Neutrophils Relative 62.0 % LAB HEMETOLOGY METHOD 05/28/2025 12:[address] [facility] Lymphocytes Relative 23.0 % LAB HEMETOLOGY METHOD 05/28/2025 12:[address] [facility] Monocytes Relative 9.8 % LAB HEMETOLOGY METHOD 05/28/2025 12:[address] [facility] Eosinophils Relative 3.7 % LAB HEMETOLOGY METHOD 05/28/2025 12:26 PM EST [facility] Basophils Relative 1.2 % LAB HEMETOLOGY METHOD 05/28/2025 12:[address] [facility] Immature Granulocytes Relative 0.3 % LAB HEMETOLOGY METHOD 05/28/2025 12:[address] [facility] Neutrophils Absolute 5.49 1.50 - 7.00 K/mcL LAB HEMETOLOGY METHOD 05/28/2025 12:26 PM EST [facility] Lymphocytes Absolute 2.04 1.00 - 5.00 K/mcL LAB HEMETOLOGY METHOD 05/28/2025 12:[address] [facility] Monocytes Absolute 0.87 0.20 - 1.00 K/mcL LAB HEMETOLOGY METHOD 05/28/2025 12:[address] [facility] Eosinophils Absolute 0.33 0.00 - 0.50 K/mcL LAB HEMETOLOGY METHOD 05/28/2025 12:[address] [facility] Basophils Absolute 0.11 0.00 - 0.20 K/mcL LAB HEMETOLOGY METHOD 05/28/2025 12:[address] [facility] Immature Granulocytes Absolute 0.03 0.00 - 0.03 K/mcL LAB HEMETOLOGY METHOD 05/28/2025 12:[address] [facility] Blood Venous blood specimen / Unknown Venipuncture / Unknown 05/28/2025 11:09 AM EST 05/28/2025 11:09 AM EST us Alena Quiroz MD LAB BLOOD ORDERABLES Final Resul t [facility] [address] [place] [address], * Folate (05/28/2025 11:09 AM EST) Only the most recent of2 resultswithin the time period is included. Pathologist [facility] Folate 13.6 >=5.4 ng/ml 05/28/2025 1:15 PM EST [facility] Blood Venous blood specimen / Unknown Venipuncture / Unknown 05/28/2025 11:09 AM EST 05/28/2025 11:09 AM EST Narrative [facility] - 05/28/2025 1:15 PM EST Over the counter supplements containing high doses of biotin may interfere with this assay. If interference is suspected, patients shoud be retested after refraining from biotin supplements for 72 hours. us Pritesh DANGELO LAB BLOOD ORDERABLES Final Res ult [facility] [address] [place] [address], [place] [phone] * Ferritin (05/28/2025 11:09 AM EST) [facility] Ferritin 25 7 - 271 ng/mL 05/28/2025 1:15 PM EST [facility] Blood Venous blood specimen / Unknown Venipuncture / Unknown 05/28/2025 11:09 AM EST 05/28/2025 11:09 AM EST Pritesh DANGELO LAB BLOOD ORDERABLES Final Res ult [facility] [address] [place] [address], [place] [phone] * Vitamin B12 (05/28/2025 11:09 AM EST) [facility] Vitamin B-12 299 211 - 911 pcg/mL 05/28/2025 1:15 PM EST [facility] Blood Venous blood specimen / Unknown Venipuncture / Unknown 05/28/2025 11:09 AM EST 05/28/2025 11:09 AM EST us Pritesh DANGELO LAB BLOOD ORDERABLES Final Res ult [facility] [address] [place] [address], * (ABNORMAL) Comprehensive metabolic panel (05/28/2025 11:09 AM EST) Only the most recent of2 resultswithin the time period is included. Sodium 139 133 - 145 mmol/L 05/28/2025 2:[address] [facility] Potassium 5.0 3.5 - 5.5 mmol/L 05/28/2025 2:[address] [facility] Chloride 105 96 - 110 mmol/L 05/28/2025 2:[address] [facility] CO2 24 21 - 32 mmol/L 05/28/2025 2:[address] [facility] Anion Gap 10 3 - 11 05/28/2025 2:[address] [facility] Glucose 93 70 - 100 mg/dL 05/28/2025 2:[address] [facility] BUN 17 5 - 25 mg/dL 05/28/2025 2:[address] [facility] Creatinine 1.16(H) 0.50 - 1.10 mg/dL 05/28/2025 2:[address] [facility] eGFR 48(L) >=60 mL/min/1. 73m2 05/28/2025 2:[address] [facility] Comment:Calculation based on the Chronic Kidney Disease Epidemiology Collaboration (CKD-EPI) equation refit without adjustment for race. BUN/Creatinine Ratio 14.7 05/28/2025 2:[address] [facility] Calcium 9.4 8.5 - 10.5 mg/dL 05/28/2025 2:[address] [facility] AST (SGOT) 13 10 - 42 unit/L 05/28/2025 2:[address] [facility] ALT (SGPT) <7(L) 10 - 60 unit/L 05/28/2025 2:[address] [facility] Alkaline Phosphatase 89 42 - 121 unit/L 05/28/2025 2:[address] [facility] Total Protein 7.4 6.0 - 8.0 g/dL 05/28/2025 2:[address] [facility] Albumin 4.5 3.2 - 5.0 g/dL 05/28/2025 2:[address] [facility] Total Bilirubin 0.3 0.0 - 1.4 mg/dL 05/28/2025 2:[address] [facility] Blood Venous blood specimen / Unknown Venipuncture / Unknown 05/28/2025 11:09 AM EST 05/28/2025 11:09 AM EST us Alena Quiroz MD LAB BLOOD ORDERABLES Final Resul t [facility] [address] [place] [address], [place] [phone] * (ABNORMAL) Complete blood count (05/11/2025 8:37 AM EST) Only the most recent of3 resultswithin the time period is included. WBC 6.8 4.8 - 10.8 K/mcL LAB HEMETOLOGY METHOD 05/11/2025 10:[address] [facility] RBC 3.30(L) 3.80 - 4.80 M/mcL LAB HEMETOLOGY METHOD 05/11/2025 10:[address] [facility] Hemoglobin 9.8(L) 11.5 - 16.0 g/dL LAB HEMETOLOGY METHOD 05/11/2025 10:[address] [facility] Hematocrit 30.5(L) 35.0 - 47.0 % LAB HEMETOLOGY METHOD 05/11/2025 10:[address] [facility] MCV 92.1 79.0 - 98.0 FL LAB HEMETOLOGY METHOD 05/11/2025 10:[address] [facility] MCH 29.6 27.0 - 32.0 pcg LAB HEMETOLOGY METHOD 05/11/2025 10:[address] [facility] MCHC 32.1 32.0 - 37.0 g/dL LAB HEMETOLOGY METHOD 05/11/2025 10:[address] [facility] RDW 15.9(H) 11.0 - 15.0 % LAB HEMETOLOGY METHOD 05/11/2025 10:[address] [facility] Platelets 307 130 - 400 K/mcL LAB HEMETOLOGY METHOD 05/11/2025 10:[address] [facility] MPV 9.8 7.0 - 11.0 FL LAB HEMETOLOGY METHOD 05/11/2025 10:[address] [facility] NRBC 0.0 <1.0 % LAB HEMETOLOGY METHOD 05/11/2025 10:[address] [facility] NRBC Absolute 0.00 <0.10 K/mcL LAB HEMETOLOGY METHOD 05/11/2025 10:[address] [facility] Blood Venous blood specimen / Unknown Venipuncture / Unknown 05/11/2025 8:37 AM EST 05/11/2025 10:14 AM EST us Manoj Kearns MD LAB BLOOD ORDERABLES Final Resul t [facility] [address] [place] [address], * (ABNORMAL) Basic metabolic panel (05/11/2025 8:37 AM EST) Only the most recent of2 resultswithin the time period is included. Sodium 142 133 - 145 mmol/L 05/11/2025 11:[address] [facility] Potassium 3.4(L) 3.5 - 5.5 mmol/L 05/11/2025 11:[address] [facility] Chloride 104 96 - 110 mmol/L 05/11/2025 11:[address] [facility] CO2 27 21 - 32 mmol/L 05/11/2025 11:[address] [facility] Anion Gap 11 3 - 11 05/11/2025 11:[address] [facility] Glucose 90 70 - 100 mg/dL 05/11/2025 11:[address] [facility] BUN 11 5 - 25 mg/dL 05/11/2025 11:[address] [facility] Creatinine 0.77 0.50 - 1.10 mg/dL 05/11/2025 11:[address] [facility] eGFR 79 >=60 mL/min/1. 73m2 05/11/2025 11:[address] [facility] Comment:Calculation based on the Chronic Kidney Disease Epidemiology Collaboration (CKD-EPI) equation refit without adjustment for race. BUN/Creatinine Ratio 14.3 05/11/2025 11:[address] [facility] Calcium 8.3(L) 8.5 - 10.5 mg/dL 05/11/2025 11:[address] [facility] Blood Venous blood specimen / Unknown Venipuncture / Unknown 05/11/2025 8:37 AM EST 05/11/2025 10:14 AM EST us Manoj Kearns MD LAB BLOOD ORDERABLES Final Resul t [facility] [address] [place] [address], [place] [phone] * Lipid panel with reflex to direct LDL (05/04/2025 8:49 AM EST) Cholesterol 117 0 - 200 mg/dL LAB CHEMISTRY METHOD 05/04/2025 11:[address] [facility] Triglycerides 88 0 - 150 mg/dL LAB CHEMISTRY METHOD 05/04/2025 11:[address] [facility] HDL 47 >=40 mg/dL LAB CHEMISTRY METHOD 05/04/2025 11:[address] [facility] LDL Calculated 52 0 - 100 mg/dL LAB CHEMISTRY METHOD 05/04/2025 11:[address] [facility] Comment:Estimated LDL Calcul ated using equation: Total cholesterol - HDL cholesterol - (Triglycerides/5) VLDL Cholesterol [place] 17.6 mg/dL LAB CHEMISTRY METHOD 05/04/2025 11:[address] [facility] Non HDL Chol. (LDL+VLDL) 70 <145 mg/dL LAB CHEMISTRY METHOD 05/04/2025 11:[address] [facility] Chol/HDL Ratio 2.5 0.0 - 4.4 LAB CHEMISTRY METHOD 05/04/2025 11:[address] [facility] Blood Venous blood specimen / Unknown Venipuncture / Unknown 05/04/2025 8:49 AM EST 05/04/2025 9:51 AM EST us Manoj Kearns MD LAB BLOOD ORDERABLES Final Resul t [facility] [address] [place] [address], [place] [phone] * Thyroid stimulating hormone (04/27/2025 5:14 AM EST) TSH 2.08 0.40 - 4.00 mcIU/mL LAB CHEMISTRY METHOD 04/27/2025 4:16 PM EST [facility] Blood Venous blood specimen / Unknown Venipuncture / Unknown 04/27/2025 5:14 AM EST 04/27/2025 10:27 AM EST Manoj Kearns MD LAB BLOOD ORDERABLES Final Resul t [facility] [address] [place] [address], [place] [phone] * External Xray Report (04/20/2025) Only the [...] * Depression Screening (03/06/2024) Depression Screening abstracted Historical Provider HEALTH MAINTENANCE Final [...] (World Health Organization Fracture Risk Assessment) [facility] Department of Internal Medicine recommends using [...] alternative screening schedule based on issa Mayer., [facility] July 06, 2011 for patients with [...] years. (World HealthOrganization Fracture Risk Assessment) [facility] Department of Internal Medicine recommendsusing National [...] higher), BMD testingevery 15 years Jodie DANGELO [facility] DXA PROCEDURES Final Result * External Colonoscopy Report (04/28/2022 7:47 AM EST) Anatomical Region Laterality Modality Endoscopy Historical Provider GI~PROCEDURE ORDERABLES F inal Result * Hepatitis C Screening (10/24/2013) Hepatitis C Screening abstracted us Historical Provider HEALTH MAINTENANCE Final Result from Last 3 Months or Most Recently Relevant to Health Maintenance Insurance MEDICARE [facility] Advance Directives * Full Code - Confirmed [...] currently active code status orders. Care Teams Impregnating Tank Operator Relationship Specialty Start Date End Date Alena Quiroz MD [address] [place] [phone] PCP - General Internal Medicine 01/23/22
== END 2025-06-15 11:05 | disposition home or self-care (01) ==
LOC: HO.HCS 10:11
PROVIDERS: PCP Internal Medicine; Visit Provider Nurse Practitioner Family
DX: I48.0 Paroxysmal atrial fibrillation (principal); R79.89 Other specified abnormal findings of blood chemistry; I10 Essential (primary) hypertension; Z51.89 Encounter for other specified aftercare
CPT/HCPCS: 93010; 99214; G2211

== ENCOUNTER → 2025-06-15 10:10 | Outpatient (BNVA) | payer MEDICARE, OTHER, SELFPAY | PROVIDERS: PCP Internal Medicine; Visit Provider Nurse Practitioner Family | DX: Z09 Encounter for follow-up examination after completed treatment for conditions other than malignant neoplasm (principal); I48.0 Paroxysmal atrial fibrillation; R79.89 Other specified abnormal findings of blood chemistry; I10 Essential (primary) hypertension | CPT/HCPCS: 93005; 99212 ==